=== PATIENT | male | born 1960 | race Caucasian/White ===

== ENCOUNTER 2020-09-08 09:24 | Inpatient (IN) | payer OTHER, SELFPAY ==
[2020-09-08] VITALS (16 sets, daily range): BP systolic 102–153; BP diastolic 58–108; PULSE 88–130; RESP 12–18; TEMP 36.2–36.9; O2SAT 92–100; BMI 29.1; BMI 29.5
--- NOTE | 2020-09-08 | US_ITS ---
EXAMINATION: US ABDOMEN COMPLETE CLINICAL INFORMATION: Right upper quadrant abdominal pain.. COMPARISON: Abdominal ultrasound done on 02/04/2019. TECHNIQUE: Real-time imaging of the abdominal viscera. Technically limited study due to patient's body habitus and presence of prominent bowel loops. FINDINGS: PANCREAS: Nonvisualized due to overlying bowel gas, accordingly not evaluated. ABDOMINAL AORTA: Nonvisualized due to overlying bowel gas. INFERIOR VENA CAVA: Nonvisualized due to overlying bowel gas. LIVER: Diffuse heterogeneous abnormal increased echotexture is noted consistent with diffuse liver disease, without any sonographic evidence of superimposed discrete focal liver lesion, similar to prior study. There is no intrahepatic biliary duct dilatation seen. GALLBLADDER: Multiple gallstones are present . The gallbladder wall measures between 0.3-0.5 cm and small amount of fluid is also noted within the gallbladder wall. This may represent changes secondary to adjacent diffuse liver disease. Acute cholecystitis however is included in the differential. This is a new finding since prior study. COMMON BILE DUCT: Nonvisualized, likely decompressed. RIGHT KIDNEY: Normal. No hydronephrosis. No renal calculi or focal parenchymal lesions. The kidney measures 12.8 cm in maximum dimension. LEFT KIDNEY: Normal. No hydronephrosis. No renal calculi or focal parenchymal lesions. The kidney measures 12.4 cm in maximum dimension. SPLEEN: Mildly enlarged, measures 13.8 cm. FREE FLUID: None. Incidental note is made of recanalized periumbilical vein, suggestive of underlying portal hypertension. IMPRESSION: 1. Technically limited study. 2. Nonvisualized pancreas, aorta and inferior vena cava due to overlying bowel gas and patient's body habitus. 3. Diffuse liver disease without any superimposed focal liver lesion. Note is made of recanalized periumbilical vein, suggestive of underlying portal hypertension. 4. Cholelithiasis with nonspecific mild gallbladder wall thickening and fluid within the wall of the gallbladder, may represent changes secondary to adjacent diffuse liver disease versus superimposed acute cholecystitis, or combination thereof. 5. No sonographic evidence of intrahepatic or extremity biliary ductal dilatation. 6. Mild splenomegaly. 7. No sonographic evidence of free fluid within the visualized abdomen.
--- NOTE | 2020-09-08 09:32 | ECG_ITS ---
Test Reason : WEAKNESS Blood Pressure : / mmHG Vent. Rate : 091 BPM Atrial Rate : 091 BPM P-R Int : 186 ms QRS Dur : 100 ms QT Int : 388 ms P-R-T Axes : 042 034 038 degrees QTc Int : 477 ms Normal sinus rhythm Low voltage QRS Borderline ECG Compare to previous EKG Heart rate has increased Referred By: Huan Alfredo Electronically Signed By:STEPHEN BAKER MD
--- NOTE | 2020-09-08 09:47 | XR_ITS ---
EXAMINATION: XR CHEST CLINICAL INFORMATION: Generalized weakness COMPARISON: 05/03/2020 TECHNIQUE: Portable AP upright view of the chest was obtained. FINDINGS: Cardiac and mediastinal silhouettes are normal in appearance. The lungs and pleural spaces are clear. No acute osseous abnormality. IMPRESSION: The lungs are clear.
--- NOTE | 2020-09-08 09:54 | ED.GENADULT ---
HPI - General Adult General Chief complaint: General Medical Stated complaint: weakness Time Seen by Provider: 09/08/20 09:47 Source: patient Mode of arrival: EMS Limitations: no limitations History of Present Illness HPI narrative: 60-year-old male known alcoholic, presented with persistent vomiting for the past few days and unable to keep p.o. intake. patient feeling anxious and withdrawn from alcohol. Onset (ago): day(s) (3) Related Data Allergies Allergy/AdvReac Type Severity Reaction Status Date / Time No Known Allergies Allergy Unverified 08/09/20 18:37 [No Known Allergies*] bee stings had shots Allergy Unknown Uncoded 01/02/20 00:00 none Allergy Unknown Uncoded 04/24/20 00:00 Review of Systems Review of Systems: Yes all other systems are reviewed and are negative Constitutional: Constitutional: Reports no additional constitutional complaints Eyes: Eyes: Reports no additional eye complaints ENT: Reports system reviewed and no additional complaints, except as documented Cardiovascular: Cardiovascular: Reports no additional cardiovascular complaints Respiratory: Respiratory: Reports no additional respiratory complaints Gastrointestinal: Gastrointestinal: Reports abdominal pain, Reports nausea and Reports vomiting Musculoskeletal: Musculoskeletal: Reports no additional musculoskeletal complaints Neurologic: Reports system reviewed and no additional complaints, except as documented Psychiatric: Psychiatric: Reports no additional psychiatric complaints Allergic/Immunologic: Allergic/Immunologic: Reports no additional allergic/immunologic complaints PMFSH Past Medical History Medical History Cirrhosis Ulcer Social History Social History Alcohol intake: current Alcohol intake frequency: 3 or more drinks per day Alcohol type: beer Smoking Status: Current every day smoker Use of substances other than those prescribed or required for medical reasons: No Advance Directives: No Advance Directives Information Provided: No Physical Exam Vital Signs: Vital Signs: Vital Signs Temp Pulse Resp BP Pulse Ox 09/08/20 12:34 122 H 151/108 H 09/08/20 12:31 130 H 153/105 H 09/08/20 12:30 101 H 145/87 H 09/08/20 11:46 97.2 F 95 18 127/87 98 09/08/20 09:41 97.9 F 90 18 117/87 99 09/08/20 09:28 97.9 F 90 18 117/87 98 Body Mass Index 29.1 Const: General: ill appearing Nutritional Appearance: obese Orientation/consciousness: oriented to person, oriented to place and oriented to time Limitations: no limitations HENMT: Head: Yes normal to inspection Eyes: Conjunctivae: conjunctival abnormal ( jaundice) bilateral Neck: Neck: Yes normal visual inspection Chest: Chest palpation & inspection: normal inspection of the chest Resp: Effort & Inspection: normal respiratory effort Cardio: Jugular venous distension: no JVD GI: Inspection: Yes normal to inspection Auscultation: other ( mild diffuse tenderness, possible ascites distension.) Skin: Other: dry mucous membrane. General skin exam: jaundice Neuro: General: oriented to person, oriented to place, oriented to time and other ( No hallucination documented by the patient.) Extrem: Other: +2 edema both lower extremities. General: Yes normal to inspection Course Course Course Narrative: 60-year-old male with chronic alcoholism presented with jaundice, few days of vomiting, patient was bingeing alcohol. Patient started develop symptoms for withdrawal , generalized weakness. 1. severe hypovolemic hyponatremia /lower extremities edema/ascites /orthostatic. The case was discussed with Dr. Blake from Nephrology who is recommending fluid restriction and serial sodium check. 2. alcohol withdrawal start the patient on phenobarb. 3. admitted to ICU. Medical Decision Making Lab Data Lab results reviewed: Yes I reviewed the patient's lab results. Lab results narrative: Severe hyponatremia. Result diagrams: 09/08/20 11:03 09/08/20 11:03 Labs: Lab Results 09/08/20 09/08/20 09/08/20 Range/Units 11:03 11:03 11:03 WBC 5.2 (4.8-10.8) X10*3/uL RBC 3.70 L (4.60-5.80) X10*6/uL Hgb 12.5 L (14.0-18.0) g/dl Hct 33.9 L (42-52) % MCV 91.6 (80-98) fL MCH 33.8 H (27.0-33.0) pg MCHC 36.9 H (31.0-36.0) g/dl RDW 15.7 (11.0-16.0) % Plt Count 33 L (160-400) X10*3/uL MPV Not Reportable Absolute Nucleated RBC 0.020 H (0.0-0.012) X10*3/uL Nucleated RBC % (auto) 0.4 H (0.0-0.2) /100WBC PT (10.8-13.0) SEC INR (0.9-1.1) Sodium 112 L* (135-145) mmol/L Potassium 4.5 (3.3-5.1) mmol/l Chloride 78 L (96-108) mmol/L Carbon Dioxide 14 L (22-29) mmol/L Anion Gap 25 H (12-20) BUN 4 L (9-16) mg/dL Creatinine 0.73 (0.5-1.4) mg/dL Estim Creat Clear Calc 137.7 Estimated GFR > 60 Random Glucose 76 (60-115) mg/dL Calcium 8.0 L (8.4-10.2) mg/dL Magnesium 2.0 (1.6-2.6) mg/dL Total Bilirubin (0.0-1.0) mg/dL Direct Bilirubin (0.0-0.5) mg/dL AST (5-37) U/L ALT (0-40) U/L Alkaline Phosphatase (39-117) U/L Total Protein (6.5-8.0) g/dL Albumin (3.5-5.0) g/dL Lipase (8-78) U/L Ethyl Alcohol 186 mg/dL 09/08/20 09/08/20 Range/Units 11:03 11:03 WBC (4.8-10.8) X10*3/uL RBC (4.60-5.80) X10*6/uL Hgb (14.0-18.0) g/dl Hct (42-52) % MCV (80-98) fL MCH (27.0-33.0) pg MCHC (31.0-36.0) g/dl RDW (11.0-16.0) % Plt Count (160-400) X10*3/uL MPV Absolute Nucleated RBC (0.0-0.012) X10*3/uL Nucleated RBC % (auto) (0.0-0.2) /100WBC PT 20.4 H (10.8-13.0) SEC INR 1.7 H (0.9-1.1) Sodium (135-145) mmol/L Potassium (3.3-5.1) mmol/l Chloride (96-108) mmol/L Carbon Dioxide (22-29) mmol/L Anion Gap (12-20) BUN (9-16) mg/dL Creatinine (0.5-1.4) mg/dL Estim Creat Clear Calc Estimated GFR Random Glucose (60-115) mg/dL Calcium (8.4-10.2) mg/dL Magnesium (1.6-2.6) mg/dL Total Bilirubin 13.0 H (0.0-1.0) mg/dL Direct Bilirubin 9.7 H (0.0-0.5) mg/dL AST 237 H (5-37) U/L ALT 85 H (0-40) U/L Alkaline Phosphatase 192 H (39-117) U/L Total Protein 7.3 (6.5-8.0) g/dL Albumin 3.2 L (3.5-5.0) g/dL Lipase 65 (8-78) U/L Ethyl Alcohol mg/dL ECG Data Interpretation: normal sinus rhythm at 91 beats per minutes, normal axis, unremarkable ST-T with no ischemic change. Critical Care Time Critical Care Time Critical Care Time: Yes Total Critical Care Time: 40 Attestation: I spent 40 minutes at the bedside, checking labs, consulting digital project coordinator, consulting records and tape recordings engineer, reviewing labs, continuous monitoring vital sign. Discharge Plan Discharge Clinical Impression: Acute hyponatremia, Dehydration Alcohol withdrawal Qualifiers: Complication of substance-induced condition: uncomplicated Qualified Code(s): F10.230 - Alcohol dependence with withdrawal, uncomplicated Patient Disposition: Admitted As Inpatient
--- NOTE | 2020-09-08 10:33 | PC.NURSE ---
pharmacy called for ivf
--- NOTE | 2020-09-08 10:34 | PC.NURSE ---
difficult to obtain access, 22 to right hand. tech will attempt to obtain labs
[2020-09-08 11:14] LABS: INTERNATIONAL NORM RATIO 1.7 (0.9-1.1); Prothrombin Time 20.4 SEC (10.8-13.0)
[2020-09-08] MEDS: PHENobarbitaL sodium 130 MG/ML VIAL 262 MG IM (11:27)
[2020-09-08 11:35] LABS: Ethanol 186 mg/dL
[2020-09-08 11:39] LABS: Alanine Aminotransferase 85 U/L (0-40); Albumin Level 3.2 g/dL (3.5-5.0); Alkaline Phosphatase 192 U/L (39-117); Aspartate Amino Transferase 237 U/L (5-37); Bilirubin Direct 9.7 mg/dL (0.0-0.5); Blood Urea Nitrogen 4 mg/dL (9-16); Creatinine Clr Calc Pharmacy 137.7; Estimated Glomerular Filt Rate > 60; Glucose Random 76 mg/dL (60-115); Lipase 65 U/L (8-78); Total Protein 7.3 g/dL (6.5-8.0)
[2020-09-08 11:49] LABS: Anion Gap 25 (12-20); Carbon Dioxide 14 mmol/L (22-29); Chloride 78 mmol/L (96-108); Potassium 4.5 mmol/l (3.3-5.1); Sodium 112 mmol/L (135-145)
[2020-09-08 12:06] LABS: Red Cell Distribution Width 15.7 % (11.0-16.0)
[2020-09-08 12:07] LABS: Hematocrit 33.9 % (42-52); Hemoglobin 12.5 g/dl (14.0-18.0); Mean Corpuscular HGB Conc 36.9 g/dl (31.0-36.0); Mean Corpuscular Hemoglobin 33.8 pg (27.0-33.0); Mean Corpuscular Volume 91.6 fL (80-98); NRBC Pct Auto 0.4 /100WBC (0.0-0.2); White Blood Count 5.2 X10*3/uL (4.8-10.8)
[2020-09-08 12:08] LABS: PLT ABN DIST 1; Platelet Count 33 X10*3/uL (160-400)
--- NOTE | 2020-09-08 12:44 | PC.NURSE ---
PT SEEN BY INTENSIVEIST PLAN FOR ADMISSION TO ICU
--- NOTE | 2020-09-08 13:33 | PC.NURSE ---
PT HAS ORDERS AND ROOM ASSIGNED CALLED CORPORATE SECRETARY WILL CALL BACK
--- NOTE | 2020-09-08 14:01 | PC.NURSE ---
CALLED TO GIVE REPOT AGAIN, STATED A DIFFRENT RN IS GOING TO TAKE PT AND IS CURRENTLY AT LUNCH
--- NOTE | 2020-09-08 14:37 | PC.NURSE ---
ATTEMPTED TO GIVE REPORT AGAIN RN NOT ABLE TO TAKE REPORT AT THIS TIME
--- NOTE | 2020-09-08 14:41 | PC.NURSE ---
REPORT GIVEN KEEGAN GRIFFITH
[2020-09-08] MEDS: PHENobarbitaL sodium 130 MG/ML VIAL 197 MG IM ×2 (14:44→21:34)
[2020-09-08 17:02] LABS: Base Excess VBG -7.2 mmol/L; Blood Gas Serial # 5414; HCO3 VBG 15 mmol/L; Oxygen Saturation VBG 94.9 %; PCO2 VBG 22 mmhg; PO2 VBG 73 mmhg; pH VBG 7.45 (7.32-7.43)
[2020-09-08 17:08] LABS: Anion Gap 21 (12-20); Blood Urea Nitrogen 4 mg/dL (9-16); Calcium 7.6 mg/dL (8.4-10.2); Carbon Dioxide 16 mmol/L (22-29); Chloride 80 mmol/L (96-108); Creatinine Clr Calc Pharmacy 141.6; Estimated Glomerular Filt Rate > 60; Glucose Random 65 mg/dL (60-115); Potassium 4.2 mmol/l (3.3-5.1); Sodium 113 mmol/L (135-145)
--- NOTE | 2020-09-08 17:25 | PM.CCHP ---
History of Present Illness Date of Service: 09/08/20 Chief Complaint: malaise 60-year-old gentleman with underlying history of alcohol abuse, liver cirrhosis, gastroesophageal reflux disease, gastritis, prior upper GI bleed admitted on 09/08/2020 with alcohol intoxication, malaise, abdominal discomfort, and subacute hypernatremia. Patient states that he has not been eating well for the last month except drinking alcohol. he denied any other complaints. He has been admitted to intensive care unit for close monitoring of his subacute asymptomatic hyponatremia Review of Systems Constitutional: Constitutional: Reports malaise and Reports poor appetite Eyes: Eyes: Denies change in vision and Denies loss of vision Cardiovascular: Cardiovascular: Denies chest pain, Reports pedal edema and Denies dyspnea on exertion Respiratory: Respiratory: Denies chest congestion, Denies dyspnea on exertion and Denies wheezing Gastrointestinal: Gastrointestinal: Denies constipation, Reports dyspepsia, Reports heartburn and Denies diarrhea Genitourinary: Genitourinary: Denies dysuria and Denies urinary urgency Integumentary/Breasts: Skin/Breast: Denies skin ulcer and Denies sores Neurologic: Denies loss of vision and Denies memory loss Psychiatric: Psychiatric: Reports depression and Denies memory loss Endocrine: Endocrine: Denies cold intolerance and Denies heat intolerance Hematologic/Lymphatic: Hematologic/Lymphatic: Denies easy bruising Allergic/Immunologic: Allergic/Immunologic: Denies wheezing PMFSH Past Medical History Medical History Cirrhosis Ulcer Social History Social History Alcohol intake: current Alcohol intake frequency: 3 or more drinks per day Alcohol type: beer Smoking Status: Current every day smoker Use of substances other than those prescribed or required for medical reasons: No Advance Directives: No Advance Directives Information Provided: No Meds Allergies Allergy/AdvReac Type Severity Reaction Status Date / Time No Known Allergies Allergy Unverified 08/09/20 18:37 [No Known Allergies*] bee stings had shots Allergy Unknown Uncoded 01/02/20 00:00 none Allergy Unknown Uncoded 04/24/20 00:00 Physical Exam Vital Signs: Vital Signs: Vital Signs Temp Pulse Resp BP Pulse Ox 09/08/20 12:34 122 H 151/108 H 09/08/20 12:31 130 H 153/105 H 09/08/20 12:30 101 H 145/87 H 09/08/20 11:46 97.2 F 95 18 127/87 98 09/08/20 09:41 97.9 F 90 18 117/87 99 09/08/20 09:28 97.9 F 90 18 117/87 98 Body Mass Index 29.1 Const: General: no acute distress, alert and awake Eyes: Sclerae: sclerae normal EOM: EOMs intact bilaterally Neck: Neck: Yes no lymphadenopathy, Yes trachea midline and Yes supple Resp: Effort & Inspection: normal respiratory effort and no respiratory distress Auscultation: clear to auscultation bilaterally Cardio: Rate: regular rate Rhythm: regular rhythm Heart sounds: no gallops, no murmurs and no rubs GI: Palpation (GI): Soft to palpation and Other GI palpation findings present ( Nontender) Auscultation: normal bowel sounds Extrem: General: Yes no pedal edema, No clubbing and No cyanosis Right upper extremity: edema ( 2+ bilateral) Results Labs Labs: Laboratory Tests 09/08/20 09/08/20 09/08/20 11:03 11:03 11:03 WBC 5.2 RBC 3.70 L Hgb 12.5 L Hct 33.9 L MCV 91.6 MCH 33.8 H MCHC 36.9 H RDW 15.7 Plt Count 33 L MPV Not Reportable Absolute Nucleated RBC 0.020 H Nucleated RBC % (auto) 0.4 H PT INR VBG pH VBG pCO2 VBG Oxygen Liters/Min VBG pO2 VBG HCO3 VBG O2 Saturation VBG Base Excess Sodium 112 L* Potassium 4.5 Chloride 78 L Carbon Dioxide 14 L Anion Gap 25 H BUN 4 L Creatinine 0.73 Estim Creat Clear Calc 137.7 Estimated GFR > 60 Random Glucose 76 Calcium 8.0 L Magnesium 2.0 Total Bilirubin Direct Bilirubin AST ALT Alkaline Phosphatase Total Protein Albumin Lipase Phenobarbital Ethyl Alcohol 186 09/08/20 09/08/20 09/08/20 11:03 11:03 11:03 WBC RBC Hgb Hct MCV MCH MCHC RDW Plt Count MPV Absolute Nucleated RBC Nucleated RBC % (auto) PT 20.4 H INR 1.7 H VBG pH VBG pCO2 VBG Oxygen Liters/Min VBG pO2 VBG HCO3 VBG O2 Saturation VBG Base Excess Sodium Potassium Chloride Carbon Dioxide Anion Gap BUN Creatinine Estim Creat Clear Calc Estimated GFR Random Glucose Calcium Magnesium Total Bilirubin 13.0 H Direct Bilirubin 9.7 H AST 237 H ALT 85 H Alkaline Phosphatase 192 H Total Protein 7.3 Albumin 3.2 L Lipase 65 Phenobarbital < 1.1 L Ethyl Alcohol 09/08/20 09/08/20 15:49 16:44 WBC RBC Hgb Hct MCV MCH MCHC RDW Plt Count MPV Absolute Nucleated RBC Nucleated RBC % (auto) PT INR VBG pH 7.45 H VBG pCO2 22 VBG Oxygen Liters/Min Not Reportable VBG pO2 73 VBG HCO3 15 VBG O2 Saturation 94.9 VBG Base Excess -7.2 Sodium 113 L* Potassium 4.2 Chloride 80 L Carbon Dioxide 16 L Anion Gap 21 H BUN 4 L Creatinine 0.71 Estim Creat Clear Calc 141.6 Estimated GFR > 60 Random Glucose 65 Calcium 7.6 L Magnesium Total Bilirubin Direct Bilirubin AST ALT Alkaline Phosphatase Total Protein Albumin Lipase Phenobarbital Ethyl Alcohol Assessment and Plan (1) Acute hyponatremia: Status: Acute (2) Alcohol withdrawal: Qualifiers: Complication of substance-induced condition: uncomplicated Qualified Code(s): F10.230 - Alcohol dependence with withdrawal, uncomplicated Status: Acute (3) Elevated bilirubin: Status: Acute Assessment: 60-year-old gentleman with underlying history of liver cirrhosis alcohol abuse admitted with subacute asymptomatic hyponatremia and alcohol withdrawal. Plan: Neuro: Alcohol withdrawal, continue on phenobarbital protocol. Cardiac: No acute issues. Pulmonary: No acute issues. Renal: Subacute asymptomatic hyponatremia. Nephrology service care appreciated. Likely secondary to poor solute intake. Continue to encourage appropriate p.o. intake. Continue to monitor sodium level. Endo: No acute issues. GI: Asymptomatic elevated bilirubin, will obtain abdominal ultrasound. ID: No acute issues Heme/Onc: No acute issues. Psych: No acute issues. Miscellaneous: No acute issues. Prophylaxis: Intermittent pneumatic compression Diet: regular Critical care time spent: 45 minutes Critical Care Time 45 minutes
[2020-09-08 19:43] LABS: Glucose Urine UA 100 MG/DL (NEG); Leukocyte Esterase Urine NEG (NEG); Nitrite Urine POS (NEG); PH 5.5 (5.0-8.0); Specific Gravity - Urine 1.025 (1.005-1.025); Urine Blood NEG (NEG); Urine Ketones 15 MG/DL (NEG); Urine Protein TRACE MG/DL (NEG-TRACE)
[2020-09-08 19:44] LABS: Appearance Urine HAZY; Color Urine AMBER
[2020-09-08 19:49] LABS: Bacteria Urine 2+ /LPF; RBC Urine 0 /HPF (0); Squamous Epithelial Cell Urine 1+ /LPF; WBC Urine 0 /HPF (0-4)
[2020-09-08 20:12] LABS: Osmolality Urine 486 mosm/kg (373-1093)
[2020-09-08 20:35] LABS: Sodium Urine Random < 20.0 mmol/L
--- NOTE | 2020-09-08 22:43 | CONS_ITS ---
DATE OF SERVICE: 09/08/2020 REASON FOR CONSULTATION: Hyponatremia. HISTORY OF PRESENT ILLNESS: Thomas is a 60-year-old gentleman who is an alcoholic, who presents to the hospital with persistent vomiting for the last many days. He has been unable to keep anything by mouth and has not been eating and drinking well. He is currently feeling anxious and withdrawn from alcohol. He has not had any seizures. Evaluation done in the emergency room found him to have hyponatremia with a serum sodium of 112. He was given 1 L of banana bag and is being admitted for further management. Nephrology is being consulted to assist in his clinical care during his current hospital stay. PAST MEDICAL HISTORY: Alcohol abuse, liver cirrhosis, peptic ulcer. MEDICATIONS: All his current medications were reviewed. ALLERGIES: REVIEWED. FAMILY HISTORY: There is no family history of any renal diseases. SOCIAL HISTORY: He has a history of alcohol abuse and continues to drink heavily every day. He is a smoker. He denies using drugs. REVIEW OF SYSTEMS: All other systems have been reviewed and were negative except as mentioned in HPI. PHYSICAL EXAMINATION: GENERAL: Thomas was lying comfortably in the bed. He was alert and awake. HEENT: His extraocular eye movements were normal. His oral mucous membranes appeared moist. NECK: Supple. LUNGS: Air entry was reduced at the bases. HEART: First and second heart sounds were normal. ABDOMEN: Soft, nontender. EXTREMITIES: He does not have any calf tenderness, but has trace of pedal edema. NEUROLOGICAL: He was alert and awake. He was moving all extremities. LABORATORY DATA: Sodium 112, potassium 4.5, chloride 78, bicarbonate 14, BUN 4, creatinine of 0.73. ASSESSMENT/PLAN: Hyponatremia. Thomas is a heavy alcoholic. He presents with hyponatremia without any mental status changes. He has received 1 L of intravenous fluids by emergency room physician. He has trace of pedal edema. I have ordered urine sodium and urine osmolality. He may have beer potomania. We should fluid restrict him for now. Based on urine studies, we can consider giving him normal saline at 100 mL an hour for 10 hours for a maximum of 1 L if needed. We should monitor his serum sodium every 2 hours. He is at high risk for central pontine myelinolysis. We will closely monitor management with the colleagues during his hospital stay. Thank you for giving us an opportunity to participate in the medical care of this pleasant patient. MD CINDY Lombardi/IOANA / [id number] MTDD
[2020-09-09] VITALS (23 sets, daily range): BP systolic 105–143; BP diastolic 60–95; PULSE 88–115; RESP 11–22; TEMP 36.8–37; O2SAT 92–100; BMI 30.1
[2020-09-09] MEDS: 0.9 % Sodium Chloride Flush 3 ML SYRINGE IVFLUSH ×3 (03:31→15:05)
[2020-09-09 05:37] LABS: Basophils Percent Auto 0.2 % (0-2); Eosinophils Percent Auto 0.2 % (0-4); Imm Gran Abs Auto 0.09 X10*3/uL (0.00-0.03); MANUAL DIFF FLAG SCAN; PLT CLUMP 1; Red Blood Count 3.51 X10*6/uL (4.60-5.80); SCAN SMEAR FLAG 1
[2020-09-09 05:39] LABS: Hematocrit 31.7 % (42-52); Hemoglobin 11.7 g/dl (14.0-18.0); Lymphocytes Absolute Auto 0.7 X10*3/uL (1.2-4.9); Lymphocytes Percent Auto 16.5 % (20-40); Mean Corpuscular HGB Conc 36.9 g/dl (31.0-36.0); Mean Corpuscular Hemoglobin 33.3 pg (27.0-33.0); Mean Corpuscular Volume 90.3 fL (80-98); Mean Platelet Volume 10.5 fL (9.4-12.4); Monocytes Absolute Auto 0.6 X10*3/uL (0.1-1.2); Monocytes Percent Auto 14.3 % (2-11); NRBC Pct Auto 0.5 /100WBC (0.0-0.2); Neutrophils Percent Auto 66.8 % (45-73); Red Cell Distribution Width 15.3 % (11.0-16.0); White Blood Count 4.4 X10*3/uL (4.8-10.8)
[2020-09-09 05:43] LABS: Platelet Count 39 X10*3/uL (160-400)
[2020-09-09 05:44] LABS: pH VBG 7.45 (7.32-7.43)
[2020-09-09 05:45] LABS: Base Excess VBG -4.4 mmol/L; HCO3 VBG 18 mmol/L; PCO2 VBG 27 mmhg; PO2 VBG 53 mmhg
[2020-09-09 06:00] LABS: Albumin Level 2.9 g/dL (3.5-5.0)
[2020-09-09 06:08] LABS: Alanine Aminotransferase 79 U/L (0-40); Albumin Level 2.9 g/dL (3.5-5.0); Alkaline Phosphatase 193 U/L (39-117); Anion Gap 20 (12-20); Aspartate Amino Transferase 218 U/L (5-37); Bilirubin Total 13.1 mg/dL (0.0-1.0); Blood Urea Nitrogen 5 mg/dL (9-16); Calcium 7.7 mg/dL (8.4-10.2); Carbon Dioxide 15 mmol/L (22-29); Chloride 83 mmol/L (96-108); Creatinine Clr Calc Pharmacy 136.6; Estimated Glomerular Filt Rate > 60; Glucose Random 78 mg/dL (60-115); Magnesium 1.9 mg/dL (1.6-2.6); Phosphorus 1.7 mg/dL (2.7-4.5); Potassium 4.2 mmol/l (3.3-5.1); Sodium 114 mmol/L (135-145); Total Protein 6.4 g/dL (6.5-8.0)
--- NOTE | 2020-09-09 06:26 | PC.NURSE ---
SE [id number]: PT SLEPT OFF AND ON IN NAPS. PT DENIES COMPLAINTS. STATES I'M GOING THROUGH WITHDRAWALS. POSITIVE TREMORS NOTED BOTH HANDS. PT DENIES HEADACHE. HE IS A&O X4 AND IS COOPERATIVE WITH CARE. ON PHENOBARBITOL PROTOCOL. SODIUM LEVEL THIS AM 114. DANETTE MORALES IS AWARE. PT HAS NOT VOIDED IN 8 HOURS BUT DOES NOT FEEL THE URGE TO GO AND IS NOT DISTENDED. WILL REPORT THIS TO ONCOMING RN TO WATCH U/O.
[2020-09-09] MEDS: Omeprazole 40 MG CAPSULE.DR PO (06:30)
[2020-09-09 06:58] LABS: SLIDE REVIEW VERIFIED
[2020-09-09] MEDS: PHENobarbitaL 30 MG TABLET 60 MG PO ×2 (08:50→21:14)
[2020-09-09] MEDS: Sodium,Potassium Phosphates POWD.PACK 2 PACKET PO ×3 (08:51→21:11)
[2020-09-09] MEDS: Folic Acid 1 MG TABLET 2 MG PO (08:51)
[2020-09-09] MEDS: Sodium Chloride Tab 1 GM TABLET 2 GM PO ×3 (09:40→21:12)
--- NOTE | 2020-09-09 10:49 | PM.PNNEP ---
Subjective Subjective Principal diagnosis: Hyponatremia Interval history: Feels improved. Sodium improving. No mental status changes Physical Exam Vital Signs: Vital Signs: Vital Signs Temp Pulse Resp BP Pulse Ox 09/09/20 10:00 115 H 21 H 119/79 96 09/09/20 09:00 102 H 15 117/88 97 09/09/20 07:00 102 H 18 120/81 95 09/09/20 06:15 90 14 116/72 93 09/09/20 05:00 100 16 108/64 94 09/09/20 04:00 88 14 116/71 92 09/09/20 03:00 96 14 117/71 94 09/09/20 02:00 90 14 114/71 92 09/09/20 01:00 99 12 124/79 96 09/09/20 00:00 88 15 105/60 94 09/08/20 22:47 92 14 102/58 L 92 09/08/20 21:51 95 15 128/103 H 94 09/08/20 21:50 88 16 100 09/08/20 21:00 99 13 128/103 H 95 09/08/20 20:00 98.5 F 90 15 146/88 H 09/08/20 19:00 92 15 121/71 93 09/08/20 18:27 100 14 126/72 95 09/08/20 17:49 100 12 126/72 95 09/08/20 17:00 95 14 106/79 94 09/08/20 16:00 97.3 F 98 18 106/78 96 09/08/20 12:34 122 H 151/108 H 09/08/20 12:31 130 H 153/105 H 09/08/20 12:30 101 H 145/87 H 09/08/20 11:46 97.2 F 95 18 127/87 98 Body Mass Index 30.1 Const: General: cooperative Orientation/consciousness: oriented to person, oriented to place and oriented to time HENMT: Head: Yes normocephalic Eyes: EOM: EOMs intact bilaterally Neck: Neck: Yes no JVD Resp: Auscultation: clear to auscultation bilaterally Cardio: Jugular venous distension: no JVD Heart sounds: S1 normal heart sound present and S2 normal heart sound present GI: Inspection: Yes obesity Neuro: General: oriented to person, oriented to place and oriented to time Assessment & Plan Assessment and plan (1) Hyponatremia: Problem details: Serum sodium improving Urine studies reviewed ICU Attending has given him NaCl tablets Getting lytes monitored closely Status: Acute Time Spent With Patient Time: Total time spent is greater than 50% in coordination of care (as documented) at patient's floor/unit and/or counseling patient:
--- NOTE | 2020-09-09 12:14 | PM.CCPN ---
Subjective Subjective Date of Service: 09/09/20 Interval History: ICU day 2 for subacute symptomatic hyponatremia and alcohol withdrawal. 60-year-old gentleman with underlying history of alcohol abuse, liver cirrhosis, gastroesophageal reflux disease, gastritis, prior upper GI bleed admitted on 09/08/2020 with alcohol intoxication, malaise, abdominal discomfort, and subacute hypernatremia. Patient states that he has not been eating well for the last month except drinking alcohol. Until recently he has been doing his own groceries, now his friend helps him secondary to underlying back pain. He denied any other complaints. He has been admitted to intensive care unit for close monitoring of his subacute asymptomatic hyponatremia Physical Exam Vital Signs: Vital Signs: Vital Signs Temp Pulse Resp BP Pulse Ox 09/09/20 12:00 98.3 F 104 H 16 125/76 92 09/09/20 10:53 97 16 119/79 94 09/09/20 10:00 115 H 21 H 119/79 96 09/09/20 09:00 102 H 15 117/88 97 09/09/20 07:00 102 H 18 120/81 95 09/09/20 06:15 90 14 116/72 93 09/09/20 05:00 100 16 108/64 94 09/09/20 04:00 88 14 116/71 92 09/09/20 03:00 96 14 117/71 94 09/09/20 02:00 90 14 114/71 92 09/09/20 01:00 99 12 124/79 96 09/09/20 00:00 88 15 105/60 94 09/08/20 22:47 92 14 102/58 L 92 09/08/20 21:51 95 15 128/103 H 94 09/08/20 21:50 88 16 100 09/08/20 21:00 99 13 128/103 H 95 09/08/20 20:00 98.5 F 90 15 146/88 H 09/08/20 19:00 92 15 121/71 93 09/08/20 18:27 100 14 126/72 95 09/08/20 17:49 100 12 126/72 95 09/08/20 17:00 95 14 106/79 94 09/08/20 16:00 97.3 F 98 18 106/78 96 09/08/20 12:34 122 H 151/108 H 09/08/20 12:31 130 H 153/105 H 09/08/20 12:30 101 H 145/87 H Body Mass Index 30.1 Const: General: no acute distress, alert and awake Eyes: Sclerae: sclerae normal EOM: EOMs intact bilaterally Neck: Neck: Yes no lymphadenopathy, Yes trachea midline and Yes supple Resp: Effort & Inspection: normal respiratory effort and no respiratory distress Auscultation: clear to auscultation bilaterally Cardio: Rate: regular rate Rhythm: regular rhythm Heart sounds: no gallops, no murmurs and no rubs GI: Palpation (GI): Soft to palpation and Other GI palpation findings present ( Nontender) Auscultation: normal bowel sounds Extrem: General: No clubbing, No cyanosis and Yes edema (1+ Bilateral) Objective Data Labs CBC & Chem 7: 09/09/20 05:24 09/09/20 05:24 Labs: Laboratory Results - last 24 hr 09/08/20 09/08/20 09/08/20 11:03 15:49 16:44 WBC RBC Hgb Hct MCV MCH MCHC RDW Plt Count MPV Immature Gran % (Auto) Neut % (Auto) Lymph % (Auto) [place] % (Auto) Eos % (Auto) Baso % (Auto) Lymph # (Auto) [place] # (Auto) Eos # (Auto) Baso # (Auto) Abs Immat Gran (auto) Absolute Neuts (auto) Absolute Nucleated RBC Nucleated RBC % (auto) Smear Tech's Comments VBG pH 7.45 H VBG pCO2 22 VBG Oxygen Liters/Min Not Reportable VBG pO2 73 VBG HCO3 15 VBG O2 Saturation 94.9 VBG Base Excess -7.2 Sodium 113 L* Potassium 4.2 Chloride 80 L Carbon Dioxide 16 L Anion Gap 21 H BUN 4 L Creatinine 0.71 Estim Creat Clear Calc 141.6 Estimated GFR > 60 Random Glucose 65 Calcium 7.6 L Phosphorus Magnesium Total Bilirubin AST ALT Alkaline Phosphatase Total Protein Albumin Urine Color Urine Appearance Urine pH Ur Specific [place] Urine Protein Urine Glucose (UA) Urine Ketones Urine Blood Urine Nitrite Ur Leukocyte Esterase Urine RBC Urine WBC Ur Squamous Epith Cells Urine Bacteria Urine Osmolality Ur Random Sodium Phenobarbital < 1.1 L 09/08/20 09/08/20 09/08/20 19:37 19:37 19:37 WBC RBC Hgb Hct MCV MCH MCHC RDW Plt Count MPV Immature Gran % (Auto) Neut % (Auto) Lymph % (Auto) [place] % (Auto) Eos % (Auto) Baso % (Auto) Lymph # (Auto) [place] # (Auto) Eos # (Auto) Baso # (Auto) Abs Immat Gran (auto) Absolute Neuts (auto) Absolute Nucleated RBC Nucleated RBC % (auto) Smear Tech's Comments VBG pH VBG pCO2 VBG Oxygen Liters/Min VBG pO2 VBG HCO3 VBG O2 Saturation VBG Base Excess Sodium Potassium Chloride Carbon Dioxide Anion Gap BUN Creatinine Estim Creat Clear Calc Estimated GFR Random Glucose Calcium Phosphorus Magnesium Total Bilirubin AST ALT Alkaline Phosphatase Total Protein Albumin Urine Color BRIGHT Urine Appearance HAZY Urine pH 5.5 Ur Specific [place] 1.025 Urine Protein TRACE Urine Glucose (UA) 100 H Urine Ketones 15 Urine Blood NEG Urine Nitrite POS H Ur Leukocyte Esterase NEG Urine RBC 0 Urine WBC 0 Ur Squamous Epith Cells 1+ Urine Bacteria 2+ Urine Osmolality 486 Ur Random Sodium < 20.0 Phenobarbital 09/09/20 09/09/20 09/09/20 05:24 05:24 05:24 WBC 4.4 L RBC 3.51 L Hgb 11.7 L Hct 31.7 L MCV 90.3 MCH 33.3 H MCHC 36.9 H RDW 15.3 Plt Count 39 L MPV 10.5 Immature Gran % (Auto) 2.0 H Neut % (Auto) 66.8 Lymph % (Auto) 16.5 L [place] % (Auto) 14.3 H Eos % (Auto) 0.2 Baso % (Auto) 0.2 Lymph # (Auto) 0.7 L [place] # (Auto) 0.6 Eos # (Auto) 0.0 Baso # (Auto) 0.0 Abs Immat Gran (auto) 0.09 H Absolute Neuts (auto) 3.0 Absolute Nucleated RBC 0.020 H Nucleated RBC % (auto) 0.5 H Smear Tech's Comments VERIFIED VBG pH VBG pCO2 VBG Oxygen Liters/Min VBG pO2 VBG HCO3 VBG O2 Saturation VBG Base Excess Sodium 114 L* Potassium 4.2 Chloride 83 L Carbon Dioxide 15 L Anion Gap 20 BUN 5 L Creatinine 0.74 Estim Creat Clear Calc 136.6 Estimated GFR > 60 Random Glucose 78 Calcium 7.7 L Phosphorus 1.7 L Magnesium 1.9 Total Bilirubin 13.1 H AST 218 H ALT 79 H Alkaline Phosphatase 193 H Total Protein 6.4 L Albumin 2.9 L 2.9 L Urine Color Urine Appearance Urine pH Ur Specific [place] Urine Protein Urine Glucose (UA) Urine Ketones Urine Blood Urine Nitrite Ur Leukocyte Esterase Urine RBC Urine WBC Ur Squamous Epith Cells Urine Bacteria Urine Osmolality Ur Random Sodium Phenobarbital 09/09/20 05:24 WBC RBC Hgb Hct MCV MCH MCHC RDW Plt Count MPV Immature Gran % (Auto) Neut % (Auto) Lymph % (Auto) [place] % (Auto) Eos % (Auto) Baso % (Auto) Lymph # (Auto) [place] # (Auto) Eos # (Auto) Baso # (Auto) Abs Immat Gran (auto) Absolute Neuts (auto) Absolute Nucleated RBC Nucleated RBC % (auto) Smear Tech's Comments VBG pH 7.45 H VBG pCO2 27 VBG Oxygen Liters/Min TNP VBG pO2 53 VBG HCO3 18 VBG O2 Saturation 89.0 VBG Base Excess -4.4 Sodium Potassium Chloride Carbon Dioxide Anion Gap BUN Creatinine Estim Creat Clear Calc Estimated GFR Random Glucose Calcium Phosphorus Magnesium Total Bilirubin AST ALT Alkaline Phosphatase Total Protein Albumin Urine Color Urine Appearance Urine pH Ur Specific [place] Urine Protein Urine Glucose (UA) Urine Ketones Urine Blood Urine Nitrite Ur Leukocyte Esterase Urine RBC Urine WBC Ur Squamous Epith Cells Urine Bacteria Urine Osmolality Ur Random Sodium Phenobarbital Microbiology Microbiology Results: Microbiology 09/08/20 19:45 Urine clean catch - Clean Catch Midstream Urine Culture - Preliminary No growth to date. Progress Note: A&P Assessment and plan (1) Hyponatremia: Status: Acute (2) Elevated bilirubin: Status: Acute (3) Alcohol withdrawal: Status: Acute Assessment and Plan: Assessment: 60-year-old gentleman with underlying history of liver cirrhosis, alcohol abuse, and back pain admitted with subacute asymptomatic hyponatremia and alcohol withdrawal. Plan: Neuro: Alcohol withdrawal, continue on phenobarbital protocol. Cardiac: No acute issues. Pulmonary: No acute issues. Renal: Subacute asymptomatic hyponatremia. Nephrology service care appreciated. Likely secondary to poor solute intake. Continue to encourage appropriate p.o. intake. Started on p.o. sodium tabs. Continue to monitor sodium level. Endo: No acute issues. GI: Asymptomatic elevated bilirubin - no evidence of biliary obstruction. ID: No acute issues Heme/Onc: No acute issues. Psych: No acute issues. Miscellaneous: No acute issues. Prophylaxis: Intermittent pneumatic compression Diet: regular Critical care time spent: 30 minutes Time Spent With Patient Total time spent with greater than 50% in coordination of care (as documented) at patient's floor/unit and/or counseling patient:: 0 Critical Care Time Critical Care Time (minutes): 30
--- NOTE | 2020-09-09 12:15 | MHC.CM.PN ---
Met with pt to discuss d/c plan Pt states he resides alone without services or any equipment. His PCP is located at [facility] (Dr. Castillo's replacement) and he either walks or calls his brother for transportation if needed. Pt is unsure of what his d/c needs will be. I'm having trouble walking He is hoping to return to home and is receptive to a [facility] referral but will also consider STR if it is recommended/required. Referral placed to [facility] : CM will continue to follow
[2020-09-09 16:48] LABS: Anion Gap 20 (12-20); Blood Urea Nitrogen 6 mg/dL (9-16); Calcium 7.8 mg/dL (8.4-10.2); Carbon Dioxide 16 mmol/L (22-29); Chloride 84 mmol/L (96-108); Creatinine Clr Calc Pharmacy 127.6; Estimated Glomerular Filt Rate > 60; Glucose Random 98 mg/dL (60-115); Potassium 4.3 mmol/l (3.3-5.1); Sodium 116 mmol/L (135-145)
[2020-09-09] MEDS: ondansetron HCL 4 MG/2 ML VIAL IVPUSH (17:46)
[2020-09-10] VITALS (12 sets, daily range): BP systolic 102–154; BP diastolic 45–90; PULSE 80–110; RESP 16–20; TEMP 36.1–37.2; O2SAT 94–99; BMI 29.8
[2020-09-10] MEDS: 0.9 % Sodium Chloride Flush 3 ML SYRINGE IVFLUSH ×3 (00:06→17:17)
[2020-09-10 02:54] LABS: Anion Gap 18 (12-20); Blood Urea Nitrogen 6 mg/dL (9-16); Calcium 7.8 mg/dL (8.4-10.2); Carbon Dioxide 19 mmol/L (22-29); Chloride 85 mmol/L (96-108); Creatinine Clr Calc Pharmacy 130.9; Estimated Glomerular Filt Rate > 60; Glucose Random 99 mg/dL (60-115); Potassium 3.9 mmol/l (3.3-5.1); Sodium 118 mmol/L (135-145)
--- NOTE | 2020-09-10 03:04 | PC.NURSE ---
Addendum entered by Edi Ambriz RN 09/10/20 03:48: correction: [id number] Addendum entered by Edi Ambriz RN 09/10/20 03:47: hospitalist updated r/t Na 188 & ?presence of intra-cellular parasites &? 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
[2020-09-10] MEDS: Omeprazole 40 MG CAPSULE.DR PO (06:00)
[2020-09-10 07:06] LABS: Basophils Percent Auto 0.3 % (0-2); Eosinophils Percent Auto 0.3 % (0-4); Hematocrit 32.6 % (42-52); Imm Gran Abs Auto 0.15 X10*3/uL (0.00-0.03); Imm Gran Pct Auto 4.2 % (0.0-0.4); Lymphocytes Absolute Auto 0.5 X10*3/uL (1.2-4.9); Lymphocytes Percent Auto 13.3 % (20-40); MANUAL DIFF FLAG SCAN; Mean Corpuscular HGB Conc 36.8 g/dl (31.0-36.0); Mean Corpuscular Volume 92.4 fL (80-98); Mean Platelet Volume 11.5 fL (9.4-12.4); Monocytes Absolute Auto 0.5 X10*3/uL (0.1-1.2); Neutrophils Absolute Auto 2.4 X10*3/uL (2.0-8.3); Neutrophils Percent Auto 66.9 % (45-73); Red Blood Count 3.53 X10*6/uL (4.60-5.80); SCAN SMEAR FLAG 1; White Blood Count 3.5 X10*3/uL (4.8-10.8)
[2020-09-10 07:14] LABS: HCO3 VBG 21 mmol/L; PCO2 VBG 33 mmhg; PO2 VBG 33 mmhg; pH VBG 7.43 (7.32-7.43)
[2020-09-10 07:15] LABS: Base Excess VBG -2.3 mmol/L
[2020-09-10 07:26] LABS: Platelet Count 33 X10*3/uL (160-400)
[2020-09-10 07:50] LABS: Alanine Aminotransferase 83 U/L (0-40); Albumin Level 2.8 g/dL (3.5-5.0); Alkaline Phosphatase 188 U/L (39-117); Anion Gap 19 (12-20); Aspartate Amino Transferase 202 U/L (5-37); Bilirubin Total 16.5 mg/dL (0.0-1.0); Blood Urea Nitrogen 6 mg/dL (9-16); Calcium 7.8 mg/dL (8.4-10.2); Carbon Dioxide 19 mmol/L (22-29); Chloride 84 mmol/L (96-108); Creatinine Clr Calc Pharmacy 134.3; Estimated Glomerular Filt Rate > 60; Glucose Random 95 mg/dL (60-115); Magnesium 1.8 mg/dL (1.6-2.6); Phosphorus 2.1 mg/dL (2.7-4.5); Potassium 3.9 mmol/l (3.3-5.1); Sodium 118 mmol/L (135-145); Total Protein 6.3 g/dL (6.5-8.0)
[2020-09-10 08:03] LABS: SLIDE REVIEW VERIFIED
--- NOTE | 2020-09-10 08:48 | P.PNNP_ITS ---
Subjective Subjective Principal diagnosis: Hyponatremia Interval history: ICU day 2 for subacute symptomatic hyponatremia and alcohol withdrawal. 60-year-old gentleman with underlying history of alcohol abuse, liver cirrhosis, gastroesophageal reflux disease, gastritis, prior upper GI bleed admitted on 09/08/2020 with alcohol intoxication, malaise, abdominal discomfort, and subacute hypernatremia. Patient states that he has not been eating well for the last month except drinking alcohol. Until recently he has been doing his own groceries, now his friend helps him secondary to underlying back pain. He denied any other complaints. He has been admitted to intensive care unit for close monitoring of his subacute asymptomatic hyponatremia Physical Exam Vital Signs: Vital Signs: Vital Signs Temp Pulse Resp BP Pulse Ox 09/10/20 07:07 97.1 F 99 20 154/90 H 99 09/10/20 03:54 19 09/10/20 03:37 96.9 F 93 19 135/86 97 09/10/20 03:00 98.1 F 90 18 116/54 L 96 09/10/20 02:00 98.2 F 88 16 109/45 L 94 09/10/20 01:00 98.1 F 88 18 133/89 94 09/10/20 00:00 98.2 F 110 H 18 123/84 96 09/09/20 22:52 100 16 139/76 95 09/09/20 22:00 98 14 143/95 H 97 09/09/20 21:00 113 H 22 H 142/90 H 100 09/09/20 20:00 98.6 F 108 H 20 127/76 96 09/09/20 19:00 96 18 125/80 93 09/09/20 17:46 99 15 117/70 94 09/09/20 16:59 91 15 143/85 H 95 09/09/20 15:53 106 H 11 L 143/88 H 95 09/09/20 14:57 102 H 18 122/81 93 09/09/20 14:00 109 H 22 H 122/81 95 09/09/20 13:00 94 15 112/65 93 09/09/20 12:00 98.3 F 104 H 16 125/76 92 09/09/20 10:53 97 16 119/79 94 09/09/20 10:00 115 H 21 H 119/79 96 09/09/20 09:00 102 H 15 117/88 97 Body Mass Index 30.1 Const: General: cooperative, no acute distress, alert, awake and ill appearing Nutritional Appearance: obese Orientation/consciousness: oriented to person, oriented to place and oriented to time Limitations: no limitations HENMT: Head: Yes normal to inspection and Yes normocephalic Eyes: Conjunctivae: conjunctival abnormal ( jaundice) bilateral Sclerae: sc lerae normal EOM: EOMs intact bilaterally Neck: Neck: Yes normal visual inspection, Yes no lymphadenopathy, Yes trachea midline, Yes supple and Yes no JVD Chest: Chest palpation & inspection: normal inspection of the chest Resp: Effort & Inspection: normal respiratory effort and no respiratory distress Auscultation: clear to auscultation bilaterally Cardio: Jugular venous distension: no JVD Rate: regular rate Rhythm: regular rhythm Heart sounds: S1 normal heart sound present, S2 normal heart sound present, no gallops, no murmurs and no rubs GI: Inspection: Yes normal to inspection and Yes obesity Palpation (GI): Soft to palpation and Other GI palpation findings present ( Nontender) Auscultation: normal bowel sounds and other ( mild diffuse tenderness, possible ascites distension.) Skin: Other: dry mucous membrane. General skin exam: jaundice Neuro: General: oriented to person, oriented to place, oriented to time and other ( No hallucination documented by the patient.) Extrem: Other: +2 edema both lower extremities. General: Yes normal to inspection, Yes no pedal edema, No clubbing, No cyanosis and Yes edema (1+ Bilateral) Right upper extremity: edema ( 2+ bilateral) Assessment & Plan Assessment and plan (1) Hyponatremia: Status: Acute (2) Elevated bilirubin: Status: Acute (3) Alcohol withdrawal: Status: Acute Assessment and Plan: Assessment: 60-year-old gentleman with underlying history of liver cirrhosis, alcohol abuse, and back pain admitted with subacute asymptomatic hyponatremia and alcohol withdrawal. Urine sodium low and osm >460. Pt appears euvolemic to hypovolemic but has ascites. Impression: ACute hyponatremia in cirrhosis due to excess water intake and ADH stimulation due to cirrhosis Recommend: Normal saline at 75 cc/hr today to get sodium to 124 or so Hold any/all diuretics Strict fluid restriction to 1200 cc/day
--- NOTE | 2020-09-10 09:06 | P.CNGI_ITS ---
History of Present Illness Data of Consult Service Date: 09/10/20 Requesting physician: Mitch Stover / [facility] Primary Care Provider: Unknown Physician HPI 60 YM with GERD, gout, chronic ETOH abuse, hemochromatosis admitted with elevated LFTs related to ETOH abuse. Pt presented to [facility] ED on 09/08/20 with jaundice, 3 days of vomiting after binging on alcohol. Patient started developing symptoms of withdrawal and generalized weakness. Patient states that he has not been eating well for the last month except drink ing alcohol. Until recently he has been doing his own groceries, now his friend helps him secondary to underlying back pain. He denied any other complaints. Pt was admitted to intensive care unit for close monitoring of his subacute asymptomatic hyponatremia Pt was treated with fluid restriction and serial sodium check and started on phenobarb for ETOH withdrawl. Patient denies known family history of colon polyps, colon cancer or other GI malignancies. LABS IN [facility] : as noted below. IMAGING STUDIES: 09/08/20 ABD US SHOWED: 1. Technically limited study. 2. Nonvisualized pancreas, aorta and inferior vena cava due to overlying bowel gas and patient's body habitus. 3. Diffuse liver disease without any superimposed focal liver lesion. Note is made of recanalized periumbilical vein, suggestive of underlying portal hypertension. 4. Cholelithiasis with nonspecific mild gallbladder wall thickening and fluid within the wall of the gallbladder, may represent changes secondary to adjacent diffuse liver disease versus superimposed acute cholecystitis, or combination thereof. 5. No sonographic evidence of intrahepatic or extremity biliary ductal dilatation. 6. Mild splenomegaly. 7. No sonographic evidence of free fluid within the visualized abdomen. PAST GI HISTORY BY REVIEW OF MEDICAL RECORDS: 09/2019 Pt was hospitalized with UGIB. EGD showed: ESOPHAGUS: Grade 1 two column esophageal varices without stigmata of bleeding. GE junction at 38 cms, hiatal hernia 38 to 42 cms. No esophagitis, Zurita s or MW tear noted. STOMACH: A 1.5 to 2 cms ulcer in the antrum with black eschar in the center - treated with cautery using the Gold Probe at 20 hernandez. Moderate gastric erythema with snake skin appearance due to mild portal gastropathy. Biopsies were obtained from the antrum to check for H Pylori. No gastric varices noted on retroflexed examination of the cardia. Review of Systems Constitutional: Constitutional: Reports fatigue, Denies fever(s) and Reports poor appetite Eyes: Eyes: Denies loss of vision Cardiovascular: Cardiovascular: Denies chest pain, Reports leg edema and D enies dyspnea Respiratory: Respiratory: Denies cough and Denies dyspnea Gastrointestinal: Gastrointestinal: Denies abdominal pain, Reports dyspepsia and Reports heartburn Genitourinary: Genitourinary: Denies dysuria and Denies urinary frequency Musculoskeletal: Musculoskeletal: Denies arthralgias and Denies joint swelling Neurologic: Reports system reviewed and no additional complaints, except as do cumented, Denies loss of vision and Denies memory loss Psychiatric: Psychiatric: Reports anxiety, Reports depression and Denies memory loss Endocrine: Endocrine: Reports fatigue PMFSH Past Medical History Medical History (Updated 09/27/20 @ 00:00 by Adrián Deshpande) Alcoholic cirrhosis of liver Cataracts, bilateral Cirrhosis Esophageal varices determined by endoscopy Gout Hemochromatosis History of gastric ulcer Ulcer Surgical History Surgical History (Updated 09/10/20 @ 18:47 by Rachelle Padgett MD) H/O right inguinal hernia repair Hx of tonsillectomy Social History Social History (Updated 09/10/20 @ 09:13 by Rachelle Padgett MD) Household Members: None Housing: Other Alcohol intake: current Alcohol intake frequency: 3 or more drinks per day Alcohol type: beer Smoking Status: Never smoker service: No Current occupational status: unemployed Meds Allergies Allergy/AdvReac Type Severity Reaction Status Date / Time No Known Allergies Allergy Unverified 08/09/20 18:37 [No Known Allergies*] bee stings had shots Allergy Unknown Uncoded 01/02/20 00:00 none Allergy Unknown Uncoded 04/24/20 00:00 Physical Exam Vital Signs: Vital Signs: Vital Signs Temp Pulse Resp BP Pulse Ox 09/10/20 07:07 97.1 F 99 20 154/90 H 99 09/10/20 03:54 19 09/10/20 03:37 96.9 F 93 19 135/86 97 09/10/20 03:00 98.1 F 90 18 116/54 L 96 09/10/20 02:00 98.2 F 88 16 109/45 L 94 09/10/20 01:00 98.1 F 88 18 133/89 94 09/10/20 00:00 98.2 F 110 H 18 123/84 96 09/09/20 22:52 100 16 139/76 95 09/09/20 22:00 98 14 143/95 H 97 09/09/20 21:00 113 H 22 H 142/90 H 100 09/09/20 20:00 98.6 F 108 H 20 127/76 96 09/09/20 19:00 96 18 125/80 93 09/09/20 17:46 99 15 117/70 94 09/09/20 16:59 91 15 143/85 H 95 09/09/20 15:53 106 H 11 L 143/88 H 95 09/09/20 14:57 102 H 18 122/81 93 09/09/20 14:00 109 H 22 H 122/81 95 09/09/20 13:00 94 15 112/65 93 09/09/20 12:00 98.3 F 104 H 16 125/76 92 09/09/20 10:53 97 16 119/79 94 09/09/20 10:00 115 H 21 H 119/79 96 Body Mass Index 30.1 Const: General: ill appearing Orientation/consciousness: oriented to person and oriented to place Eyes: Sclerae: scleral abnormal (Jaundice) Neck: Neck: Yes normal visual inspection Chest: Chest palpation & inspection: normal inspection of the chest Resp: Auscultation: clear to auscultation bilaterally GI: Inspection: Yes distended Palpation (GI): nontender Auscultation: normal bowel sounds Rectal Exam - Male: Yes deferred Skin: General skin exam: ecchymosis ( upper extremities) Rashes: no rashes Neuro: General: oriented to person and oriented to place Extrem: Right lower extremity: edema Left lower extremity: edema Results Labs CBC & Chem 7: 09/19/20 05:37 09/19/20 09:50 Labs: Short CBC 09/10/20 Range/Units 06:38 WBC 3.5 L (4.8-10.8) X10*3/uL Hgb 12.0 L (14.0-18.0) g/dl Hct 32.6 L (42-52) % Plt Count 33 L (160-400) X10*3/uL BMP 09/09/20 09/10/20 09/10/20 16:09 02:19 06:38 Sodium 116 L* 118 L* 118 L* Potassium 4.3 3.9 3.9 Chloride 84 L 85 L 84 L Carbon Dioxide 16 L 19 L 19 L BUN 6 L 6 L 6 L Creatinine 0.80 0.78 0.76 Calcium 7.8 L 7.8 L 7.8 L Liver Function 09/10/20 Range/Units 06:38 Total Bilirubin 16.5 H (0.0-1.0) mg/dL AST 202 H (5-37) U/L ALT 83 H (0-40) U/L Alkaline Phosphatase 188 H (39-117) U/L Albumin 2.8 L (3.5-5.0) g/dL Microbiology Microbiology Results: Microbiology 09/08/20 19:45 Urine clean catch - Clean Catch Midstream Urine Culture - Preliminary No growth to date. Assessment and Plan (1) Alcoholic cirrhosis of liver: Status: Acute (2) Alcohol withdrawal: Qualifiers: Complication of substance-induced condition: uncomplicated Qualified Code(s): F10.230 - Alcohol dependence with withdrawal, uncomplicated Status: Resolved (3) Hyponatremia: Status: Acute (4) Esophageal varices determined by endoscopy: Status: Acute 60 YM with GERD, gout, hemochromatosis, ESLD due to ongoing ETOH abuse admitted with jaundice and 3 days of vomiting after binging on alcohol. MELD score is 24. Labs showed hyponatremia which is improving. Pt has a past history of UGIB in 2012 and 2019. RECOMMENDATIONS: 1. Follow LFTs daily. 2. AFP, ammonia, mitochondral and SMA - added to am labs 3. Iron studies - added to am labs 4. He needs alcohol rehab to pevent worsening of his liver disease. 5. Outpatient EGD to follow up on esophageal varices noted on past EGD a year ago.
[2020-09-10 09:45] LABS: INTERNATIONAL NORM RATIO 1.9 (0.9-1.1); Prothrombin Time 22.2 SEC (10.8-13.0)
[2020-09-10 10:00] LABS: Sodium 119 mmol/L (135-145)
[2020-09-10 10:16] LABS: HBS Num1 0.51 mIU/mL (0-7.99); HBc Num1 0.66 S/CO (0.00-0.79); HBsAGNum1 0.25 S/CO (0.00-0.99); Hepatitis B Core Antibody Nonreactive (Nonreactive); Hepatitis B Surface Antigen Negative (Negative); ~HepC Num1 0.57 S/CO (0.00-0.79); ~Hepatitis B Surface Antibody NONREACTIVE (Nonreactive); ~Hepatitis C Antibody Nonreactive (Nonreactive)
--- NOTE | 2020-09-10 10:36 | MHC.CARE ---
Addiction Consult Service note: Patient is a 60 year old Chadian speaking male in bed 450-1 who presented [place] [facility] [place] due to significant medical conditions related to his alcohol use. Patient reports that being hospitalized has been scary and was an eye opening experience for him. Patient acknowledges the connection between his alcohol use and his current medical condition. Patient reports that he does not plan to drink after discharge. When asked what patient's longest period of sobriety was, patient could not say. Discussed outpatient supports with patient. Patient reports he does not find support groups helpful, stating I have enough problems of my own, I don't need to hear anyone else's. This insurance writer discussed outpatient therapy with patient. Patient reports he has never had a therapist or counselor before but that he could see how it could be helpful. Patient was willing to have this insurance writer put a referral in for [facility] and they will reach out to patient directly to schedule an appointment. This insurance writer encouraged patient to reach out to family and friends for additional support if he is feeling like he may relapse. Patient acknowledged. Discussed case with patient's RN, Shannon.
[2020-09-10] MEDS: Multivitamin TABLET 1 TAB PO (10:40)
[2020-09-10] MEDS: Sodium Chloride Tab 1 GM TABLET 2 GM PO (10:40)
[2020-09-10] MEDS: PHENobarbitaL 30 MG TABLET 60 MG PO ×2 (10:40→21:01)
[2020-09-10] MEDS: Folic Acid 1 MG TABLET 2 MG PO (10:40)
--- NOTE | 2020-09-10 11:18 | MHC.CM.PN ---
Plan for dc is home with new VNA VS STR. Patient presently requires assist of 2 and would benefit from a PT eval closer to time of dc. CM will continue to follow.
--- NOTE | 2020-09-10 12:00 | CA_ITS ---
Transthoracic Echocardiogram Patient (Last, First, Middle): Thomas Winters, Gender: Male Date of : 1960 Age: 60 Procedure Date: 09/10/2020 Procedure Type: Transthoracic Echocardiogram Location: [facility] [place] Height: 182.88 cm Weight: 104.33 kg BSA: 2.26 m2 Heart Rate: bpm BP: 118 / 60 mmHg Programs Director: Referring MD: Heriberto Lawler MD Symptoms: DYSPNEA OVER EXERTION Study Quality: Fair ECG Rhythm: Sinus Conclusions: - Normal left ventricular size and systolic function. - Diastolic function is normal for age. - Normal right ventricular cavity size and systolic function. - There is moderate dilatation of the sinuses of Valsalva and mild dilatation of the ascending aorta. - No significant valvular or pericardial pathology. Findings Left Ventricle Normal left ventricular size and systolic function. There is mildly increased left ventricular wall thickness. The visually estimated ejection fraction is between 55-60%. Regional wall motion abnormalities can not be excluded due to suboptimal endocardial definition. Diastolic function is normal for age. Right Ventricle Normal right ventricular cavity size and systolic function. Atria The left atrium was not well visualized. Aortic Valve There is a normal trileaflet aortic valve. There is mild thickening of the aortic valve. There is no aortic valve stenosis. There is no aortic valve regurgitation. Mitral Valve Normal mitral valve structure and function. There is no mitral valve regurgitation. There is no mitral valve stenosis. Pulmonic Valve Normal pulmonic valve structure and function. There is trace pulmonic valve regurgitation. Tricuspid Valve Normal tricuspid valve structure and function. There is trace tricuspid valve regurgitation. Indeterminate right atrial pressure. There is no evidence of pulmonary hypertension. Great Vessels There is moderate dilatation of the sinuses of Valsalva and mild dilatation of the ascending aorta. The visualized portions of the pulmonary artery and branches are normal. Venous The inferior vena cava was not well visualized. Pericardium/Pleural There is no evidence of pericardial effusion. Prior Study Comparison No prior study available for comparison. Measurements 2D Linear Measurements IVSd: 1.32 0.6-0.9/0.6-1.0 cm LVIDd: 4.05 3.9-5.3/4.2-5.9 cm LVIDd Index: 1.79 2.4-3.2/2.2-3.1 cm/m2 LVIDs: 2.72 2.0-3.6 cm LVPWd: 1.36 0.7-1.1 cm Ao Root: 4.40 2.1-3.5 cm LA Diam: 3.20 2.7-3.8/3.0-4.0 cm LAIDs Index: 1.42 1.5-2.3 cm/m2 LV Mass: 247.93 67-162/88-224 g LV Mass Index: 109.70 43-95/49-115 g/m2 LVOT Diam: 2.40 3.0+(-)1.3 cm Mitral Valve MV Pk E: 0.58 MV PK A: 0.89 MV Decel Time: 158.00 E/A: 0.60 E'Lateral: 9.96 E'Medial: 8.90 E/E' Med: 6.50 E/E' Lat: 5.80 PHT: 46.00 MVA PHT: 4.78 Decel [place]: 3.64 Aortic Valve AoV Pk Farzad: 0.97 AoV Mn Farzad: 0.62 AoV VTI: 0.23 AoV Pk Grad: 4.00 Aov Mn Grad: 2.00 VANESSA Cont.VTI: 3.34 LVOT LVOT Pk Farzad: 0.78 LVOT Mn Farzad: 0.49 LVOT VTI: 0.17 LVOT Pk Grad: 2.00 LVOT Mn Grad: 1.00 LVOT Diam: 2.40 LVOT Area: 4.52 Diastolic Function MV Pk E: 0.58 MV Pk A: 0.89 E/A: 0.60 E'Medial: 8.90 E/E' Med: 6.50 E' Laterial: 9.96 E/E' Lat: 5.80 Tricuspid Valve TR Pk Farzad: 2.34 TR Pk Grad: 22.00 Great Vessels Aorta Ao Root-2D: 4.40 2.0-3.7 cm Sinus of Valsalva: 4.40 2.0-3.5 cm Ao Asc: 3.73 2.1-3.4 cm Pulmonary Valve PV Pk Farzad: 1.10 Peak PV Grad: 5.00 Updated in Other Vendor System with Status of Final Moses Steele MD electronically signed on 09/10/2020 6:06:50 PM with status of Final
[2020-09-10] MEDS: Phytonadione (Vit K1) Oral 10 MG/ML AMPUL 5 MG PO (12:01)
--- NOTE | 2020-09-10 12:07 | MHC.CLN ---
WILL ADD ENSURE BID TO INCREASE KCALS R/T POOR PO INTAKE SUPPLEMENT PROVIDES 360CC FREE WATER FOR CURRENT FLUID RESTRICTION
--- NOTE | 2020-09-10 14:43 | HO.PM.IMPN ---
Subjective Subjective Date of Service: 09/10/20 Interval History: Feels anxious, tremulous No hematemesis, hematochezia, or melena Drinks at least 3-4 tall boys (24 oz beers) daily which he says is less than before Does not have a GI specialist Constitutional Constitutional: Denies fever(s) Cardiovascular Cardiovascular: Denies chest pain and Denies dyspnea Respiratory Respiratory: Denies no additional respiratory complaints, Denies cough and Denies dyspnea Gastrointestinal Gastrointestinal: Denies abdominal pain, Denies melena, Denies hematochezia and Denies coffee ground emesis Neurologic Neurologic: Reports tremor(s) Psychiatric Psychiatric: Reports anxiety Physical Exam Vital Signs: Vital Signs: Vital Signs Temp Pulse Resp BP Pulse Ox 09/10/20 12:54 98 142/78 H 98 09/10/20 11:19 97.8 F 98 20 142/78 H 98 09/10/20 07:07 97.1 F 99 20 154/90 H 99 09/10/20 03:54 19 09/10/20 03:37 96.9 F 93 19 135/86 97 09/10/20 03:00 98.1 F 90 18 116/54 L 96 09/10/20 02:00 98.2 F 88 16 109/45 L 94 09/10/20 01:00 98.1 F 88 18 133/89 94 09/10/20 00:00 98.2 F 110 H 18 123/84 96 09/09/20 22:52 100 16 139/76 95 09/09/20 22:00 98 14 143/95 H 97 09/09/20 21:00 113 H 22 H 142/90 H 100 09/09/20 20:00 98.6 F 108 H 20 127/76 96 09/09/20 19:00 96 18 125/80 93 09/09/20 17:46 99 15 117/70 94 09/09/20 16:59 91 15 143/85 H 95 09/09/20 15:53 106 H 11 L 143/88 H 95 09/09/20 14:57 102 H 18 122/81 93 Body Mass Index 29.8 Const: General: ill appearing Eyes: Sclerae: normal sclerae (icteric) Resp: Effort & Inspection: normal respiratory effort Auscultation: clear to auscultation bilaterally and no crackles Cardio: Rate: regular rate Rhythm: regular rhythm Heart sounds: no murmurs GI: Inspection: Yes distended and Yes other (no fluid wave) Palpation (GI): Soft to palpation and nontender Skin: Other: jaundiced General skin exam: jaundice Psych: Appearance: disheveled Objective Data Current Medications Generic Name Dose Route Start Last Admin Trade Name Freq PRN Reason Stop Dose Admin Acetaminophen 650 mg 09/08/20 12:53 Acetaminophen Supp 650 Mg Supp.Rect MI Q6H PRN Pain, Mild (Pain Scale 1-3) Folic Acid 2 mg 09/08/20 13:00 09/10/20 10:40 Folic Acid 1 Mg Tablet PO 2 mg DAILY RAMON Administration Thiamine HCl 300 mg/ Sodium 103 mls @ 206 mls/hr 09/10/20 09:00 09/10/20 11:15 Chloride IV Infused DAILY [facility] Infusion Medication 1 each 09/08/20 09:00 No Benzodiazepines MISCELLANE DAILY RAMON Multivitamins/Vitamin C 1 tab 09/10/20 09:00 09/10/20 10:40 Multivitamin Tablet PO 1 tab DAILY RAMON Administration Omeprazole 40 mg 09/08/20 13:00 09/10/20 06:00 Omeprazole 40 Mg Capsule.Dr PO 40 mg DAILY@0630 RAMON Administration Ondansetron HCl 4 mg 09/08/20 12:53 09/09/20 17:46 Ondansetron Hcl 4 Mg/2 Ml Vial IVPUSH 4 mg Q8H PRN Administration Nausea and Vomiting Phenobarbital 60 mg 09/09/20 09:00 09/10/20 10:40 Phenobarbital 30 Mg Tablet PO 09/10/20 21:01 60 mg BID RAMON Administration Phenobarbital 30 mg 09/11/20 09:00 Phenobarbital 30 Mg Tablet PO 09/12/20 21:01 BID RAMON Phenobarbital 30 mg 09/13/20 09:00 Phenobarbital 30 Mg Tablet PO 09/14/20 09:01 DAILY RAMON Phytonadione 5 mg 09/10/20 11:45 09/10/20 12:01 Phytonadione (Vit K1) Oral 10 Mg/Ml Ampul PO 09/12/20 09:01 5 mg DAILY RAMON Administration Sodium Chloride 3 ml 09/08/20 16:00 09/10/20 10:39 0.9 % Sodium Chloride Flush 3 Ml Syringe IVFLUSH 3 ml QSHIFT RAMON Administration Sodium Chloride 2 gm 09/09/20 09:15 09/10/20 10:40 Sodium Chloride Tab 1 Gm Tablet PO 2 gm TID RAMON Administration Labs CBC & Chem 7: 09/10/20 06:38 09/10/20 09:03 Labs: Laboratory Results - last 24 hr 09/09/20 09/10/20 09/10/20 16:09 02:19 06:38 WBC 3.5 L RBC 3.53 L Hgb 12.0 L Hct 32.6 L MCV 92.4 MCH 34.0 H MCHC 36.8 H RDW 16.0 Plt Count 33 L MPV 11.5 Immature Gran % (Auto) 4.2 H Neut % (Auto) 66.9 Lymph % (Auto) 13.3 L Republic % (Auto) 15.0 H Eos % (Auto) 0.3 Baso % (Auto) 0.3 Lymph # (Auto) 0.5 L [place] # (Auto) 0.5 Eos # (Auto) 0.0 Baso # (Auto) 0.0 Abs Immat Gran (auto) 0.15 H Absolute Neuts (auto) 2.4 Absolute Nucleated RBC 0.000 Nucleated RBC % (auto) 0.0 Smear Tech's Comments VERIFIED PT INR VBG pH VBG pCO2 VBG Oxygen Liters/Min VBG pO2 VBG HCO3 VBG O2 Saturation VBG Base Excess Sodium 116 L* 118 L* Potassium 4.3 3.9 Chloride 84 L 85 L Carbon Dioxide 16 L 19 L Anion Gap 20 18 BUN 6 L 6 L Creatinine 0.80 0.78 Estim Creat Clear Calc 127.6 130.9 Estimated GFR > 60 > 60 Random Glucose 98 99 Calcium 7.8 L 7.8 L Phosphorus Magnesium Total Bilirubin AST ALT Alkaline Phosphatase Total Protein Albumin Hep Bs Antigen Hep Bs Antibody Hep B Core Total Ab Hepatitis C Ab (EIA) 09/10/20 09/10/20 09/10/20 06:38 06:38 09:03 WBC RBC Hgb Hct MCV MCH MCHC RDW Plt Count MPV Immature Gran % (Auto) Neut % (Auto) Lymph % (Auto) Republic % (Auto) Eos % (Auto) Baso % (Auto) Lymph # (Auto) Republic # (Auto) Eos # (Auto) Baso # (Auto) Abs Immat Gran (auto) Absolute Neuts (auto) Absolute Nucleated RBC Nucleated RBC % (auto) Smear Tech's Comments PT 22.2 H INR 1.9 H VBG pH 7.43 VBG pCO2 33 VBG Oxygen Liters/Min VBG pO2 33 VBG HCO3 21 VBG O2 Saturation 66.0 VBG Base Excess -2.3 Sodium 118 L* Potassium 3.9 Chloride 84 L Carbon Dioxide 19 L Anion Gap 19 BUN 6 L Creatinine 0.76 Estim Creat Clear Calc 134.3 Estimated GFR > 60 Random Glucose 95 Calcium 7.8 L Phosphorus 2.1 L Magnesium 1.8 Total Bilirubin 16.5 H AST 202 H ALT 83 H Alkaline Phosphatase 188 H Total Protein 6.3 L Albumin 2.8 L Hep Bs Antigen Hep Bs Antibody Hep B Core Total Ab Hepatitis C Ab (EIA) 09/10/20 09/10/20 09:03 09:03 WBC RBC Hgb Hct MCV MCH MCHC RDW Plt Count MPV Immature Gran % (Auto) Neut % (Auto) Lymph % (Auto) Republic % (Auto) Eos % (Auto) Baso % (Auto) Lymph # (Auto) Republic # (Auto) Eos # (Auto) Baso # (Auto) Abs Immat Gran (auto) Absolute Neuts (auto) Absolute Nucleated RBC Nucleated RBC % (auto) Smear Tech's Comments PT INR VBG pH VBG pCO2 VBG Oxygen Liters/Min VBG pO2 VBG HCO3 VBG O2 Saturation VBG Base Excess Sodium 119 L* Potassium Chloride Carbon Dioxide Anion Gap BUN Creatinine Estim Creat Clear Calc Estimated GFR Random Glucose Calcium Phosphorus Magnesium Total Bilirubin AST ALT Alkaline Phosphatase Total Protein Albumin Hep Bs Antigen Negative Hep Bs Antibody NONREACTIVE Hep B Core Total Ab Nonreactive Hepatitis C Ab (EIA) Nonreactive Microbiology Microbiology Results: Microbiology 09/08/20 19:45 Urine clean catch - Clean Catch Midstream Urine Culture - Final No growth. Assessment and Plan (1) Hyponatremia: Status: Acute (2) Alcohol withdrawal: Status: Acute (3) Alcoholic cirrhosis of liver: Status: Acute Assessment and Plan: hospital d#3 60yo M with decompensated EtOH cirrhosis admitted to ICU with severe hyponatremia, alcohol withdrawal stepped down to [facility] [place] 09/09/20 # severe hyponatremia, due to cirrhosis + beer potomania - Na correcting at appropriate slow rate to avoid CPM. Nephrology following. pt on fluid restriction 1000 mL/d. will switch PO NaCl tabs to NS at 50 mL/hr x 500/hr, continue q4h Na checks. # EtOH withdrawal, high-risk with hx of seizures - phenobarbital taper, vitamins, CARE team consultation, sobriety strongly urged # EtOH hepatitis - high-risk. Araseli discriminant function 59. consult GI. # decompensated cirrhosis - MELD 30 (53% 3-mo mortality) - no ascites on US. - hx variceal hemorrhage. check FOBT. recheck CBC - GI consultation # coagulopathy - due to cirrhosis. will give PO vit K, recheck PT/INR # thrombocytopenia - due to cirrhosis. avoid heparin, recheck CBCd
[2020-09-10 14:59] LABS: Sodium 120 mmol/L (135-145)
[2020-09-10] MEDS: 0.9 % Sodium Chloride 500 ML 50 ML IV (17:13)
[2020-09-10 18:53] LABS: Sodium 119 mmol/L (135-145)
[2020-09-11] VITALS (7 sets, daily range): BP systolic 121–142; BP diastolic 85–94; PULSE 88–127; RESP 18–20; TEMP 36.1–36.7; O2SAT 96–99; BMI 29.2
[2020-09-11 00:44] LABS: Sodium 119 mmol/L (135-145)
[2020-09-11] MEDS: Omeprazole 40 MG CAPSULE.DR PO (05:54)
[2020-09-11 06:41] LABS: Basophils Percent Auto 0.3 % (0-2); Eosinophils Percent Auto 0.5 % (0-4); Lymphocytes Absolute Auto 0.6 X10*3/uL (1.2-4.9); MANUAL DIFF FLAG SCAN; Mean Corpuscular Volume 91.7 fL (80-98); Neutrophils Percent Auto 61.6 % (45-73); PLT CLUMP 1; SCAN SMEAR FLAG 1
[2020-09-11 06:43] LABS: Hematocrit 32.1 % (42-52); Hemoglobin 11.8 g/dl (14.0-18.0); Imm Gran Abs Auto 0.19 X10*3/uL (0.00-0.03); Imm Gran Pct Auto 4.9 % (0.0-0.4); Lymphocytes Percent Auto 16.6 % (20-40); Mean Corpuscular HGB Conc 36.8 g/dl (31.0-36.0); Mean Corpuscular Hemoglobin 33.7 pg (27.0-33.0); Mean Platelet Volume 13.2 fL (9.4-12.4); Monocytes Absolute Auto 0.6 X10*3/uL (0.1-1.2); Monocytes Percent Auto 16.1 % (2-11); Neutrophils Absolute Auto 2.4 X10*3/uL (2.0-8.3); Red Cell Distribution Width 15.9 % (11.0-16.0); White Blood Count 3.9 X10*3/uL (4.8-10.8)
[2020-09-11 06:51] LABS: Ammonia 82 umol/L (13-55)
[2020-09-11 07:06] LABS: Iron 99 mcg/dL (45-160); Total Iron Binding Capacity < 116 mcg/dL (228-428); Unsaturated Iron Binding < 17 ug/dL
[2020-09-11 07:07] LABS: Platelet Count 39 X10*3/uL (160-400)
[2020-09-11 07:14] LABS: Alanine Aminotransferase 81 U/L (0-40); Albumin Level 2.7 g/dL (3.5-5.0); Alkaline Phosphatase 176 U/L (39-117); Anion Gap 17 (12-20); Aspartate Amino Transferase 181 U/L (5-37); Blood Urea Nitrogen 5 mg/dL (9-16); Carbon Dioxide 20 mmol/L (22-29); Chloride 87 mmol/L (96-108); Creatinine Clr Calc Pharmacy 147.3; Estimated Glomerular Filt Rate > 60; Glucose Random 86 mg/dL (60-115); Potassium 3.6 mmol/l (3.3-5.1); Sodium 120 mmol/L (135-145); Total Protein 6.1 g/dL (6.5-8.0)
[2020-09-11 08:11] LABS: SLIDE REVIEW VERIFIED
[2020-09-11] MEDS: Phytonadione (Vit K1) Oral 10 MG/ML AMPUL 5 MG PO (09:26)
[2020-09-11] MEDS: PHENobarbitaL 30 MG TABLET PO ×2 (09:27→20:16)
[2020-09-11] MEDS: Folic Acid 1 MG TABLET 2 MG PO (09:27)
[2020-09-11] MEDS: 0.9 % Sodium Chloride Flush 3 ML SYRINGE IVFLUSH ×3 (09:27→20:17)
[2020-09-11] MEDS: Multivitamin TABLET 1 TAB PO (09:27)
[2020-09-11] MEDS: Sodium Chloride Tab 1 GM TABLET 2 GM PO ×2 (15:10→20:16)
--- NOTE | 2020-09-11 18:04 | HO.PM.IMPN ---
Subjective Subjective Date of Service: 09/11/20 Interval History: seen and examined this AM no complaints, no abdominal pain Review of Systems General - no fevers or chills Cardiovascular - no chest pain Respiratory - no shortness of breath or cough Abdominal- no abdominal pain, nausea, vomiting, diarrhea Physical Exam Vital Signs: Vital Signs: Vital Signs Temp Pulse Resp BP Pulse Ox 09/11/20 15:18 97 F 102 H 18 142/90 H 98 09/11/20 11:00 97.8 F 127 H 20 137/94 H 96 09/11/20 07:08 98.0 F 103 H 20 140/85 H 97 09/11/20 03:05 96.9 F 88 19 138/90 H 97 09/10/20 23:06 96.9 F 80 19 152/89 H 96 09/10/20 19:14 98.9 F 95 18 102/57 L 96 Body Mass Index 29.2 General - no acute distress, appears comfortable but chronically ill Cardiovascular - regular rate and rhythm, S1-S2 Lungs - normal respiratory effort, clear to auscultation bilaterally, no wheezing Abdomen - distended but soft, no fluid thrill appreciated Neuro - awake and alert, no focal deficits, no asterixis Objective Data Current Medications Generic Name Dose Route Start Last Admin Trade Name Freq PRN Reason Stop Dose Admin Acetaminophen 650 mg 09/08/20 12:53 Acetaminophen Supp 650 Mg Supp.Rect MS Q6H PRN Pain, Mild (Pain Scale 1-3) Folic Acid 2 mg 09/08/20 13:00 09/11/20 09:27 Folic Acid 1 Mg Tablet PO 2 mg DAILY RAMON Administration Thiamine HCl 300 mg/ Sodium 103 mls @ 206 mls/hr 09/10/20 09:00 09/11/20 09:58 Chloride IV Infused DAILY RAMON Infusion Medication 1 each 09/08/20 09:00 No Benzodiazepines MISCELLANE DAILY RAMON Multivitamins/Vitamin C 1 tab 09/10/20 09:00 09/11/20 09:27 Multivitamin Tablet PO 1 tab DAILY RAMON Administration Omeprazole 40 mg 09/08/20 13:00 09/11/20 05:54 Omeprazole 40 Mg Capsule. PO 40 mg DAILY@0630 RAMON Administration Ondansetron HCl 4 mg 09/08/20 12:53 09/09/20 17:46 Ondansetron Hcl 4 Mg/2 Ml Vial IVPUSH 4 mg Q8H PRN Administration Nausea and Vomiting Phenobarbital 30 mg 09/11/20 09:00 09/11/20 09:27 Phenobarbital 30 Mg Tablet PO 09/12/20 21:01 30 mg BID RAMON Administration Phenobarbital 30 mg 09/13/20 09:00 Phenobarbital 30 Mg Tablet PO 09/14/20 09:01 DAILY RAMON Phytonadione 5 mg 09/10/20 11:45 09/11/20 09:26 Phytonadione (Vit K1) Oral 10 Mg/Ml Ampul PO 09/12/20 09:01 5 mg DAILY RAMON Administration Sodium Chloride 3 ml 09/08/20 16:00 09/11/20 15:11 0.9 % Sodium Chloride Flush 3 Ml Syringe IVFLUSH 3 ml QSHIFT RAMON Administration Sodium Chloride 2 gm 09/11/20 13:10 09/11/20 15:16 Sodium Chloride Tab 1 Gm Tablet PO Not Given TID [facility] Labs CBC & Chem 7: 09/11/20 05:26 09/11/20 05:26 Microbiology Microbiology Results: Microbiology 09/08/20 19:45 Urine clean catch - Clean Catch Midstream Urine Culture - Final No growth. Assessment and Plan (1) Alcoholic cirrhosis of liver: Status: Acute (2) Hyponatremia: Status: Acute (3) Alcohol withdrawal: Status: Acute Assessment and Plan: 60yo M with decompensated EtOH cirrhosis admitted to ICU with severe hyponatremia, alcohol withdrawal, stepped down to [facility] [place] 09/09/20 1. severe hyponatremia, due to cirrhosis + beer potomania Nephrology on board, recs to give salt tabs ----- strict I/O, aoc aadc operations staff officer has bee informed recheck SNa now -- ordered but pending due to difficult draw. check q6 hours to ensure appropriate increase 2. EtOH withdrawal, high-risk with hx of seizures Phenobarb, MVI, change folate to PO by tomorrow 3. ?EtOH hepatitis GI on board steriods not recommended at this time 4. decompensated cirrhosis MELD 30 (53% 3-mo mortality) no ascites on US. hx variceal hemorrhage. check FOBT. recheck CBC hold diuretics start lactose -- ammonia increased, but clinically no encephalopathy at this time 5. coagulopathy due to cirrhosis. will give PO vit K, recheck PT/INR 6. thrombocytopenia due to cirrhosis. avoid heparin, recheck CBCd Full Code DVT pptx, mechanical -- high risk for bleed with pharmacological
[2020-09-11 18:34] LABS: Sodium 122 mmol/L (135-145)
--- NOTE | 2020-09-11 19:57 | P.PNNP_ITS ---
Subjective Subjective Principal diagnosis: Hyponatremia Interval history: seen and examined this AM no complaints, no abdominal pain Physical Exam Vital Signs: Vital Signs: Vital Signs Temp Pulse Resp BP Pulse Ox 09/11/20 19:46 97.8 F 103 H 18 121/87 99 09/11/20 15:18 97 F 102 H 18 142/90 H 98 09/11/20 11:00 97.8 F 127 H 20 137/94 H 96 09/11/20 07:08 98.0 F 103 H 20 140/85 H 97 09/11/20 03:05 96.9 F 88 19 138/90 H 97 09/10/20 23:06 96.9 F 80 19 152/89 H 96 Body Mass Index 29.2 General - no acute distress, appears comfortable but chronically ill Cardiovascular - regular rate and rhythm, S1-S2 Lungs - normal respiratory effort, clear to auscultation bilaterally, no whe ezing Abdomen - distended but soft, no fluid thrill appreciated Neuro - awake and alert, no focal deficits, no asterixis Const: General: cooperative, no acute distress, alert, awake and ill appearing Nutritional Appearance: obese Orientation/consciousness: oriented to person, oriented to place and oriented to time Limitations: no limitations HENMT: Head: Yes normal to inspection and Yes normocephalic Eyes: Conjunctivae: conjunctival abnormal ( jaundice) bilateral Sclerae: sclerae normal and scleral abnormal (Jaundice) EOM: EOMs intact bilaterally Neck: Neck: Yes normal visual inspection, Yes no lymphadenopathy, Yes trachea midline, Yes supple and Yes no JVD Chest: Chest palpation & inspection: normal inspection of the chest Resp: Effort & Inspection: normal respiratory effort and no respiratory distress Auscultation: clear to auscultation bilaterally and no crackles Cardio: Jugular venous distension: no JVD Rate: regular rate Rhythm: regular rhythm Heart sounds: S1 normal heart sound present, S2 normal heart sound present, no gallops, no murmurs and no rubs GI: Inspection: Yes normal to inspection, Yes distended, Yes obesity and Yes other (no fluid wave) Palpation (GI): Soft to palpation, nontender and Other GI palpation findings present ( Nontender) Auscultation: normal bowel sounds and other ( mild diffuse tenderness, possible ascites distension.) Rectal E xam - Male: Yes deferred Skin: Other: jaundiced General skin exam: ecchymosis ( upper extremities) and jaundice Rashes: no rashes Neuro: General: oriented to person, oriented to place, oriented to time and other ( No hallucination documented by the patient.) Extrem: Other: +2 edema both lower extremities. General: Yes normal to inspection, Yes no pedal edema, No clubbing, No cyanosis and Yes edema (1+ Bilateral) Right upper extremity: edema ( 2+ bilateral) Right lower extremity: edema Left lower extremity: edema Psych: Appearance: disheveled Assessment & Plan Assessment and plan (1) Esophageal varices determined by endoscopy: Status: Acute (2) Alcoholic cirrhosis of liver: Status: Acute (3) Hyponatremia: Status: Acute (4) Elevated bilirubin: Status: Acute (5) Acute hyponatremia: Status: Acute Assessment and Plan: 1. Hypervol HypoNa: liver cirrhosis and non-osmotic incr ADH causing hypoNa Sna grad increasing on PO fluid restriction and PO NaCL 2. Liver Cirrhosis REC: cont to track SNa and avoid too rapid correction of SNa with goal of incr by 4-6 meq/24 hrs; cont to track Sna; cont PO NaCl andf Po fluid restriction Time Spent With Patient Time: Total time spent is greater than 50% in coordination of care (as documented) at patient's floor/unit and/or counseling patient:
[2020-09-11] MEDS: Lactulose 20 GM/30 ML SOLUTION PO (20:16)
[2020-09-12] LABS: Anion Gap 16 (12-20); Carbon Dioxide 22 mmol/L (22-29); Chloride 89 mmol/L (96-108); Potassium 3.5 mmol/l (3.3-5.1); Sodium 123 mmol/L (135-145)
--- NOTE | 2020-09-12 00:05 | PC.NURSE ---
Patient sodium 123, Dr. Foley notified of result via [employer].
[2020-09-12 00:31] LABS: Blood Urea Nitrogen 5 mg/dL (9-16); Calcium 7.9 mg/dL (8.4-10.2); Creatinine Clr Calc Pharmacy 137.8; Estimated Glomerular Filt Rate > 60
[2020-09-12] MEDS: diphenhydrAMINE HCL 50 MG/ML VIAL 25 MG IVPUSH (02:59)
[2020-09-12 03:03] VITALS: BP 129/74; PULSE 108; RESP 20; TEMP 36.7; O2SAT 98
--- NOTE | 2020-09-12 04:05 | PC.NURSE ---
Patient ringing to have pepper removed. Pepper out at 0400. Pt due to void by 1000 this morning.
[2020-09-12] MEDS: Omeprazole 40 MG CAPSULE.DR PO (06:22)
[2020-09-12 06:39] LABS: Mean Corpuscular Volume 91.7 fL (80-98); SCAN SMEAR FLAG 1
[2020-09-12 06:41] LABS: Basophils Percent Auto 0.2 % (0-2); Eosinophils Percent Auto 0.4 % (0-4); Hematocrit 32.1 % (42-52); Imm Gran Abs Auto 0.19 X10*3/uL (0.00-0.03); Imm Gran Pct Auto 4.2 % (0.0-0.4); Lymphocytes Absolute Auto 0.8 X10*3/uL (1.2-4.9); Lymphocytes Percent Auto 17.6 % (20-40); MANUAL DIFF FLAG SCAN; Mean Corpuscular HGB Conc 37.4 g/dl (31.0-36.0); Mean Corpuscular Hemoglobin 34.3 pg (27.0-33.0); Monocytes Absolute Auto 0.9 X10*3/uL (0.1-1.2); Monocytes Percent Auto 19.1 % (2-11); Neutrophils Absolute Auto 2.7 X10*3/uL (2.0-8.3); Neutrophils Percent Auto 58.5 % (45-73); Red Cell Distribution Width 16.6 % (11.0-16.0); White Blood Count 4.6 X10*3/uL (4.8-10.8)
[2020-09-12 07:37] LABS: Platelet Count 41 X10*3/uL (160-400)
[2020-09-12 07:38] LABS: NRBC Pct Auto 1.3 /100WBC (0.0-0.2); PLT ABN DIST 1
[2020-09-12 07:46] VITALS: BP 140/89; PULSE 102; RESP 20; TEMP 36.6; O2SAT 96
[2020-09-12 07:53] LABS: Ammonia 109 umol/L (13-55)
[2020-09-12 07:58] LABS: Anion Gap 18 (12-20); Carbon Dioxide 20 mmol/L (22-29); Chloride 90 mmol/L (96-108); Potassium 3.7 mmol/l (3.3-5.1); Sodium 124 mmol/L (135-145)
[2020-09-12 08:08] LABS: SLIDE REVIEW VERIFIED
[2020-09-12 08:08] LABS: Alanine Aminotransferase 76 U/L (0-40); Albumin Level 2.6 g/dL (3.5-5.0); Alkaline Phosphatase 172 U/L (39-117); Anion Gap 18 (12-20); Aspartate Amino Transferase 165 U/L (5-37); Bilirubin Total 22.3 mg/dL (0.0-1.0); Blood Urea Nitrogen 6 mg/dL (9-16); Calcium 8.1 mg/dL (8.4-10.2); Carbon Dioxide 20 mmol/L (22-29); Chloride 90 mmol/L (96-108); Creatinine Clr Calc Pharmacy 143.7; Estimated Glomerular Filt Rate > 60; Glucose Random 84 mg/dL (60-115); Potassium 3.9 mmol/l (3.3-5.1); Sodium 124 mmol/L (135-145)
[2020-09-12] MEDS: Folic Acid 1 MG TABLET 2 MG PO (09:00)
[2020-09-12] MEDS: Lactulose 20 GM/30 ML SOLUTION PO (09:01)
[2020-09-12] MEDS: Sodium Chloride Tab 1 GM TABLET 2 GM PO ×3 (09:01→21:15)
[2020-09-12] MEDS: PHENobarbitaL 30 MG TABLET PO ×2 (09:01→21:15)
[2020-09-12] MEDS: Multivitamin TABLET 1 TAB PO (09:01)
[2020-09-12] MEDS: 0.9 % Sodium Chloride Flush 3 ML SYRINGE IVFLUSH ×3 (09:10→21:16)
[2020-09-12 09:14] LABS: Bilirubin Direct 15.9 mg/dL (0.0-0.5)
[2020-09-12] MEDS: Phytonadione (Vit K1) Oral 10 MG/ML AMPUL 5 MG PO (09:34)
[2020-09-12 12:00] VITALS: BP 126/92; PULSE 102; RESP 18; TEMP 36.6; O2SAT 98
[2020-09-12 12:50] VITALS: BP 140/89; PULSE 102; O2SAT 96
--- NOTE | 2020-09-12 12:55 | MHC.CM.PN ---
per multi dis rounds pt projected dc date in 1 to 2 days
[2020-09-12 15:03] VITALS: BP 111/70; PULSE 112; RESP 18; TEMP 36.4; O2SAT 97
--- NOTE | 2020-09-12 15:48 | HO.PM.IMPN ---
Subjective Subjective Date of Service: 09/12/20 Interval History: seen and examined denies abdominal pain no bleeding reported Review of Systems General - no fevers or chills Cardiovascular - no chest pain Respiratory - no shortness of breath or cough Abdominal- no abdominal pain, nausea, vomiting, diarrhea Physical Exam Vital Signs: Vital Signs: Vital Signs Temp Pulse Resp BP Pulse Ox 09/12/20 15:03 97.5 F 112 H 18 111/70 97 09/12/20 12:50 102 H 140/89 H 96 09/12/20 12:00 97.9 F 102 H 18 126/92 H 98 09/12/20 07:46 97.9 F 102 H 20 140/89 H 96 09/12/20 03:03 98.1 F 108 H 20 129/74 98 09/11/20 23:26 97.7 F 108 H 20 123/93 H 97 09/11/20 23:23 97.8 F 108 H 20 123/93 H 97 09/11/20 19:46 97.8 F 103 H 18 121/87 99 Body Mass Index 29.2 General - no acute distress, appears comfortable but chronically ill Cardiovascular - regular rate and rhythm, S1-S2 Lungs - normal respiratory effort, clear to auscultation bilaterally, no wheezing Abdomen - distended but soft, no fluid thrill appreciated Neuro - awake and alert, no focal deficits, no asterixis Objective Data Current Medications Generic Name Dose Route Start Last Admin Trade Name Freq PRN Reason Stop Dose Admin Acetaminophen 650 mg 09/08/20 12:53 Acetaminophen Supp 650 Mg Supp.Rect CO Q6H PRN Pain, Mild (Pain Scale 1-3) Folic Acid 2 mg 09/08/20 13:00 09/12/20 09:00 Folic Acid 1 Mg Tablet PO 2 mg DAILY RAMON Administration Thiamine HCl 300 mg/ Sodium 103 mls @ 206 mls/hr 09/10/20 09:00 09/12/20 09:37 Chloride IV Infused DAILY [facility] Infusion Medication 1 each 09/08/20 09:00 No Benzodiazepines MISCELLANE DAILY [facility] Multivitamins/Vitamin C 1 tab 09/10/20 09:00 09/12/20 09:01 Multivitamin Tablet PO 1 tab DAILY RAMON Administration Omeprazole 40 mg 09/08/20 13:00 09/12/20 06:22 Omeprazole 40 Mg Capsule.Dr PO 40 mg DAILY@0630 RAMON Administration Ondansetron HCl 4 mg 09/08/20 12:53 09/09/20 17:46 Ondansetron Hcl 4 Mg/2 Ml Vial IVPUSH 4 mg Q8H PRN Administration Nausea and Vomiting Phenobarbital 30 mg 09/11/20 09:00 09/12/20 09:01 Phenobarbital 30 Mg Tablet PO 09/12/20 21:01 30 mg BID RAMON Administration Phenobarbital 30 mg 09/13/20 09:00 Phenobarbital 30 Mg Tablet PO 09/14/20 09:01 DAILY RAMON Sodium Chloride 3 ml 09/08/20 16:00 09/12/20 15:40 0.9 % Sodium Chloride Flush 3 Ml Syringe IVFLUSH 3 ml QSHIFT RAMON Administration Sodium Chloride 2 gm 09/12/20 09:00 09/12/20 14:25 Sodium Chloride Tab 1 Gm Tablet PO 2 gm TID RAMON Administration Labs CBC & Chem 7: 09/12/20 05:48 09/12/20 05:48 Microbiology Microbiology Results: Microbiology 09/08/20 19:45 Urine clean catch - Clean Catch Midstream Urine Culture - Final No growth. Assessment and Plan (1) Alcoholic cirrhosis of liver: Status: Acute Assessment and Plan: 60 yo M with decompensated EtOH cirrhosis admitted to ICU with severe hyponatremia, alcohol withdrawal, [place] [facility] [place] [facility] [place] 1. severe hyponatremia, due to cirrhosis + beer potomania improving, rate appropriate continue salt tabs check SNa now and then tomorrow AM if rise appropriate Nephrology in put appreciated 2. EtOH withdrawal, high-risk with hx of seizures Phenobarb, MVI, change folate to PO by tomorrow 3. ? EtOH hepatitis GI on board steriods not recommended at this time 4. decompensated cirrhosis MELD 30 (53% 3-mo mortality) no ascites on US or clinically hx variceal hemorrhage. check FOBT. recheck CBC hold diuretics increase lactulose, ammonia increased -- but still no significant signs of hepatic encephalopathy 5. coagulopathy due to cirrhosis. will give PO vit K, recheck PT/INR 6. thrombocytopenia due to cirrhosis. avoid heparin, recheck CBCd Full Code DVT pptx, mechanical -- high risk for bleed with pharmacological (2) Hyponatremia: Status: Acute (3) Alcohol withdrawal: Status: Acute
[2020-09-12 17:00] LABS: Anion Gap 15 (12-20); Blood Urea Nitrogen 5 mg/dL (9-16); Calcium 8.1 mg/dL (8.4-10.2); Carbon Dioxide 22 mmol/L (22-29); Chloride 90 mmol/L (96-108); Creatinine Clr Calc Pharmacy 132.3; Estimated Glomerular Filt Rate > 60; Glucose Random 91 mg/dL (60-115); Potassium 3.5 mmol/l (3.3-5.1); Sodium 123 mmol/L (135-145)
[2020-09-12] MEDS: Lactulose 20 GM/30 ML SOLUTION 30 GM PO ×2 (17:24→21:15)
--- NOTE | 2020-09-12 18:05 | PM.PNNEP ---
Subjective Subjective Principal diagnosis: Hyponatremia Interval history: seen and examined Events noted Physical Exam Vital Signs: Vital Signs: Vital Signs Temp Pulse Resp BP Pulse Ox 09/12/20 15:03 97.5 F 112 H 18 111/70 97 09/12/20 12:50 102 H 140/89 H 96 09/12/20 12:00 97.9 F 102 H 18 126/92 H 98 09/12/20 07:46 97.9 F 102 H 20 140/89 H 96 09/12/20 03:03 98.1 F 108 H 20 129/74 98 09/11/20 23:26 97.7 F 108 H 20 123/93 H 97 09/11/20 23:23 97.8 F 108 H 20 123/93 H 97 09/11/20 19:46 97.8 F 103 H 18 121/87 99 Body Mass Index 29.2 General - no acute distress, appears comfortable but chronically ill Cardiovascular - regular rate and rhythm, S1-S2 Lungs - normal respiratory effort, clear to auscultation bilaterally, no wheezing Abdomen - distended but soft, no fluid thrill appreciated Neuro - awake and alert, no focal deficits, no asterixis Const: General: cooperative, no acute distress, alert, awake and ill appearing Nutritional Appearance: obese Orientation/consciousness: oriented to person, oriented to place and oriented to time Limitations: no limitations HENMT: Head: Yes normal to inspection and Yes normocephalic Eyes: Conjunctivae: conjunctival abnormal ( jaundice) bilateral Sclerae: sclerae normal and scleral abnormal (Jaundice) EOM: EOMs intact bilaterally Neck: Neck: Yes normal visual inspection, Yes no lymphadenopathy, Yes trachea midline, Yes supple and Yes no JVD Chest: Chest palpation & inspection: normal inspection of the chest Resp: Effort & Inspection: normal respiratory effort and no respiratory distress Auscultation: clear to auscultation bilaterally and no crackles Cardio: Jugular venous distension: no JVD Rate: regular rate Rhythm: regular rhythm Heart sounds: S1 normal heart sound present, S2 normal heart sound present, no gallops, no murmurs and no rubs GI: Inspection: Yes normal to inspection, Yes distended, Yes obesity and Yes other (no fluid wave) Palpation (GI): Soft to palpation, nontender and Other GI palpation findings present ( Nontender) Auscultation: normal bowel sounds and other ( mild diffuse tenderness, possible ascites distension.) Rectal Exam - Male: Yes deferred Skin: Other: jaundiced General skin exam: ecchymosis ( upper extremities) and jaundice Rashes: no rashes Neuro: General: oriented to person, oriented to place, oriented to time and other ( No hallucination documented by the patient.) Extrem: Other: +2 edema both lower extremities. General: Yes normal to inspection, Yes no pedal edema, No clubbing, No cyanosis and Yes edema (1+ Bilateral) Right upper extremity: edema ( 2+ bilateral) Right lower extremity: edema Left lower extremity: edema Psych: Appearance: disheveled Assessment & Plan Assessment and plan (1) Esophageal varices determined by endoscopy: Status: Acute (2) Alcoholic cirrhosis of liver: Status: Acute (3) Hyponatremia: Status: Acute (4) Elevated bilirubin: Status: Acute (5) Acute hyponatremia: Status: Acute Assessment and Plan: 1. Hypervol HypoNa: liver cirrhosis and non-osmotic incr ADH causing hypoNa Sna grad increasing on PO fluid restriction and PO NaCL 2. Liver Cirrhosis REC: cont to track SNa and avoid too rapid correction of SNa with goal of incr by 4-6 meq/24 hrs; cont to track Sna; cont PO NaCl andf Po fluid restriction...goal is to get SNa 125-130 and may need gentle 3% saline tomor if does not come up on current Tx..will reassess tomorrow; not a candidate for Urea given theoretcial risk for incr NH3 from Urea Time Spent With Patient Time: Total time spent is greater than 50% in coordination of care (as documented) at patient's floor/unit and/or counseling patient:
[2020-09-12 19:00] VITALS: BP 121/87; PULSE 110; RESP 22; TEMP 36.6; O2SAT 100
[2020-09-13] VITALS (8 sets, daily range): BP systolic 110–150; BP diastolic 60–93; PULSE 89–104; RESP 16–20; TEMP 36.4–36.7; O2SAT 95–98; BMI 29.6
[2020-09-13] MEDS: Omeprazole 40 MG CAPSULE.DR PO (05:17)
[2020-09-13 06:35] LABS: Hemoglobin 12.3 g/dl (14.0-18.0)
[2020-09-13 06:36] LABS: Ammonia 71 umol/L (13-55)
[2020-09-13 06:38] LABS: Mean Corpuscular HGB Conc 37.3 g/dl (31.0-36.0); Mean Corpuscular Hemoglobin 34.4 pg (27.0-33.0); Mean Corpuscular Volume 92.2 fL (80-98); Mean Platelet Volume 12.2 fL (9.4-12.4); Red Blood Count 3.58 X10*6/uL (4.60-5.80); Red Cell Distribution Width 17.2 % (11.0-16.0); White Blood Count 5.1 X10*3/uL (4.8-10.8)
[2020-09-13 06:48] LABS: Alanine Aminotransferase 73 U/L (0-40); Albumin Level 2.6 g/dL (3.5-5.0); Alkaline Phosphatase 175 U/L (39-117); Anion Gap 16 (12-20); Aspartate Amino Transferase 154 U/L (5-37); Blood Urea Nitrogen 6 mg/dL (9-16); Calcium 8.3 mg/dL (8.4-10.2); Carbon Dioxide 21 mmol/L (22-29); Chloride 92 mmol/L (96-108); Creatinine Clr Calc Pharmacy 111.8; Estimated Glomerular Filt Rate > 60; Glucose Random 90 mg/dL (60-115); Potassium 3.3 mmol/l (3.3-5.1); Sodium 126 mmol/L (135-145); Total Protein 6.1 g/dL (6.5-8.0)
[2020-09-13 07:05] LABS: Bilirubin Total 25.2 mg/dL (0.0-1.0)
[2020-09-13 07:17] LABS: Platelet Count 47 X10*3/uL (160-400)
[2020-09-13 07:18] LABS: PLT ABN DIST 1
[2020-09-13 07:56] LABS: Band Neutrophils Percent 11 % (3-5); Lymphocytes Absolute Manual 0.6 X10*3/uL (0.6-4.8); Lymphocytes Percent Manual 11 % (20-40); Metamyelocytes Absolute 0.1 X10*3/uL; Metamyelocytes Percent 1 %; Monocytes Absolute Manual 0.9 X10*3/uL (0.0-1.2); Monocytes Percent Manual 17 % (2-11); Myelocytes Absolute 0.1 X10*/uL; Myelocytes Percent 1 %; Neutrophils Absolute Manual 3.6 X10*3/uL (2.2-7.9); Neutrophils Percent Manual 59 % (45-73); Nucleated Red Blood Cells 1 /100WBC (0-0); RBC Morphology NOTED
[2020-09-13 07:57] LABS: Hypochromasia 1+; Macrocytosis 1+; Pappenheimer Bodies PRESENT; Platelet Estimate DECREASED (NORMAL); Target Cells 1+
[2020-09-13 07:58] LABS: Platelet Morphology Comment NORMAL
[2020-09-13 08:21] LABS: INTERNATIONAL NORM RATIO 1.9 (0.9-1.1); Prothrombin Time 23.3 SEC (10.8-13.0)
[2020-09-13] MEDS: Lactulose 20 GM/30 ML SOLUTION 30 GM PO ×4 (09:30→20:31)
[2020-09-13] MEDS: 0.9 % Sodium Chloride Flush 3 ML SYRINGE IVFLUSH ×3 (09:31→20:34)
[2020-09-13] MEDS: Thiamine HCL 100 MG TABLET PO (09:31)
[2020-09-13] MEDS: PHENobarbitaL 30 MG TABLET PO (09:31)
[2020-09-13] MEDS: Folic Acid 1 MG TABLET 2 MG PO (09:31)
[2020-09-13] MEDS: Sodium Chloride Tab 1 GM TABLET 2 GM PO ×3 (09:31→20:31)
[2020-09-13] MEDS: Multivitamin TABLET 1 TAB PO (09:31)
[2020-09-13 13:57] LABS: OBS Int Ctl Valid YES; OBS1 NEG (NEG)
--- NOTE | 2020-09-13 14:20 | HO.PM.IMPN ---
Subjective Subjective Interval History: seen and examined denies abdominal pain no bleeding reported Physical Exam Vital Signs: Vital Signs: Vital Signs Temp Pulse Resp BP Pulse Ox 09/13/20 12:00 97.6 F 99 18 131/93 H 95 09/13/20 09:30 99 117/82 98 09/13/20 08:00 97.7 F 99 18 117/82 98 09/13/20 03:31 97.9 F 104 H 20 120/75 98 09/13/20 00:00 97.9 F 102 H 20 110/79 98 09/12/20 19:00 97.9 F 110 H 22 H 121/87 100 09/12/20 15:03 97.5 F 112 H 18 111/70 97 Body Mass Index 29.6 General - no acute distress, appears comfortable but chronically ill Cardiovascular - regular rate and rhythm, S1-S2 Lungs - normal respiratory effort, clear to auscultation bilaterally, no wheezing Abdomen - distended but soft, no fluid thrill appreciated Neuro - awake and alert, no focal deficits, no asterixis Objective Data Current Medications Generic Name Dose Route Start Last Admin Trade Name Freq PRN Reason Stop Dose Admin Acetaminophen 650 mg 09/08/20 12:53 Acetaminophen Supp 650 Mg Supp.Rect [place] Q6H PRN Pain, Mild (Pain Scale 1-3) Folic Acid 2 mg 09/08/20 13:00 09/13/20 09:31 Folic Acid 1 Mg Tablet PO 2 mg DAILY RAMON Administration Lactulose 30 gm 09/12/20 17:00 09/13/20 13:55 Lactulose 20 Gm/30 Ml Solution PO 30 gm QID RAMON Administration Medication 1 each 09/08/20 09:00 No Benzodiazepines MISCELLANE DAILY [facility] Multivitamins/Vitamin C 1 tab 09/10/20 09:00 09/13/20 09:31 Multivitamin Tablet PO 1 tab DAILY RAMON Administration Omeprazole 40 mg 09/08/20 13:00 09/13/20 05:17 Omeprazole 40 Mg Capsule. PO 40 mg DAILY@0630 [facility] Administration Ondansetron HCl 4 mg 09/08/20 12:53 09/09/20 17:46 Ondansetron Hcl 4 Mg/2 Ml Vial IVPUSH 4 mg Q8H PRN Administration Nausea and Vomiting Phenobarbital 30 mg 09/13/20 09:00 10/22/20 09:31 Phenobarbital 30 Mg Tablet PO 09/14/20 09:01 30 mg DAILY RAMON Administration Prednisolone Sodium Phosphate 40 mg 09/13/20 14:15 Prednisolone Sodium Phosphate 15 Mg/5 Ml Solution PO DAILY RAMON Sodium Chloride 3 ml 09/08/20 16:00 09/13/20 09:31 0.9 % Sodium Chloride Flush 3 Ml Syringe IVFLUSH 3 ml QSHIFT RAMON Administration Sodium Chloride 2 gm 09/12/20 09:00 09/13/20 09:31 Sodium Chloride Tab 1 Gm Tablet PO 2 gm TID RAMON Administration Thiamine HCl 100 mg 09/13/20 09:00 09/13/20 09:31 Thiamine Hcl 100 Mg Tablet PO 100 mg DAILY RAMON Administration Labs CBC & Chem 7: 09/13/20 05:53 09/13/20 05:54 Microbiology Microbiology Results: Microbiology 09/08/20 19:45 Urine clean catch - Clean Catch Midstream Urine Culture - Final No growth. Assessment and Plan (1) Alcoholic cirrhosis of liver: Status: Acute (2) Hyponatremia: Status: Acute (3) Alcohol withdrawal: Status: Acute Assessment and Plan: 60 yo M with decompensated EtOH cirrhosis admitted to ICU with severe hyponatremia, alcohol withdrawal, stepped down to [facility] [place] 09/09/20 1. severe hyponatremia, due to cirrhosis + beer potomania improving, rate appropriate continue salt tabs SNa daily per nephrology recs continue fluid restriction 2. EtOH withdrawal, high-risk with hx of seizures Phenobarb, MVI, folate / thiamin 3. EtOH hepatitis GI on board -- d/w GI, prednisolone initiated - plan for 40mg x 4 weeks then taper over 16 days cessation strongly encouraged 4. decompensated cirrhosis no ascites on US or clinically hx variceal hemorrhage. check FOBT. recheck CBC hold diuretics ammonia improved -- decreased 5. coagulopathy due to cirrhosis 6. thrombocytopenia due to cirrhosis. avoid heparin Full Code DVT pptx, mechanical -- high risk for bleed with pharmacological
[2020-09-13] MEDS: prednisoLONE sodium phosphate 15 MG/5 ML SOLUTION 40 MG PO (15:04)
[2020-09-13 15:21] LABS: Mitochondrial Antibodies NEGATIVE (NEGATIVE)
--- NOTE | 2020-09-13 21:24 | PM.PNNEP ---
Subjective Subjective Principal diagnosis: Hyponatremia Interval history: seen and examined Sna 126 this am denies abdominal pain no bleeding reported Physical Exam Vital Signs: Vital Signs: Vital Signs Temp Pulse Resp BP Pulse Ox 09/13/20 19:22 97.8 F 94 18 138/60 95 09/13/20 15:31 97.8 F 99 16 150/71 H 96 09/13/20 12:00 97.6 F 99 18 131/93 H 95 09/13/20 09:30 99 117/82 98 09/13/20 08:00 97.7 F 99 18 117/82 98 09/13/20 03:31 97.9 F 104 H 20 120/75 98 09/13/20 00:00 97.9 F 102 H 20 110/79 98 Body Mass Index 29.6 General - no acute distress, appears comfortable but chronically ill Cardiovascular - regular rate and rhythm, S1-S2 Lungs - normal respiratory effort, clear to auscultation bilaterally, no wheezing Abdomen - distended but soft, no fluid thrill appreciated Neuro - awake and alert, no focal deficits, no asterixis Const: General: cooperative, no acute distress, alert, awake and ill appearing Nutritional Appearance: obese Orientation/consciousness: oriented to person, oriented to place and oriented to time Limitations: no limitations HENMT: Head: Yes normal to inspection and Yes normocephalic Eyes: Conjunctivae: conjunctival abnormal ( jaundice) bilateral Sclerae: sclerae normal and scleral abnormal (Jaundice) EOM: EOMs intact bilaterally Neck: Neck: Yes normal visual inspection, Yes no lymphadenopathy, Yes trachea midline, Yes supple and Yes no JVD Chest: Chest palpation & inspection: normal inspection of the chest Resp: Effort & Inspection: normal respiratory effort and no respiratory distress Auscultation: clear to auscultation bilaterally and no crackles Cardio: Jugular venous distension: no JVD Rate: regular rate Rhythm: regular rhythm Heart sounds: S1 normal heart sound present, S2 normal heart sound present, no gallops, no murmurs and no rubs GI: Inspection: Yes normal to inspection, Yes distended, Yes obesity and Yes other (no fluid wave) Palpation (GI): Soft to palpation, nontender and Other GI palpation findings present ( Nontender) Auscultation: normal bowel sounds and other ( mild diffuse tenderness, possible ascites distension.) Rectal Exam - Male: Yes deferred Skin: Other: jaundiced General skin exam: ecchymosis ( upper extremities) and jaundice Rashes: no rashes Neuro: General: oriented to person, oriented to place, oriented to time and other ( No hallucination documented by the patient.) Extrem: Other: +2 edema both lower extremities. General: Yes normal to inspection, Yes no pedal edema, No clubbing, No cyanosis and Yes edema (1+ Bilateral) Right upper extremity: edema ( 2+ bilateral) Right lower extremity: edema Left lower extremity: edema Psych: Appearance: disheveled Assessment & Plan Assessment and plan (1) Esophageal varices determined by endoscopy: Status: Acute (2) Alcoholic cirrhosis of liver: Status: Acute (3) Hyponatremia: Status: Acute (4) Elevated bilirubin: Status: Acute (5) Acute hyponatremia: Status: Acute Assessment and Plan: 1. Hypervol HypoNa: liver cirrhosis and non-osmotic incr ADH causing hypoNa Sna grad increasing on PO fluid restriction and PO NaCL 2. Liver Cirrhosis REC: cont to track SNa and avoid too rapid correction of SNa with goal of incr by 4-6 meq/24 hrs; cont to track Sna; cont PO NaCl andf Po fluid restriction.. not a candidate for Urea given theoretcial risk for incr NH3 from Urea Time Spent With Patient Time: Total time spent is greater than 50% in coordination of care (as documented) at patient's floor/unit and/or counseling patient:
[2020-09-14] VITALS (9 sets, daily range): BP systolic 107–119; BP diastolic 69–82; PULSE 81–140; RESP 16–22; TEMP 36.1–36.7; O2SAT 94–98; BMI 28.8
--- NOTE | 2020-09-14 04:43 | ECG_ITS ---
Test Reason : WEAKNESS Blood Pressure : / mmHG Vent. Rate : 127 BPM Atrial Rate : 127 BPM P-R Int : 264 ms QRS Dur : 096 ms QT Int : 164 ms P-R-T Axes : 023 068 -71 degrees QTc Int : 238 ms Poor data quality, interpretation may be adversely affected Atrial fibrillation with occasional with premature ventricular or aberrantly conducted complexes Low voltage QRS Nonspecific ST and T wave abnormality Abnormal ECG When compared with ECG of 08-SEP-2020 09:32, Significant changes have occurred Referred By: Huan Alfredo Electronically Signed By:STEPHEN BAKER MD
[2020-09-14] MEDS: Omeprazole 40 MG CAPSULE.DR PO (04:52)
--- NOTE | 2020-09-14 05:08 | PM.EVENT ---
Event Note Event Note: Notified patient was noted to be on afib on clinical research monitor. EKG done shows afib with RVR, HR of 130's. One dose of lopressor to be given stat. No previous hx of afib is documented. Will ordered TSH, 2D echo as well as cardiac consult.
[2020-09-14] MEDS: Metoprolol Tartrate 5 MG/5 ML VIAL 2.5 MG IVPUSH (05:14)
--- NOTE | 2020-09-14 06:06 | PC.NURSE ---
AT APPROX 0430, PT CONVERTED TO AFIB ON TELE, HR 120-140s. NO PRIOR HX PER PT. DENIES ANY COMPLAINTS AT THIS TIME, ASYMPTOMATIC. EKG DONE. NOTIFIED VIA [employer]. NEW ORDER FOR 2.5 MG IV LOPRESSOR X1. GIVEN WITH GOOD EFFECT, CONVERTED BACK TO NSR W 1AVB, HR 80s. NEW ORDERS FOR CARDIOLOGY CONSULT AND ECHO.
[2020-09-14] MEDS: prednisoLONE sodium phosphate 15 MG/5 ML SOLUTION 40 MG PO (08:48)
[2020-09-14] MEDS: Thiamine HCL 100 MG TABLET PO (08:49)
[2020-09-14] MEDS: Multivitamin TABLET 1 TAB PO (08:49)
[2020-09-14] MEDS: Sodium Chloride Tab 1 GM TABLET 2 GM PO ×2 (08:49→14:56)
[2020-09-14] MEDS: PHENobarbitaL 30 MG TABLET PO (08:49)
[2020-09-14] MEDS: Folic Acid 1 MG TABLET 2 MG PO (08:49)
[2020-09-14] MEDS: 0.9 % Sodium Chloride Flush 3 ML SYRINGE IVFLUSH ×3 (08:49→22:02)
[2020-09-14 10:05] LABS: Hemoglobin 12.8 g/dl (14.0-18.0); NRBC Pct Auto 0.6 /100WBC (0.0-0.2); PLT CLUMP 1; Red Cell Distribution Width 18.6 % (11.0-16.0)
[2020-09-14 10:07] LABS: Hematocrit 35.4 % (42-52); Mean Corpuscular HGB Conc 36.2 g/dl (31.0-36.0); Mean Corpuscular Volume 93.9 fL (80-98); Mean Platelet Volume 11.4 fL (9.4-12.4); Red Blood Count 3.77 X10*6/uL (4.60-5.80); White Blood Count 6.2 X10*3/uL (4.8-10.8)
[2020-09-14 10:13] LABS: Platelet Count 56 X10*3/uL (160-400)
[2020-09-14 10:37] LABS: Alanine Aminotransferase 69 U/L (0-40); Albumin Level 2.5 g/dL (3.5-5.0); Alkaline Phosphatase 174 U/L (39-117); Anion Gap 15 (12-20); Aspartate Amino Transferase 152 U/L (5-37); Blood Urea Nitrogen 8 mg/dL (9-16); Carbon Dioxide 21 mmol/L (22-29); Chloride 97 mmol/L (96-108); Creatinine Clr Calc Pharmacy 113.8; Estimated Glomerular Filt Rate > 60; Glucose Random 109 mg/dL (60-115); Potassium 3.1 mmol/l (3.3-5.1); Sodium 130 mmol/L (135-145); Total Protein 6.1 g/dL (6.5-8.0)
[2020-09-14] MEDS: Metoprolol Tartrate 12.5 MG HALFTAB PO ×2 (10:44→21:59)
[2020-09-14 10:49] LABS: Band Neutrophils Percent 15 % (3-5); Lymphocytes Absolute Manual 0.2 X10*3/uL (0.6-4.8); Lymphocytes Percent Manual 3 % (20-40); Metamyelocytes Absolute 0.1 X10*3/uL; Metamyelocytes Percent 2 %; Monocytes Absolute Manual 0.5 X10*3/uL (0.0-1.2); Monocytes Percent Manual 8 % (2-11); Neutrophils Absolute Manual 5.4 X10*3/uL (2.2-7.9); Neutrophils Percent Manual 72 % (45-73); Platelet Estimate DECREASED (NORMAL); Platelet Morphology Comment NORMAL; Target Cells 1+
[2020-09-14 11:00] LABS: Bilirubin Direct 17.9 mg/dL (0.0-0.5)
[2020-09-14 11:52] LABS: Macrocytosis 1+; RBC Morphology NOTED
[2020-09-14] MEDS: Potassium Chloride ER 20 MEQ TAB.ER.PRT 40 MEQ PO (12:44)
--- NOTE | 2020-09-14 12:45 | MHC.CM.PN ---
per rounds possible dc over the [facility] link notified
--- NOTE | 2020-09-14 15:16 | HO.PM.IMPN ---
Subjective Subjective Date of Service: 09/14/20 Interval History: seen and examined denies abdominal pain willing to go to STR denies palp / cp overnight events reviewed Physical Exam Vital Signs: Vital Signs: Vital Signs Temp Pulse Resp BP Pulse Ox 09/14/20 15:10 97.9 F 111 H 22 H 117/69 94 09/14/20 11:14 96.9 F 89 16 107/82 97 09/14/20 10:44 86 111/79 09/14/20 08:00 97.2 F 94 18 117/78 96 09/14/20 05:14 140 H 09/14/20 04:00 97.8 F 98 20 117/77 95 09/13/20 23:36 98.1 F 89 20 131/77 98 09/13/20 19:22 97.8 F 94 18 138/60 95 09/13/20 15:31 97.8 F 99 16 150/71 H 96 Body Mass Index 28.8 General - no acute distress, appears comfortable but chronically ill Cardiovascular - regular rate and rhythm, S1-S2 Lungs - normal respiratory effort, clear to auscultation bilaterally, no wheezing Abdomen - distended but soft, no fluid thrill appreciated Neuro - awake and alert, no focal deficits, no asterixis Objective Data Current Medications Generic Name Dose Route Start Last Admin Trade Name Freq PRN Reason Stop Dose Admin Acetaminophen 650 mg 09/08/20 12:53 Acetaminophen Supp 650 Mg Supp.Rect [place] Q6H PRN Pain, Mild (Pain Scale 1-3) Folic Acid 2 mg 09/08/20 13:00 09/14/20 08:49 Folic Acid 1 Mg Tablet PO 2 mg DAILY RAMON Administration Lactulose 30 gm 09/14/20 21:00 Lactulose 20 Gm/30 Ml Solution PO BID RAMON Medication 1 each 09/08/20 09:00 No Benzodiazepines MISCELLANE DAILY [facility] Metoprolol Tartrate 12.5 mg 09/14/20 10:00 09/14/20 10:44 Metoprolol Tartrate 12.5 Mg Halftab PO 12.5 mg BID RAMON Administration Protocol Multivitamins/Vitamin C 1 tab 09/10/20 09:00 09/14/20 08:49 Multivitamin Tablet PO 1 tab DAILY RAMON Administration Omeprazole 40 mg 09/08/20 13:00 09/14/20 04:52 Omeprazole 40 Mg Capsule. PO 40 mg DAILY@0630 RAMON Administration Ondansetron HCl 4 mg 09/08/20 12:53 09/09/20 17:46 Ondansetron Hcl 4 Mg/2 Ml Vial IVPUSH 4 mg Q8H PRN Administration Nausea and Vomiting Prednisolone Sodium Phosphate 40 mg 09/13/20 14:15 09/14/20 08:48 Prednisolone Sodium Phosphate 15 Mg/5 Ml Solution PO 40 mg DAILY RAMON Administration Sodium Chloride 3 ml 09/08/20 16:00 09/14/20 14:56 0.9 % Sodium Chloride Flush 3 Ml Syringe IVFLUSH 3 ml QSHIFT RAMON Administration Thiamine HCl 100 mg 09/13/20 09:00 09/14/20 08:49 Thiamine Hcl 100 Mg Tablet PO 100 mg DAILY RAMON Administration Labs CBC & Chem 7: 09/14/20 09:11 09/14/20 09:11 Microbiology Microbiology Results: Microbiology 09/08/20 19:45 Urine clean catch - Clean Catch Midstream Urine Culture - Final No growth. Assessment and Plan (1) Alcoholic cirrhosis of liver: Status: Acute (2) Hyponatremia: Status: Acute (3) Alcohol withdrawal: Status: Acute Assessment and Plan: 60 yo M with decompensated EtOH cirrhosis admitted to ICU with severe hyponatremia, alcohol withdrawal, [place] [facility] [place] 1. severe hyponatremia, due to cirrhosis + beer potomania SNa 130 now, stop salt tabs and observe SNa tomorrow nephrology input appreciated 2. EtOH withdrawal, high-risk with hx of seizures not in [facility] completed phenobarb protocol continue with mvi 3. EtOH hepatitis GI on board -- d/w GI, prednisolone initiated - plan for 40mg x 4 weeks then taper over 16 days - currently day #2 cessation strongly encouraged 4. decompensated cirrhosis no ascites on US or clinically hx variceal hemorrhage. h/h stable lactulose 30mg BID 5. coagulopathy due to cirrhosis 6. thrombocytopenia due to cirrhosis. avoid heparin 7. Atrial tach tele / ekg reviewed with cardiology. No a. fib appreciated. Will start low dose BB. Due to his known varices and continual alcohol use -- not a candidate for OAC even if he does go into A. fib metoprolol 12.5mg bid and uptitrate as needed Full Code DVT pptx, mechanical -- high risk for bleed with pharmacological
[2020-09-14 16:37] LABS: SARS COV2 PCR INHOUSE NEGATIVE (Negative)
--- NOTE | 2020-09-14 19:13 | P.PNNP_ITS ---
Subjective Subjective Principal diagnosis: Hyponatremia Interval history: seen and examined denies abdominal pain willing to go to STR denies palp / cp overnight events reviewed Physical Exam Vital Signs: Vital Signs: Vital Signs Temp Pulse Resp BP Pulse Ox 09/14/20 19:00 98 F 81 18 119/82 98 09/14/20 15:10 97.9 F 111 H 22 H 117/69 94 09/14/20 11:14 96.9 F 89 16 107/82 97 09/14/20 10:44 86 111/79 09/14/20 08:00 97.2 F 94 18 117/78 96 09/14/20 05:14 140 H 09/14/20 04:00 97.8 F 98 20 117/77 95 09/13/20 23:36 98.1 F 89 20 131/77 98 09/13/20 19:22 97.8 F 94 18 138/60 95 Body Mass Index 28.8 General - no acute distress, appears comfortable but chronically ill Cardiovascular - regular rate and rhythm, S1-S2 Lungs - normal respiratory effort, clear to auscultation bilaterally, no wh eezing Abdomen - distended but soft, no fluid thrill appreciated Neuro - awake and alert, no focal deficits, no asterixis Const: General: cooperative, no acute distress, alert, awake and ill appearing Nutritional Appearance: obese Orientation/consciousness: oriented to person, oriented to place and oriented to time Limitations: no limitations HENMT: Head: Yes normal to inspection and Yes normocephalic Eyes: Conjunctivae: conjunctival abnormal ( jaundice) bilateral Sclerae: sclerae normal and scleral abnormal (Jaundice) EOM: EOMs intact bilaterally Neck: Neck: Yes normal visual inspection, Yes no lymphadenopathy, Yes trachea midline, Yes supple and Yes no JVD Chest: Chest palpation & inspection: normal inspection of the chest Resp: Effort & Inspection: normal respiratory effort and no respiratory distress Auscultation: clear to auscultation bilaterally and no crackles Cardio: Jugular venous distension: no JVD Rate: regular rate Rhythm: regular rhythm Heart sounds: S1 normal heart sound present, S2 normal heart sound present, no gallops, no murmurs and no rubs GI: Inspection: Yes normal to inspection, Yes distended, Yes obesity and Yes other (no fluid wave) Palpation (GI): Soft to palpation, nontender and Other GI palpation findings present ( Nontender) Auscultation: normal bowel sounds and other ( mild diffuse tenderness, possible ascites distension.) Rectal Exam - Male: Yes deferred Skin: Other: jaundiced General skin exam: ecchymosis ( upper extremities) and jaundice Rashes: no rashes Neuro: General: oriented to person, oriented to place, oriented to time and other ( No hallucination documented by the patient.) Extrem: Other: +2 edema both lower extremities. General: Yes normal to inspection, Yes no pedal edema, No clubbing, No cyanosis and Yes edema (1+ Bilateral) Right upper extremity: edema ( 2+ bilateral) Right lower extremity: edema Left lower extremity: edema Psych: Appearance: disheveled Assessment & Plan Assessment and plan (1) Esophageal varices determined by endoscopy: Status: Acute (2) Alcoholic cirrhosis of liver: Status: Acute (3) Hyponatremia: Status: Acute (4) Elevated bilirubin: Status: Acute (5) Acute hyponatremia: Status: Acute Assessment and Plan: 1. Hypervol HypoNa: liver cirrhosis and non-osmotic incr ADH causing hypoNa Sna grad increasing on PO fluid restriction and PO NaCL..now up to 130 from 126 ( 24 hrs ago) 2. Liver Cirrhosis REC: d/c NaCl tabs; check Sna in am..may be able to liberalize PO fludi restr ictions if SNa manaitins > 130 Time Spent With Patient Time: Total time spent is greater than 50% in coordination of care (as documented) at patient's floor/unit and/or counseling patient:
[2020-09-14] MEDS: Lactulose 20 GM/30 ML SOLUTION 30 GM PO (21:58)
[2020-09-15] VITALS (8 sets, daily range): BP systolic 100–139; BP diastolic 58–90; PULSE 72–82; RESP 16–18; TEMP 36.2–36.7; O2SAT 96–99; BMI 29.5
[2020-09-15] MEDS: ondansetron HCL 4 MG/2 ML VIAL IVPUSH (02:49)
[2020-09-15] MEDS: Omeprazole 40 MG CAPSULE.DR PO (05:45)
[2020-09-15 07:14] LABS: Hematocrit 32.7 % (42-52); Hemoglobin 11.9 g/dl (14.0-18.0); Mean Corpuscular HGB Conc 36.4 g/dl (31.0-36.0); Mean Corpuscular Volume 93.4 fL (80-98); Mean Platelet Volume 12.1 fL (9.4-12.4); NRBC Pct Auto 0.7 /100WBC (0.0-0.2); White Blood Count 5.7 X10*3/uL (4.8-10.8)
[2020-09-15 07:31] LABS: Platelet Count 52 X10*3/uL (160-400)
[2020-09-15] MEDS: prednisoLONE sodium phosphate 15 MG/5 ML SOLUTION 40 MG PO (07:54)
[2020-09-15] MEDS: Lactulose 20 GM/30 ML SOLUTION 30 GM PO ×2 (07:57→21:40)
[2020-09-15] MEDS: Metoprolol Tartrate 12.5 MG HALFTAB PO ×2 (07:58→21:40)
[2020-09-15] MEDS: Folic Acid 1 MG TABLET 2 MG PO (07:58)
[2020-09-15] MEDS: Multivitamin TABLET 1 TAB PO (07:59)
[2020-09-15] MEDS: Thiamine HCL 100 MG TABLET PO (07:59)
[2020-09-15] MEDS: 0.9 % Sodium Chloride Flush 3 ML SYRINGE IVFLUSH ×3 (07:59→21:40)
[2020-09-15 08:13] LABS: Anion Gap 14 (12-20); Blood Urea Nitrogen 11 mg/dL (9-16); Calcium 7.4 mg/dL (8.4-10.2); Carbon Dioxide 21 mmol/L (22-29); Chloride 98 mmol/L (96-108); Creatinine Clr Calc Pharmacy 118.9; Estimated Glomerular Filt Rate > 60; Glucose Random 64 mg/dL (60-115); Potassium 3.2 mmol/l (3.3-5.1); Sodium 130 mmol/L (135-145)
[2020-09-15 08:21] LABS: Band Neutrophils Percent 5 % (3-5); Eosinophils Absolute Manual 0.1 X10*3/UL (0.0-0.8); Eosinophils Percent Manual 1 % (0-4); Lymphocytes Absolute Manual 0.7 X10*3/uL (0.6-4.8); Lymphocytes Percent Manual 13 % (20-40); Metamyelocytes Absolute 0.1 X10*3/uL; Metamyelocytes Percent 1 %; Monocytes Absolute Manual 0.5 X10*3/uL (0.0-1.2); Monocytes Percent Manual 9 % (2-11); Neutrophils Absolute Manual 4.3 X10*3/uL (2.2-7.9); Neutrophils Percent Manual 71 % (45-73); Nucleated Red Blood Cells 1 /100WBC (0-0); Polychromasia 1+; RBC Morphology NOTED; Target Cells 2+
[2020-09-15 08:22] LABS: Macrocytosis 1+; Platelet Estimate DECREASED (NORMAL); Platelet Morphology Comment NORMAL
[2020-09-15 08:23] LABS: Hypochromasia 1+
[2020-09-15 08:55] LABS: Alanine Aminotransferase 58 U/L (0-40); Albumin Level 2.3 g/dL (3.5-5.0); Alkaline Phosphatase 151 U/L (39-117); Aspartate Amino Transferase 121 U/L (5-37); Total Protein 5.5 g/dL (6.5-8.0)
[2020-09-15 09:17] LABS: Bilirubin Direct 17.4 mg/dL (0.0-0.5); Bilirubin Total 24.2 mg/dL (0.0-1.0)
--- NOTE | 2020-09-15 10:05 | P.PNIM_ITS ---
Subjective Subjective Interval History: seen and examined denies abdominal pain, complaining of some chronic back willing to go to STR denies palp / cp overnight events reviewed Physical Exam Vital Signs: Vital Signs: Vital Signs Temp Pulse Resp BP Pulse Ox 09/15/20 07:58 82 100/67 09/15/20 07:30 97.9 F 82 18 100/67 96 09/15/20 03:48 97.8 F 73 18 114/58 L 97 09/14/20 23:17 98.0 F 113 H 18 114/82 97 09/14/20 21:59 117 H 111/78 09/14/20 19:00 98 F 81 18 119/82 98 09/14/20 15:10 97.9 F 111 H 22 H 117/69 94 09/14/20 11:14 96.9 F 89 16 107/82 97 09/14/20 10:44 86 111/79 Body Mass Index 28.8 General - no acute distress, appears comfortable but chronically ill Cardiovascular - regular rate and rhythm, S1-S2; a tach on monitor on/off Lungs - normal respiratory effort, clear to auscultation bilaterally, no wh eezing Abdomen - distended but soft, no fluid thrill appreciated Neuro - awake and alert, no focal deficits, no asterixis Objective Data Current Medications Generic Name Dose Route Start Last Admin Trade Name Freq PRN Reason Stop Dose Admin Acetaminophen 650 mg 09/08/20 12:53 Acetaminophen Supp 650 Mg Supp.Rect [place] Q6H PRN Pain, Mild (Pain Scale 1-3) Folic Acid 2 mg 09/08/20 13:00 09/15/20 07:58 Folic Acid 1 Mg Tablet PO 2 mg DAILY RAMON Administration Lactulose 30 gm 09/14/20 21:00 09/15/20 07:57 Lactulose 20 Gm/30 Ml Solution PO 30 gm BID RAMON Administration Medication 1 each 09/08/20 09:00 No Benzodiazepines MISCELLANE DAILY [facility] Metoprolol Tartrate 12.5 mg 09/14/20 10:00 09/15/20 07:58 Metoprolol Tartrate 12.5 Mg Halftab PO 12.5 mg BID RAMON Administration Protocol Multivitamins/Vitamin C 1 tab 09/10/20 09:00 09/15/20 07:59 Multivitamin Tablet PO 1 tab DAILY RAMON Administration Omeprazole 40 mg 09/08/20 13:00 09/15/20 05:45 Omeprazole 40 Mg Capsule. PO 40 mg DAILY@0630 RAMON Administration Ondansetron HCl 4 mg 09/08/20 12:53 09/15/20 02:49 Ondansetron Hcl 4 Mg/2 Ml Vial IVPUSH 4 mg Q8H PRN Administration Nausea and Vomiting Oxycodone HCl 5 mg 09/15/20 09:42 Oxycodone Hcl Immed Release 5 Mg Tablet PO Q12H PRN Pain, Severe (Pain Scale 7-10) Prednisolone Sodium Phosphate 40 mg 09/13/20 14:15 09/15/20 07:54 Prednisolone Sodium Phosphate 15 Mg/5 Ml Solution PO 40 mg DAILY RAMON Administration Sodium Chloride 3 ml 09/08/20 16:00 09/15/20 07:59 0.9 % Sodium Chloride Flush 3 Ml Syringe IVFLUSH 3 ml QSHIFT RAMON Administration Thiamine HCl 100 mg 09/13/20 09:00 09/15/20 07:59 Thiamine Hcl 100 Mg Tablet PO 100 mg DAILY RAMON Administration Labs CBC & Chem 7: 09/15/20 06:21 09/15/20 06:21 Microbiology Microbiology Results: Microbiology 09/08/20 19:45 Urine clean catch - Clean Catch Midstream Urine Culture - Final No growth. Assessment and Plan (1) Alcoholic cirrhosis of liver: Status: Acute (2) Hyponatremia: Status: Acute (3) Alcohol withdrawal: Status: Acute Assessment and Plan: 60 yo M with decompensated EtOH cirrhosis admitted to ICU with severe hyponatr emia, alcohol withdrawal, stepped down to [facility] [place] 09/09/20 1. severe hyponatremia, due to cirrhosis + beer potomania SNa stable @ 130 off salt tabs, continue fluid restriction nephrology input appreciated 2. EtOH withdrawal, [facility] completed [facility]obarb protocol continue with mvi 3. EtOH hepatitis GI on board -- d/w GI, prednisolone initiated - plan for 40mg x 4 weeks then taper over 16 days (decrease by 10mg daily every 4 days and once down to 10mg -- decrease by 5mg every 3 days) - currently day #3 of initial 40mg cessation strongly encouraged 4. decompensated cirrhosis no ascites on US or clinically hx variceal hemorrhage. h/h stable lactulose 30mg BID 5. coagulopathy due to cirrhosis 6. thrombocytopenia due to cirrhosis. avoid heparin 7. Atrial tach better on low dose bb tele / ekg reviewed with cardiology. No a. fib appreciated. Will start low dose BB. Due to his known varices and continual alcohol use -- not a candidate for OAC even if he does go into A. fib metoprolol 12.5mg bid 8. Mild HypoK replete with PO check mag and replete if needed Full Code DVT pptx, mechanical -- high risk for bleed with pharmacological dispo: rehab once bed available
[2020-09-15] MEDS: Potassium Chloride ER 20 MEQ TAB.ER.PRT 40 MEQ PO (11:05)
[2020-09-15] MEDS: oxyCODONE HCl Immed Release 5 MG TABLET PO (11:05)
[2020-09-15 11:24] LABS: Magnesium 1.9 mg/dL (1.6-2.6)
[2020-09-15 12:56] LABS: Smooth Muscle Antibody <20 U (<20)
--- NOTE | 2020-09-15 14:41 | PM.PNNEP ---
Subjective Subjective Principal diagnosis: Hyponatremia Interval history: seen and examined denies abdominal pain, complaining of some chronic back willing to go to [facility] denies palp / cp overnight events reviewed Physical Exam Vital Signs: Vital Signs: Vital Signs Temp Pulse Resp BP Pulse Ox 09/15/20 11:15 98.0 F 76 18 139/87 96 09/15/20 07:58 82 100/67 09/15/20 07:30 97.9 F 82 18 100/67 96 09/15/20 03:48 97.8 F 73 18 114/58 L 97 09/14/20 23:17 98.0 F 113 H 18 114/82 97 09/14/20 21:59 117 H 111/78 09/14/20 19:00 98 F 81 18 119/82 98 09/14/20 15:10 97.9 F 111 H 22 H 117/69 94 Body Mass Index 29.5 Const: General: cooperative, alert and awake Orientation/consciousness: oriented to person, oriented to place, oriented to time and patient oriented x3 HENMT: Head: Yes normal to inspection Mouth: Normal oral and palatal mucosa present Eyes: General: appearance normal, both eyes and all related structures Pupils: Equal, round and reactive pupils present Neck: Neck: Yes normal visual inspection and Yes full ROM Chest: Chest palpation & inspection: normal inspection of the chest Resp: Effort & Inspection: normal respiratory effort Auscultation: diminished lung sounds Cardio: Jugular venous distension: no JVD Heart sounds: S1 normal heart sound present and S2 normal heart sound present GI: Inspection: Yes normal to inspection Palpation (GI): Soft to palpation Auscultation: normal bowel sounds Neuro: General: oriented to person, oriented to place, oriented to time and patient oriented x3 Cranial nerves: Yes Equal, round and reactive pupils present Assessment & Plan Assessment and plan (1) Hyponatremia: Problem details: NA level is 103 . Improved Fluid restriction Status: Acute (2) Alcohol withdrawal: Problem details: As per medical team Status: Acute (3) Dehydration: Problem details: Resolved Status: Acute Time Spent With Patient Time: Total time spent is greater than 50% in coordination of care (as documented) at patient's floor/unit and/or counseling patient:
[2020-09-16] VITALS (7 sets, daily range): BP systolic 96–141; BP diastolic 64–93; PULSE 69–78; RESP 18; TEMP 36.2–36.7; O2SAT 96–98
[2020-09-16] MEDS: Omeprazole 40 MG CAPSULE.DR PO (05:46)
[2020-09-16] MEDS: prednisoLONE sodium phosphate 15 MG/5 ML SOLUTION 40 MG PO (09:16)
[2020-09-16] MEDS: Folic Acid 1 MG TABLET PO (09:17)
[2020-09-16] MEDS: Multivitamin TABLET 1 TAB PO (09:17)
[2020-09-16] MEDS: Thiamine HCL 100 MG TABLET PO (09:17)
[2020-09-16] MEDS: Metoprolol Tartrate 12.5 MG HALFTAB PO (09:17)
[2020-09-16] MEDS: Lactulose 20 GM/30 ML SOLUTION 30 GM PO ×2 (09:18→21:25)
[2020-09-16] MEDS: 0.9 % Sodium Chloride Flush 3 ML SYRINGE IVFLUSH ×2 (09:19→15:58)
[2020-09-16 09:36] LABS: Anion Gap 16 (12-20); Blood Urea Nitrogen 13 mg/dL (9-16); Carbon Dioxide 20 mmol/L (22-29); Chloride 99 mmol/L (96-108); Estimated Glomerular Filt Rate > 60; Glucose Random 70 mg/dL (60-115); Potassium 3.6 mmol/l (3.3-5.1); Sodium 131 mmol/L (135-145)
[2020-09-16 12:54] LABS: Alanine Aminotransferase 63 U/L (0-40); Albumin Level 2.6 g/dL (3.5-5.0); Alkaline Phosphatase 168 U/L (39-117); Aspartate Amino Transferase 130 U/L (5-37); Total Protein 6.1 g/dL (6.5-8.0)
[2020-09-16 13:07] LABS: Bilirubin Total 27.4 mg/dL (0.0-1.0)
--- NOTE | 2020-09-16 13:16 | HO.PM.IMPN ---
Subjective Subjective Interval History: seen and examined feeling better today overall Physical Exam Vital Signs: Vital Signs: Vital Signs Temp Pulse Resp BP Pulse Ox 09/16/20 11:09 97.2 F 72 18 112/77 98 09/16/20 09:17 78 136/93 H 09/16/20 07:52 97.3 F 78 18 136/93 H 98 09/16/20 03:20 97.5 F 75 18 96/64 98 09/15/20 23:55 97.2 F 79 18 131/84 99 09/15/20 21:40 79 126/79 09/15/20 20:00 97.3 F 73 16 137/90 H 98 09/15/20 15:28 97.7 F 72 18 115/75 98 Body Mass Index 29.5 General - no acute distress, appears comfortable but chronically ill Cardiovascular - regular rate and rhythm, S1-S2; a tach on monitor on/off Lungs - normal respiratory effort, clear to auscultation bilaterally, no wheezing Abdomen - distended but soft, no fluid thrill appreciated Neuro - awake and alert, no focal deficits, no asterixis Objective Data Current Medications Generic Name Dose Route Start Last Admin Trade Name Freq PRN Reason Stop Dose Admin Acetaminophen 650 mg 09/08/20 12:53 Acetaminophen Supp 650 Mg Supp.Rect MD Q6H PRN Pain, Mild (Pain Scale 1-3) Folic Acid 1 mg 09/16/20 09:00 09/16/20 09:17 Folic Acid 1 Mg Tablet PO 1 mg DAILY [facility]ON Administration Lactulose 30 gm 09/14/20 21:00 09/16/20 09:18 Lactulose 20 Gm/30 Ml Solution PO 30 gm BID [facility]ON Administration Medication 1 each 09/08/20 09:00 No Benzodiazepines MISCELLANE DAILY [facility] Metoprolol Tartrate 12.5 mg 09/14/20 10:00 09/16/20 09:17 Metoprolol Tartrate 12.5 Mg Halftab PO 12.5 mg BID RAMON Administration Protocol Multivitamins/Vitamin C 1 tab 09/10/20 09:00 09/16/20 09:17 Multivitamin Tablet PO 1 tab DAILY [facility] Administration Omeprazole 40 mg 09/08/20 13:00 09/16/20 05:46 Omeprazole 40 Mg Capsule.Dr PO 40 mg DAILY@0630 [facility] Administration Ondansetron HCl 4 mg 09/08/20 12:53 10/24/20 02:49 Ondansetron Hcl 4 Mg/2 Ml Vial IVPUSH 4 mg Q8H PRN Administration Nausea and Vomiting Oxycodone HCl 5 mg 09/15/20 09:42 09/15/20 11:05 Oxycodone Hcl Immed Release 5 Mg Tablet PO 5 mg Q12H PRN Administration Pain, Severe (Pain Scale 7-10) Prednisolone Sodium Phosphate 40 mg 09/13/20 14:15 09/16/20 09:16 Prednisolone Sodium Phosphate 15 Mg/5 Ml Solution PO 40 mg DAILY [facility] Administration Sodium Chloride 3 ml 09/08/20 16:00 09/16/20 09:19 0.9 % Sodium Chloride Flush 3 Ml Syringe IVFLUSH 3 ml QSHIFT [facility]ON Administration Thiamine HCl 100 mg 09/13/20 09:00 09/16/20 09:17 Thiamine Hcl 100 Mg Tablet PO 100 mg DAILY [facility] Administration Labs CBC & Chem 7: 09/15/20 06:21 09/16/20 08:53 Microbiology Microbiology Results: Microbiology 09/08/20 19:45 Urine clean catch - Clean Catch Midstream Urine Culture - Final No growth. Assessment and Plan (1) Alcoholic cirrhosis of liver: Status: Acute (2) Hyponatremia: Status: Acute (3) Alcohol withdrawal: Status: Acute Assessment and Plan: 60 yo M with decompensated EtOH cirrhosis admitted to ICU with severe hyponatremia, alcohol withdrawal, stepped down to [facility] [place] 09/09/20 1. severe hyponatremia, due to cirrhosis + beer potomania SNa stable off salt tabs, continue fluid restriction nephrology input appreciated 2. EtOH withdrawal, high-risk with hx of seizures not in [facility] completed phenobarb protocol continue with mvi 3. EtOH hepatitis GI on board -- d/w GI, prednisolone initiated - plan for 40mg x 4 weeks then taper over 16 days (decrease by 10mg daily every 4 days and once down to 10mg -- decrease by 5mg every 3 days) - currently day #03/20 of initial 40mg cessation strongly encouraged 4. decompensated cirrhosis no ascites on US or clinically hx variceal hemorrhage. h/h stable lactulose 30mg BID 5. coagulopathy due to cirrhosis 6. thrombocytopenia due to cirrhosis. avoid heparin 7. Atrial tach, resolved metoprolol 12.5mg BID tele reviewed with Dr. Cedric on 09/14 -- a tach not a. fib 8. Mild HypoK resolved replete as needed Full Code DVT pptx, mechanical -- high risk for bleed with pharmacological dispo: rehab once bed available
[2020-09-16 13:42] LABS: Bilirubin Direct 18.7 mg/dL (0.0-0.5)
[2020-09-16] MEDS: Metoprolol Tartrate 25 MG TABLET PO (21:25)
--- NOTE | 2020-09-16 22:42 | PM.PNNEP ---
Subjective Subjective Principal diagnosis: Hyponatremia Interval history: seen and examined feeling better today overall Physical Exam Vital Signs: Vital Signs: Vital Signs Temp Pulse Resp BP Pulse Ox 09/16/20 18:56 98.1 F 72 18 121/67 96 09/16/20 15:36 97.7 F 78 18 141/85 H 98 09/16/20 11:09 97.2 F 72 18 112/77 98 09/16/20 09:17 78 136/93 H 09/16/20 07:52 97.3 F 78 18 136/93 H 98 09/16/20 03:20 97.5 F 75 18 96/64 98 09/15/20 23:55 97.2 F 79 18 131/84 99 Body Mass Index 29.5 Const: Other: Const: General: cooperative, alert and awake Orientation/consciousness: oriented to person, oriented to place, oriented to time and patient oriented x3 HENMT: Head: Yes normal to inspection Mouth: Normal oral and palatal mucosa present Eyes: General: appearance normal, both eyes and all related structures Pupils: Equal, round and reactive pupils present Neck: Neck: Yes normal visual inspection and Yes full ROM Chest: Chest palpation & inspection: normal inspection of the chest Resp: Effort & Inspection: normal respiratory effort Auscultation: diminished lung sounds Cardio: Jugular venous distension: no JVD Heart sounds: S1 normal heart sound present and S2 normal heart sound present GI: Inspection: Yes normal to inspection Palpation (GI): Soft to palpation Auscultation: normal bowel sounds Neuro: General: oriented to person, oriented to place, oriented to time and patient oriented x3 Cranial nerves: Yes Equal, round and reactive pupils present Assessment & Plan Assessment and plan (1) Acute hyponatremia: Problem details: 1. Hypervol HypoNa: liver cirrhosis and non-osmotic incr ADH causing hypoNa Na is better 131 grad increasing on PO fluid restriction and PO NaCL. Off NACL tabs 2. Liver Cirrhosis Status: Acute (2) Alcoholic cirrhosis of liver: Status: Acute Time Spent With Patient Time: Total time spent is greater than 50% in coordination of care (as documented) at patient's floor/unit and/or counseling patient:
[2020-09-17] VITALS (9 sets, daily range): BP systolic 107–124; BP diastolic 58–82; PULSE 64–74; RESP 18; TEMP 36.6–37; O2SAT 97–99; BMI 28.3
[2020-09-17] MEDS: 0.9 % Sodium Chloride Flush 3 ML SYRINGE IVFLUSH ×3 (00:02→17:30)
[2020-09-17] MEDS: oxyCODONE HCl Immed Release 5 MG TABLET PO ×2 (02:18→19:49)
[2020-09-17] MEDS: ondansetron HCL 4 MG/2 ML VIAL IVPUSH (02:18)
[2020-09-17 06:20] LABS: INTERNATIONAL NORM RATIO 1.8 (0.9-1.1)
[2020-09-17] MEDS: Omeprazole 40 MG CAPSULE.DR PO (06:30)
[2020-09-17] MEDS: Lactulose 20 GM/30 ML SOLUTION 30 GM PO ×2 (09:51→19:49)
[2020-09-17] MEDS: prednisoLONE sodium phosphate 15 MG/5 ML SOLUTION 40 MG PO (09:51)
[2020-09-17] MEDS: Metoprolol Tartrate 25 MG TABLET PO ×2 (09:52→19:49)
[2020-09-17] MEDS: Multivitamin TABLET 1 TAB PO (09:52)
[2020-09-17] MEDS: Thiamine HCL 100 MG TABLET PO (09:52)
[2020-09-17] MEDS: Folic Acid 1 MG TABLET PO (09:52)
--- NOTE | 2020-09-17 10:47 | P.PNNP_ITS ---
Subjective Subjective Principal diagnosis: Hyponatremia Interval history: seen and examined feeling better today overall Physical Exam Vital Signs: Vital Signs: Vital Signs Temp Pulse Resp BP Pulse Ox 09/17/20 09:52 69 113/70 09/17/20 07:17 98.2 F 69 18 113/70 99 09/17/20 04:00 97.9 F 70 18 114/68 98 09/16/20 23:22 98.0 F 69 18 118/76 96 09/16/20 18:56 98.1 F 72 18 121/67 96 09/16/20 15:36 97.7 F 78 18 141/85 H 98 09/16/20 11:09 97.2 F 72 18 112/77 98 Body Mass Index 28.3 Const: General: alert and ill appearing Nutritional Appearance: obese Orientation/consciousness: oriented to person, oriented to place, oriented to time and patient oriented x3 Limitations: no limitations HENMT: Head: Yes normal to inspection and Yes normocephalic Mouth: Normal oral and palatal mucosa present Eyes: General: appearance normal, both eyes and all related structures Conjunctivae: conjunctival abnormal ( jaundice) bilateral Sclerae: sclerae normal and scleral abnormal (Jaundice) Pupils: Equal, round and reactive pupils present EOM: EOMs intact bilaterally Neck: Neck: Yes normal visual inspection, Yes full ROM, Yes no lymphadenopathy, Yes trachea midline, Yes supple and Yes no JVD Chest: Chest palpation & inspection: normal inspection of the chest Resp: Effort & Inspection: normal respiratory effort and no respiratory distress Auscultation: clear to auscultation bilaterally, no crackles and diminished lung sounds Cardio: Jugular venous distension: no JVD Rate: regular rate Rhythm: regular rhythm Heart sounds: S1 normal heart sound present, S2 normal heart sound present, no gallops, no murmurs and no rubs GI: Inspection: Yes normal to inspection, Yes distended, Yes obesity and Yes other (no fluid wave) Palpation (GI): Soft to palpation, nontender and Other GI palpation findings present ( Nontender) Auscultation: normal bowel sounds and other ( mild diffuse tenderness, possible ascites distension.) Rectal Exam - Male: Yes deferred Skin: Other: jaundiced General skin exam: ecchymosis ( upper extremities) and jaundice Rashes: no rashes Neuro: General: oriented to person, oriented to place, oriented to time, patient oriented x3 and other ( No hallucination documented by the patient.) Cranial nerves: Yes Equal, round and reactive pupils present Extrem: Other: +2 edema both lower extremities. General: Yes normal to inspection, Yes no pedal edema, No clubbing, No cyanosis and Yes edema (1+ Bilateral) Right upper extremity: edema ( 2+ bilateral) Right lower extremity: edema Left lower extremity: edema Psych: Appearance: disheveled Assessment & Plan Assessment and plan (1) Acute hyponatremia: Problem details: 1. Hypervol HypoNa: liver cirrhosis and non-osmotic incr ADH causing hypoNa Na is better 131 grad increasing on PO fluid restriction and PO NaCL. Off NACL tabs 2. Liver Cirrhosis Status: Acute (2) Alcoholic cirrhosis of liver: Status: Acute Assessment and Plan: 60 yo M with decompensated EtOH cirrhosis admitted to ICU with severe hyponatremia, alcohol withdrawal, stepped down to [facility] [place] 09/09/20 1. severe hyponatremia, due to cirrhosis + beer potomania SNa stable off salt tabs, continue fluid restriction nephrology input appreciated 2. EtOH withdrawal, [facility] continue with mvi 3. EtOH hepatitis GI on board -- d/w GI, prednisolone initiated - plan for 40mg x 4 weeks then tap er over 16 days (decrease by 10mg daily every 4 days and once down to 10mg -- decrease by 5mg every 3 days) - currently day #03/20 of initial 40mg cessation strongly encouraged 4. decompensated cirrhosis no ascites on US or clinically hx variceal hemorrhage. h/h stable lactulose 30mg BID 5. coagulopathy due to cirrhosis 6. thrombocytopenia due to cirrhosis. avoid heparin 7. Atrial tach, resolved metoprolol 12.5mg BID tele reviewed with Dr. Steele on 09/14 -- a tach not a. fib 8. Mild HypoK resolved replete as needed Full Code DVT pptx, mechanical -- high risk for bleed with pharmacological dispo: rehab once bed available Time Spent With Patient Time: Total time spent is greater than 50% in coordination of care (as documented) at patient's floor/unit and/or counseling patient:
--- NOTE | 2020-09-17 10:49 | PM.PNNEP ---
Subjective Subjective Principal diagnosis: Hyponatremia Physical Exam Vital Signs: Vital Signs: Vital Signs Temp Pulse Resp BP Pulse Ox 09/17/20 09:52 69 113/70 09/17/20 07:17 98.2 F 69 18 113/70 99 09/17/20 04:00 97.9 F 70 18 114/68 98 09/16/20 23:22 98.0 F 69 18 118/76 96 09/16/20 18:56 98.1 F 72 18 121/67 96 09/16/20 15:36 97.7 F 78 18 141/85 H 98 09/16/20 11:09 97.2 F 72 18 112/77 98 Body Mass Index 28.3 Const: General: cooperative Eyes: Pupils: Equal, round and reactive pupils present Neck: Neck: Yes supple Cardio: Heart sounds: no rubs Skin: General skin exam: no rashes or lesions noted Neuro: Cranial nerves: Yes Equal, round and reactive pupils present Motor exam (neuro): No Asterixis during motor activity present Assessment & Plan Assessment and plan (1) Acute hyponatremia: Problem details: 1. Hypervol HypoNa: liver cirrhosis and non-osmotic incr ADH causing hypoNa Na is better 131 as of 09/16; grad increasing on PO fluid restriction 2. Liver Cirrhosis Status: Acute
--- NOTE | 2020-09-17 10:56 | MHC.CLN ---
F/U PO INTAKE IMPROVED 75-100% DIET RX: REGULAR 1000CC FR-APPROPRIATE RECEIVING ENSURE BID TO INCREASE KCALS FOLLOWING
--- NOTE | 2020-09-17 16:26 | HO.PM.IMPN ---
Subjective Subjective Date of Service: 09/17/20 Interval History: seen and examined brother beside no new issues awaiting acceptance at [facility], remains agreeable and remains optimistic about alcohol cessation Review of Systems General - no fevers or chills Cardiovascular - no chest pain Respiratory - no shortness of breath or cough Abdominal- no abdominal pain, nausea, vomiting, diarrhea Physical Exam Vital Signs: Vital Signs: Vital Signs Temp Pulse Resp BP Pulse Ox 09/17/20 15:41 97.9 F 64 18 124/81 99 09/17/20 14:06 74 107/58 L 98 09/17/20 10:56 97.8 F 74 18 107/58 L 98 09/17/20 09:52 69 113/70 09/17/20 07:17 98.2 F 69 18 113/70 99 09/17/20 04:00 97.9 F 70 18 114/68 98 09/16/20 23:22 98.0 F 69 18 118/76 96 09/16/20 18:56 98.1 F 72 18 121/67 96 Body Mass Index 28.3 General - no acute distress, appears comfortable but chronically ill Cardiovascular - regular rate and rhythm, S1-S2; a tach on monitor on/off Lungs - normal respiratory effort, clear to auscultation bilaterally, no wheezing Abdomen - distended but soft, no fluid thrill appreciated Neuro - awake and alert, no focal deficits, no asterixis Objective Data Current Medications Generic Name Dose Route Start Last Admin Trade Name Freq PRN Reason Stop Dose Admin Acetaminophen 650 mg 09/08/20 12:53 Acetaminophen Supp 650 Mg Supp.Rect HI Q6H PRN Pain, Mild (Pain Scale 1-3) Folic Acid 1 mg 09/16/20 09:00 09/17/20 09:52 Folic Acid 1 Mg Tablet PO 1 mg DAILY [facility] Administration Lactulose 30 gm 09/14/20 21:00 09/17/20 09:51 Lactulose 20 Gm/30 Ml Solution PO 30 gm BID [facility] Administration Medication 1 each 09/08/20 09:00 No Benzodiazepines MISCELLANE DAILY [facility] Metoprolol Tartrate 25 mg 09/16/20 21:00 09/17/20 09:52 Metoprolol Tartrate 25 Mg Tablet PO 25 mg BID [facility]ON Administration Protocol Multivitamins/Vitamin C 1 tab 09/10/20 09:00 09/17/20 09:52 Multivitamin Tablet PO 1 tab DAILY [facility] Administration Omeprazole 40 mg 09/08/20 13:00 09/17/20 06:30 Omeprazole 40 Mg Capsule. PO 40 mg DAILY@0630 [facility] Administration Ondansetron HCl 4 mg 09/08/20 12:53 09/17/20 02:18 Ondansetron Hcl 4 Mg/2 Ml Vial IVPUSH 4 mg Q8H PRN Administration Nausea and Vomiting Oxycodone HCl 5 mg 09/15/20 09:42 09/17/20 02:18 Oxycodone Hcl Immed Release 5 Mg Tablet PO 5 mg Q12H PRN Administration Pain, Severe (Pain Scale 7-10) Prednisolone Sodium Phosphate 40 mg 09/13/20 14:15 09/17/20 09:51 Prednisolone Sodium Phosphate 15 Mg/5 Ml Solution PO 40 mg DAILY [facility] Administration Sodium Chloride 3 ml 09/08/20 16:00 09/17/20 09:52 0.9 % Sodium Chloride Flush 3 Ml Syringe IVFLUSH 3 ml QSHIFT [facility] Administration Thiamine HCl 100 mg 09/13/20 09:00 09/17/20 09:52 Thiamine Hcl 100 Mg Tablet PO 100 mg DAILY [facility] Administration Labs CBC & Chem 7: 09/15/20 06:21 09/16/20 08:53 Microbiology Microbiology Results: Microbiology 09/08/20 19:45 Urine clean catch - Clean Catch Midstream Urine Culture - Final No growth. Assessment and Plan (1) Alcoholic cirrhosis of liver: Status: Acute (2) Hyponatremia: Status: Acute (3) Alcohol withdrawal: Status: Acute Assessment and Plan: 60 yo M with decompensated EtOH cirrhosis admitted to ICU with severe hyponatremia, alcohol withdrawal, stepped down to [facility] [place] 09/09/20 1. severe hyponatremia, due to cirrhosis + beer potomania SNa stable off salt tabs, continue fluid restriction nephrology input appreciated 2. EtOH withdrawal, high-risk with hx of seizures not in [facility] completed phenobarb protocol continue with mvi 3. EtOH hepatitis GI on board -- d/w GI, prednisolone initiated - plan for 40mg x 4 weeks then taper over 16 days (decrease by 10mg daily every 4 days and once down to 10mg -- decrease by 5mg every 3 days) - currently day #/ of initial 40mg cessation strongly encouraged outpatient f/u with GI 4. decompensated cirrhosis no ascites on US or clinically hx variceal hemorrhage. h/h stable lactulose 30mg BID 5. coagulopathy due to cirrhosis 6. thrombocytopenia due to cirrhosis. avoid heparin 7. Atrial tach, resolved metoprolol 12.5mg BID tele reviewed with Dr. Steele on 09/14 -- a tach not a. fib; in either case, give patients alcohol / cirrhosis history --> probably not a candiate for OAC even if he does develop a. fib 8. Mild HypoK resolved replete as needed Full Code DVT pptx, mechanical -- high risk for bleed with pharmacological dispo: rehab once bed available -- accepted, but unable to obtain insurance auth today
[2020-09-17 16:32] LABS: Alpha Fetoprotein 2.3 ng/mL (<6.1)
[2020-09-18] VITALS (8 sets, daily range): BP systolic 105–148; BP diastolic 56–85; PULSE 57–86; RESP 18–20; TEMP 36.1–36.7; O2SAT 97–98
--- NOTE | 2020-09-18 | CT_ITS ---
EXAMINATION: CT ABDOMEN WITHOUT AND WITH CONTRAST CLINICAL INFORMATION: Elevated liver function tests. Evaluate for neoplasm or Budd-Chiari COMPARISON: Previous abdominal ultrasound most recent from 09/08/[address] of the abdomen and pelvis April 2020 TECHNIQUE: Contiguous axial thin section helical images of the abdomen were performed before and after the administration of oral contrast and 85 mL of Omnipaque 350 intravenous contrast. The data set was reformatted in the coronal and sagittal planes and reviewed on an independent workstation. This CT examination was performed using dose optimization techniques as appropriate, variously including the following: *Automated exposure control *Adjustment of mA and/or kV according to patient size (this includes techniques or standardized protocols for targeted exams where dose is matched to indication/reason for exam; i.e. extremities or head) *Use of iterative reconstruction technique DLP: 1221 mGy-cm FINDINGS: LUNG BASES: There is subsegmental atelectasis at the left lung base. LIVER, GALLBLADDER, AND BILIARY TREE: Or inflammatory the liver is enlarged, right lobe measuring 21 cm. The liver is low in attenuation suggestive of fatty infiltration. The liver is normal in contour. No evidence of cirrhosis is seen. There is a small calcification in the right lobe of the liver for example axial image 94 series 5. No mass is seen. The portal veins and hepatic veins are patent. The gallbladder is slightly dilated measuring 5.5 x 6.5 x 10.5 cm and appears increased in size from previous CT April 2020. There are gallstones in the gallbladder. There is no intra or extrahepatic biliary duct dilatation. There is a moderate amount of ascites. PANCREAS: Unremarkable SPLEEN: Slightly enlarged measuring 14 cm in length. ADRENAL GLANDS AND KIDNEYS: Unremarkable BOWEL LOOPS: Unremarkable LYMPH NODES: No adenopathy VASCULAR: There are upper abdominal varices. There is a recannulized paraumbilical vein. The portal veins and hepatic veins are patent. The abdominal aorta is normal in caliber. BONES: There are degenerative changes of the spine. CT/CT abdomen wo/w con IMPRESSION: Enlarged fatty liver. No evidence of cirrhosis, focal liver lesion or Budd-Chiari. The portal and hepatic veins are patent. There are upper abdominal varices and recanalized paraumbilical vein. Moderate amount of ascites. Mild splenomegaly. Distended gallbladder with gallstones. Gallbladder is increased in size from prior CT scan. If there is clinical suspicion of cholecystitis, HIDA scan would be recommended.
[2020-09-18] MEDS: 0.9 % Sodium Chloride Flush 3 ML SYRINGE IVFLUSH ×3 (00:48→17:16)
[2020-09-18] MEDS: Omeprazole 40 MG CAPSULE.DR PO (06:35)
[2020-09-18] MEDS: Lactulose 20 GM/30 ML SOLUTION 30 GM PO ×2 (10:01→20:08)
[2020-09-18] MEDS: prednisoLONE sodium phosphate 15 MG/5 ML SOLUTION 40 MG PO (10:01)
[2020-09-18] MEDS: Thiamine HCL 100 MG TABLET PO (10:02)
[2020-09-18] MEDS: Folic Acid 1 MG TABLET PO (10:02)
[2020-09-18] MEDS: Metoprolol Tartrate 25 MG TABLET PO ×2 (10:02→20:08)
[2020-09-18] MEDS: Multivitamin TABLET 1 TAB PO (10:02)
[2020-09-18] MEDS: oxyCODONE HCl Immed Release 5 MG TABLET PO (10:31)
--- NOTE | 2020-09-18 10:57 | PM.PNNEP ---
Subjective Subjective Principal diagnosis: Hyponatremia Interval history: Events noted Physical Exam Vital Signs: Vital Signs: Vital Signs Temp Pulse Resp BP Pulse Ox 09/18/20 10:02 71 105/71 09/18/20 07:08 98.1 F 71 18 105/71 98 09/18/20 03:20 97.8 F 65 20 120/77 97 09/17/20 23:24 98.1 F 72 18 113/76 97 09/17/20 19:49 72 116/82 09/17/20 19:04 98.6 F 72 18 116/82 98 09/17/20 15:41 97.9 F 64 18 124/81 99 09/17/20 14:06 74 107/58 L 98 Body Mass Index 28.3 Eyes: Pupils: Equal, round and reactive pupils present Neck: Neck: Yes supple Cardio: Heart sounds: no rubs Skin: General skin exam: no rashes or lesions noted Neuro: Cranial nerves: Yes Equal, round and reactive pupils present Motor exam (neuro): No Asterixis during motor activity present Assessment & Plan Assessment and plan (1) Acute hyponatremia: Problem details: 1. Hypervol HypoNa: liver cirrhosis and non-osmotic incr ADH causing hypoNa Na is better 131 as of 09/16; grad increasing on PO fluid restriction 2. Liver Cirrhosis Status: Acute Time Spent With Patient Time: Total time spent is greater than 50% in coordination of care (as documented) at patient's floor/unit and/or counseling patient:
--- NOTE | 2020-09-18 11:51 | MHC.CM.PN ---
PT DCD TO [facility] TODAY AT 2:00 BY MATHIEU
[2020-09-18 13:29] LABS: SARS COV2 PCR INHOUSE NEGATIVE (Negative)
--- NOTE | 2020-09-18 14:57 | MHC.CM.PN ---
pts discharge cancelled due to increased lfts nh and amb notified
[2020-09-18] MEDS: iohexoL 350 MG/ML 100 ML INFUS..BTL IV (15:20)
--- NOTE | 2020-09-18 16:40 | HO.PM.IMPN ---
Subjective Subjective Date of Service: 09/18/20 Interval History: patient complaining of back pain and feels it is related to the bed since when he stands up and ambulate his back pain improves he complains of generalized body ache otherwise denies any abdominal discomfort no nausea vomiting, no other acute issues overnight. Review of Systems General generalized body ache, no dizziness,no headache, no fever chills. CVS no chest pain, no palpitation. Respiratory no cough, no sputum production, no respiratory distress. Gastrointestinal no nausea no vomiting, no abdominal pain Physical Exam Vital Signs: Vital Signs: Vital Signs Temp Pulse Resp BP Pulse Ox 09/18/20 16:00 97.0 F 57 18 121/78 97 09/18/20 11:37 96.9 F 71 18 148/56 H 97 09/18/20 10:02 71 105/71 09/18/20 07:08 98.1 F 71 18 105/71 98 09/18/20 03:20 97.8 F 65 20 120/77 97 09/17/20 23:24 98.1 F 72 18 113/76 97 09/17/20 19:49 72 116/82 09/17/20 19:04 98.6 F 72 18 116/82 98 Body Mass Index 28.3 General patient resting comfortably eyes icteric sclera Neck supple CVS regular rate rhythm, Respiratory lungs clear to auscultation, no respiratory distress Gastrointestinal abdomen soft, distended, nontender, bowel sounds audible, no no guarding , no rigidity. Neuro nonfocal Skin jaundiced Objective Data Current Medications Generic Name Dose Route Start Last Admin Trade Name Freq PRN Reason Stop Dose Admin Acetaminophen 650 mg 09/08/20 12:53 Acetaminophen Supp 650 Mg Supp.Rect WI Q6H PRN Pain, Mild (Pain Scale 1-3) Folic Acid 1 mg 09/16/20 09:00 09/18/20 10:02 Folic Acid 1 Mg Tablet PO 1 mg DAILY [facility] Administration Lactulose 30 gm 09/14/20 21:00 09/18/20 10:01 Lactulose 20 Gm/30 Ml Solution PO 30 gm BID RAMON Administration Medication 1 each 09/08/20 09:00 No Benzodiazepines MISCELLANE DAILY [facility] Metoprolol Tartrate 25 mg 09/16/20 21:00 09/18/20 10:02 Metoprolol Tartrate 25 Mg Tablet PO 25 mg BID RAMON Administration Protocol Multivitamins/Vitamin C 1 tab 09/10/20 09:00 09/18/20 10:02 Multivitamin Tablet PO 1 tab DAILY RAMON Administration Omeprazole 40 mg 09/08/20 13:00 09/18/20 06:35 Omeprazole 40 Mg Capsule. PO 40 mg DAILY@0630 RAMON Administration Ondansetron HCl 4 mg 09/08/20 12:53 09/17/20 02:18 Ondansetron Hcl 4 Mg/2 Ml Vial IVPUSH 4 mg Q8H PRN Administration Nausea and Vomiting Oxycodone HCl 5 mg 09/15/20 09:42 09/18/20 10:31 Oxycodone Hcl Immed Release 5 Mg Tablet PO 5 mg Q12H PRN Administration Pain, Severe (Pain Scale 7-10) Prednisolone Sodium Phosphate 40 mg 09/13/20 14:15 09/18/20 10:01 Prednisolone Sodium Phosphate 15 Mg/5 Ml Solution PO 40 mg DAILY RAMON Administration Sodium Chloride 3 ml 09/08/20 16:00 09/18/20 10:04 0.9 % Sodium Chloride Flush 3 Ml Syringe IVFLUSH 3 ml QSHIFT RAMON Administration Thiamine HCl 100 mg 09/13/20 09:00 09/18/20 10:02 Thiamine Hcl 100 Mg Tablet PO 100 mg DAILY RAMON Administration Labs CBC & Chem 7: 09/15/20 06:21 09/16/20 08:53 Microbiology Microbiology Results: Microbiology 09/08/20 19:45 Urine clean catch - Clean Catch Midstream Urine Culture - Final No growth. Assessment and Plan (1) Alcoholic cirrhosis of liver: Status: Acute (2) Elevated bilirubin: Status: Acute (3) Alcohol withdrawal: Status: Acute (4) Acute hyponatremia: Status: Acute (5) Esophageal varices determined by endoscopy: Status: Acute Assessment and Plan: 1. severe hyponatremia, due to cirrhosis + beer potomania SNa 131 09/16 stable off salt tabs, continue fluid restriction, case discussed with Nephrology will repeat BMP at a.m. 2. EtOH withdrawal, high-risk with hx of seizures not in withdrwawal, completed phenobarb protocol continue with mvi 3. EtOH hepatitis total bili noted to have worsened, therefore case discussed with Dr. torie newton and Dr. Padgett a CT scan of the abdomen was obtained that showed no new liver lesions, no evidence of Budd-Chiari will repeat LFTs at a.m. and continue prednisone - plan for 40mg x 4 weeks then taper over 16 days (decrease by 10mg daily every 4 days and once down to 10mg -- decrease by 5mg every 3 days) - currently day #6 of initial 40mg cessation strongly encouraged, will follow LFTs. 4. decompensated cirrhosis CT abdomen from today showed enlarged fatty liver, no evidence of cirrhosis, moderate ascites was noted, patient has portal and hepatic wanes both are patent hx variceal hemorrhage. h/h stable will continue lactulose 30mg BID 5. coagulopathy due to cirrhosis INR remains elevated around 1.8 will follow INR 6. thrombocytopenia due to cirrhosis. avoid heparin platelets remain stable around 50,000, no bleeding noted 7. Atrial tach, resolved continue metoprolol 12.5mg BID Dr. Steele reviewed telemonitor on 09/14 -- atrial tach not a. fib; in either case, give patients alcohol / cirrhosis history --> probably not a candiate for OAC even if he does develop a. fib 8. Mild HypoK resolved Full Code DVT pptx, mechanical -- high risk for bleed due to elevated INR and low platelet dispo: to rehab
[2020-09-19] MEDS: 0.9 % Sodium Chloride Flush 3 ML SYRINGE IVFLUSH ×3 (01:50→15:19)
[2020-09-19 04:00] VITALS: BP 147/80; PULSE 64; RESP 20; TEMP 36.4; O2SAT 99
[2020-09-19] MEDS: Omeprazole 40 MG CAPSULE.DR PO (05:28)
[2020-09-19 06:36] LABS: Basophils Percent Auto 0.2 % (0-2); Hemoglobin 12.7 g/dl (14.0-18.0); MANUAL DIFF FLAG SCAN; Mean Corpuscular Volume 94.9 fL (80-98)
[2020-09-19 06:38] LABS: Eosinophils Percent Auto 0.2 % (0-4); Hematocrit 35.7 % (42-52); Imm Gran Pct Auto 3.4 % (0.0-0.4); Lymphocytes Absolute Auto 0.7 X10*3/uL (1.2-4.9); Lymphocytes Percent Auto 12.5 % (20-40); Mean Corpuscular HGB Conc 35.6 g/dl (31.0-36.0); Mean Corpuscular Hemoglobin 33.8 pg (27.0-33.0); Monocytes Absolute Auto 0.6 X10*3/uL (0.1-1.2); Monocytes Percent Auto 9.6 % (2-11); Neutrophils Absolute Auto 4.4 X10*3/uL (2.0-8.3); Neutrophils Percent Auto 74.1 % (45-73); Red Blood Count 3.76 X10*6/uL (4.60-5.80); Red Cell Distribution Width 19.7 % (11.0-16.0); White Blood Count 5.9 X10*3/uL (4.8-10.8)
[2020-09-19 06:41] LABS: INTERNATIONAL NORM RATIO 1.6 (0.9-1.1); Prothrombin Time 19.1 SEC (10.8-13.0)
[2020-09-19 07:04] VITALS: BP 115/71; PULSE 75; RESP 20; TEMP 36.9; O2SAT 99
[2020-09-19 07:18] LABS: Platelet Count 67 X10*3/uL (160-400)
[2020-09-19 07:48] LABS: SLIDE REVIEW VERIFIED
[2020-09-19 08:00] VITALS: BMI 29.0
[2020-09-19 08:56] VITALS: BP 115/75; PULSE 75
[2020-09-19] MEDS: Metoprolol Tartrate 25 MG TABLET PO (08:56)
[2020-09-19] MEDS: Folic Acid 1 MG TABLET PO (08:56)
[2020-09-19] MEDS: Lactulose 20 GM/30 ML SOLUTION 30 GM PO (08:56)
[2020-09-19] MEDS: Multivitamin TABLET 1 TAB PO (08:56)
[2020-09-19] MEDS: Thiamine HCL 100 MG TABLET PO (08:56)
[2020-09-19] MEDS: prednisoLONE sodium phosphate 15 MG/5 ML SOLUTION 40 MG PO (08:56)
[2020-09-19 11:18] VITALS: BP 129/77; PULSE 85; RESP 20; TEMP 36.6; O2SAT 93
[2020-09-19 11:20] LABS: Alanine Aminotransferase 60 U/L (0-40); Albumin Level 2.3 g/dL (3.5-5.0); Alkaline Phosphatase 171 U/L (39-117); Anion Gap 12 (12-20); Aspartate Amino Transferase 129 U/L (5-37); Blood Urea Nitrogen 14 mg/dL (9-16); Calcium 7.6 mg/dL (8.4-10.2); Carbon Dioxide 24 mmol/L (22-29); Chloride 96 mmol/L (96-108); Creatinine Clr Calc Pharmacy 122.3; Estimated Glomerular Filt Rate > 60; Glucose Random 78 mg/dL (60-115); Potassium 3.2 mmol/l (3.3-5.1); Sodium 129 mmol/L (135-145); Total Protein 5.7 g/dL (6.5-8.0)
[2020-09-19 11:37] LABS: Bilirubin Total 25.6 mg/dL (0.0-1.0)
[2020-09-19 11:51] LABS: Bilirubin Direct 17.4 mg/dL (0.0-0.5)
--- NOTE | 2020-09-19 14:16 | P.DS_ITS ---
DS: Providers Provider Date of admission: 09/08/20 12:54 Primary care physician: Unknown Physician Consults: 09/08/20 11:55 Consult to Nephrology Stat Consulting Provider: Roger Yeung Reason for consultation: hyponatremia Has provider been notified: Yes 09/10/20 08:05 Consult to Gastroenterology Routine Consulting Provider: [facility] [place] [facility] [place] [facility] Reason for consultation: alcoholic hepatitis 09/10/20 09:25 Consult to Care Team Routine Comment: Reason for consultation: etOH, cirrhosis, withdrawal DS: Diagnosis Discharge Diagnosis (1) Alcoholic cirrhosis of liver: Status: Acute (2) Elevated bilirubin: Status: Acute (3) Alcohol withdrawal: Status: Acute (4) Acute hyponatremia: Status: Acute (5) Esophageal varices determined by endoscopy: Status: Acute DS: Summary Hospital Course Hospital Course: Chief Complaint: malaise 60-year-old gentleman with underlying history of alcohol abuse, liver cirrhosis, gastroesophageal reflux disease, gastritis, prior upper GI bleed admitted on 09/08/2020 with alcohol intoxication, malaise, abdominal discomfort, and subacute hyponatremia. Patient states that he has not been eating well for the last month except drinking alcohol. he denied any other complaints. He has been admitted to intensive care unit for close monitoring of his subacute asymptomatic hyponatremia. Hospital course severe hyponatremia, on admission noted to have a sodium of 112 felt to be related to cirrhosis + beer potomania, sodium improved to 129 today will continue fluid restriction follow BMP in 1 week, patient counseled regarding alcohol abuse. EtOH withdrawal, Due to high-risk for withdrawal with hx of seizures patient was treated with phenobarb and B12 and folate EtOH hepatitis total bili is gradually trending down patient evaluated by gastroenterology Dr. Padgett CT scan of the abdomen showed no new liver lesions, no evidence of Budd- Chiari patient is being treated with prednisone - plan for 40mg x 4 weeks , then taper over 16 days (decrease by 10mg daily every 4 days and once down to 10mg -- decrease by 5mg every 3 days) - currently day #7/28 of initial 40mg strongly encouraged to abstain from alcohol, follow LFTs Q weekly. patient has moderate ascites both portal and hepatic veins are patent hx variceal hemorrhage. h/h stable continue lactulose 30mg BID coagulopathy due to cirrhosis INR remains elevated around 1.8 no active bleeding noted thrombocytopenia due to liver disease platelets remain stable around 50,000 no bleeding noted Atrial tach, resolved will continue metoprolol, no atrial fibrillation noted Mild HypoK potassium given follow BMP on 09/21 and weekly Time Spent with Patient Time attestation: Total time spent providing and/or coordinating discharge services: Physical Exam Vital Signs: Vital Signs: Vital Signs Temp Pulse Resp BP Pulse Ox 09/19/20 11:18 97.9 F 85 20 129/77 93 09/19/20 08:56 75 115/75 09/19/20 07:04 98.4 F 75 20 115/71 99 09/19/20 04:00 97.6 F 64 20 147/80 H 99 09/18/20 23:17 97.6 F 86 20 130/85 98 09/18/20 20:08 78 121/78 09/18/20 20:00 97.0 F 63 18 133/78 98 09/18/20 16:00 97.0 F 57 18 121/78 97 Body Mass Index 29.0 General patient resting comfortably eyes icteric sclera Neck supple CVS regular rate rhythm, Respiratory lungs clear to auscultation, no respiratory distress Gastrointestinal abdomen soft, distended, nontender, bowel sounds audible, no no guarding , no rigidity. Neuro nonfocal Skin jaundiced DS: Data Data Completed and Pending Labs on day of discharge: Labs from last 24 hours 09/19/20 09/19/20 09/19/20 09:50 05:37 05:37 WBC RBC Hgb Hct MCV MCH MCHC RDW Plt Count MPV Immature Gran % (Auto) Neut % (Auto) Lymph % (Auto) [place] % (Auto) Eos % (Auto) Baso % (Auto) Lymph # (Auto) [place] # (Auto) Eos # (Auto) Baso # (Auto) Abs Immat Gran (auto) Absolute Neuts (auto) Absolute Nucleated RBC Nucleated RBC % (auto) Smear Tech's Comments PT 19.1 H INR 1.6 H Sodium 129 L Cancelled Potassium 3.2 L Cancelled Chloride 96 Cancelled Carbon Dioxide 24 Cancelled Anion Gap 12 Cancelled BUN 14 Cancelled Creatinine 0.82 Cancelled Estim Creat Clear Calc 122.3 Cancelled Estimated GFR > 60 Cancelled Random Glucose 78 Cancelled Calcium 7.6 L Cancelled Total Bilirubin 25.6 H Cancelled Direct Bilirubin 17.4 H Cancelled AST 129 H Cancelled ALT 60 H Cancelled Alkaline Phosphatase 171 H Cancelled Total Protein 5.7 L Cancelled Albumin 2.3 L Cancelled 09/19/20 05:37 WBC 5.9 RBC 3.76 L Hgb 12.7 L Hct 35.7 L MCV 94.9 MCH 33.8 H MCHC 35.6 RDW 19.7 H Plt Count 67 L D MPV Not Reportable Immature Gran % (Auto) 3.4 H Neut % (Auto) 74.1 H Lymph % (Auto) 12.5 L [place] % (Auto) 9.6 Eos % (Auto) 0.2 Baso % (Auto) 0.2 Lymph # (Auto) 0.7 L [place] # (Auto) 0.6 Eos # (Auto) 0.0 Baso # (Auto) 0.0 Abs Immat Gran (auto) 0.20 H Absolute Neuts (auto) 4.4 Absolute Nucleated RBC 0.000 Nucleated RBC % (auto) 0.0 Smear Tech's Comments VERIFIED PT INR Sodium Potassium Chloride Carbon Dioxide Anion Gap BUN Creatinine Estim Creat Clear Calc Estimated GFR Random Glucose Calcium Total Bilirubin Direct Bilirubin AST ALT Alkaline Phosphatase Total Protein Albumin Discharge Plan Discharge Patient Disposition: Xfer SNF Referrals: [facility] [Outside] Physician,Unknown [Primary Care Provider] - (Please call your insurance and list a new primary care provider- if you would still like to go to [facility] you can call them and they can help you with the providers [phone].) Discharge Medications: New prednisolone sodium phosphate 15 mg/5 mL (3 mg/mL) Solution 40 mg PO DAILY Qty: 21 RF: 0 thiamine HCl (vitamin B1) 100 mg Tablet 100 mg PO DAILY Qty: 30 RF: 0 omeprazole 40 mg Capsule,Delayed Release(Dr/Ec) 40 mg PO DAILY@0630 Qty: 30 RF: 0 folic acid 1 mg Tablet 1 mg PO DAILY Qty: 30 RF: 0 oxycodone 5 mg Tablet 5 mg PO Q12H PRN (Reason: Pain, Severe (Pain Scale 7-10)) Qty: 10 RF: 0 metoprolol tartrate 25 mg Tablet 25 mg PO BID Qty: 30 RF: 0 lactulose 20 gram/30 mL Solution 30 g PO BID Qty: 240 RF: 0 Discontinued omeprazole 40 mg capsule,delayed release(DR/EC) 1 cap PO DAILY RF: 0 Discharge Orders: Discharge Order (Routine); Ordered 09/17/20 Ordered By: Huan Alfredo Diet: other and regular diet Activity on Discharge: As tolerated Visit Report Forms: Patient Portal Discharge page Care Plan Goals: strongly recommend to abstain from alcohol and follow-up with gastroenterology Health Concerns: continue activity as tolerated. Plan of Treatment: Gradually wean steroids as recommended by Gastroenterology in follow-up with Dr. Padgett in 2 weeks time repeat LFTs and electrolytes in 1 week. Continue fluid restriction 1200 mL per day.
[2020-09-19 15:04] VITALS: BP 114/58; PULSE 62; RESP 18; TEMP 36.7; O2SAT 97
[2020-09-19] MEDS: Potassium Chloride ER 20 MEQ TAB.ER.PRT 40 MEQ PO (15:18)
--- NOTE | 2020-09-19 15:29 | MHC.INPTTRAN ---
Patient alert and oriented,jaundiced,denies pain,40 meq of Potassium administered at 1518,potassium level today 3.2,completed phenobarb protocol ,slight tremors still present
== END 2020-09-19 16:24 | disposition skilled nursing facility (03) | DRG 280 ==
LOC: HO.ED 13:00 → HO.ICU 13:23 → HO.IMC 09-10 02:53
PROVIDERS: Family Medicine; Internal Medicine Gastroenterology; Internal Medicine Nephrology; Registered Nurse Community Health; Admitting Provider Internal Medicine Pulmonary Disease; Emergency Provider Emergency Medicine; Visit Provider Hospitalist
DX: K70.10 Alcoholic hepatitis without ascites (principal); K70.30 Alcoholic cirrhosis of liver without ascites; D68.9 Coagulation defect, unspecified; D69.6 Thrombocytopenia, unspecified; E87.1 Hypo-osmolality and hyponatremia; I47.1 Supraventricular tachycardia; I85.10 Secondary esophageal varices without bleeding; E86.1 Hypovolemia; K21.9 Gastro-esophageal reflux disease without esophagitis; F10.239 Alcohol dependence with withdrawal, unspecified; M10.9 Gout, unspecified; Z20.828 Contact with and (suspected) exposure to other viral communicable diseases
CPT/HCPCS: 36415; 71045; 74170; 76700; 80048; 80051; 80053; 80076; 80184; 80320; 81001; 82040; 82105; 82140; 82272; 82310; 82565; 82803; 83540; 83690; 83735; 83935; 84100; 84295; 84300; 84520; 85007; 85025; 85027; 85060; 85610; 86255; 86256; 86704; 86706; 86803; 87086; 87340; 87635; 93005; 93306; 96372; 97110; 97116; 97162; 97530; 99225; 99231; 99232; 99284; 99291; C1758; J1200; J2405; J2560; J3411; J3430; Q9967

== ENCOUNTER 2020-10-08 09:35 | Inpatient (IN) | payer OTHER, SELFPAY ==
[2020-10-08] VITALS (33 sets, daily range): BP systolic 74–180; BP diastolic 38–110; PULSE 51–162; RESP 13–27; TEMP 35.4–37.1; O2SAT 75–100; BMI 32.0; BMI 30.8
--- NOTE | 2020-10-08 09:42 | ED.AMS ---
HPI - Altered Mental Status General Chief Complaint: Fall Stated Complaint: FALL,AMS,SLIGHTLY COMBATIVE Time Seen by Provider: 10/08/20 09:42 Source: patient and EMS Mode of arrival: EMS Limitations: altered mental status History of Present Illness HPI narrative: unknown last well time MD complaint: altered mental status and confusion Onset (ago): day(s) (neighbor heard a fall called 911 patient was confused and became combative with PD involvement) Timing confirmed by: other Severity: severe Consistency of symptoms: waxing and waning Context: alcohol abuse and other (cirrrhosis, ETOH withdrawal seizures unknown last drinkg) Associated symptoms: denies other symptoms Related Data Home Medications Medication Instructions Recorded Confirmed gabapentin 100 mg PO BID 10/08/20 10/08/20 lactulose [Generlac] PO 10/08/20 lidocaine 1 patch TOPICAL DAILY 10/08/20 10/08/20 Previous Rx's Medication Instructions Recorded folic acid 1 mg PO DAILY #30 tab 09/19/20 metoprolol tartrate 25 mg PO BID #30 tab 09/19/20 omeprazole 40 mg PO DAILY@0630 #30 cap 09/19/20 prednisolone sodium phosphate 40 mg PO DAILY #21 ml 09/19/20 Allergies Allergy/AdvReac Type Severity Reaction Status Date / Time No Known Allergies Allergy Unverified 08/09/20 18:37 [No Known Allergies*] bee stings had shots Allergy Unknown Uncoded 01/02/20 00:00 none Allergy Unknown Uncoded 04/24/20 00:00 Review of Systems Review of Systems: ROS unable to be obtained due to altered mental status PMFSH Past Medical History Attestation statement: The following information was validated with the patient. Medical History Alcoholic cirrhosis of liver Cataracts, bilateral Cirrhosis Esophageal varices determined by endoscopy Gout Hemochromatosis History of gastric ulcer Ulcer Surgical History H/O right inguinal hernia repair Hx of tonsillectomy Social History Social History Household Members: None Housing: Other Alcohol intake: current Alcohol intake frequency: 3 or more drinks per day Alcohol type: beer Smoking Status: Never smoker Advance Directives: No Advance Directives Information Provided: Yes service: No Current occupational status: unemployed Physical Exam Vital Signs: Vital Signs: Last Vital Signs Temp 96.8 F 10/08/20 13:14 Pulse 105 H 10/08/20 13:14 Resp 20 10/08/20 13:14 BP 121/82 10/08/20 13:14 Pulse Ox 100 10/08/20 12:36 Body Mass Index 30.8 Appearance: Alert. Oriented X1. Anxious mild acute distress. Eyes: Pupils equal, round and reactive to light. + scleral icterus ENT: Pharynx normal. Neck: Normal inspection. Neck supple. CVS: tachycardic heart rate and rhythm. Pulses normal. Respiratory: No respiratory distress. Breath sounds normal. Abdomen: Soft and nontender. Skin: Skin warm and dry. Normal skin color. Normal skin turgor. superficial abrasions and contusion bilateral wrists at site of prehospital handcuffs Extremities: positive bilateral 2+ lower extremity edema. No calf ttp Neuro: Oriented X 1. No motor deficit. No sensory deficit. Course Course Course Narrative: GTC seizure lasting 45 seconds in ED given 2mg IV ativan STAT IM phenobarb ordered, currently postictal, maintaining sats with NC very agitated and postictal - repeat 2mg IV ativan ordered, phenobarb to be administered as well HR 160s will recheck once agitation stops still agitated 4mg IV versed ordered pending phenobarb to work diltiazem ordered HR in 160s irregular and narrow on tele had to be intubated due to agitation and concern for airway protection, empiric antibiotics ordered during intubation patient had drop in BP likely due to medications emergent femoral line placed as he was still in a c collar lactic acidosis and hypotension due to seizures and medications and not infection or severe sepsis at this time Procedures Central Line Placement Right Femoral: Time Out Performed: Yes Patient Placed on Monitor/Pulse Ox: Yes MD Prep: mask, gown and gloves Central Line Prep: Chlorhexidine scrub Ultrasound Used for Placement: Yes Central Line Lumen Inserted: triple Post Procedure: sutured in place, good blood return, all ports aspirated, flushed, capped and sterile dressing applied Post Procedure X-Ray: tip of catheter in good position Patient Tolerated Procedure: well Complications: none Intubation Time out performed: Yes sedative: other (propofol) Mg Given: 100 paralytic: Rocuronium Mg Given: 75 Laryngoscope: Yee ET Tube Size: 7.5 ET Tube Uncuffed: Yes Tube Secured Depth (cm): 23 Tube Secured Location: teeth Tube Placement Confirmation: visualized tube passing through cords, equal breath sounds bilaterally, no breath sounds over epigastrium and confirmation by capnometry Patient Tolerated Procedure: well Intubation Complications: none MDM - Altered Mental Status MDM Narrative Medical decision making narrative: 60 yo male with hx of cirrhosis, ETOH abuse and ETOH withdrawal seizure at this time will need labs, CT scan of head/neck/chest, start on IV ativan and keppra I suspect his confusion/combativeness due to withdrawal seizure, he did mention to EMS he has not drank in the last few days, planned admit pending workup Lab Data Result diagrams: 10/08/20 10:53 10/08/20 10:52 Labs: Lab Results 10/08/20 10/08/20 10/08/20 Range/Units 10:47 10:52 10:52 WBC (4.8-10.8) X10*3/uL RBC (4.60-5.80) X10*6/uL Hgb (14.0-18.0) g/dl Hct (42-52) % MCV (80-98) fL MCH (27.0-33.0) pg MCHC (31.0-36.0) g/dl RDW (11.0-16.0) % Plt Count (160-400) X10*3/uL MPV (9.4-12.4) fL Immature Gran % (Auto) (0.0-0.4) % Neut % (Auto) (45-73) % Lymph % (Auto) (20-40) % [place] % (Auto) (2-11) % Eos % (Auto) (0-4) % Baso % (Auto) (0-2) % Lymph # (Auto) (1.2-4.9) X10*3/uL [place] # (Auto) (0.1-1.2) X10*3/uL Eos # (Auto) (0.0-0.4) X10*3/uL Baso # (Auto) (0.0-0.2) X10*3/uL Abs Immat Gran (auto) (0.00-0.03) X10*3/uL Absolute Neuts (auto) (2.0-8.3) X10*3/uL Absolute Nucleated RBC (0.0-0.012) X10*3/uL Nucleated RBC % (auto) (0.0-0.2) /100WBC PT 14.6 H D (10.8-13.0) SEC INR 1.2 H (0.9-1.1) APTT 31.4 (24.1-38.0) SEC Sodium 133 L (135-145) mmol/L Potassium 3.3 (3.3-5.1) mmol/l Chloride 99 (96-108) mmol/L Carbon Dioxide 19 L (22-29) mmol/L Anion Gap 18 (12-20) BUN 9 (9-16) mg/dL Creatinine 0.75 (0.5-1.4) mg/dL Estim Creat Clear Calc 130.1 Estimated GFR > 60 Random Glucose 137 H D (60-115) mg/dL Lactic Acid (0.5-2.0) mmol/L Calcium 7.5 L (8.4-10.2) mg/dL Magnesium 2.0 (1.6-2.6) mg/dL Total Bilirubin 6.7 H (0.0-1.0) mg/dL Direct Bilirubin 5.3 H (0.0-0.5) mg/dL AST 98 H (5-37) U/L ALT 84 H (0-40) U/L Alkaline Phosphatase 217 H D (39-117) U/L Ammonia (13-55) umol/L Total Creatine Kinase 47 (38-174) U/L Troponin I High Sens (<3.5-35.0) ng/L B-Natriuretic Peptide (<100) pg/mL Total Protein 5.8 L (6.5-8.0) g/dL Albumin 2.7 L (3.5-5.0) g/dL Lipase 53 (8-78) U/L Urine Color Urine Appearance Urine pH (5.0-8.0) Ur Specific [place] (1.005-1.025) Urine Protein (NEG-TRACE) MG/DL Urine Glucose (UA) (NEG) MG/DL Urine Ketones (NEG) MG/DL Urine Blood (NEG) Urine Nitrite (NEG) Ur Leukocyte Esterase (NEG) Salicylates < 5.0 L (15-30) mg/dL Acetaminophen 2 (<30) mcg/mL Ethyl Alcohol mg/dL COVID-19 (DANN) Negative (Negative) COVID-19 Clin Com See Note 10/08/20 10/08/20 10/08/20 Range/Units 10:52 10:52 10:52 WBC (4.8-10.8) X10*3/uL RBC (4.60-5.80) X10*6/uL Hgb (14.0-18.0) g/dl Hct (42-52) % MCV (80-98) fL MCH (27.0-33.0) pg MCHC (31.0-36.0) g/dl RDW (11.0-16.0) % Plt Count (160-400) X10*3/uL MPV (9.4-12.4) fL Immature Gran % (Auto) (0.0-0.4) % Neut % (Auto) (45-73) % Lymph % (Auto) (20-40) % Davidson % (Auto) (2-11) % Eos % (Auto) (0-4) % Baso % (Auto) (0-2) % Lymph # (Auto) (1.2-4.9) X10*3/uL [place] # (Auto) (0.1-1.2) X10*3/uL Eos # (Auto) (0.0-0.4) X10*3/uL Baso # (Auto) (0.0-0.2) X10*3/uL Abs Immat Gran (auto) (0.00-0.03) X10*3/uL Absolute Neuts (auto) (2.0-8.3) X10*3/uL Absolute Nucleated RBC (0.0-0.012) X10*3/uL Nucleated RBC % (auto) (0.0-0.2) /100WBC PT (10.8-13.0) SEC INR (0.9-1.1) APTT (24.1-38.0) SEC Sodium (135-145) mmol/L Potassium (3.3-5.1) mmol/l Chloride (96-108) mmol/L Carbon Dioxide (22-29) mmol/L Anion Gap (12-20) BUN (9-16) mg/dL Creatinine (0.5-1.4) mg/dL Estim Creat Clear Calc Estimated GFR Random Glucose (60-115) mg/dL Lactic Acid 5.1 H* (0.5-2.0) mmol/L Calcium (8.4-10.2) mg/dL Magnesium (1.6-2.6) mg/dL Total Bilirubin (0.0-1.0) mg/dL Direct Bilirubin (0.0-0.5) mg/dL AST (5-37) U/L ALT (0-40) U/L Alkaline Phosphatase (39-117) U/L Ammonia 65 H (13-55) umol/L Total Creatine Kinase (38-174) U/L Troponin I High Sens 8.8 (<3.5-35.0) ng/L B-Natriuretic Peptide 516 H (<100) pg/mL Total Protein (6.5-8.0) g/dL Albumin (3.5-5.0) g/dL Lipase (8-78) U/L Urine Color Urine Appearance Urine pH (5.0-8.0) Ur Specific [place] (1.005-1.025) Urine Protein (NEG-TRACE) MG/DL Urine Glucose (UA) (NEG) MG/DL Urine Ketones (NEG) MG/DL Urine Blood (NEG) Urine Nitrite (NEG) Ur Leukocyte Esterase (NEG) Salicylates (15-30) mg/dL Acetaminophen (<30) mcg/mL Ethyl Alcohol mg/dL COVID-19 (DANN) (Negative) COVID-19 Clin Com 10/08/20 10/08/20 10/08/20 Range/Units 10:53 10:53 10:53 WBC 8.1 (4.8-10.8) X10*3/uL RBC 3.25 L (4.60-5.80) X10*6/uL Hgb 11.2 L (14.0-18.0) g/dl Hct 33.2 L (42-52) % MCV 102.2 H (80-98) fL MCH 34.5 H (27.0-33.0) pg MCHC 33.7 (31.0-36.0) g/dl RDW 16.2 H (11.0-16.0) % Plt Count 110 L D (160-400) X10*3/uL MPV 12.7 H (9.4-12.4) fL Immature Gran % (Auto) 1.2 H (0.0-0.4) % Neut % (Auto) 70.6 (45-73) % Lymph % (Auto) 19.1 L (20-40) % Davidson % (Auto) 8.8 (2-11) % Eos % (Auto) 0.2 (0-4) % Baso % (Auto) 0.1 (0-2) % Lymph # (Auto) 1.6 (1.2-4.9) X10*3/uL [place] # (Auto) 0.7 (0.1-1.2) X10*3/uL Eos # (Auto) 0.0 (0.0-0.4) X10*3/uL Baso # (Auto) 0.0 (0.0-0.2) X10*3/uL Abs Immat Gran (auto) 0.10 H (0.00-0.03) X10*3/uL Absolute Neuts (auto) 5.7 (2.0-8.3) X10*3/uL Absolute Nucleated RBC 0.000 (0.0-0.012) X10*3/uL Nucleated RBC % (auto) 0.0 (0.0-0.2) /100WBC PT (10.8-13.0) SEC INR (0.9-1.1) APTT (24.1-38.0) SEC Sodium (135-145) mmol/L Potassium (3.3-5.1) mmol/l Chloride (96-108) mmol/L Carbon Dioxide (22-29) mmol/L Anion Gap (12-20) BUN (9-16) mg/dL Creatinine (0.5-1.4) mg/dL Estim Creat Clear Calc Estimated GFR Random Glucose (60-115) mg/dL Lactic Acid (0.5-2.0) mmol/L Calcium (8.4-10.2) mg/dL Magnesium (1.6-2.6) mg/dL Total Bilirubin (0.0-1.0) mg/dL Direct Bilirubin (0.0-0.5) mg/dL AST (5-37) U/L ALT (0-40) U/L Alkaline Phosphatase (39-117) U/L Ammonia (13-55) umol/L Total Creatine Kinase (38-174) U/L Troponin I High Sens (<3.5-35.0) ng/L B-Natriuretic Peptide Cancelled (<100) pg/mL Total Protein (6.5-8.0) g/dL Albumin (3.5-5.0) g/dL Lipase (8-78) U/L Urine Color Urine Appearance Urine pH (5.0-8.0) Ur Specific [place] (1.005-1.025) Urine Protein (NEG-TRACE) MG/DL Urine Glucose (UA) (NEG) MG/DL Urine Ketones (NEG) MG/DL Urine Blood (NEG) Urine Nitrite (NEG) Ur Leukocyte Esterase (NEG) Salicylates (15-30) mg/dL Acetaminophen (<30) mcg/mL Ethyl Alcohol < 10 mg/dL COVID-19 (DANN) (Negative) COVID-19 Clin Com 10/08/20 Range/Units 12:28 WBC (4.8-10.8) X10*3/uL RBC (4.60-5.80) X10*6/uL Hgb (14.0-18.0) g/dl Hct (42-52) % MCV (80-98) fL MCH (27.0-33.0) pg MCHC (31.0-36.0) g/dl RDW (11.0-16.0) % Plt Count (160-400) X10*3/uL MPV (9.4-12.4) fL Immature Gran % (Auto) (0.0-0.4) % Neut % (Auto) (45-73) % Lymph % (Auto) (20-40) % [place] % (Auto) (2-11) % Eos % (Auto) (0-4) % Baso % (Auto) (0-2) % Lymph # (Auto) (1.2-4.9) X10*3/uL [place] # (Auto) (0.1-1.2) X10*3/uL Eos # (Auto) (0.0-0.4) X10*3/uL Baso # (Auto) (0.0-0.2) X10*3/uL Abs Immat Gran (auto) (0.00-0.03) X10*3/uL Absolute Neuts (auto) (2.0-8.3) X10*3/uL Absolute Nucleated RBC (0.0-0.012) X10*3/uL Nucleated RBC % (auto) (0.0-0.2) /100WBC PT (10.8-13.0) SEC INR (0.9-1.1) APTT (24.1-38.0) SEC Sodium (135-145) mmol/L Potassium (3.3-5.1) mmol/l Chloride (96-108) mmol/L Carbon Dioxide (22-29) mmol/L Anion Gap (12-20) BUN (9-16) mg/dL Creatinine (0.5-1.4) mg/dL Estim Creat Clear Calc Estimated GFR Random Glucose (60-115) mg/dL Lactic Acid (0.5-2.0) mmol/L Calcium (8.4-10.2) mg/dL Magnesium (1.6-2.6) mg/dL Total Bilirubin (0.0-1.0) mg/dL Direct Bilirubin (0.0-0.5) mg/dL AST (5-37) U/L ALT (0-40) U/L Alkaline Phosphatase (39-117) U/L Ammonia (13-55) umol/L Total Creatine Kinase (38-174) U/L Troponin I High Sens (<3.5-35.0) ng/L B-Natriuretic Peptide (<100) pg/mL Total Protein (6.5-8.0) g/dL Albumin (3.5-5.0) g/dL Lipase (8-78) U/L Urine Color YELLOW Urine Appearance CLEAR Urine pH 7.5 (5.0-8.0) Ur Specific [place] 1.015 (1.005-1.025) Urine Protein NEG (NEG-TRACE) MG/DL Urine Glucose (UA) NEG (NEG) MG/DL Urine Ketones NEG (NEG) MG/DL Urine Blood NEG (NEG) Urine Nitrite NEG (NEG) Ur Leukocyte Esterase NEG (NEG) Salicylates (15-30) mg/dL Acetaminophen (<30) mcg/mL Ethyl Alcohol mg/dL COVID-19 (DANN) (Negative) COVID-19 Clin Com ECG Data ECG #1: Attestation: I personally reviewed and interpreted this ECG as follows: ECG interpretation date: 10/08/20 ECG interpretation time: 10:00 Interpretation: Rate: 84 Rhythm: NSR Dickens: normal Normal P waves. 1st degree AVB Normal QRS complex. ST T wave : nonspecific qTC: prolonged prior studies: no acute ischemia, artifact noted The study has been interpreted contemporaneously by me. . Critical Care Time Critical Care Time Critical Care Time: Yes Total Critical Care Time: 120 Attestation: repeat assessments, medical consult - ICU doctor, repeat IV ativan/versed for seizure and ETOH withdrawal, frequent bedside assessments, review of previous records I attest to this time spent taking care of the patient Discharge Plan Discharge Clinical Impression: Acidosis, lactic, Alcohol withdrawal hallucinosis, Alcohol withdrawal seizure, Delirium tremens Patient Disposition: Admitted As Inpatient Prescriptions: No Action prednisolone sodium phosphate 15 mg/5 mL (3 mg/mL) Solution 40 mg PO DAILY Qty: 21 RF: 0 omeprazole 40 mg Capsule,Delayed Release(Dr/Ec) 40 mg PO DAILY@0630 Qty: 30 RF: 0 folic acid 1 mg Tablet 1 mg PO DAILY Qty: 30 RF: 0 metoprolol tartrate 25 mg Tablet 25 mg PO BID Qty: 30 RF: 0 lidocaine 5 % adhesive patch,medicated 1 patch topical DAILY RF: 0 gabapentin 100 mg capsule 100 mg PO BID RF: 0 lactulose [Generlac] 10 gram/15 mL solution PO RF: 0
--- NOTE | 2020-10-08 09:43 | ECG_ITS ---
Test Reason : FALL,AMS Blood Pressure : / mmHG Vent. Rate : 084 BPM Atrial Rate : 084 BPM P-R Int : 208 ms QRS Dur : 104 ms QT Int : 436 ms P-R-T Axes : 044 011 022 degrees QTc Int : 515 ms Normal sinus rhythm Nonspecific T wave abnormality Low voltage QRS Abnormal ECG When compared with ECG of 14-SEP-2020 04:43, Sinus rhythm has replaced Atrial fibrillation Vent. rate has decreased BY [address] no longer depressed in Anterolateral leads Referred By: Marta Allen Electronically Signed By:STEPHEN BAKER MD
--- NOTE | 2020-10-08 09:43 | CT_ITS ---
EXAMINATION: NONCONTRAST HEAD CT NONCONTRAST CERVICAL SPINE CT INDICATION INFORMATION: Pain status post trauma. Fall. COMPARISON: 01/18/2020 TECHNIQUE: Separate noncontrast CT examinations of the head and cervical spine were performed. Coronal and sagittal images were created for each examination at the technologist workstation. This CT examination was performed using dose optimization techniques as appropriate, variously including the following: *Automated exposure control *Adjustment of mA and/or kV according to patient size (this includes techniques or standardized protocols for targeted exams where dose is matched to indication/reason for exam; i.e. extremities or head) *Use of iterative reconstruction technique DLP: 1450 mGy-cm FINDINGS: Head: There is no evidence of acute intracranial hemorrhage or territorial infarction. No abnormal mass effect or midline shift is seen. [place] to white matter differentiation is well preserved. No extra-axial fluid collections are identified. No hydrocephalus. Proportional prominence of the ventricles and sulcal spaces is consistent with mild to moderate volume loss. Patchy periventricular and deep white matter hypoattenuation is consistent with mild small vessel ischemic changes. No acute osseous or soft tissue abnormality. The mastoid air cells are well aerated. Mucous retention cyst of the left sphenoid sinus. Partial opacification of the ethmoid air cells. Cervical spine: Straightening of the normal cervical lordosis. There is otherwise anatomic alignment of the vertebral bodies and posterior elements. The atlantoaxial and atlantooccipital articulations are intact. Vertebral body heights are maintained. There is multilevel intervertebral disc space narrowing with endplate osteophyte formation and facet arthropathy. No evidence of acute fracture. No prevertebral soft tissue swelling. There is an endotracheal tube noted. Limited visualization of the lung apices. Small amount of gas noted in the soft tissues of the anterior upper chest which may be injection related.. The thyroid gland is unremarkable. CT/CT cervical spine wo con IMPRESSION: 1. No acute intracranial finding. Volume loss with small vessel ischemic changes. 2. No acute fracture or malalignment of the cervical spine. Degenerative changes throughout.
--- NOTE | 2020-10-08 09:54 | PC.NURSE ---
0950 SEIZURE LIKE ACTIVITY LASTING 3MIN
[2020-10-08] MEDS: LORazepam 2 MG/ML VIAL IVPUSH ×3 (10:00→11:30)
[2020-10-08] MEDS: levETIRAcetam in NaCl (iso-os) 1,000 MG/100 ML PIGGYBACK 400 MG IV (10:00)
[2020-10-08] MEDS: Magnesium Sulfate/H2O 2 GM/50 ML PIGGYBACK IV (10:22)
[2020-10-08] MEDS: PHENobarbitaL sodium 130 MG/ML VIAL 312 MG IM (10:24)
[2020-10-08] MEDS: Midazolam HCl/PF 2 MG/2 ML VIAL 4 MG IVPUSH ×2 (10:38→17:30)
--- NOTE | 2020-10-08 10:54 | PC.NURSE ---
PT CONTINUES ALTERED AND THRASHING ABOUT THE STRETCHER AFTER PROLONGED SEIZURE ACTIVITY HE WAS MEDICATED CHARTED, LABS WERE OBTAINED
[2020-10-08 11:01] LABS: Basophils Percent Auto 0.1 % (0-2); Eosinophils Percent Auto 0.2 % (0-4); Hematocrit 33.2 % (42-52); Hemoglobin 11.2 g/dl (14.0-18.0); Imm Gran Pct Auto 1.2 % (0.0-0.4); Lymphocytes Absolute Auto 1.6 X10*3/uL (1.2-4.9); Lymphocytes Percent Auto 19.1 % (20-40); MANUAL DIFF FLAG NO; Mean Corpuscular HGB Conc 33.7 g/dl (31.0-36.0); Mean Corpuscular Hemoglobin 34.5 pg (27.0-33.0); Mean Corpuscular Volume 102.2 fL (80-98); Mean Platelet Volume 12.7 fL (9.4-12.4); Monocytes Absolute Auto 0.7 X10*3/uL (0.1-1.2); Monocytes Percent Auto 8.8 % (2-11); Neutrophils Absolute Auto 5.7 X10*3/uL (2.0-8.3); Neutrophils Percent Auto 70.6 % (45-73); Platelet Count 110 X10*3/uL (160-400); Red Blood Count 3.25 X10*6/uL (4.60-5.80); Red Cell Distribution Width 16.2 % (11.0-16.0); White Blood Count 8.1 X10*3/uL (4.8-10.8)
[2020-10-08] MEDS: dilTIAZem HCL 50 MG/10 ML VIAL IVPUSH (11:03)
[2020-10-08 11:08] LABS: INTERNATIONAL NORM RATIO 1.2 (0.9-1.1); Prothrombin Time 14.6 SEC (10.8-13.0)
[2020-10-08 11:11] LABS: Partial Thromboplastin Time 31.4 SEC (24.1-38.0)
[2020-10-08 11:27] LABS: COVID-19 Test Negative (Negative)
--- NOTE | 2020-10-08 11:32 | PC.NURSE ---
PT MEDICATED WITH ADDITIONAL DOSE OF LORAZEPAM IN ATTEMPT TO REDUCE HIS AGGITATION HE REMAINS TACHYCARDIC, HE IS MAINTAINING HIS BP, OXYGENATION DECREASES WHEN PT REMOVES SUPPLEMENTAL O2 HE CONTINUES THRASHING ABOUT THE STRETCHE DESPITE REDIRECTION NO VERBAL COMMUNICATION BY THE PT IS COMPREHENSIVE
[2020-10-08 11:33] LABS: Ethanol < 10 mg/dL
[2020-10-08 11:38] LABS: Alanine Aminotransferase 84 U/L (0-40); Albumin Level 2.7 g/dL (3.5-5.0); Alkaline Phosphatase 217 U/L (39-117); Anion Gap 18 (12-20); Aspartate Amino Transferase 98 U/L (5-37); Bilirubin Direct 5.3 mg/dL (0.0-0.5); Bilirubin Total 6.7 mg/dL (0.0-1.0); Blood Urea Nitrogen 9 mg/dL (9-16); Calcium 7.5 mg/dL (8.4-10.2); Carbon Dioxide 19 mmol/L (22-29); Chloride 99 mmol/L (96-108); Creatinine Clr Calc Pharmacy 130.1; Estimated Glomerular Filt Rate > 60; Glucose Random 137 mg/dL (60-115); Lipase 53 U/L (8-78); Potassium 3.3 mmol/l (3.3-5.1); Sodium 133 mmol/L (135-145); Total Protein 5.8 g/dL (6.5-8.0)
[2020-10-08 11:40] LABS: B Type Natriuretic Peptide 516 pg/mL (<100); Troponin-I High Sensitivity 8.8 ng/L (<3.5-35.0)
[2020-10-08 11:43] LABS: Ammonia 65 umol/L (13-55)
[2020-10-08 11:49] LABS: Acetaminophen LAB 2 mcg/mL (<30); Salicylate < 5.0 mg/dL (15-30)
--- NOTE | 2020-10-08 11:52 | CT_ITS ---
EXAMINATION: CHEST, ABDOMEN AND PELVIS CT WITHOUT CONTRAST CLINICAL INFORMATION: Pain post fall COMPARISON: Previous abdominal and pelvic CT and chest x-ray 09/18/2020 TECHNIQUE: Axial images through the chest, abdomen and pelvis without IV or oral contrast. Sagittal and coronal reconstructions on the technologist workstation were performed. Patient dose 534+144 1 mg/cm FINDINGS: Chest: There is an endotracheal tube 3 cm above the mauricio. There are new infiltrates seen in the bilateral upper and lower lobes, left greater than right. The heart isn't slightly enlarged. There is mild coronary artery calcification. There is no pericardial effusion. The thoracic aorta is normal in caliber. There is no pleural effusion or pneumothorax. No chest wall mass or enlarged axillary lymph nodes are seen. There is intravascular are in the chest probably related to IV insertion. Abdomen and pelvis: The liver is slightly enlarged. The liver is low in attenuation suggestive of fatty infiltration. There is a small calcification in the right lobe of the liver. No other focal liver lesion is seen. The gallbladder is dilated. There are gallstones in the gallbladder. This is similar to previous exam. There is no intra or extrahepatic biliary duct dilatation. The pancreas is unremarkable. Spleen is enlarged measuring 15 cm in length. The adrenal glands and kidneys are unremarkable. There is a Gutierrez catheter in the bladder. There is a moderate amount of urine seen in the bladder. The prostate gland does not appear enlarged. Small and large bowel is unremarkable. The appendix is not seen. There is a moderate to large amount of ascites seen in the abdomen and pelvis. This is increased from previous exam. There is a small umbilical hernia containing fat. There is evidence of atherosclerotic disease. There is a central line in the right common femoral vein with tip in the right iliac vein. There are old right lateral rib ruptures. No acute fracture is seen. There are mild degenerative changes of the thoracic spine. There are degenerative changes of the lumbar spine and mild scoliosis. CT/CT abdomen pelvis wo con IMPRESSION: Chest: Endotracheal tube 3 cm above the mauricio. New bilateral infiltrates, left greater than right, suggestive of pneumonia. Enlarged heart. Mild coronary artery calcification. Abdomen and pelvis: Fatty liver. Mild hepatosplenomegaly. Increasing moderate to large amount of ascites. Distended gallbladder with gallstones similar to previous exam.
[2020-10-08 11:53] LABS: Lactic Acid 5.1 mmol/L (0.5-2.0)
--- NOTE | 2020-10-08 11:56 | PC.NURSE ---
PT WAS MOVED AND INTUBATED 7.[address] FRAUSTO WITHOUT DIFFICULTY +COLOR CHANGE FOR CO2 25CM AT THE LIP VENT SETTING 20 450, 5 PEEP AND 40%
[2020-10-08] MEDS: SODIUM CHLORIDE 3096 ML IVCONT (12:00)
[2020-10-08] MEDS: Rocuronium Bromide 50 MG/5 ML VIAL 75 MG IVPUSH (12:03)
[2020-10-08] MEDS: propofoL 200 MG/20 ML VIAL 100 MG IVPUSH (12:03)
[2020-10-08] MEDS: propofoL 1,000 MG/100 ML VIAL 18.58 MG IVCONT ×2 (12:06→16:27)
--- NOTE | 2020-10-08 12:11 | PC.RT ---
Patient intubated for airway protection post seizure. Intubated with no complications. 7.5 ET tube, 24 at the lip. Placed on 980 vent. AC VC 20 450 40% 5 peep. Judith vent settings well. MD ordered head and neck CT scan. Patient wearing collar at this time.
[2020-10-08] MEDS: fentaNYL citrate/NS 1,000 MCG/100 ML PLAST..BAG 5 MCG IVCONT (12:12)
--- NOTE | 2020-10-08 12:13 | PC.NURSE ---
RIGHT FEMORAL LINE PLACED BY DR FRAUSTO
[2020-10-08] MEDS: Piperacillin Sodium/Tazobactam 3.375 GM in 0.9 % Sodium Chloride 50 ML IV ×2 (12:29→17:12)
[2020-10-08 12:58] LABS: Glucose Urine UA NEG (NEG); Leukocyte Esterase Urine NEG (NEG); Nitrite Urine NEG (NEG); PH 7.5 (5.0-8.0); Specific Gravity - Urine 1.015 (1.005-1.025); Urine Blood NEG (NEG); Urine Ketones NEG (NEG); Urine Protein NEG (NEG-TRACE)
[2020-10-08 13:00] LABS: Reflex Lactate? Lactic Acid Added
[2020-10-08 13:00] LABS: Appearance Urine CLEAR; Color Urine YELLOW; UACC Culture Trigger NO
--- NOTE | 2020-10-08 13:13 | PC.NURSE ---
PT HAS HAD CT SCAN. NO DISTRESS NOTED WITH TRANSPORT OR DURING TESTING
--- NOTE | 2020-10-08 13:25 | PC.NURSE ---
PT BEGINNING TO MOVE LOWER EXTREMITIES COUGHING FENTANYL AND PROPOFOL INCREASED PER PROTOCOL
--- NOTE | 2020-10-08 14:02 | PC.NURSE ---
called don- the pts brother- [phone] to update himhis brothers progress and transfer to icu
[2020-10-08 14:04] LABS: PCO2 VBG 43 mmhg; pH VBG 7.39 (7.32-7.43)
[2020-10-08 14:05] LABS: Base Excess VBG 0.6 mmol/L; HCO3 VBG 26 mmol/L; Oxygen Saturation VBG 97.4 %; PO2 VBG 97 mmhg
[2020-10-08 14:06] LABS: ~Lactic Acid-LAB USE ONLY 1.5 mmol/L (0.5-2.0)
[2020-10-08] MEDS: 0.9 % Sodium Chloride 1,000 ML 100 ML IVCONT ×2 (14:30→23:59)
[2020-10-08 14:34] LABS: Amphetamine Screen Urine Not Detected (Not Detect); Barbiturates, Urine POSITIVE (Not Detect); Benzodiazepines Screen Urine POSITIVE (Not Detect); Cannabinoid Screen Urine POSITIVE (Not Detect); Cocaine Screen Urine Not Detected (Not Detect); Opiate Screen Urine Not Detected (Not Detect); Phencyclidine Screen Urine Not Detected (Not Detect)
[2020-10-08] MEDS: 0.9 % Sodium Chloride Flush 3 ML SYRINGE IVFLUSH (14:54)
--- NOTE | 2020-10-08 15:02 | XR_ITS ---
EXAMINATION: XR CHEST CLINICAL INFORMATION: OG tube placement COMPARISON: CT chest noncontrast 10/08/2020; chest radiographs 09/08/2020, 05/03/2020 TECHNIQUE: Portable upright AP view of the chest was obtained. FINDINGS: ET tube is 3.8 cm above mauricio. OG tube is in the abdomen and extends beyond the inferior film [id number]. There are patchy airspace opacities greater on left and better appreciated on the CT earlier today. The heart is normal in size. The vascularity is normal. There are low lung volumes with inspiration to the seventh posterior intercostal space. XR/XR chest 1V IMPRESSION: 1. Orogastric tube below diaphragm. 2. ET tube 3.8 cm above mauricio. 3. Patchy airspace opacities, better appreciated on CT chest.
[2020-10-08] MEDS: Famotidine/PF 20 MG/2 ML VIAL IVPUSH ×2 (15:08→22:50)
[2020-10-08] MEDS: PHENobarbitaL sodium 130 MG/ML VIAL 234 MG IM ×2 (15:09→17:28)
[2020-10-08] MEDS: rifAXIMin 550 MG TABLET PO (16:11)
[2020-10-08] MEDS: Midazolam HCl/NS 50 MG/50 ML PLAST..BAG IVCONT (17:38)
--- NOTE | 2020-10-08 17:43 | PM.CCHP ---
History of Present Illness Date of Service: 10/08/20 Chief Complaint: altered mental status following multiple witnessed seizures 60-year-old alcoholic male with history of delirium tremens and a 1-month-old history of acute alcoholic hepatitis known diagnosis of alcoholic cirrhosis with portal hypertension and esophageal varices and with previous admission was profoundly hyponatremic with altered mental status than as well but this time apparently has been unable to hold down anything and has not had a drink in some time and had several seizures and was treated with multiple rounds of IV phenobarbital as well as benzodiazepines in the emergency room and then ultimately intubated because following the seizures he was delirious and agitated chest x-ray indicating good endotracheal tube position but what what could be significant volume loss in the left lung with possibly some fibrotic scarring but possible acute infiltrate potentially due to aspiration noted in the left lower lobe elevated lactic acid in this case due to status epilepticus I doubt that this is due to severe sepsis however the patient was cultured and IV fluids initiated in the emergency room and 1 empiric dose of Levaquin given in the emergency room but with the imaging including the abdominal imaging noting and a distended gallbladder but no wall thickening no surrounding fluid nothing to indicate cholecystitis no apparent dilatation of intrahepatic ducts to indicate cholangitis but he did have increasing ascites and therefore I maintained Zosyn to cover him for possible aspiration and/or spontaneous bacterial peritonitis as a precipitating issue and there was evidence of an increased ammonia level as well as elevated liver transaminases and alkaline phosphatase and direct hyperbilirubinemia at this point he is pending ultrasound cultures were obtained and will monitor his lactate and blood gas to look for resolution of the acidosis as an indicator that this was probably due to the seizure activity Review of Systems Review of Systems: unable to obtain because the patient is intubated [facility] Past Medical History Medical History Alcoholic cirrhosis of liver Cataracts, bilateral Cirrhosis Esophageal varices determined by endoscopy Gout Hemochromatosis History of gastric ulcer Ulcer Family History Family history: reviewed and not pertinent Surgical History Surgical History H/O right inguinal hernia repair Hx of tonsillectomy Social History Social History Household Members: None Housing: Other Alcohol intake: current Alcohol intake frequency: 3 or more drinks per day Alcohol type: beer Smoking Status: Never smoker Advance Directives: No Advance Directives Information Provided: Yes service: No Current occupational status: unemployed Travel History Ebola Risk: Travel/Contact With Anyone From Affected Area/s: No Has Patient Experienced Ebola Symptoms: No I have personally reviewed the patient's Ebola risk: No History of recent travel: No Recent Travel in [facility] Within the Last 8 Weeks: No Recent Out of Country Travel Within the Last 8 Weeks: No Exposure or Possible Exposure to Illness During Travel: No History of Being in a Healthcare Facility as a Patient, Worker, or Visitor during Travel: No Medical Treatment Received for Symptoms/Illness Related to Travel: No Meds Allergies Allergy/AdvReac Type Severity Reaction Status Date / Time No Known Allergies Allergy Unverified 08/09/20 18:37 [No Known Allergies*] bee stings had shots Allergy Unknown Uncoded 01/02/20 00:00 none Allergy Unknown Uncoded 04/24/20 00:00 Home Medications Medication Instructions Recorded Confirmed Type gabapentin 100 mg PO BID 10/08/20 10/08/20 History lactulose [Generlac] PO 10/08/20 History lidocaine 1 patch TOPICAL DAILY 10/08/20 10/08/20 History Physical Exam Vital Signs: Vital Signs: Last Vital Signs Temp 95.7 F L 10/08/20 17:00 Pulse 64 10/08/20 17:00 Resp 13 10/08/20 17:00 BP 124/75 10/08/20 17:00 Pulse Ox 100 10/08/20 17:00 Body Mass Index 30.8 sedated and intubated cranial nerve examination is intact and not asymmetric including pupils being equal and reactive to light and equal and symmetric tone and reflexes and no Babinski's cardiac exam which included bedside echo showed normal LV and RV chamber size and systolic function with ejection fraction 60% and no primary valve or pericardial disease lungs with coarse ventilator sounds but no adventitious sounds abdomen with positive bowel sounds no palpable organomegaly no apparent guarding peripherally there is no rash and no acrocyanosis no livedo no wounds no decubiti I Results Labs CBC and Chem 7: 10/08/20 10:53 10/08/20 10:52 Labs: Laboratory Results - last 24 hr 10/08/20 10/08/20 10/08/20 10:47 10:52 10:52 MCV MCH MCHC RDW Plt Count MPV Immature Gran % (Auto) Neut % (Auto) Lymph % (Auto) Gem % (Auto) Eos % (Auto) Baso % (Auto) Lymph # (Auto) Gem # (Auto) Eos # (Auto) Baso # (Auto) Abs Immat Gran (auto) Absolute Neuts (auto) Absolute Nucleated RBC Nucleated RBC % (auto) PT 14.6 H D INR 1.2 H APTT 31.4 VBG pH VBG pCO2 VBG pO2 VBG HCO3 VBG O2 Saturation VBG Base Excess Anion Gap 18 Estim Creat Clear Calc 130.1 Estimated GFR > 60 Random Glucose 137 H D Lactic Acid Lactic Acid Fup @ 2Hr Calcium 7.5 L Magnesium 2.0 Total Bilirubin 6.7 H Direct Bilirubin 5.3 H AST 98 H ALT 84 H Alkaline Phosphatase 217 H D Ammonia Total Creatine Kinase 47 Troponin I High Sens B-Natriuretic Peptide Total Protein 5.8 L Albumin 2.7 L Lipase 53 Urine Color Urine Appearance Urine pH Ur Specific [place] Urine Protein Urine Glucose (UA) Urine Ketones Urine Blood Urine Nitrite Ur Leukocyte Esterase Salicylates < 5.0 L Urine Opiates Screen Acetaminophen 2 Ur Barbiturates Screen Ur Phencyclidine Scrn Ur Amphetamines Screen U Benzodiazepines Scrn Urine Cocaine Screen U Marijuana (THC) Screen Ethyl Alcohol COVID-19 (DANN) Negative COVID-19 Clin Com See Note 10/08/20 10/08/20 10/08/20 10:52 10:52 10:52 MCV MCH MCHC RDW Plt Count MPV Immature Gran % (Auto) Neut % (Auto) Lymph % (Auto) Gem % (Auto) Eos % (Auto) Baso % (Auto) Lymph # (Auto) Gem # (Auto) Eos # (Auto) Baso # (Auto) Abs Immat Gran (auto) Absolute Neuts (auto) Absolute Nucleated RBC Nucleated RBC % (auto) PT INR APTT VBG pH VBG pCO2 VBG pO2 VBG HCO3 VBG O2 Saturation VBG Base Excess Anion Gap Estim Creat Clear Calc Estimated GFR Random Glucose Lactic Acid 5.1 H* Lactic Acid Fup @ 2Hr Calcium Magnesium Total Bilirubin Direct Bilirubin AST ALT Alkaline Phosphatase Ammonia 65 H Total Creatine Kinase Troponin I High Sens 8.8 B-Natriuretic Peptide 516 H Total Protein Albumin Lipase Urine Color Urine Appearance Urine pH Ur Specific [place] Urine Protein Urine Glucose (UA) Urine Ketones Urine Blood Urine Nitrite Ur Leukocyte Esterase Salicylates Urine Opiates Screen Acetaminophen Ur Barbiturates Screen Ur Phencyclidine Scrn Ur Amphetamines Screen U Benzodiazepines Scrn Urine Cocaine Screen U Marijuana (THC) Screen Ethyl Alcohol COVID-19 (DANN) COVID-19 [email or web address]) 10/08/20 10/08/20 10/08/20 10:53 10:53 10:53 MCV 102.2 H MCH 34.5 H MCHC 33.7 RDW 16.2 H Plt Count 110 L D MPV 12.7 H Immature Gran % (Auto) 1.2 H Neut % (Auto) 70.6 Lymph % (Auto) 19.1 L Gem % (Auto) 8.8 Eos % (Auto) 0.2 Baso % (Auto) 0.1 Lymph # (Auto) 1.6 Gem # (Auto) 0.7 Eos # (Auto) 0.0 Baso # (Auto) 0.0 Abs Immat Gran (auto) 0.10 H Absolute Neuts (auto) 5.7 Absolute Nucleated RBC 0.000 Nucleated RBC % (auto) 0.0 PT INR APTT VBG pH VBG pCO2 VBG pO2 VBG HCO3 VBG O2 Saturation VBG Base Excess Anion Gap Estim Creat Clear Calc Estimated GFR Random Glucose Lactic Acid Lactic Acid Fup @ 2Hr Calcium Magnesium Total Bilirubin Direct Bilirubin AST ALT Alkaline Phosphatase Ammonia Total Creatine Kinase Troponin I High Sens B-Natriuretic Peptide Cancelled Total Protein Albumin Lipase Urine Color Urine Appearance Urine pH Ur Specific [place] Urine Protein Urine Glucose (UA) Urine Ketones Urine Blood Urine Nitrite Ur Leukocyte Esterase Salicylates Urine Opiates Screen Acetaminophen Ur Barbiturates Screen Ur Phencyclidine Scrn Ur Amphetamines Screen U Benzodiazepines Scrn Urine Cocaine Screen U Marijuana (THC) Screen Ethyl Alcohol < 10 COVID-19 (DANN) COVID-19 [place] 10/08/20 10/08/20 10/08/20 12:28 12:28 13:34 MCV MCH MCHC RDW Plt Count MPV Immature Gran % (Auto) Neut % (Auto) Lymph % (Auto) Gem % (Auto) Eos % (Auto) Baso % (Auto) Lymph # (Auto) Gem # (Auto) Eos # (Auto) Baso # (Auto) Abs Immat Gran (auto) Absolute Neuts (auto) Absolute Nucleated RBC Nucleated RBC % (auto) PT INR APTT VBG pH VBG pCO2 VBG pO2 VBG HCO3 VBG O2 Saturation VBG Base Excess Anion Gap Estim Creat Clear Calc Estimated GFR Random Glucose Lactic Acid Lactic Acid Fup @ 2Hr 1.5 Calcium Magnesium Total Bilirubin Direct Bilirubin AST ALT Alkaline Phosphatase Ammonia Total Creatine Kinase Troponin I High Sens B-Natriuretic Peptide Total Protein Albumin Lipase Urine Color YELLOW Urine Appearance CLEAR Urine pH 7.5 Ur Specific [place] 1.015 Urine Protein NEG Urine Glucose (UA) NEG Urine Ketones NEG Urine Blood NEG Urine Nitrite NEG Ur Leukocyte Esterase NEG Salicylates Urine Opiates Screen Not Detected Acetaminophen Ur Barbiturates Screen POSITIVE H Ur Phencyclidine Scrn Not Detected Ur Amphetamines Screen Not Detected U Benzodiazepines Scrn POSITIVE H Urine Cocaine Screen Not Detected U Marijuana (THC) Screen POSITIVE H Ethyl Alcohol COVID-19 (DANN) COVID-19 [place] [employer] 10/08/20 13:49 MCV MCH MCHC RDW Plt Count MPV Immature Gran % (Auto) Neut % (Auto) Lymph % (Auto) Gem % (Auto) Eos % (Auto) Baso % (Auto) Lymph # (Auto) Gem # (Auto) Eos # (Auto) Baso # (Auto) Abs Immat Gran (auto) Absolute Neuts (auto) Absolute Nucleated RBC Nucleated RBC % (auto) PT INR APTT VBG pH 7.39 VBG pCO2 43 VBG pO2 97 VBG HCO3 26 VBG O2 Saturation 97.4 VBG Base Excess 0.6 Anion Gap Estim Creat Clear Calc Estimated GFR Random Glucose Lactic Acid Lactic Acid Fup @ 2Hr Calcium Magnesium Total Bilirubin Direct Bilirubin AST ALT Alkaline Phosphatase Ammonia Total Creatine Kinase Troponin I High Sens B-Natriuretic Peptide Total Protein Albumin Lipase Urine Color Urine Appearance Urine pH Ur Specific [place] Urine Protein Urine Glucose (UA) Urine Ketones Urine Blood Urine Nitrite Ur Leukocyte Esterase Salicylates Urine Opiates Screen Acetaminophen Ur Barbiturates Screen Ur Phencyclidine Scrn Ur Amphetamines Screen U Benzodiazepines Scrn Urine Cocaine Screen U Marijuana (THC) Screen Ethyl Alcohol COVID-19 (DANN) COVID-19 Clin Com Imaging Radiologist's Impressions: Impressions Cervical Spine CT 10/08/20 09:43 IMPRESSION: 1. No acute intracranial finding. Volume loss with small vessel ischemic changes. 2. No acute fracture or malalignment of the cervical spine. Degenerative changes throughout. Chest CT 10/08/20 09:43 IMPRESSION: Chest: Endotracheal tube 3 cm above the mauricio. New bilateral infiltrates, left greater than right, suggestive of pneumonia. Enlarged heart. Mild coronary artery calcification. Abdomen and pelvis: Fatty liver. Mild hepatosplenomegaly. Increasing moderate to large amount of ascites. Distended gallbladder with gallstones similar to previous exam. Head CT 10/08/20 09:43 IMPRESSION: 1. No acute intracranial finding. Volume loss with small vessel ischemic changes. 2. No acute fracture or malalignment of the cervical spine. Degenerative changes throughout. Abdomen/Pelvis CT 10/08/20 11:52 IMPRESSION: Chest: Endotracheal tube 3 cm above the mauricio. New bilateral infiltrates, left greater than right, suggestive of pneumonia. Enlarged heart. Mild coronary artery calcification. Abdomen and pelvis: Fatty liver. Mild hepatosplenomegaly. Increasing moderate to large amount of ascites. Distended gallbladder with gallstones similar to previous exam. Chest X-Ray 10/08/20 15:02 IMPRESSION: 1. Orogastric tube below diaphragm. 2. ET tube 3.8 cm above mauricio. 3. Patchy airspace opacities, better appreciated on CT chest. Assessment and Plan (1) Acidosis, lactic: Status: Acute (2) Alcohol withdrawal hallucinosis: Status: Acute (3) Alcohol withdrawal seizure: Qualifiers: Complication of substance-induced condition: with delirium Qualified Code(s): F10.231 - Alcohol dependence with withdrawal delirium; R56.9 - Unspecified convulsions Status: Acute (4) Delirium tremens: Status: Acute (5) Esophageal varices determined by endoscopy: Status: Acute (6) Alcoholic cirrhosis of liver: Status: Acute (7) Hyponatremia: Status: Acute (8) Elevated bilirubin: Status: Acute (9) Acute hyponatremia: Status: Acute (10) Portal hypertension: Status: Acute (11) Cholestasis: Status: Acute (12) Status epilepticus, generalized convulsive: Status: Acute (13) Hepatic failure due to alcoholism: Status: Acute continue IV fluids and antibiotic coverage with Zosyn both for aspiration as well as possible spontaneous bacterial peritonitis and will obtain a gallbladder ultrasound to look for evidence of cholangitis and might even need a HIDA scan. Will recheck lactic acidosis and his pH to document that the lactate was based on the status epilepticus and therefore should resolve quickly assess cognitive function daily to see whether not he might be weanable from both sedation and ventilator just use mechanical VTE prophylaxis because of risk of bleeding from either a gastritis or esophageal variceal bleed normal saline drip to correct hyponatremia and vasopressin is on board as prophylaxis against hepatic or renal issues
[2020-10-08] MEDS: Potassium Chloride Packet 20 MEQ PACKET 40 MEQ PO (17:51)
[2020-10-08 19:06] LABS: Base Excess VBG 0.6 mmol/L; Blood Gas Serial # 5414; HCO3 VBG 26 mmol/L; Oxygen Saturation VBG 69.2 %; PCO2 VBG 43 mmhg; PO2 VBG 37 mmhg; pH VBG 7.39 (7.32-7.43)
[2020-10-08 19:39] LABS: Lactic Acid 1.4 mmol/L (0.5-2.0)
[2020-10-08 19:47] LABS: Anion Gap 13 (12-20); Blood Urea Nitrogen 7 mg/dL (9-16); Carbon Dioxide 24 mmol/L (22-29); Chloride 100 mmol/L (96-108); Creatinine Clr Calc Pharmacy 143.5; Estimated Glomerular Filt Rate > 60; Glucose Random 113 mg/dL (60-115); Potassium 3.4 mmol/l (3.3-5.1); Sodium 134 mmol/L (135-145)
[2020-10-08] MEDS: PHENobarbitaL sodium 65 MG/ML VIAL IVPUSH (19:52)
[2020-10-08] MEDS: PHENobarbitaL sodium 130 MG/ML VIAL 150 MG IM ×2 (21:17→23:54)
[2020-10-08] MEDS: Chlorhexidine Gluc Oral Rinse 15 ML MOUTHWASH BUCCAL (22:50)
[2020-10-09] VITALS (29 sets, daily range): BP systolic 108–144; BP diastolic 58–95; PULSE 44–92; RESP 13–29; TEMP 36.5–37.2; O2SAT 93–100; BMI 30.3
[2020-10-09] MEDS: 0.9 % Sodium Chloride Flush 3 ML SYRINGE IVFLUSH ×3 (00:06→18:04)
[2020-10-09] MEDS: Midazolam HCl/NS 50 MG/50 ML PLAST..BAG IVCONT ×3 (00:11→21:58)
[2020-10-09] MEDS: Piperacillin Sodium/Tazobactam 3.375 GM in 0.9 % Sodium Chloride 50 ML IV ×5 (05:41→23:49)
[2020-10-09 06:00] LABS: INTERNATIONAL NORM RATIO 1.3 (0.9-1.1); Prothrombin Time 15.2 SEC (10.8-13.0)
[2020-10-09 06:03] LABS: Partial Thromboplastin Time 29.3 SEC (24.1-38.0)
[2020-10-09 06:05] LABS: Base Excess VBG 3.7 mmol/L; HCO3 VBG 28 mmol/L; Oxygen Saturation VBG 75.6 %; PCO2 VBG 39 mmhg; PO2 VBG 38 mmhg; pH VBG 7.47 (7.32-7.43)
[2020-10-09 06:08] LABS: Basophils Percent Auto 0.2 % (0-2); Eosinophils Percent Auto 0.5 % (0-4); Hematocrit 28.3 % (42-52); Imm Gran Abs Auto 0.03 X10*3/uL (0.00-0.03); Imm Gran Pct Auto 0.7 % (0.0-0.4); Lymphocytes Percent Auto 22.5 % (20-40); MANUAL DIFF FLAG NO; Mean Corpuscular HGB Conc 34.6 g/dl (31.0-36.0); Mean Corpuscular Hemoglobin 34.6 pg (27.0-33.0); Mean Platelet Volume 12.4 fL (9.4-12.4); Monocytes Absolute Auto 0.4 X10*3/uL (0.1-1.2); Monocytes Percent Auto 8.8 % (2-11); Neutrophils Absolute Auto 2.9 X10*3/uL (2.0-8.3); Neutrophils Percent Auto 67.3 % (45-73); Platelet Count 89 X10*3/uL (160-400); Red Blood Count 2.83 X10*6/uL (4.60-5.80); Red Cell Distribution Width 15.9 % (11.0-16.0); White Blood Count 4.3 X10*3/uL (4.8-10.8)
[2020-10-09 06:19] LABS: B Type Natriuretic Peptide 1051 pg/mL (<100)
[2020-10-09 06:22] LABS: Alanine Aminotransferase 65 U/L (0-40); Albumin Level 2.3 g/dL (3.5-5.0); Alkaline Phosphatase 155 U/L (39-117); Anion Gap 10 (12-20); Aspartate Amino Transferase 77 U/L (5-37); Blood Urea Nitrogen 5 mg/dL (9-16); Carbon Dioxide 26 mmol/L (22-29); Chloride 100 mmol/L (96-108); Creatinine Clr Calc Pharmacy 141.4; Estimated Glomerular Filt Rate > 60; Glucose Random 101 mg/dL (60-115); Magnesium 1.6 mg/dL (1.6-2.6); Phosphorus 2.6 mg/dL (2.7-4.5); Sodium 133 mmol/L (135-145); Total Protein 4.9 g/dL (6.5-8.0)
[2020-10-09] MEDS: PHENobarbitaL sodium 130 MG/ML VIAL 150 MG IM (06:27)
--- NOTE | 2020-10-09 06:37 | PC.NURSE ---
PT VERY AGITATED WITH CARE OVERNIGHT AND THREATENING TO PULL OUT ETT. REQUIRED 0INCREASING RATE OF VERSED DRIP TO 5 MG/HR, NOW WEANED TO 4 MG/HR. ALSO RECEIVED PHENOBARBITOL 150 MG IM X 3 DOSES, AT 2130, 0000 AND 0600 WITH GOOD EFFECT BUT DIDN'T LAST LONG. PT NODS HEAD YES OR NO TO QUESTIONS ASKED. NO TO IF HE'S COLD OR WARM ETC. NO RESP DIFFICULTIES ON VENTILATOR AC SETTINGS. AFEBRILE. BP STABLE ON VASOPRESSIN 0.04 UNITS/MIN. MONITOR SHOWS SR BUT WHEN CALM, HR 40'S-50'S SINUS BRADYCARDIA. URINE OUTPUT IS GOOD, 150-300 ML/HR.
[2020-10-09] MEDS: KCl 40 mEq in 0.9 % Sodium Chl 40 MEQ/1,000 ML IV.SOLN 100 MEQ IVCONT ×3 (07:51→19:27)
[2020-10-09] MEDS: Magnesium Sulfate/D5W 1 GM/100 ML PIGGYBACK IV (07:56)
[2020-10-09 07:57] LABS: Hemoglobin 9.8 g/dl (14.0-18.0)
[2020-10-09] MEDS: Potassium Chloride Packet 20 MEQ PACKET 40 MEQ PO (08:03)
[2020-10-09] MEDS: Lactulose 20 GM/30 ML SOLUTION PO (08:04)
[2020-10-09] MEDS: Chlorhexidine Gluc Oral Rinse 15 ML MOUTHWASH BUCCAL (08:07)
[2020-10-09] MEDS: Famotidine/PF 20 MG/2 ML VIAL IVPUSH ×2 (08:08→21:29)
--- NOTE | 2020-10-09 09:08 | PM.NEUROCN ---
History of Present Illness Data of Consult Primary Care Provider: Unknown Physician 60 years old man with underlying history of alcoholism and its multiple complications including delirium tremens and alcoholic liver cirrhosis and portal hypertension who came to hospital after a generalized convulsion apparently had more convulsion in emergency room. He was treated with sedation and phenobarbital and ultimately was intubated. I briefly saw him last night and then again this morning. When I saw him he was off sedation but still intubated. No seizure was noted since he was in intensive care unit. Review of Systems Review of Systems: Review of system could not be done with him. [facility] Past Medical History Medical History Alcoholic cirrhosis of liver Cataracts, bilateral Cholestasis Cirrhosis Esophageal varices determined by endoscopy Gout Hemochromatosis Hepatic failure due to alcoholism History of gastric ulcer Portal hypertension Ulcer Family History Family history: reviewed and not pertinent Surgical History Surgical History H/O right inguinal hernia repair Hx of tonsillectomy Social History Social History Household Members: Unknown / Unable to assess Housing: Apartment Alcohol intake: current Alcohol intake frequency: 3 or more drinks per day Alcohol type: beer Smoking Status: Never smoker Use of substances other than those prescribed or required for medical reasons: Unable to respond Advance Directives: No Advance Directives Information Provided: Yes Advance Directives on File: No Do you have thoughts of harming others: None Do you have a plan to hurt others: No Plan service: No Current occupational status: unemployed Travel History Ebola Risk: Travel/Contact With Anyone From Affected Area/s: No Has Patient Experienced Ebola Symptoms: No Meds Allergies Allergy/AdvReac Type Severity Reaction Status Date / Time No Known Allergies Allergy Unverified 08/09/20 18:37 [No Known Allergies*] bee stings had shots Allergy Unknown Uncoded 01/02/20 00:00 none Allergy Unknown Uncoded 04/24/20 00:00 Home Medications Medication Instructions Recorded Confirmed Type gabapentin 100 mg PO BID 10/08/20 10/08/20 History lactulose [Generlac] PO 10/08/20 History lidocaine 1 patch TOPICAL DAILY 10/08/20 10/08/20 History Physical Exam Vital Signs: Vital Signs: Last Vital Signs Temp 97.7 F 10/09/20 09:00 Pulse 82 10/09/20 09:00 Resp 29 H 10/09/20 09:00 BP 118/78 10/09/20 09:00 Pulse Ox 97 10/09/20 09:00 Body Mass Index 30.3 He was intubated and sedation was off. He was drowsy and intermittently open his eyes. He made eye contact. When I asked him if he was okay, he noted. There was no sign of distress. He was slightly restless. There is no eye jerking nystagmus. Pupils were about 3 mm round reactive. Face seems symmetrical. There was no obvious arm or leg weakness. Reflexes are absent with flexor plantars. Results Labs CBC & Chem 7: 10/09/20 05:09 10/09/20 05:07 Labs: Short CBC 10/08/20 10/09/20 10/09/20 Range/Units 10:53 05:07 05:09 WBC 8.1 Cancelled 4.3 L (4.8-10.8) X10*3/uL Hgb 11.2 L Cancelled 9.8 L (14.0-18.0) g/dl Hct 33.2 L Cancelled 28.3 L (42-52) % Plt Count 110 L D Cancelled 89 L (160-400) X10*3/uL BMP 10/08/20 10/08/20 10/09/20 10:52 18:23 05:07 Sodium 133 L 134 L 133 L Potassium 3.3 3.4 3.0 L Chloride 99 100 100 Carbon Dioxide 19 L 24 26 BUN 9 7 L 5 L Creatinine 0.75 0.68 0.69 Calcium 7.5 L 7.0 L D 7.0 L Cardiac Enzymes 10/08/20 10/09/20 Range/Units 10:52 05:07 Total Creatine Kinase 47 70 D (38-174) U/L Liver Function 10/08/20 10/09/20 Range/Units 10:52 05:07 Total Bilirubin 6.7 H 6.0 H (0.0-1.0) mg/dL Direct Bilirubin 5.3 H (0.0-0.5) mg/dL AST 98 H 77 H (5-37) U/L ALT 84 H 65 H (0-40) U/L Alkaline Phosphatase 217 H D 155 H D (39-117) U/L Albumin 2.7 L 2.3 L (3.5-5.0) g/dL Urine 10/08/20 Range/Units 12:28 Urine Color YELLOW Urine Appearance CLEAR Urine pH 7.5 (5.0-8.0) Ur Specific [place] 1.015 (1.005-1.025) Urine Protein NEG (NEG-TRACE) MG/DL Urine Glucose (UA) NEG (NEG) MG/DL His noncontrast head CT revealed moderately severe diffuse cerebral and cerebellar cortical and central atrophy. Microbiology Microbiology Results: Microbiology 10/08/20 12:28 Blood - Venous Blood Culture - Preliminary Assessment and Plan (1) Status epilepticus, generalized convulsive: Status: Acute Procedures Abscess I/D Date of Service: 10/09/20 Additional comments: 60 years old man with chronic alcoholism and its multiple complications who came to hospital with generalized convulsion apparently had multiple convulsions suggestive of status epilepticus and ultimately was intubated. This morning he was off sedation but still intubated. He was not seizing at this time. His examination did not reveal any focal finding and head CT did not reveal any acute lesion. It did reveal significant atrophy. My recommendation at this time is to continue Keppra that was given in emergency room with a dose of 500 mg twice a day. Mainstay of management for him is to stay away from alcohol. An EEG is also recommended to rule out any ongoing interictal activity.
--- NOTE | 2020-10-09 09:49 | PC.NURSE ---
DR BURGOS IN. SEDATION VACATION STARTED AT 0745. VERSED OFF. PT STARTED TO WAKE UP, NODS HEAD. OPENS EYES WEAKLY. AGITATED IN BED. RESTRAINTS ON. PT WILL EXTUBATE HIMSELF IF UNRESTRAINED. DR BURGOS IN AND OUT CHECKING ON THE PROGRESS OF WAKING UP. PT ON PRESSURE SUPPORT 10 AND PEEP OF 5 SINCE 834. RESP RATE ELEVATED 28-29. HR 80'S, SR.
--- NOTE | 2020-10-09 11:08 | MHC.CLN ---
PT POSSIBLE EXTUBATION TODAY CURRENTLY NPO-ADVANCE TOLERATED IF TF NEEDED; RECOMMEND [facility] AT MAX GOAL RATE 80CC/HR WILL PROVIDE 2035KCALS (23KCALS/KG), 85G PROTEIN (.95G/KG), 1603CC FREE WATER FROM FORMULA FOLLOWING
--- NOTE | 2020-10-09 11:35 | PC.NURSE ---
patient extubated without difficulty by respiratory. md at bedside. pt transitioned to 2L nc maintaining airway at this time. O2 sats >96% on 2L NC. Patient extreemly restless in bed. Right femoral line and pepper cath repositioned for protection.
--- NOTE | 2020-10-09 12:03 | P.PNCC_ITS ---
Subjective Subjective Date of Service: 10/09/20 Interval History: 60-year-old chronic alcoholic with cirrhosis complicated by portal hypertension with increasing ascites and known esophageal varices and hepatic insufficiency with hypoalbuminemia and mild increases in coagulation time and persistently jaundiced with hyperbilirubinemia for whom we stop the sedation and after several hours the patient woke up although lethargic did demonstrate some early cognitive function with eye fixation and response to command successfully extubated and is pending EEG off sedation Physical Exam Vital Signs: Vital Signs: Last Vital Signs Temp 98.6 F 10/09/20 11:54 Pulse 46 L 10/09/20 11:54 Resp 20 10/09/20 11:54 BP 119/76 10/09/20 11:54 Pulse Ox 99 10/09/20 11:54 Body Mass Index 30.3 Const: Other: lethargic but arousable with no focal abnormality on neurologic and pupils equal and reactive to light skin somewhat sallow with icteric conjunctiva a normal S1 normal S2 with no gallops or murmurs and has good bilateral carotid upstrokes and no neck vein distension chest percusses equally no clinical pleural effusion no adventitious sounds cardiac exam with normal S1 and normal S2 with no gallops and no murmurs Objective Data Labs CBC & Chem 7: 10/09/20 05:09 10/09/20 05:07 Labs: Laboratory Results - last 24 hr 10/08/20 10/08/20 10/08/20 12:28 12:28 13:34 WBC RBC Hgb Hct MCV MCH MCHC RDW Plt Count MPV Immature Gran % (Auto) Neut % (Auto) Lymph % (Auto) [place] % (Auto) Eos % (Auto) Baso % (Auto) Lymph # (Auto) [place] # (Auto) Eos # (Auto) Baso # (Auto) Abs Immat Gran (auto) Absolute Neuts (auto) Absolute Nucleated RBC Nucleated RBC % (auto) PT INR APTT VBG pH VBG pCO2 VBG pO2 VBG HCO3 VBG O2 Saturation VBG Base Excess Sodium Potassium Chloride Carbon Dioxide Anion Gap BUN Creatinine Estim Creat Clear Calc Estimated GFR Random Glucose Lactic Acid Lactic Acid Fup @ 2Hr 1.5 Calcium Phosphorus Magnesium Total Bilirubin AST ALT Alkaline Phosphatase Total Creatine Kinase B-Natriuretic Peptide Total Protein Albumin Urine Color YELLOW Urine Appearance CLEAR Urine pH 7.5 Ur Specific Portal 1.015 Urine Protein NEG Urine Glucose (UA) NEG Urine Ketones NEG Urine Blood NEG Urine Nitrite NEG Ur Leukocyte Esterase NEG Urine Opiates Screen Not Detected Ur Barbiturates Screen POSITIVE H Ur Phencyclidine Scrn Not Detected Ur Amphetamines Screen Not Detected Phenobarbital U Benzodiazepines Scrn POSITIVE H Urine Cocaine Screen Not Detected U Marijuana (THC) Screen POSITIVE H 10/08/20 10/08/20 10/08/20 13:49 17:17 18:23 WBC RBC Hgb Hct MCV MCH MCHC RDW Plt Count MPV Immature Gran % (Auto) Neut % (Auto) Lymph % (Auto) [place] % (Auto) Eos % (Auto) Baso % (Auto) Lymph # (Auto) [place] # (Auto) Eos # (Auto) Baso # (Auto) Abs Immat Gran (auto) Absolute Neuts (auto) Absolute Nucleated RBC Nucleated RBC % (auto) PT INR APTT VBG pH 7.39 VBG pCO2 43 VBG pO2 97 VBG HCO3 26 VBG O2 Saturation 97.4 VBG Base Excess 0.6 Sodium 134 L Potassium 3.4 Chloride 100 Carbon Dioxide 24 Anion Gap 13 BUN 7 L Creatinine 0.68 Estim Creat Clear Calc 143.5 Estimated GFR > 60 Random Glucose 113 Lactic Acid Lactic Acid Fup @ 2Hr Calcium 7.0 L D Phosphorus Magnesium Total Bilirubin AST ALT Alkaline Phosphatase Total Creatine Kinase B-Natriuretic Peptide Total Protein Albumin Urine Color Urine Appearance Urine pH Ur Specific Portal Urine Protein Urine Glucose (UA) Urine Ketones Urine Blood Urine Nitrite Ur Leukocyte Esterase Urine Opiates Screen Ur Barbiturates Screen Ur Phencyclidine Scrn Ur Amphetamines Screen Phenobarbital 10.1 U Benzodiazepines Scrn Urine Cocaine Screen U Marijuana (THC) Screen 10/08/20 10/08/20 10/09/20 18:23 18:23 05:07 WBC Cancelled RBC Cancelled Hgb Cancelled Hct Cancelled MCV Cancelled MCH Cancelled MCHC Cancelled RDW Cancelled Plt Count Cancelled MPV Cancelled Immature Gran % (Auto) Cancelled Neut % (Auto) Cancelled Lymph % (Auto) Cancelled [place] % (Auto) Cancelled Eos % (Auto) Cancelled Baso % (Auto) Cancelled Lymph # (Auto) Cancelled [place] # (Auto) Cancelled Eos # (Auto) Cancelled Baso # (Auto) Cancelled Abs Immat Gran (auto) Cancelled Absolute Neuts (auto) Cancelled Absolute Nucleated RBC Cancelled Nucleated RBC % (auto) Cancelled PT INR APTT VBG pH 7.39 VBG pCO2 43 VBG pO2 37 VBG HCO3 26 VBG O2 Saturation 69.2 VBG Base Excess 0.6 Sodium Potassium Chloride Carbon Dioxide Anion Gap BUN Creatinine Estim Creat Clear Calc Estimated GFR Random Glucose Lactic Acid 1.4 Lactic Acid Fup @ 2Hr Calcium Phosphorus Magnesium Total Bilirubin AST ALT Alkaline Phosphatase Total Creatine Kinase B-Natriuretic Peptide Total Protein Albumin Urine Color Urine Appearance Urine pH Ur Specific Portal Urine Protein Urine Glucose (UA) Urine Ketones Urine Blood Urine Nitrite Ur Leukocyte Esterase Urine Opiates Screen Ur Barbiturates Screen Ur Phencyclidine Scrn Ur Amphetamines Screen Phenobarbital U Benzodiazepines Scrn Urine Cocaine Screen U Marijuana (THC) Screen 10/09/20 10/09/20 10/09/20 05:07 05:07 05:07 WBC RBC Hgb Hct MCV MCH MCHC RDW Plt Count MPV Immature Gran % (Auto) Neut % (Auto) Lymph % (Auto) [place] % (Auto) Eos % (Auto) Baso % (Auto) Lymph # (Auto) [place] # (Auto) Eos # (Auto) Baso # (Auto) Abs Immat Gran (auto) Absolute Neuts (auto) Absolute Nucleated RBC Nucleated RBC % (auto) PT 15.2 H INR 1.3 H APTT 29.3 VBG pH VBG pCO2 VBG pO2 VBG HCO3 VBG O2 Saturation VBG Base Excess Sodium 133 L Potassium 3.0 L Chloride 100 Carbon Dioxide 26 Anion Gap 10 L BUN 5 L Creatinine 0.69 Estim Creat Clear Calc 141.4 Estimated GFR > 60 Random Glucose 101 Lactic Acid Lactic Acid Fup @ 2Hr Calcium 7.0 L Phosphorus 2.6 L Magnesium 1.6 Total Bilirubin 6.0 H AST 77 H ALT 65 H Alkaline Phosphatase 155 H D Total Creatine Kinase 70 D B-Natriuretic Peptide 1051 H Total Protein 4.9 L Albumin 2.3 L Urine Color Urine Appearance Urine pH Ur Specific Portal Urine Protein Urine Glucose (UA) Urine Ketones Urine Blood Urine Nitrite Ur Leukocyte Esterase Urine Opiates Screen Ur Barbiturates Screen Ur Phencyclidine Scrn Ur Amphetamines Screen Phenobarbital U Benzodiazepines Scrn Urine Cocaine Screen U Marijuana (THC) Screen 10/09/20 10/09/20 05:07 05:09 WBC 4.3 L RBC 2.83 L Hgb 9.8 L Hct 28.3 L MCV 100.0 H MCH 34.6 H MCHC 34.6 RDW 15.9 Plt Count 89 L MPV 12.4 Immature Gran % (Auto) 0.7 H Neut % (Auto) 67.3 Lymph % (Auto) 22.5 [place] % (Auto) 8.8 Eos % (Auto) 0.5 Baso % (Auto) 0.2 Lymph # (Auto) 1.0 L [place] # (Auto) 0.4 Eos # (Auto) 0.0 Baso # (Auto) 0.0 Abs Immat Gran (auto) 0.03 Absolute Neuts (auto) 2.9 Absolute Nucleated RBC 0.000 Nucleated RBC % (auto) 0.0 PT INR APTT VBG pH 7.47 H VBG pCO2 39 VBG pO2 38 VBG HCO3 28 VBG O2 Saturation 75.6 VBG Base Excess 3.7 Sodium Potassium Chloride Carbon Dioxide Anion Gap BUN Creatinine Estim Creat Clear Calc Estimated GFR Random Glucose Lactic Acid Lactic Acid Fup @ 2Hr Calcium Phosphorus Magnesium Total Bilirubin AST ALT Alkaline Phosphatase Total Creatine Kinase B-Natriuretic Peptide Total Protein Albumin Urine Color Urine Appearance Urine pH Ur Specific Portal Urine Protein Urine Glucose (UA) Urine Ketones Urine Blood Urine Nitrite Ur Leukocyte Esterase Urine Opiates Screen Ur Barbiturates Screen Ur Phencyclidine Scrn Ur Amphetamines Screen Phenobarbital U Benzodiazepines Scrn Urine Cocaine Screen U Marijuana (THC) Screen Microbiology Microbiology Results: Microbiology 10/08/20 12:28 Blood - Venous Blood Culture - Preliminary Progress Note: A&P Assessment and plan (1) Hepatic failure due to alcoholism: Status: Acute (2) Status epilepticus, generalized convulsive: Status: Acute (3) Cholestasis: Status: Acute (4) Portal hypertension: Status: Acute (5) Acidosis, lactic: Status: Acute (6) Alcohol withdrawal hallucinosis: Status: Acute (7) Alcohol withdrawal seizure: Status: Acute (8) Delirium tremens: Status: Acute (9) Esophageal varices determined by endoscopy: Status: Acute (10) Alcoholic cirrhosis of liver: Status: Acute (11) Hyponatremia: Status: Acute (12) Elevated bilirubin: Status: Acute (13) Acute hyponatremia: Status: Acute Assessment and Plan: successfully extubated follow ammonia and LFTs and GB US Time Spent With Patient Time: Total time spent is greater than 50% in coordination of care (as documented) at patient's floor/unit and/or counseling patient: Total time spent with greater than 50% in coordination of care (as documented) at patient's floor/unit and/or counseling patient:: 45
[2020-10-09 14:07] LABS: Ammonia 46 umol/L (13-55)
[2020-10-09 14:17] LABS: Anion Gap 13 (12-20); Carbon Dioxide 26 mmol/L (22-29); Chloride 99 mmol/L (96-108); Magnesium 1.7 mg/dL (1.6-2.6); Phosphorus 2.5 mg/dL (2.7-4.5); Potassium 3.9 mmol/l (3.3-5.1); Sodium 134 mmol/L (135-145)
[2020-10-09 14:20] LABS: Alanine Aminotransferase 70 U/L (0-40); Albumin Level 2.5 g/dL (3.5-5.0); Alkaline Phosphatase 158 U/L (39-117); Anion Gap 14 (12-20); Aspartate Amino Transferase 93 U/L (5-37); Bilirubin Total 6.4 mg/dL (0.0-1.0); Blood Urea Nitrogen 5 mg/dL (9-16); Calcium 7.1 mg/dL (8.4-10.2); Carbon Dioxide 24 mmol/L (22-29); Chloride 100 mmol/L (96-108); Creatinine Clr Calc Pharmacy 130.8; Estimated Glomerular Filt Rate > 60; Glucose Random 98 mg/dL (60-115); Potassium 4.3 mmol/l (3.3-5.1); Sodium 134 mmol/L (135-145); Total Protein 5.5 g/dL (6.5-8.0)
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
[2020-10-09] MEDS: PHENobarbitaL sodium 130 MG/ML VIAL 65 MG IM (22:00)
[2020-10-10] VITALS (24 sets, daily range): BP systolic 110–169; BP diastolic 62–103; PULSE 42–114; RESP 12–22; TEMP 35.8–36.9; O2SAT 93–100; BMI 30.2
--- NOTE | 2020-10-10 | ECG_ITS ---
Test Reason : sudden bradycardia Blood Pressure : / mmHG Vent. Rate : 115 BPM Atrial Rate : 125 BPM P-R Int : 000 ms QRS Dur : 098 ms QT Int : 372 ms P-R-T Axes : 000 072 -12 degrees QTc Int : 514 ms Poor data quality Accelerated Junctional rhythm Low voltage QRS Nonspecific ST and T wave abnormality Abnormal ECG Accelerated Junctional rhythm has replaced Normal sinus rhythm Heart rate has increased Nonspecific ST and T wave abnormality is now Present Inferior leads Referred By: Cecily Smith Electronically Signed By:STEPHEN BAKER MD
--- NOTE | 2020-10-10 01:47 | PC.NURSE ---
P. ALT IN MENTAL STATUS DELERIUM AND AGITATION- I. 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 PHENOBARB 60 MG IM GIVEN I. VERSED DRIP TITRATED UPWARD DUE TO AGITATION I. ASSESSMENT-AWAKE/PROFOUNDLY CONFUSED/YELLING OUT KJ/I GOT TO GET TO WORK. PT KICKING AND THROWING HIS LEGS OVER THE SIDE RAILS. HIS HANDS ARE TREMULOUS. HE HAS MULTIPLE BRUISES ON ARMS AND LEGS. COMPLEXION SALLOW. ORTHOPNEIC AND PHIPPS. WITH ACTIVITY I/E WHEEZES ARE NOTED. ECG DISPLAYS SB-SR. B/P STABLE. VASOPRESSIN SUPPORT AT 0.04UX/MIN ABDOMEN PROTUBERANT/SEMISOFT. NPO AT THIS TIME. HARLEY CATHETER PATENT AND DRAINING BILIOUS URINE. U/O 100-150 ML/HR
--- NOTE | 2020-10-10 02:26 | PC.NURSE ---
Addendum entered by Viviane Rico RN 10/10/20 02:37: Versed gtt restarted @ 2mg/hr per MD approximately 1800. Effect minimal. Original Note: Late Entry 10/09 [id number] Patient oriented to self only. Restless, uncooperative with care, constantly climbing over side rails, pulling at lines, and removing clothes. Redirection and reorientation with some effect for approximately 20 seconds before patient resumes unsafe behaviors. Shouting for Don repeatedly. Insistent that he needs to get to [place] for work by 0200. Ripping call escobar out of wall in an attempt to pull self out of the bed. RN 1:1 for most of shift. Camera in room. Lines/tubes hidden with linen. Denies pain. 4x moderate-large liquid, orange/yellow BM this shift. Patient uncooperative with cleanup, thrashing about in bed, throwing legs over siderails, covering himself and equipment in stool. UOP 150-200 cc/hr dark, orange. Multiple full baths given. Vigorous oral care provided with suction swabs. Oral mucosa caked with yellow crust/film. Skin/sclera jaundiced. 1+ generalized anasarca. Bruising allover. Lacerations secondary to handcuff use while in police custody to biilateral wrists wrapped in kerlex.
[2020-10-10] MEDS: PHENobarbitaL sodium 130 MG/ML VIAL 65 MG IM ×2 (03:40→23:57)
[2020-10-10] MEDS: 0.9 % Sodium Chloride Flush 3 ML SYRINGE IVFLUSH ×3 (03:44→15:43)
[2020-10-10] MEDS: KCl 40 mEq in 0.9 % Sodium Chl 40 MEQ/1,000 ML IV.SOLN 100 MEQ IVCONT (03:54)
[2020-10-10] MEDS: Midazolam HCl/NS 50 MG/50 ML PLAST..BAG IVCONT ×2 (05:39→17:31)
[2020-10-10] MEDS: Piperacillin Sodium/Tazobactam 3.375 GM in 0.9 % Sodium Chloride 50 ML IV ×3 (05:42→17:30)
[2020-10-10 05:52] LABS: MANUAL DIFF FLAG NO
[2020-10-10 05:56] LABS: Basophils Percent Auto 0.2 % (0-2); Eosinophils Percent Auto 0.8 % (0-4); Hematocrit 27.6 % (42-52); Hemoglobin 9.7 g/dl (14.0-18.0); Imm Gran Abs Auto 0.06 X10*3/uL (0.00-0.03); Imm Gran Pct Auto 1.2 % (0.0-0.4); Lymphocytes Percent Auto 20.5 % (20-40); Mean Corpuscular HGB Conc 35.1 g/dl (31.0-36.0); Mean Corpuscular Volume 99.6 fL (80-98); Mean Platelet Volume 12.7 fL (9.4-12.4); Monocytes Absolute Auto 0.4 X10*3/uL (0.1-1.2); Monocytes Percent Auto 8.5 % (2-11); Neutrophils Absolute Auto 3.4 X10*3/uL (2.0-8.3); Neutrophils Percent Auto 68.8 % (45-73); Red Blood Count 2.77 X10*6/uL (4.60-5.80); Red Cell Distribution Width 15.1 % (11.0-16.0); White Blood Count 4.9 X10*3/uL (4.8-10.8)
[2020-10-10 05:59] LABS: Platelet Count 74 X10*3/uL (160-400)
[2020-10-10 06:09] LABS: INTERNATIONAL NORM RATIO 1.3 (0.9-1.1); Prothrombin Time 15.5 SEC (10.8-13.0)
[2020-10-10 06:12] LABS: Partial Thromboplastin Time 31.5 SEC (24.1-38.0)
[2020-10-10 06:26] LABS: Base Excess VBG 1.6 mmol/L; HCO3 VBG 26 mmol/L; Oxygen Saturation VBG 78.8 %; PCO2 VBG 36 mmhg; PO2 VBG 42 mmhg; pH VBG 7.47 (7.32-7.43)
[2020-10-10 06:35] LABS: B Type Natriuretic Peptide 1700 pg/mL (<100)
[2020-10-10 06:36] LABS: Alanine Aminotransferase 64 U/L (0-40); Albumin Level 2.5 g/dL (3.5-5.0); Alkaline Phosphatase 145 U/L (39-117); Anion Gap 13 (12-20); Aspartate Amino Transferase 87 U/L (5-37); Bilirubin Total 6.6 mg/dL (0.0-1.0); Blood Urea Nitrogen 4 mg/dL (9-16); Calcium 7.2 mg/dL (8.4-10.2); Carbon Dioxide 24 mmol/L (22-29); Chloride 97 mmol/L (96-108); Creatinine Clr Calc Pharmacy 144.4; Estimated Glomerular Filt Rate > 60; Glucose Random 75 mg/dL (60-115); Magnesium 1.4 mg/dL (1.6-2.6); Phosphorus 2.6 mg/dL (2.7-4.5); Potassium 3.6 mmol/l (3.3-5.1); Sodium 130 mmol/L (135-145); Total Protein 5.3 g/dL (6.5-8.0)
[2020-10-10] MEDS: Magnesium Sulfate/H2O 2 GM/50 ML PIGGYBACK IV (07:32)
[2020-10-10] MEDS: Famotidine/PF 20 MG/2 ML VIAL IVPUSH ×2 (11:28→20:41)
[2020-10-10] MEDS: Lactulose 20 GM/30 ML SOLUTION PO ×2 (11:28→20:34)
[2020-10-10] MEDS: rifAXIMin 550 MG TABLET PO ×2 (11:28→20:34)
--- NOTE | 2020-10-10 12:08 | MHC.CM.PN ---
Patient remains in ICU. Currently experiencing ETOH withdrawal. Patient was extubated 10/09. Patient is from home. May need PT eval for home safety when medically stable. Continue to [facility]ior for d/c needs.
--- NOTE | 2020-10-10 12:25 | MHC.CM.PN ---
Referrals have already been made to [facility], [facility] and [facility]. [facility] is not accepting admissions at this time. Clinical updates sent to [facility] and [facility]. Continue to monitor for d/c needs.
--- NOTE | 2020-10-10 13:34 | PM.CCPN ---
Subjective Subjective Date of Service: 10/10/20 Interval History: 60-year-old male with alcoholic cirrhosis and hepatic insufficiency and portal hypertension with known but not active varices somewhat increased volume of ascites but presented with status epilepticus which was preceded by a at an episode of alcoholic hepatitis with worsening liver functions and hyperbilirubinemia about a month ago some of this still persists but the hyponatremia had largely resolved but he was unable to hold down food or drink so he withdrew from alcohol noted into to be in status epilepticus treated with benzodiazepines and phenobarbital and then he was persistently encephalopathic so he was intubated and then successfully extubated 24 hours ago with chest x-ray evidence of aspiration left lower lobe and is currently on Zosyn sedated with IV midazolam blood pressure preservation his with vasopressin and is persistently in sinus bradycardia with rates in the high 40s but excellent urine output he was somewhat hypomagnesemic and this was replaced today and is definitely less agitated today than he had been and is not demonstrating any hallucinations and no seizure activity and are now 30 our old EEG still has not come back Physical Exam Vital Signs: Vital Signs: Last Vital Signs Temp 97.9 F 10/10/20 12:55 Pulse 45 L 10/10/20 12:55 Resp 18 10/10/20 12:55 BP 140/93 H 10/10/20 12:55 Pulse Ox 96 10/10/20 12:55 Body Mass Index 30.2 Const: Other: by exam neurologically nonfocal lethargic but arousable bilaterally responsive pupils skin is intact although sallow with evidence of conjunctival icterus there are no decubiti I or other wounds and no acrocyanosis no neck vein distension and good bilateral carotid upstrokes and no bruits and no gallops although he has an elevated BNP of 1700 and that is even in the face of a negative intake and output ratio chest percussed equally no clinical pleural effusion no episcopal itious sounds abdomen with good bowel sounds soft nontender no organomegaly Objective Data Labs CBC & Chem 7: 10/10/20 05:35 10/10/20 05:35 Labs: Laboratory Results - last 24 hr 10/09/20 10/09/20 10/09/20 13:31 13:31 13:31 WBC RBC Hgb Hct MCV MCH MCHC RDW Plt Count MPV Immature Gran % (Auto) Neut % (Auto) Lymph % (Auto) [place] % (Auto) Eos % (Auto) Baso % (Auto) Lymph # (Auto) [place] # (Auto) Eos # (Auto) Baso # (Auto) Abs Immat Gran (auto) Absolute Neuts (auto) Absolute Nucleated RBC Nucleated RBC % (auto) PT INR APTT VBG pH VBG pCO2 VBG pO2 VBG HCO3 VBG O2 Saturation VBG Base Excess Sodium 134 L 134 L Potassium 3.9 D 4.3 Chloride 99 100 Carbon Dioxide 26 24 Anion Gap 13 14 BUN 5 L Creatinine 0.74 Estim Creat Clear Calc 130.8 Estimated GFR > 60 Random Glucose 98 Calcium 7.1 L Phosphorus 2.5 L Magnesium 1.7 Total Bilirubin 6.4 H AST 93 H ALT 70 H Alkaline Phosphatase 158 H Ammonia 46 B-Natriuretic Peptide Total Protein 5.5 L Albumin 2.5 L 10/10/20 10/10/20 10/10/20 05:35 05:35 05:35 WBC 4.9 RBC 2.77 L Hgb 9.7 L Hct 27.6 L MCV 99.6 H MCH 35.0 H MCHC 35.1 RDW 15.1 Plt Count 74 L MPV 12.7 H Immature Gran % (Auto) 1.2 H Neut % (Auto) 68.8 Lymph % (Auto) 20.5 [place] % (Auto) 8.5 Eos % (Auto) 0.8 Baso % (Auto) 0.2 Lymph # (Auto) 1.0 L [place] # (Auto) 0.4 Eos # (Auto) 0.0 Baso # (Auto) 0.0 Abs Immat Gran (auto) 0.06 H Absolute Neuts (auto) 3.4 Absolute Nucleated RBC 0.000 Nucleated RBC % (auto) 0.0 PT 15.5 H INR 1.3 H APTT 31.5 VBG pH VBG pCO2 VBG pO2 VBG HCO3 VBG O2 Saturation VBG Base Excess Sodium 130 L Potassium 3.6 Chloride 97 Carbon Dioxide 24 Anion Gap 13 BUN 4 L Creatinine 0.67 Estim Creat Clear Calc 144.4 Estimated GFR > 60 Random Glucose 75 Calcium 7.2 L Phosphorus 2.6 L Magnesium 1.4 L* Total Bilirubin 6.6 H AST 87 H ALT 64 H Alkaline Phosphatase 145 H Ammonia B-Natriuretic Peptide Total Protein 5.3 L Albumin 2.5 L 10/10/20 10/10/20 05:35 05:35 WBC RBC Hgb Hct MCV MCH MCHC RDW Plt Count MPV Immature Gran % (Auto) Neut % (Auto) Lymph % (Auto) [place] % (Auto) Eos % (Auto) Baso % (Auto) Lymph # (Auto) [place] # (Auto) Eos # (Auto) Baso # (Auto) Abs Immat Gran (auto) Absolute Neuts (auto) Absolute Nucleated RBC Nucleated RBC % (auto) PT INR APTT VBG pH 7.47 H VBG pCO2 36 VBG pO2 42 VBG HCO3 26 VBG O2 Saturation 78.8 VBG Base Excess 1.6 Sodium Potassium Chloride Carbon Dioxide Anion Gap BUN Creatinine Estim Creat Clear Calc Estimated GFR Random Glucose Calcium Phosphorus Magnesium Total Bilirubin AST ALT Alkaline Phosphatase Ammonia B-Natriuretic Peptide 1700 H Total Protein Albumin Microbiology Microbiology Results: Microbiology 10/08/20 12:28 Blood - Venous Blood Culture - Preliminary Coag negative Staphylococcus 10/08/20 12:28 Blood - Venous Blood Culture - Preliminary No growth after 24 hours. Progress Note: A&P Assessment and plan (1) Hepatic failure due to alcoholism: Status: Acute (2) Status epilepticus, generalized convulsive: Status: Acute (3) Cholestasis: Status: Acute (4) Portal hypertension: Status: Acute (5) Acidosis, lactic: Status: Acute (6) Alcohol withdrawal hallucinosis: Status: Acute (7) Alcohol withdrawal seizure: Status: Acute (8) Delirium tremens: Status: Acute (9) Esophageal varices determined by endoscopy: Status: Acute (10) Alcoholic cirrhosis of liver: Status: Acute (11) Hyponatremia: Status: Acute (12) Elevated bilirubin: Status: Acute (13) Acute hyponatremia: Status: Acute Assessment and Plan: as his agitation ease is we will wean slowly the Versed and because of improved hemodynamics we will slowly wean his vasopressin and when cognitive function is more secure swallow study Time Spent With Patient Time: Total time spent is greater than 50% in coordination of care (as documented) at patient's floor/unit and/or counseling patient: Total time spent with greater than 50% in coordination of care (as documented) at patient's floor/unit and/or counseling patient:: 35
[2020-10-10] MEDS: Furosemide 20 MG/2 ML VIAL IVPUSH (21:31)
[2020-10-11] VITALS (27 sets, daily range): BP systolic 93–136; BP diastolic 45–92; PULSE 66–124; RESP 12–35; TEMP 36.6–37.3; O2SAT 93–100; BMI 29.5
--- NOTE | 2020-10-11 | ECG_ITS ---
Test Reason : sudden tachycardia Blood Pressure : / mmHG Vent. Rate : 065 BPM Atrial Rate : 065 BPM P-R Int : 202 ms QRS Dur : 106 ms QT Int : 468 ms P-R-T Axes : 066 062 038 degrees QTc Int : 486 ms Sinus rhythm with Premature supraventricular complexes Low voltage QRS ST & T wave abnormality, consider anterior ischemia Prolonged QT Abnormal ECG Heart rate has decreased T wave inversion no longer evident in Inferior leads Normal sinus rhythm has replaced Accelerated ju Referred By: Cecily Smith Electronically Signed By:STEPHEN BAKER MD
[2020-10-11] MEDS: Piperacillin Sodium/Tazobactam 3.375 GM in 0.9 % Sodium Chloride 50 ML IV ×5 (00:01→23:32)
--- NOTE | 2020-10-11 01:08 | PC.NURSE ---
PT HAS BEEN COOPERATIVE FOR THE MOST PART. HE IS CONFUSED TO TIME AND SITUATION. HE IS ASKING FOR SOMETHING TO HELP HIM RELAX AND SLEEP. HIS HANDS ARE TREMULOUS. COMPLEXION JAUNDICED. SCLERA ARE ICTERIC. HE IS MODERATELY DYSPNEIC. BREATH SOUNDS COARSE WITH I/E WHEEZES THROUGHOUT. SUPPLEMENTAL O2 2LPM. HAS C/O OF VAGUE BACK AND CHEST WALL PAIN. HE HAS EXPERIENCED SEVERAL EPISODES OF TACHYCARDIA. 12 LEAD ECG SHOWS JUNCTIONAL TACHYCARDIA. RHYTHM HAS REVERTED BACK TO SR. HEMODYNAMICALLY STABLE. ABDOMEN PROTUBERANT/SEMISOFT/INCONTINENT OF STOOL. EXTERNAL CATHETER APPLIED. I. LASIX 20 MG IVP I. TROPONIN LEVEL I. TELE SITTER IN PLACE I. PHENOBARB 65 MG IM I. VERSED DRIP CONTINUES AT 2MG/HR
[2020-10-11] MEDS: 0.9 % Sodium Chloride Flush 3 ML SYRINGE IVFLUSH ×3 (04:05→15:30)
[2020-10-11 05:46] LABS: MANUAL DIFF FLAG NO
[2020-10-11 05:50] LABS: Basophils Percent Auto 0.2 % (0-2); Eosinophils Percent Auto 0.4 % (0-4); Hematocrit 29.7 % (42-52); Hemoglobin 10.5 g/dl (14.0-18.0); Imm Gran Abs Auto 0.07 X10*3/uL (0.00-0.03); Imm Gran Pct Auto 1.4 % (0.0-0.4); Lymphocytes Absolute Auto 1.1 X10*3/uL (1.2-4.9); Lymphocytes Percent Auto 21.7 % (20-40); Mean Corpuscular HGB Conc 35.4 g/dl (31.0-36.0); Mean Corpuscular Hemoglobin 34.5 pg (27.0-33.0); Mean Corpuscular Volume 97.7 fL (80-98); Monocytes Absolute Auto 0.5 X10*3/uL (0.1-1.2); Monocytes Percent Auto 10.1 % (2-11); Neutrophils Absolute Auto 3.4 X10*3/uL (2.0-8.3); Neutrophils Percent Auto 66.2 % (45-73); Red Blood Count 3.04 X10*6/uL (4.60-5.80); Red Cell Distribution Width 14.7 % (11.0-16.0); White Blood Count 5.1 X10*3/uL (4.8-10.8)
[2020-10-11 05:53] LABS: Platelet Count 79 X10*3/uL (160-400)
[2020-10-11 05:59] LABS: INTERNATIONAL NORM RATIO 1.3 (0.9-1.1); Prothrombin Time 15.9 SEC (10.8-13.0)
[2020-10-11 06:22] LABS: Base Excess VBG 4.1 mmol/L; HCO3 VBG 24 mmol/L; Oxygen Saturation VBG 97.6 %; PCO2 VBG 23 mmhg; PO2 VBG 74 mmhg
[2020-10-11 06:24] LABS: Alanine Aminotransferase 62 U/L (0-40); Albumin Level 2.6 g/dL (3.5-5.0); Alkaline Phosphatase 147 U/L (39-117); Anion Gap 16 (12-20); Aspartate Amino Transferase 81 U/L (5-37); B Type Natriuretic Peptide 1673 pg/mL (<100); Bilirubin Total 6.4 mg/dL (0.0-1.0); Blood Urea Nitrogen 3 mg/dL (9-16); Calcium 7.3 mg/dL (8.4-10.2); Carbon Dioxide 26 mmol/L (22-29); Chloride 96 mmol/L (96-108); Creatinine Clr Calc Pharmacy 148.8; Estimated Glomerular Filt Rate > 60; Glucose Random 69 mg/dL (60-115); Magnesium 1.5 mg/dL (1.6-2.6); Phosphorus 3.7 mg/dL (2.7-4.5); Sodium 135 mmol/L (135-145); Total Protein 5.7 g/dL (6.5-8.0)
[2020-10-11 06:25] LABS: pH VBG 7.64 (7.32-7.43)
[2020-10-11] MEDS: KCl 40 mEq in 5% Dex/0.9% Sod 40 MEQ/1,000 ML IV.SOLN 100 MEQ IVCONT ×2 (07:20→16:37)
[2020-10-11] MEDS: Magnesium Sulfate/H2O 2 GM/50 ML PIGGYBACK IV (07:20)
[2020-10-11] MEDS: Potassium Chloride/H20 40 MEQ/100 ML PIGGYBACK 25 MEQ IV (07:20)
[2020-10-11] MEDS: Albuterol/Iprat 2.5/0.5MG 3 ML AMPUL.NEB INHALE ×4 (08:07→23:32)
[2020-10-11] MEDS: Famotidine/PF 20 MG/2 ML VIAL IVPUSH ×2 (08:51→21:13)
[2020-10-11] MEDS: rifAXIMin 550 MG TABLET PO ×2 (08:51→21:13)
[2020-10-11] MEDS: Lactulose 20 GM/30 ML SOLUTION PO ×2 (08:51→21:13)
--- NOTE | 2020-10-11 08:58 | MHC.CLN ---
F/U PT IS EXTUBATED DIET RX: REGULAR-APPROPRIATE MONITOR PO INTAKE CLOSELY FOLLOWING
--- NOTE | 2020-10-11 11:19 | MHC.CM.PN ---
Patient remains in ICU. Will need PT eval when medically stable. Continue to monitor for d/c needs.
--- NOTE | 2020-10-11 14:30 | PM.CCPN ---
Subjective Subjective Date of Service: 10/11/20 Interval History: 60-year-old with alcoholic cirrhosis 1 month status post acute alcoholic hepatitis with both patent insufficiency as well as portal hypertension presents with altered mental status and status epilepticus in part due to alcohol withdrawal and he has had a negative EEG and CT scan so likely entirely alcohol withdrawal and he has had metabolic complications including hyponatremia and hypokalemia and hypo magnesemia and also noted increasing ascites volume and evidence of probable aspiration pneumonitis involving his left lower lobe and so he is being cover with Zosyn and he also had elevated ammonia levels and following acute treatment for his seizure activity and lactulose and rifaximin together for his elevated ammonia is now waking up more appropriate he has been extubated and no further seizure activity he is going to remain on Ativan but he has passed a swallow and he is eating Physical Exam Vital Signs: Vital Signs: Last Vital Signs Temp 98.5 F 10/11/20 12:00 Pulse 75 10/11/20 14:00 Resp 16 10/11/20 14:00 BP 94/59 L 10/11/20 14:00 Pulse Ox 96 10/11/20 14:00 Body Mass Index 29.5 Const: Other: skin color is sallow he is awake but he is appropriately responsive without any further withdrawal stigmata conjunctivae are icteric nonfocal neurologic cardiac exam with no neck vein distension and good bilateral carotid upstrokes and normal S1 and normal S2 chest is clear abdomen benign with no bruits no tenderness no organomegaly skin intact with no decubiti I no acrocyanosis Objective Data Labs CBC & Chem 7: 10/11/20 05:31 10/11/20 05:31 Labs: Laboratory Results - last 24 hr 10/10/20 10/11/20 10/11/20 22:32 05:31 05:31 WBC 5.1 RBC 3.04 L Hgb 10.5 L Hct 29.7 L MCV 97.7 MCH 34.5 H MCHC 35.4 RDW 14.7 Plt Count 79 L MPV 12.0 Immature Gran % (Auto) 1.4 H Neut % (Auto) 66.2 Lymph % (Auto) 21.7 [place] % (Auto) 10.1 Eos % (Auto) 0.4 Baso % (Auto) 0.2 Lymph # (Auto) 1.1 L [place] # (Auto) 0.5 Eos # (Auto) 0.0 Baso # (Auto) 0.0 Abs Immat Gran (auto) 0.07 H Absolute Neuts (auto) 3.4 Absolute Nucleated RBC 0.000 Nucleated RBC % (auto) 0.0 PT 15.9 H INR 1.3 H VBG pH VBG pCO2 VBG pO2 VBG HCO3 VBG O2 Saturation VBG Base Excess Sodium Potassium Chloride Carbon Dioxide Anion Gap BUN Creatinine Estim Creat Clear Calc Estimated GFR Random Glucose Calcium Phosphorus Magnesium Total Bilirubin AST ALT Alkaline Phosphatase Troponin I High Sens 13.0 B-Natriuretic Peptide Total Protein Albumin 10/11/20 10/11/20 10/11/20 05:31 05:31 06:13 WBC RBC Hgb Hct MCV MCH MCHC RDW Plt Count MPV Immature Gran % (Auto) Neut % (Auto) Lymph % (Auto) [place] % (Auto) Eos % (Auto) Baso % (Auto) Lymph # (Auto) [place] # (Auto) Eos # (Auto) Baso # (Auto) Abs Immat Gran (auto) Absolute Neuts (auto) Absolute Nucleated RBC Nucleated RBC % (auto) PT INR VBG pH 7.64 H* VBG pCO2 23 VBG pO2 74 VBG HCO3 24 VBG O2 Saturation 97.6 VBG Base Excess 4.1 Sodium 135 Potassium 3.0 L Chloride 96 Carbon Dioxide 26 Anion Gap 16 BUN 3 L Creatinine 0.65 Estim Creat Clear Calc 148.8 Estimated GFR > 60 Random Glucose 69 Calcium 7.3 L Phosphorus 3.7 Magnesium 1.5 L Total Bilirubin 6.4 H AST 81 H ALT 62 H Alkaline Phosphatase 147 H Troponin I High Sens B-Natriuretic Peptide 1673 H Total Protein 5.7 L Albumin 2.6 L Microbiology Microbiology Results: Microbiology 10/08/20 12:28 Blood - Venous Blood Culture - Preliminary No growth after 48 hours. 10/08/20 12:28 Blood - Venous Blood Culture - Preliminary Coag negative Staphylococcus Progress Note: A&P Assessment and plan (1) Hepatic failure due to alcoholism: Status: Acute (2) Status epilepticus, generalized convulsive: Status: Acute (3) Cholestasis: Status: Acute (4) Portal hypertension: Status: Acute (5) Acidosis, lactic: Status: Acute (6) Alcohol withdrawal hallucinosis: Status: Acute (7) Alcohol withdrawal seizure: Status: Acute (8) Delirium tremens: Status: Acute (9) Esophageal varices determined by endoscopy: Status: Acute (10) Alcoholic cirrhosis of liver: Status: Acute (11) Hyponatremia: Status: Acute (12) Elevated bilirubin: Status: Acute (13) Acute hyponatremia: Status: Acute Assessment and Plan: at this point I a.m. repleting both magnesium and potassium allowing him to be fed and stopping his Versed drip and switching him to a maintenance dose of Ativan Time Spent With Patient Time: Total time spent is greater than 50% in coordination of care (as documented) at patient's floor/unit and/or counseling patient: Total time spent with greater than 50% in coordination of care (as documented) at patient's floor/unit and/or counseling patient:: 30
[2020-10-11] MEDS: LORazepam 0.5 MG TABLET PO ×2 (15:30→21:13)
[2020-10-11 16:16] LABS: Anion Gap 16 (12-20); Blood Urea Nitrogen 3 mg/dL (9-16); Calcium 7.4 mg/dL (8.4-10.2); Carbon Dioxide 24 mmol/L (22-29); Chloride 102 mmol/L (96-108); Creatinine Clr Calc Pharmacy 125.8; Estimated Glomerular Filt Rate > 60; Glucose Random 150 mg/dL (60-115); Magnesium 1.8 mg/dL (1.6-2.6); Potassium 3.7 mmol/l (3.3-5.1); Sodium 138 mmol/L (135-145)
[2020-10-11 17:30] LABS: Ammonia 30 umol/L (13-55)
[2020-10-11] MEDS: Albumin Human 25 % 100 ML IV (23:50)
[2020-10-12] VITALS (22 sets, daily range): BP systolic 91–153; BP diastolic 39–111; PULSE 18–155; RESP 13–20; TEMP 36.4–37.1; O2SAT 94–100; BMI 29.0
[2020-10-12] MEDS: Albumin Human 25 % 100 ML IV (00:53)
[2020-10-12] MEDS: LORazepam 0.5 MG TABLET PO ×4 (03:11→21:33)
[2020-10-12] MEDS: KCl 40 mEq in 5% Dex/0.9% Sod 40 MEQ/1,000 ML IV.SOLN 100 MEQ IVCONT (04:10)
[2020-10-12] MEDS: Albuterol/Iprat 2.5/0.5MG 3 ML AMPUL.NEB INHALE ×4 (04:18→19:54)
[2020-10-12] MEDS: Piperacillin Sodium/Tazobactam 3.375 GM in 0.9 % Sodium Chloride 50 ML IV ×3 (05:35→18:08)
[2020-10-12 05:54] LABS: Hemoglobin 9.5 g/dl (14.0-18.0); MANUAL DIFF FLAG SCAN; SCAN SMEAR FLAG 1
[2020-10-12 05:56] LABS: Basophils Percent Auto 0.5 % (0-2); Eosinophils Percent Auto 0.7 % (0-4); Imm Gran Abs Auto 0.04 X10*3/uL (0.00-0.03); Lymphocytes Absolute Auto 1.3 X10*3/uL (1.2-4.9); Lymphocytes Percent Auto 32.8 % (20-40); Mean Corpuscular HGB Conc 33.9 g/dl (31.0-36.0); Mean Corpuscular Hemoglobin 34.3 pg (27.0-33.0); Mean Corpuscular Volume 101.1 fL (80-98); Mean Platelet Volume 12.4 fL (9.4-12.4); Monocytes Absolute Auto 0.4 X10*3/uL (0.1-1.2); Monocytes Percent Auto 10.8 % (2-11); Neutrophils Absolute Auto 2.2 X10*3/uL (2.0-8.3); Neutrophils Percent Auto 54.2 % (45-73); Red Blood Count 2.77 X10*6/uL (4.60-5.80); Red Cell Distribution Width 15.4 % (11.0-16.0); White Blood Count 4.1 X10*3/uL (4.8-10.8)
[2020-10-12 05:57] LABS: PLT ABN DIST 1; Platelet Count 77 X10*3/uL (160-400)
[2020-10-12 06:01] LABS: Base Excess VBG 2.3 mmol/L; HCO3 VBG 26 mmol/L; Oxygen Saturation VBG 55.6 %; PCO2 VBG 36 mmhg; PO2 VBG 28 mmhg; pH VBG 7.48 (7.32-7.43)
[2020-10-12 06:19] LABS: B Type Natriuretic Peptide 477 pg/mL (<100); INTERNATIONAL NORM RATIO 1.3 (0.9-1.1); Prothrombin Time 15.3 SEC (10.8-13.0)
[2020-10-12 06:21] LABS: Anion Gap 13 (12-20); Blood Urea Nitrogen 3 mg/dL (9-16); Calcium 7.5 mg/dL (8.4-10.2); Carbon Dioxide 26 mmol/L (22-29); Chloride 104 mmol/L (96-108); Creatinine Clr Calc Pharmacy 125.8; Estimated Glomerular Filt Rate > 60; Glucose Random 104 mg/dL (60-115); Magnesium 1.7 mg/dL (1.6-2.6); Phosphorus 3.1 mg/dL (2.7-4.5); Potassium 3.4 mmol/l (3.3-5.1); Sodium 140 mmol/L (135-145)
[2020-10-12 06:46] LABS: SLIDE REVIEW VERIFIED
[2020-10-12] MEDS: dilTIAZem HCL 50 MG/10 ML VIAL 10 MG IVPUSH (08:02)
[2020-10-12] MEDS: Lactulose 20 GM/30 ML SOLUTION PO ×2 (08:05→21:33)
[2020-10-12] MEDS: Famotidine/PF 20 MG/2 ML VIAL IVPUSH ×2 (08:05→21:33)
[2020-10-12] MEDS: rifAXIMin 550 MG TABLET PO (08:05)
[2020-10-12] MEDS: 0.9 % Sodium Chloride Flush 3 ML SYRINGE IVFLUSH ×2 (08:06→15:42)
[2020-10-12] MEDS: Thiamine HCL 200 MG/2 ML VIAL 100 MG IVPUSH ×2 (08:06→21:33)
[2020-10-12] MEDS: Potassium Chloride Packet 20 MEQ PACKET PO (08:20)
--- NOTE | 2020-10-12 09:42 | PM.CCPN ---
Subjective Subjective Date of Service: 10/12/20 Interval History: Physical Exam Vital Signs: Vital Signs: Last Vital Signs Temp 98.0 F 10/12/20 08:00 Pulse 71 10/12/20 09:00 Resp 14 10/12/20 09:00 BP 115/67 10/12/20 09:00 Pulse Ox 99 10/12/20 09:00 Body Mass Index 29.0 Objective Data Labs CBC & Chem 7: 10/12/20 05:25 10/12/20 05:25 Labs: Laboratory Results - last 24 hr 10/11/20 10/11/20 10/12/20 15:30 16:57 05:25 WBC 4.1 L RBC 2.77 L Hgb 9.5 L Hct 28.0 L MCV 101.1 H MCH 34.3 H MCHC 33.9 RDW 15.4 Plt Count 77 L MPV 12.4 Immature Gran % (Auto) 1.0 H Neut % (Auto) 54.2 Lymph % (Auto) 32.8 [place] % (Auto) 10.8 Eos % (Auto) 0.7 Baso % (Auto) 0.5 Lymph # (Auto) 1.3 [place] # (Auto) 0.4 Eos # (Auto) 0.0 Baso # (Auto) 0.0 Abs Immat Gran (auto) 0.04 H Absolute Neuts (auto) 2.2 Absolute Nucleated RBC 0.000 Nucleated RBC % (auto) 0.0 Smear Tech's Comments VERIFIED PT INR VBG pH VBG pCO2 VBG pO2 VBG HCO3 VBG O2 Saturation VBG Base Excess Sodium 138 Potassium 3.7 D Chloride 102 Carbon Dioxide 24 Anion Gap 16 BUN 3 L Creatinine 0.76 Estim Creat Clear Calc 125.8 Estimated GFR > 60 Random Glucose 150 H D Calcium 7.4 L Phosphorus Magnesium 1.8 Ammonia 30 B-Natriuretic Peptide 10/12/20 10/12/20 10/12/20 05:25 05:25 05:25 WBC RBC Hgb Hct MCV MCH MCHC RDW Plt Count MPV Immature Gran % (Auto) Neut % (Auto) Lymph % (Auto) [place] % (Auto) Eos % (Auto) Baso % (Auto) Lymph # (Auto) [place] # (Auto) Eos # (Auto) Baso # (Auto) Abs Immat Gran (auto) Absolute Neuts (auto) Absolute Nucleated RBC Nucleated RBC % (auto) Smear Tech's Comments PT 15.3 H INR 1.3 H VBG pH VBG pCO2 VBG pO2 VBG HCO3 VBG O2 Saturation VBG Base Excess Sodium 140 Potassium 3.4 Chloride 104 Carbon Dioxide 26 Anion Gap 13 BUN 3 L Creatinine 0.76 Estim Creat Clear Calc 125.8 Estimated GFR > 60 Random Glucose 104 Calcium 7.5 L Phosphorus 3.1 Magnesium 1.7 Ammonia B-Natriuretic Peptide 477 H 10/12/20 05:25 WBC RBC Hgb Hct MCV MCH MCHC RDW Plt Count MPV Immature Gran % (Auto) Neut % (Auto) Lymph % (Auto) [place] % (Auto) Eos % (Auto) Baso % (Auto) Lymph # (Auto) [place] # (Auto) Eos # (Auto) Baso # (Auto) Abs Immat Gran (auto) Absolute Neuts (auto) Absolute Nucleated RBC Nucleated RBC % (auto) Smear Tech's Comments PT INR VBG pH 7.48 H VBG pCO2 36 VBG pO2 28 VBG HCO3 26 VBG O2 Saturation 55.6 VBG Base Excess 2.3 Sodium Potassium Chloride Carbon Dioxide Anion Gap BUN Creatinine Estim Creat Clear Calc Estimated GFR Random Glucose Calcium Phosphorus Magnesium Ammonia B-Natriuretic Peptide Microbiology Microbiology Results: Microbiology 10/08/20 12:28 Blood - Venous Blood Culture - Preliminary No growth after 48 hours. 10/08/20 12:28 Blood - Venous Blood Culture - Preliminary Coag negative Staphylococcus Progress Note: A&P Time Spent With Patient Time: Total time spent is greater than 50% in coordination of care (as documented) at patient's floor/unit and/or counseling patient:
--- NOTE | 2020-10-12 09:51 | P.PNCC_ITS ---
Subjective Subjective Date of Service: 10/12/20 Interval History: 60-year-old with chronic alcoholic cirrhosis with hepatic insufficiency as well as portal hypertension with esophageal varices not actively bleeding and recent admission due to alcoholic hepatitis with persistent cholestasis and elevation of LFTs presented after being unable to hold down food or drink and withdrew from al cohol with altered mental status status epilepticus and subsequently a negative CT scan of the brain and negative EEG so this was all alcohol withdrawal and delirium tremens currently with restored mental status and eating holding down food extubated several days ago and now only on a small maintenance Ativan twice daily and thiamin with stable blood work and excellent metabolic. He had elevated ammonia which is now normal and he remains on a maintenance of lactulose 20 g b.i.d. but off rifaximin and probably within a day or 2 of discontinuation of Zosyn which was started because of aspiration pneumonitis in left lower lobe and a question of spontaneous bacterial peritonitis only because the volume of ascites had increased from last month to this admission Physical Exam Vital Signs: Vital Signs: Last Vital Signs Temp 98.0 F 10/12/20 08:00 Pulse 71 10/12/20 09:00 Resp 14 10/12/20 09:00 BP 115/67 10/12/20 09:00 Pulse Ox 99 10/12/20 09:00 Body Mass Index 29.0 Const: Other: he has icteric conjunctiva be and sallow skin color but skin is intact with no wounds and no decubiti I and no acrocyanosis he does have some paroxysmal atrial flutter but currently normal sinus rhythm with normal function by bedside echo and normal EKG and good vital signs without pressor support just on 50 cc an hour of maintenance IV plus his p.o. intake chest percusses equally so there is no clinical pleural effusion and no adventitious sounds abdomen is benign no palpable organomegaly no tenderness no guarding Objective Data Labs CBC & Chem 7: 10/12/20 05:25 10/12/20 05:25 Labs: Laboratory Results - last 24 hr 10/11/20 10/11/20 10/12/20 15:30 16:57 05:25 WBC 4.1 L RBC 2.77 L Hgb 9.5 L Hct 28.0 L MCV 101.1 H MCH 34.3 H MCHC 33.9 RDW 15.4 Plt Count 77 L MPV 12.4 Immature Gran % (Auto) 1.0 H Neut % (Auto) 54.2 Lymph % (Auto) 32.8 [place] % (Auto) 10.8 Eos % (Auto) 0.7 Baso % (Auto) 0.5 Lymph # (Auto) 1.3 [place] # (Auto) 0.4 Eos # (Auto) 0.0 Baso # (Auto) 0.0 Abs Immat Gran (auto) 0.04 H Absolute Neuts (auto) 2.2 Absolute Nucleated RBC 0.000 Nucleated RBC % (auto) 0.0 Smear Tech's Comments VERIFIED PT INR VBG pH VBG pCO2 VBG pO2 VBG HCO3 VBG O2 Saturation VBG Base Excess Sodium 138 Potassium 3.7 D Chloride 102 Carbon Dioxide 24 Anion Gap 16 BUN 3 L Creatinine 0.76 Estim Creat Clear Calc 125.8 Estimated GFR > 60 Random Glucose 150 H D Calcium 7.4 L Phosphorus Magnesium 1.8 Ammonia 30 B-Natriuretic Peptide 10/12/20 10/12/20 10/12/20 05:25 05:25 05:25 WBC RBC Hgb Hct MCV MCH MCHC RDW Plt Count MPV Immature Gran % (Auto) Neut % (Auto) Lymph % (Auto) [place] % (Auto) Eos % (Auto) Baso % (Auto) Lymph # (Auto) [place] # (Auto) Eos # (Auto) Baso # (Auto) Abs Immat Gran (auto) Absolute Neuts (auto) Absolute Nucleated RBC Nucleated RBC % (auto) Smear Tech's Comments PT 15.3 H INR 1.3 H VBG pH VBG pCO2 VBG pO2 VBG HCO3 VBG O2 Saturation VBG Base Excess Sodium 140 Potassium 3.4 Chloride 104 Carbon Dioxide 26 Anion Gap 13 BUN 3 L Creatinine 0.76 Estim Creat Clear Calc 125.8 Estimated GFR > 60 Random Glucose 104 Calcium 7.5 L Phosphorus 3.1 Magnesium 1.7 Ammonia B-Natriuretic Peptide 477 H 10/12/20 05:25 WBC RBC Hgb Hct MCV MCH MCHC RDW Plt Count MPV Immature Gran % (Auto) Neut % (Auto) Lymph % (Auto) [place] % (Auto) Eos % (Auto) Baso % (Auto) Lymph # (Auto) [place] # (Auto) Eos # (Auto) Baso # (Auto) Abs Immat Gran (auto) Absolute Neuts (auto) Absolute Nucleated RBC Nucleated RBC % (auto) Smear Tech's Comments PT INR VBG pH 7.48 H VBG pCO2 36 VBG pO2 28 VBG HCO3 26 VBG O2 Saturation 55.6 VBG Base Excess 2.3 Sodium Potassium Chloride Carbon Dioxide Anion Gap BUN Creatinine Estim Creat Clear Calc Estimated GFR Random Glucose Calcium Phosphorus Magnesium Ammonia B-Natriuretic Peptide Microbiology Microbiology Results: Microbiology 10/08/20 12:28 Blood - Venous Blood Culture - Preliminary No growth after 48 hours. 10/08/20 12:28 Blood - Venous Blood Culture - Preliminary Coag negative Staphylococcus Progress Note: A&P Assessment and plan (1) Paroxysmal atrial flutter: Status: Acute (2) Acquired pancytopenia: Status: Acute (3) Hepatic failure due to alcoholism: Status: Acute (4) Status epilepticus, generalized convulsive: Status: Acute (5) Cholestasis: Status: Acute (6) Portal hypertension: Status: Acute (7) Acidosis, lactic: Status: Acute (8) Alcohol withdrawal hallucinosis: Status: Acute (9) Alcohol withdrawal seizure: Status: Acute (10) Delirium tremens: Status: Acute (11) Esophageal varices determined by endoscopy: Status: Acute (12) Alcoholic cirrhosis of liver: Status: Acute (13) Hyponatremia: Status: Acute (14) Elevated bilirubin: Status: Acute (15) Acute hyponatremia: Status: Acute Assessment and Plan: so the plan now is for physical therapy and probably social work services to get involved continue his oral nutrition and follow liver function testing and then discontinue Zosyn in the next 1 or 2 days Time Spent With Patient Time: Total time spent is greater than 50% in coordination of care (as documented) at patient's floor/unit and/or counseling patient: Total time spent with greater than 50% in coordination of care (as documented) at patient's floor/unit and/or counseling patient:: 35
--- NOTE | 2020-10-12 10:02 | MHC.CLN ---
F/U 75% AVG PO INTAKE DIET RX: REGULAR-APPROPRIATE FOLLOWING
--- NOTE | 2020-10-12 11:32 | PC.NURSE ---
Removed right femoral triple lumen per and policy. Tip visualized and intact. Applied occlusive DSD. Patient tolerated well. VSS.
--- NOTE | 2020-10-12 17:35 | PM.EVENT ---
Event Note Date of Service: 10/12/20 Event Note: Patient seen and evaluated after ICU transfer. Laying comfortable in his bed. Denies any shortness of breath, fever or chills Mildly tachycardic on telemetry likely secondary to alcohol withdrawal and infection keep on telemetry continue antibiotics
[2020-10-12] MEDS: KCl 40 mEq in 5% Dex/0.9% Sod 40 MEQ/1,000 ML IV.SOLN 50 MEQ IVCONT (21:37)
[2020-10-13] MEDS: Piperacillin Sodium/Tazobactam 3.375 GM in 0.9 % Sodium Chloride 50 ML IV ×2 (00:06→05:58)
[2020-10-13] MEDS: LORazepam 0.5 MG TABLET PO ×4 (03:29→20:53)
[2020-10-13 04:00] VITALS: BP 152/92; PULSE 62; RESP 20; TEMP 37.1; O2SAT 98
[2020-10-13 07:05] VITALS: BP 113/62; PULSE 66; RESP 16; TEMP 37.1; O2SAT 96
[2020-10-13] MEDS: Amoxicillin/Potassium Clav 875 MG TABLET PO ×2 (08:43→20:53)
[2020-10-13] MEDS: Famotidine/PF 20 MG/2 ML VIAL IVPUSH (08:43)
[2020-10-13] MEDS: Thiamine HCL 200 MG/2 ML VIAL 100 MG IVPUSH (08:43)
[2020-10-13] MEDS: Lactulose 20 GM/30 ML SOLUTION PO ×2 (08:43→20:53)
[2020-10-13 10:50] VITALS: BP 134/88; PULSE 76; RESP 18; TEMP 36.9; O2SAT 97
--- NOTE | 2020-10-13 11:00 | HO.PM.IMPN ---
Subjective Subjective Date of Service: 10/13/20 Interval History: Seen for hep encephalopathy Physical Exam Vital Signs: Vital Signs: Last Vital Signs Temp 98.4 F 10/13/20 10:50 Pulse 76 10/13/20 10:50 Resp 18 10/13/20 10:50 BP 134/88 10/13/20 10:50 Pulse Ox 97 10/13/20 10:50 Body Mass Index 29.0 General: AO X 3, no acute distress Resp: CTA bilateral CVS: S1,S2,RRR GI: +BS, NT, no distention Skin: No rash Neuro: motor grossly intact Psych: appropriate affect Objective Data Current Medications Generic Name Dose Route Start Last Admin Trade Name Freq PRN Reason Stop Dose Admin Albuterol/Ipratropium 3 ml 10/12/20 21:37 Albuterol/Iprat 2.5/0.5mg 3 Ml Ampul.Neb INHALE RQ4H PRN Shortness of Breath Amoxicillin/Clavulanate Potassium 875 mg 10/13/20 09:00 10/13/20 08:43 Amoxicillin/Potassium Clav 875 Mg Tablet PO 875 mg Q12H RAMON Administration Lactulose 20 gm 10/09/20 09:00 10/13/20 08:43 Lactulose 20 Gm/30 Ml Solution PO 20 gm BID RAMON Administration Lorazepam 0.5 mg 10/11/20 14:45 10/13/20 08:44 Lorazepam 0.5 Mg Tablet PO 0.5 mg Q6H RAMON Administration Sodium Chloride 3 ml 10/08/20 16:00 10/13/20 08:44 0.9 % Sodium Chloride Flush 3 Ml Syringe IVFLUSH Not Given QSHIFT [facility] Labs CBC & Chem 7: 10/12/20 05:25 10/12/20 05:25 Microbiology Microbiology Results: Microbiology 10/08/20 12:28 Blood - Venous Blood Culture - Preliminary No growth after 48 hours. 10/08/20 12:28 Blood - Venous Blood Culture - Preliminary Coag negative Staphylococcus Assessment and Plan (1) Hepatic failure due to alcoholism: Status: Acute (2) Acquired pancytopenia: Status: Acute (3) Paroxysmal atrial flutter: Status: Acute (4) Status epilepticus, generalized convulsive: Status: Acute (5) Cholestasis: Status: Acute (6) Portal hypertension: Status: Acute (7) Acidosis, lactic: Status: Acute Assessment and Plan: 60/m with alcoholism, cirrhosis of liver, portal HTN gastropathy, esophageal varices who presented with altered mental status and status epilepticus/alcohol withdrawal 1. Alcholol withdrawal treated with Phenobarbital and resolved. Should avoid alcohol, CARE consult. 2. Hyponatremia--related to alcohol, resolved. 3. Hepatic encephalopathy--resolved 4. Aspiration pneumonia, has been on Zosyn, change to PO Augmentin 5. Chronic thrombocytopenia d/t hypersplenism--stable, no bleeding. D/C IV, D/C cardiac monitori, dc catheter, ambulate and home tomorrow Prophylaxis: Intermittent pneumatic compression
[2020-10-13 15:10] VITALS: BP 116/71; PULSE 63; RESP 18; TEMP 37; O2SAT 98
[2020-10-13] MEDS: 0.9 % Sodium Chloride Flush 3 ML SYRINGE IVFLUSH ×2 (15:50→20:53)
[2020-10-13 19:02] VITALS: BP 139/91; PULSE 60; RESP 18; TEMP 37; O2SAT 96
[2020-10-13 23:27] VITALS: BP 157/90; PULSE 63; RESP 18; TEMP 36.6; O2SAT 97
[2020-10-14] MEDS: LORazepam 0.5 MG TABLET PO ×4 (03:07→21:18)
[2020-10-14 03:39] VITALS: BP 166/95; PULSE 59; RESP 18; TEMP 37.2; O2SAT 98
[2020-10-14 07:29] VITALS: BP 131/76; PULSE 66; RESP 18; TEMP 37.2; O2SAT 96
[2020-10-14] MEDS: Lactulose 20 GM/30 ML SOLUTION PO (09:03)
[2020-10-14] MEDS: 0.9 % Sodium Chloride Flush 3 ML SYRINGE IVFLUSH ×3 (09:04→21:18)
[2020-10-14] MEDS: Amoxicillin/Potassium Clav 875 MG TABLET PO ×2 (09:04→21:18)
--- NOTE | 2020-10-14 11:52 | P.PNIM_ITS ---
Subjective Subjective Date of Service: 10/15/20 Interval History: Seen for hep encephalopathy s/p icu treatment. Doing well, no confusion, he's having lots of diarrhea from latulose Review of Systems no fever no sob diarrhea Physical Exam Vital Signs: Vital Signs: Last Vital Signs Temp 98.4 F 10/13/20 10:50 Pulse 76 10/13/20 10:50 Resp 18 10/13/20 10:50 BP 134/88 10/13/20 10:50 Pulse Ox 97 10/13/20 10:50 Body Mass Index 29.0 General: AO X 3, no acute distress Resp: CTA bilateral CVS: S1,S2,RRR GI: +BS, NT, no distention Skin: No rash Neuro: motor grossly intact Psych: appropriate affect Objective Data Current Medications Generic Name Dose Route Start Last Admin Trade Name Freq PRN Reason Stop Dose Admin Albuterol/Ipratropium 3 ml 10/12/20 21:37 Albuterol/Iprat 2.5/0.5mg 3 Ml Ampul.Neb INHALE RQ4H PRN Shortness of Breath Amoxicillin/Clavulanate Potassium 875 mg 10/13/20 09:00 10/14/20 09:04 Amoxicillin/Potassium Clav 875 Mg Tablet PO 875 mg Q12H RAMON Administration Lactulose 20 gm 10/09/20 09:00 10/14/20 09:03 Lactulose 20 Gm/30 Ml Solution PO 20 gm BID RAMON Administration Lorazepam 0.5 mg 10/11/20 14:45 10/14/20 09:04 Lorazepam 0.5 Mg Tablet PO 0.5 mg Q6H RAMON Administration Sodium Chloride 3 ml 10/08/20 16:00 10/14/20 09:04 0.9 % Sodium Chloride Flush 3 Ml Syringe IVFLUSH 3 ml QSHIFT RAMON Administration Labs CBC & Chem 7: 10/14/20 12:09 10/14/20 12:09 Microbiology Microbiology Results: Microbiology 10/08/20 12:28 Blood - Venous Blood Culture - Final Coag negative Staphylococcus 10/08/20 12:28 Blood - Venous Blood Culture - Final No growth after 5 days. Assessment and Plan (1) Hepatic failure due to alcoholism: Status: Acute (2) Acquired pancytopenia: Status: Acute (3) Paroxysmal atrial flutter: Status: Acute (4) Status epilepticus, generalized convulsive: Status: Acute (5) Cholestasis: Status: Acute (6) Portal hypertension: Status: Acute (7) Acidosis, lactic: Status: Acute Assessment and Plan: 60/m with alcoholism, cirrhosis of liver, portal HTN gastropathy, esophageal varices who presented with altered mental status and status epilepticus/alcohol withdrawal 1. Alcholol withdrawal treated with Phenobarbital and resolved. Should avoid alc ohol, CARE consult. 2. Hyponatremia--related to alcohol, resolved. 3. Hepatic encephalopathy--resolved, rduce lactulose due to diarrhea 4. Aspiration pneumonia, has been on Zosyn, changed to PO Augmentin D2 for 7 days total 5. Chronic thrombocytopenia d/t hypersplenism--stable, no bleeding. D/C IV, D/C cardiac monitori, dc catheter, ambulate and home tomorrow.. He is very weak and relying on walker to ambulate, will get PT eval in the morning. Prophylaxis: Intermittent pneumatic compression
[2020-10-14 12:00] VITALS: RESP 18
[2020-10-14 12:35] LABS: Hematocrit 33.7 % (42-52); Hemoglobin 11.5 g/dl (14.0-18.0); Mean Corpuscular HGB Conc 34.1 g/dl (31.0-36.0); Mean Corpuscular Hemoglobin 34.4 pg (27.0-33.0); Mean Corpuscular Volume 100.9 fL (80-98); Mean Platelet Volume 12.8 fL (9.4-12.4); Red Blood Count 3.34 X10*6/uL (4.60-5.80); Red Cell Distribution Width 15.2 % (11.0-16.0); White Blood Count 4.6 X10*3/uL (4.8-10.8)
[2020-10-14 12:39] LABS: Platelet Count 80 X10*3/uL (160-400)
[2020-10-14 12:58] LABS: Anion Gap 11 (12-20); Blood Urea Nitrogen 5 mg/dL (9-16); Calcium 7.6 mg/dL (8.4-10.2); Carbon Dioxide 29 mmol/L (22-29); Chloride 99 mmol/L (96-108); Creatinine Clr Calc Pharmacy 133.7; Estimated Glomerular Filt Rate > 60; Glucose Random 90 mg/dL (60-115); Potassium 3.3 mmol/l (3.3-5.1); Sodium 136 mmol/L (135-145)
[2020-10-14 15:13] VITALS: BP 93/53; PULSE 82; RESP 18; TEMP 37.2; O2SAT 97
[2020-10-14 19:37] VITALS: BP 120/84; PULSE 89; RESP 19; TEMP 36.3; O2SAT 99
[2020-10-14 23:11] VITALS: BP 126/71; PULSE 75; RESP 20; TEMP 36.8; O2SAT 98
[2020-10-15 03:40] VITALS: BP 131/84; PULSE 82; RESP 20; TEMP 37.1; O2SAT 98
[2020-10-15] MEDS: LORazepam 0.5 MG TABLET PO ×2 (04:31→09:00)
[2020-10-15 07:56] VITALS: BP 118/72; PULSE 74; RESP 18; TEMP 36.8; O2SAT 96
[2020-10-15 08:00] VITALS: BMI 28.0
[2020-10-15] MEDS: Amoxicillin/Potassium Clav 875 MG TABLET PO (09:01)
[2020-10-15] MEDS: Lactulose 20 GM/30 ML SOLUTION 10 GM PO (09:01)
[2020-10-15] MEDS: 0.9 % Sodium Chloride Flush 3 ML SYRINGE IVFLUSH (09:03)
--- NOTE | 2020-10-15 10:10 | MHC.CM.PN ---
NURSE REJECT OPENER AND FILLER NOTE ELECTRONIC MEDICAL RECORD REVIEWED , PATIENT IS NOW S/P HEPATIC ENCEPHALOPATHY SECONDARY TO ETOH ABUSE HE WAS TREATED / CIW SCALE AND PHENOBARBITAL WAS IN ICU AND TRANSFERRED TO MEDICAL SURGICAL UNIT PATIENT APPEARS WEAK DECONDITIONED, USING WALKER FOR AMBULATIN , HOSPITLAIST HAS ORDERED PHYSICAL THEAPRY EVALUATION AND REFERRAL TO THE CARES TEAM MADE , REJECT OPENER AND FILLER WHILE IN ICU STARTED SHORT TERM REHAB PROCESS TO GOVERNORS , [facility] [place] AND [facility]. CLINICAL UPDATES SENT TO THEM , AWAITNING PT EBVALUATION TO BE COMPLETED DISCHARGE PLAN 1. CARES TEAM EVULATION ASSESSMENT 2. AWAIT PHYSICAL THEAPRY EVALUATIUON 3. STARTED SHORT TERM REHAB PROCESS REJECT OPENER AND FILLER TO CONTINUE T FOLLOW
[2020-10-15 10:26] VITALS: BP 118/72; PULSE 74; O2SAT 96
--- NOTE | 2020-10-15 11:26 | MHC.CARE ---
Recovery Support note: Patient is a 60 year old Togolese speaking male who presented to [facility] due to a [place] and was medically admitted due to issues related to his alcohol consumption. Patient was laying in the hospital bed when this play writer entered the room, patient appeared comfortable however reported a desire to discharge. Patient was initially not interested in discussing his alcohol use. Patient reports that he started off having a few beers after work and that he has slowly increased his consumption. Patient acknowledges that he cannot continue drinking, stating that he has been on his back for four months. Patient recognizes that his alcohol use is directly related to his medical conditions and that continuing to drink would be detrimental to his health. Patient reports that he dumped all of his alcohol prior to coming to the hospital. Patient reports he has tried AA groups in the past and did not find them helpful. Discussed outpatient therapy and IOP with patient and patient reports he is not interested. Patient reports he has friends and family that he can reach out to if he needs support and that he is confident in his ability to remain sober, stating there is no other option now. Explained to patient that if recovery turns out to be harder than he is expecting, there is help available to him. Patient acknowledged. Discussed consultation with patient's RN.
[2020-10-15 11:31] VITALS: BP 130/78; PULSE 74; RESP 18; TEMP 36.4; O2SAT 95
--- NOTE | 2020-10-15 12:33 | PM.DS ---
DS: Providers Provider Date of admission: 10/08/20 13:05 Primary care physician: Unknown Physician Consults: 10/15/20 10:07 Consult to Care Team Routine Comment: Reason for consultation: S/P HEPATIC FAILURE SEC ETOH S/P STATUS EPIEPTICUS HEPATIC ENCEPHALOPATHY O DS: Diagnosis Discharge Diagnosis (1) Hepatic failure due to alcoholism: Status: Acute (2) Acquired pancytopenia: Status: Acute (3) Paroxysmal atrial flutter: Status: Acute (4) Status epilepticus, generalized convulsive: Status: Acute (5) Cholestasis: Status: Acute (6) Portal hypertension: Status: Acute (7) Acidosis, lactic: Status: Acute DS: Medications Discharge Medications Home Medications: Home Medications Medication Instructions Recorded Confirmed gabapentin 100 mg PO BID 10/08/20 10/08/20 lactulose [Generlac] PO 10/08/20 lidocaine 1 patch TOPICAL DAILY 10/08/20 10/08/20 Previous Rx's Medication Instructions Recorded folic acid 1 mg PO DAILY #30 tab 09/19/20 metoprolol tartrate 25 mg PO BID #30 tab 09/19/20 omeprazole 40 mg PO DAILY@0630 #30 cap 09/19/20 prednisolone sodium phosphate 40 mg PO DAILY #21 ml 09/19/20 DS: Summary Hospital Course Hospital Course: HPI from 10/08/[address] Jama Chief Complaint: altered mental status following multiple witnessed seizures 60-year-old alcoholic male with history of delirium tremens and a 1-month-old history of acute alcoholic hepatitis known diagnosis of alcoholic cirrhosis with portal hypertension and esophageal varices and with previous admission was profoundly hyponatremic with altered mental status than as well but this time apparently has been unable to hold down anything and has not had a drink in some time and had several seizures and was treated with multiple rounds of IV phenobarbital as well as benzodiazepines in the emergency room and then ultimately intubated because following the seizures he was delirious and agitated chest x-ray indicating good endotracheal tube position but what what could be significant volume loss in the left lung with possibly some fibrotic scarring but possible acute infiltrate potentially due to aspiration noted in the left lower lobe elevated lactic acid in this case due to status epilepticus I doubt that this is due to severe sepsis however the patient was cultured and IV fluids initiated in the emergency room and 1 empiric dose of Levaquin given in the emergency room but with the imaging including the abdominal imaging noting and a distended gallbladder but no wall thickening no surrounding fluid nothing to indicate cholecystitis no apparent dilatation of intrahepatic ducts to indicate cholangitis but he did have increasing ascites and therefore I maintained Zosyn to cover him for possible aspiration and/or spontaneous bacterial peritonitis as a precipitating issue and there was evidence of an increased ammonia level as well as elevated liver transaminases and alkaline phosphatase and direct hyperbilirubinemia at this point he is pending ultrasound cultures were obtained and will monitor his lactate and blood gas to look for resolution of the acidosis as an indicator that this was probably due to the seizure activity. Hospital course: chuy reportedly was presentd to the ED confused and combative after a a neighbor has heard her fall and called 911. He was noted to be withdrawing from alcohol and noted to have several seizures. His ammonia level was high consistent with hepatic encephalopathy. He was intubated in ICU and treated with Zosyn for aspiration pneumonia, later changed to Augmentin and has completed 7 days of antibiotics. He was ultimately transfered out of the ICUon 10/12/20 and has continued to make progress, hepatic encephalopathy has resolved (ammonia is now normal). He was initially very weak but PT has been working with him and is much better now to go home with home PT. I have strongly advised him not to drink alcohol as endengered his health and lead to early Time Spent with Patient Time attestation: Total time spent providing and/or coordinating discharge services: Physical Exam Vital Signs: Vital Signs: Last Vital Signs Temp 97.5 F 10/15/20 11:31 Pulse 74 10/15/20 11:31 Resp 18 10/15/20 11:31 BP 130/78 10/15/20 11:31 Pulse Ox 95 10/15/20 11:31 Body Mass Index 28.0 General: AO X 3, no acute distress Resp: CTA bilateral CVS: S1,S2,RRR GI: +BS, NT, no distention Skin: No rash Neuro: motor grossly intact Psych: appropriate affect DS: Data Data Completed and Pending Completed studies during hospitalization [Text1]: Procedures Detoxification Services for Substance Abuse Treatment (09/08/20) Labs on day of discharge: 10/08/20 09:00 NO Benzodiazepines 1 each MISCELLANE DAILY 10/08/20 09:42 Consult Rx Perform Med Rec 1 each MISCELLANE ONCE PRN LORazepam [Ativan] 1 mg IVPUSH ONCE ONE levETIRAcetam in NaCl (iso-os) [Keppra] 1,000 mg in 100 ml IV ONCE 10/08/20 09:43 ECG 12 lead EKG Stat EKG Documentation DIRECTED CT cervical spine wo con Stat CT chest wo con Stat CT head/brain wo con Stat 10/08/20 09:52 LORazepam [Ativan] 2 mg IVPUSH ONCE ONE 10/08/20 09:53 Magnesium Sulfate/H2O 2 gm in 50 ml IV ONCE 10/08/20 09:58 Consult Rx EtOH Phenob Dosing 1 each MISCELLANE ONCE ONE 10/08/20 10:07 LORazepam [Ativan] 2 mg IVPUSH ONCE ONE 10/08/20 10:15 PHENobarbitaL sodium 312 mg IM ONCE ONE 10/08/20 10:32 Midazolam HCl/PF [Versed] 4 mg IVPUSH ONCE ONE 10/08/20 10:47 COVID-19 ID NOW ([facility]) Stat 10/08/20 10:52 Acetaminophen LAB Stat Ammonia Stat B Type Natriuretic Peptide Stat Basic Metabolic Panel Stat Creatine Kinase Total Stat Lactic Acid Stat Lipase Stat Liver Panel Stat Magnesium Stat Partial Thromboplastin Time Stat Prothrombin Time INR Stat Salicylate Stat Troponin-I High Sensitivity Stat 10/08/20 10:53 Complete Blood Count Auto Diff Stat Ethanol Stat 10/08/20 10:57 dilTIAZem HCL [Cardizem] 5 mg IVPUSH ONCE ONE 10/08/20 11:12 LORazepam [Ativan] 2 mg IVPUSH ONCE ONE 10/08/20 11:21 Insert/maintain urinary catheter NOW 10/08/20 11:27 Naloxone HCl [Narcan] 0.2 mg IVPUSH Q2M PRN Rocuronium Vermillion [Zemuron] 75 mg IVPUSH ONCE ONE propofoL [Diprivan] 100 mg IVPUSH ONCE ONE 10/08/20 11:30 fentaNYL citrate/NS [Sublimaze/NS] 1,000 mcg in 100 ml IVCONT Per Protocol mcg/hr propofoL [Diprivan] 1,000 mg in 100 ml IVCONT Per Protocol mcg/kg/min 10/08/20 11:34 Add Laboratory Test Stat 10/08/20 11:52 CT abdomen pelvis wo con Stat Piperacillin Sodium/Tazobactam [Zosyn] 3.375 gm 0.9 % Sodium Chloride [Ns] 50 ml IV ONCE 10/08/20 11:56 0.9 % Sodium Chloride [Ns] 3,096 ml IVCONT 3,096 mls/hr 10/08/20 12:00 0.9 % Sodium Chloride [Ns] 1,000 ml IVCONT 999 mls/hr 10/08/20 12:06 Norepinephrine Bitartrate/NS [Levophed] 8 mg in 250 ml IVCONT As directed 10/08/20 12:08 Piperacillin Sodium/Tazobactam [Zosyn] 3.375 gm IV .STK-MED ONE 10/08/20 12:28 Drug Screen Urine Stat UA CC w/rflx Micro + Cult Stat Blood Culture X2 [BC] Stat 10/08/20 13:00 PHENobarbitaL sodium 234 mg IM Q3H 10/08/20 13:04 RT Vent Check Q4HR 10/08/20 13:05 Cont. Telemetry w/Vital Sign limit ICU Q4HR 10/08/20 13:15 0.9 % Sodium Chloride [Ns] 1,000 ml IVCONT 100 mls/hr 0.9 % Sodium Chloride [Ns] 100 ml Vasopressin [Vasostrict] 20 unit IVCONT 0.04 unit/min Famotidine/PF [Pepcid/PF] 20 mg IVPUSH BID rifAXIMin [Xifaxan] 550 mg PO BID ONE 10/08/20 13:34 ~Lactic Acid-LAB USE ONLY Stat 10/08/20 13:49 Venous Blood Gas NOW 10/08/20 13:55 Vasopressin [Vasostrict] 20 unit .ROUTE .STK-MED ONE 10/08/20 14:58 Restraint - Non Violent 24 HOURS 10/08/20 15:02 XR chest 1V Stat 10/08/20 16:45 Midazolam HCl/NS [Versed] 50 mg in 50 ml IVCONT 2 mg/hr 10/08/20 17:08 Piperacillin Sodium/Tazobactam [Zosyn] 3.375 gm IV .STK-MED ONE 10/08/20 17:17 Phenobarbital Q6HR 10/08/20 17:32 Midazolam HCl/PF [Versed] 2 mg .ROUTE .STK-MED ONE 10/08/20 17:34 Midazolam HCl/PF [Versed] 4 mg IVPUSH ONCE ONE Potassium Chloride Packet [Klor-Con Packet] 40 meq PO ONCE ONE 10/08/20 18:00 PHENobarbitaL sodium 65 mg IVPUSH Q6H Piperacillin Sodium/Tazobactam [Zosyn] 3.375 gm 0.9 % Sodium Chloride [Ns] 50 ml IV Q6H 10/08/20 18:23 Basic Metabolic Panel Stat Lactic Acid Stat Venous Blood Gas Stat 10/08/20 21:00 Chlorhexidine Gluc Oral Rinse [Peridex] 15 ml BUCCAL TID PHENobarbitaL 30 mg PO BID PHENobarbitaL sodium 150 mg IM Q3H 10/08/20 21:07 Vasopressin [Vasostrict] 20 unit .ROUTE .STK-MED ONE 10/08/20 23:49 Piperacillin Sodium/Tazobactam [Zosyn] 3.375 gm IV .STK-MED ONE 10/09/20 04:36 Non-behavioral order assessment ONCE 10/09/20 05:07 B Type Natriuretic Peptide Routine Comprehensive Met. Panel Routine Creatine Kinase Total Routine Magnesium Routine PTT [Partial Thromboplastin Time] Routine Phosphorus Routine Prothrombin Time INR Routine Venous Blood Gas Routine 10/09/20 05:09 Complete Blood Count Auto Diff Routine 10/09/20 05:19 PHENobarbitaL sodium 150 mg IM ONCE ONE 10/09/20 05:32 Piperacillin Sodium/Tazobactam [Zosyn] 3.375 gm IV .STK-MED ONE Vasopressin [Vasostrict] 20 unit .ROUTE .STK-MED ONE 10/09/20 06:42 Potassium Chloride Packet [Klor-Con Packet] 40 meq PO ONCE ONE 10/09/20 06:44 Magnesium Sulfate/D5W 1 gm in 100 ml IV ONCE 10/09/20 06:45 KCl 40 mEq in 0.9 % Sodium Chl 40 meq in 1,000 ml IVCONT 100 mls/hr 10/09/20 09:00 Lactulose [Chronulac] 20 gm PO BID PHENobarbitaL 60 mg PO BID 10/09/20 10:45 rifAXIMin [Xifaxan] 550 mg PO BID 10/09/20 12:25 Piperacillin Sodium/Tazobactam [Zosyn] 3.375 gm IV .STK-MED ONE 10/09/20 13:31 Ammonia Routine Comprehensive Met. Panel AM Electrolytes DAILY Magnesium DAILY Phosphorus DAILY 10/09/20 14:16 Vasopressin [Vasostrict] 20 unit .ROUTE .STK-MED ONE 10/09/20 Lunch NPO Diet 10/09/20 19:09 PHENobarbitaL sodium 65 mg IM Q6H PRN 10/09/20 19:11 Piperacillin Sodium/Tazobactam [Zosyn] 3.375 gm IV .STK-MED ONE 10/09/20 22:03 Vasopressin [Vasostrict] 20 unit .ROUTE .STK-MED ONE 10/09/20 23:44 Piperacillin Sodium/Tazobactam [Zosyn] 3.375 gm IV .STK-MED ONE 10/10/20 ECG 12 lead EKG Routine 10/10/20 05:29 Piperacillin Sodium/Tazobactam [Zosyn] 3.375 gm IV .STK-MED ONE Vasopressin [Vasostrict] 20 unit .ROUTE .STK-MED ONE 10/10/20 05:35 B Type Natriuretic Peptide Routine Complete Blood Count Auto Diff Routine Comprehensive Met. Panel Routine Magnesium Routine PTT [Partial Thromboplastin Time] Routine Phosphorus Routine Prothrombin Time INR Routine Venous Blood Gas Routine 10/10/20 06:45 Magnesium Sulfate/H2O 2 gm in 50 ml IV ONCE 10/10/20 07:00 KCl 20 mEq in 0.9 % Sodium Chl 20 meq in 1,000 ml IVCONT 80 mls/hr 10/10/20 11:30 Piperacillin Sodium/Tazobactam [Zosyn] 3.375 gm IV .STK-MED ONE 10/10/20 13:14 Vasopressin [Vasostrict] 20 unit .ROUTE .STK-MED ONE 10/10/20 17:23 Piperacillin Sodium/Tazobactam [Zosyn] 3.375 gm IV .STK-MED ONE 10/10/20 17:27 Piperacillin Sodium/Tazobactam [Zosyn] 3.375 gm IV .STK-MED ONE 10/10/20 20:23 Albuterol/Iprat 2.5/0.5MG 3 ML [Duoneb] 3 ml INHALE ONCE ONE 10/10/20 21:07 Furosemide [Lasix] 20 mg IVPUSH ONCE ONE 10/10/20 21:26 Vasopressin [Vasostrict] 20 unit .ROUTE .STK-MED ONE 10/10/20 22:32 Troponin-I High Sensitivity Stat 11/18/20 23:59 Piperacillin Sodium/Tazobactam [Zosyn] 3.375 gm IV .STK-MED ONE 10/11/20 ECG 12 lead EKG Routine 10/11/20 00:00 Albuterol/Iprat 2.5/0.5MG 3 ML [Duoneb] 3 ml INHALE RQ4H 10/11/20 05:31 B Type Natriuretic Peptide Routine Complete Blood Count Auto Diff Routine Comprehensive Met. Panel Routine Magnesium Routine Phosphorus Routine Prothrombin Time INR Routine 10/11/20 06:13 Venous Blood Gas Routine 10/11/20 06:31 Piperacillin Sodium/Tazobactam [Zosyn] 3.375 gm IV .STK-MED ONE 10/11/20 06:38 Magnesium Sulfate/H2O 2 gm in 50 ml IV ONCE 10/11/20 06:41 Potassium Chloride/H20 40 meq in 100 ml IV ONCE 10/11/20 06:45 KCl 40 mEq in 5% Dex/0.9% Sod 40 meq in 1,000 ml IVCONT 50 mls/hr 10/11/20 09:00 PHENobarbitaL 30 mg PO BID 10/11/20 Breakfast Regular Diet 10/11/20 11:08 Piperacillin Sodium/Tazobactam [Zosyn] 3.375 gm IV .STK-MED ONE 10/11/20 12:00 NON-Behavioral Restraint Q24H 10/11/20 15:30 Basic Metabolic Panel Stat Magnesium Stat 10/11/20 16:57 Ammonia Stat 10/11/20 17:45 Piperacillin Sodium/Tazobactam [Zosyn] 3.375 gm IV .STK-MED ONE 10/11/20 20:53 EKG Documentation DIRECTED 10/11/20 20:54 EKG Documentation DIRECTED 10/11/20 23:26 Piperacillin Sodium/Tazobactam [Zosyn] 3.375 gm IV .STK-MED ONE 10/11/20 23:45 Albumin Human 25 % [Kedbumin 25 %] 100 ml IV Q1H 10/12/20 05:16 Piperacillin Sodium/Tazobactam [Zosyn] 3.375 gm IV .STK-MED ONE 10/12/20 05:25 B Type Natriuretic Peptide Routine Basic Metabolic Panel Routine Complete Blood Count Auto Diff Routine Magnesium Routine Phosphorus Routine Prothrombin Time INR Routine SLIDE REVIEW Routine Venous Blood Gas Routine 10/12/20 06:21 dilTIAZem HCL [Cardizem] 10 mg IVPUSH ONCE ONE 10/12/20 07:14 Potassium Chloride Packet [Klor-Con Packet] 20 meq PO ONCE ONE 10/12/20 09:00 Thiamine HCL 100 mg IVPUSH BID 10/12/20 09:58 Transfer Order Routine 10/12/20 13:19 Piperacillin Sodium/Tazobactam [Zosyn] 3.375 gm IV .STK-MED ONE 10/12/20 17:46 Piperacillin Sodium/Tazobactam [Zosyn] 3.375 gm IV .STK-MED ONE 10/12/20 23:57 Piperacillin Sodium/Tazobactam [Zosyn] 3.375 gm IV .STK-MED ONE 10/13/20 05:54 Piperacillin Sodium/Tazobactam [Zosyn] 3.375 gm IV .STK-MED ONE 10/13/20 09:00 PHENobarbitaL 30 mg PO DAILY 10/14/20 Breakfast Regular Diet 10/14/20 12:09 Basic Metabolic Panel Routine Complete Blood Count no Diff Routine 10/14/20 18:04 Transfer Order Routine Laboratory Last Values WBC 4.6 X10*3/uL (4.8-10.8) L 10/14/20 12:09 RBC 3.34 X10*6/uL (4.60-5.80) L D 10/14/20 12:09 Hgb 11.5 g/dl (14.0-18.0) L D 10/14/20 12:09 Hct 33.7 % (42-52) L D 10/14/20 12:09 MCV 100.9 fL (80-98) H 10/14/20 12:09 MCH 34.4 pg (27.0-33.0) H 10/14/20 12:09 MCHC 34.1 g/dl (31.0-36.0) 10/14/20 12:09 RDW 15.2 % (11.0-16.0) 10/14/20 12:09 Plt Count 80 X10*3/uL (160-400) L 10/14/20 12:09 MPV 12.8 fL (9.4-12.4) H 10/14/20 12:09 Immature Gran % (Auto) 1.0 % (0.0-0.4) H 10/12/20 05:25 Neut % (Auto) 54.2 % (45-73) 10/12/20 05:25 Lymph % (Auto) 32.8 % (20-40) 10/12/20 05:25 [place] % (Auto) 10.8 % (2-11) 10/12/20 05:25 Eos % (Auto) 0.7 % (0-4) 10/12/20 05:25 Baso % (Auto) 0.5 % (0-2) 10/12/20 05:25 Lymph # (Auto) 1.3 X10*3/uL (1.2-4.9) 10/12/20 05:25 [place] # (Auto) 0.4 X10*3/uL (0.1-1.2) 10/12/20 05:25 Eos # (Auto) 0.0 X10*3/uL (0.0-0.4) 10/12/20 05:25 Baso # (Auto) 0.0 X10*3/uL (0.0-0.2) 10/12/20 05:25 Abs Immat Gran (auto) 0.04 X10*3/uL (0.00-0.03) H 10/12/20 05:25 Absolute Neuts (auto) 2.2 X10*3/uL (2.0-8.3) 10/12/20 05:25 Absolute Nucleated RBC 0.000 X10*3/uL (0.0-0.012) 10/14/20 12:09 Nucleated RBC % (auto) 0.0 /100WBC (0.0-0.2) 10/14/20 12:09 Smear Tech's Comments VERIFIED 10/12/20 05:25 PT 15.3 SEC (10.8-13.0) H 10/12/20 05:25 INR 1.3 (0.9-1.1) H 10/12/20 05:25 APTT 31.5 SEC (24.1-38.0) 10/10/20 05:35 VBG pH 7.48 (7.32-7.43) H 10/12/20 05:25 VBG pCO2 36 mmhg 10/12/20 05:25 VBG pO2 28 mmhg 10/12/20 05:25 VBG HCO3 26 mmol/L 10/12/20 05:25 VBG O2 Saturation 55.6 % 10/12/20 05:25 VBG Base Excess 2.3 mmol/L 10/12/20 05:25 Sodium 136 mmol/L (135-145) 10/14/20 12:09 Potassium 3.3 mmol/l (3.3-5.1) 10/14/20 12:09 Chloride 99 mmol/L (96-108) 10/14/20 12:09 Carbon Dioxide 29 mmol/L (22-29) 10/14/20 12:09 Anion Gap 11 (12-20) L 10/14/20 12:09 BUN 5 mg/dL (9-16) L D 10/14/20 12:09 Creatinine 0.71 mg/dL (0.5-1.4) 10/14/20 12:09 Estim Creat Clear Calc 133.7 10/14/20 12:09 Estimated GFR > 60 10/14/20 12:09 Random Glucose 90 mg/dL (60-115) 10/14/20 12:09 Lactic Acid 1.4 mmol/L (0.5-2.0) 10/08/20 18:23 Lactic Acid Fup @ 2Hr 1.5 mmol/L (0.5-2.0) 10/08/20 13:34 Calcium 7.6 mg/dL (8.4-10.2) L 10/14/20 12:09 Phosphorus 3.1 mg/dL (2.7-4.5) 10/12/20 05:25 Magnesium 1.7 mg/dL (1.6-2.6) 10/12/20 05:25 Total Bilirubin 6.4 mg/dL (0.0-1.0) H 10/11/20 05:31 Direct Bilirubin 5.3 mg/dL (0.0-0.5) H 10/08/20 10:52 AST 81 U/L (5-37) H 10/11/20 05:31 ALT 62 U/L (0-40) H 10/11/20 05:31 Alkaline Phosphatase 147 U/L (39-117) H 10/11/20 05:31 Ammonia 30 umol/L (13-55) 10/11/20 16:57 Total Creatine Kinase 70 U/L (38-174) D 10/09/20 05:07 Troponin I High Sens 13.0 ng/L (<3.5-35.0) 10/10/20 22:32 B-Natriuretic Peptide 477 pg/mL (<100) H 10/12/20 05:25 Total Protein 5.7 g/dL (6.5-8.0) L 10/11/20 05:31 Albumin 2.6 g/dL (3.5-5.0) L 10/11/20 05:31 Lipase 53 U/L (8-78) 10/08/20 10:52 Urine Color YELLOW 10/08/20 12:28 Urine Appearance CLEAR 10/08/20 12:28 Urine pH 7.5 (5.0-8.0) 10/08/20 12:28 Ur Specific Beatrice 1.015 (1.005-1.025) 10/08/20 12:28 Urine Protein NEG MG/DL (NEG-TRACE) 10/08/20 12:28 Urine Glucose (UA) NEG MG/DL (NEG) 10/08/20 12:28 Urine Ketones NEG MG/DL (NEG) 10/08/20 12:28 Urine Blood NEG (NEG) 10/08/20 12:28 Urine Nitrite NEG (NEG) 10/08/20 12:28 Ur Leukocyte Esterase NEG (NEG) 10/08/20 12:28 Salicylates < 5.0 mg/dL (15-30) L 10/08/20 10:52 Urine Opiates Screen Not Detected (Not Detect) 10/08/20 12:28 Acetaminophen 2 mcg/mL (<30) 10/08/20 10:52 Ur Barbiturates Screen POSITIVE (Not Detect) H 10/08/20 12:28 Ur Phencyclidine Scrn Not Detected (Not Detect) 10/08/20 12:28 Ur Amphetamines Screen Not Detected (Not Detect) 10/08/20 12:28 Phenobarbital 10.1 mcg/mL (10.0-40.0) 10/08/20 17:17 U Benzodiazepines Scrn POSITIVE (Not Detect) H 10/08/20 12:28 Urine Cocaine Screen Not Detected (Not Detect) 10/08/20 12:28 U Marijuana (THC) Screen POSITIVE (Not Detect) H 10/08/20 12:28 Ethyl Alcohol < 10 mg/dL 10/08/20 10:53 COVID-19 (DANN) Negative (Negative) 10/08/20 10:47 COVID-19 Clin Com See Note 10/08/20 10:47 Discharge Plan Discharge Anticipated Discharge Date/Time: 10/15/20 12:29 Patient Disposition: Home Health Service Referrals: [facility] [Outside] - 1 Day (ONCE YOU HAVE BEEN SEEN BY YOUR PCP PROVIDER, PLEASE ASK FOR A REFERRAL TO [facility] , THEY CAN NOT SEE YOU UNTIL YOU HAVE THIS APPOINTMENT AND HAVE A DOCTOR TO SIGHN OFF ORDERS ) Physician,Unknown [Primary Care Provider] - Discharge Medications: New lactulose 20 gram/30 mL Solution 10 g PO DAILY Qty: 1200 RF: 0 Continued lidocaine 5 % adhesive patch,medicated 1 patch topical DAILY RF: 0 omeprazole 40 mg Capsule,Delayed Release(Dr/Ec) 40 mg PO DAILY@0630 Qty: 30 RF: 0 folic acid 1 mg Tablet 1 mg PO DAILY Qty: 30 RF: 0 gabapentin 100 mg capsule 100 mg PO BID Qty: 60 RF: 0 metoprolol tartrate 25 mg Tablet 25 mg PO BID Qty: 30 RF: 0 Changed lactulose [Generlac] 10 gram/15 mL solution 10 g PO BID Qty: 500 RF: 0 Discontinued prednisolone sodium phosphate 15 mg/5 mL (3 mg/mL) Solution 40 mg PO DAILY Qty: 21 RF: 0 Discharge Orders: Discharge Order (Routine); Ordered 10/15/20 Ordered By: Robert [facility]opes Diet: advance to usual diet Activity on Discharge: As tolerated Discharge Date/Time: 10/15/20 15:00 Visit Report Forms: Patient Portal Discharge page Care Plan Goals: prevent rehospitalization Health Concerns: alcohol dependence Plan of Treatment: Avoid alcohol, follow upwith your doctor in a week
--- NOTE | 2020-10-15 12:57 | W.MHC.F2F ---
Service Date Service Date: 10/15/20 Encounter Date of encounter: 10/15/20 Encounter: Homebound due wealkess after [facility] hospitalization, Reasons for Services Signs and symptoms assessed: altered mental status, seizures and weakness Reason for retirement: neurological assessment and medication management Reason for physical therapy: home safety and mobility and gait/transfer training Homebound: Leaving the home is medically contraindicated at this time without the asist of a device and/or another person due th the listed conditions above and below. Reason homebound: unsteady gait / fall risk Certification: Based on the above findings, I certify that this patient is confined to the home and needs intermittent retirement care, physical therapy and/or speech therapy, or continues to need occupational therapy. The patient is under my care, and I have initiated the establishment of the plan of care. The patient will be followed by a physician who will periodically review the plan of care.
--- NOTE | 2020-10-15 13:48 | MHC.CM.PN ---
NURSE LUMBER MARKER NOTE [employer] record reviewed case discussed with staff nurse and hospitlaist by mary rojas. discharge plan - has not seen a pcp dr ornelas since dec 2019 and he is now retired, he will not see a provider in this group until nov 0310/2020 dr anita hilliard, (this keno writer / runner called to the [facility] asking about a much earlier visist with ?pa. or training coordinator. this request went out to dr agrawal who is off today, once patient has been seen instructed him to ask for the referral to then n for nursing and home physical therpry only after reciving these orders can they go out and see him, patient has [facility] . paz sarabia is part of the community navigation, kinga was notified about this patient and they will follow up. above was explaineed to patients brother, transportation his brother care team met with patient and given support service information as well as offered personal coach per documentation by the [facility] WORKER HE DECLINED APPRENTICE ARCHITECT ABOVE EXPLAINED TO HOSPITALIST
--- NOTE | 2020-10-15 14:58 | PC.NURSE ---
REVIEWED DISCHARGE INSTRUCTIONS WITH PT\. VERBALIZES UNDERSTANDING. AWARE OF NEED TO TAKE LACTULOSE DAILY. CASE MANAGEMENT WORKING ON [facility] SERVICES FOR PATIENT. DENIES PAIN. EVALUATED BY PT AND CARE TEAM PRIOR TO DISCHARGE
== END 2020-10-15 15:00 | disposition home health service (06) | DRG 137 ==
LOC: HO.ED 13:30 → HO.ICU 13:46 → HO.IMC 10-12 15:24 → HO.S3 10-14 18:09
PROVIDERS: Physician Assistant; Admitting Provider Internal Medicine Cardiovascular Disease; Emergency Provider Emergency Medicine; Visit Provider Internal Medicine
DX: J69.0 Pneumonitis due to inhalation of food and vomit (principal); F10.231 Alcohol dependence with withdrawal delirium; R56.9 Unspecified convulsions; D69.6 Thrombocytopenia, unspecified; E87.2 Acidosis; K76.6 Portal hypertension; I48.92 Unspecified atrial flutter; Z20.828 Contact with and (suspected) exposure to other viral communicable diseases; E87.1 Hypo-osmolality and hyponatremia; K70.40 Alcoholic hepatic failure without coma; K70.31 Alcoholic cirrhosis of liver with ascites
CPT/HCPCS: 36415; 70450; 71045; 71250; 72125; 74176; 80048; 80051; 80053; 80076; 80184; 80307; 80320; 81003; 82140; 82550; 82803; 83605; 83690; 83735; 83880; 84100; 84484; 85025; 85027; 85610; 85730; 87040; 87147; 87635; 93005; 94002; 94003; 94799; 96365; 96367; 96372; 96375; 97110; 97116; 97163; 97530; 99284; 99291; 99292; C1758; G0480; J1940; J1953; J2060; J2250; J2543; J2560; J3010; J3411; J3475; P9047

== ENCOUNTER 2020-10-26 06:51 | Emergency (ER) | payer OTHER, SELFPAY ==
[2020-10-26 07:07] VITALS: BP 136/70; PULSE 69; PULSE 77; RESP 18; TEMP 36.9; O2SAT 100; O2SAT 98; BMI 25.4
--- NOTE | 2020-10-26 07:10 | ED_ITS ---
HPI - Seizure General Chief Complaint: Seizure Stated Complaint: unwitnessed seizure Time Seen by Provider: 10/26/20 07:10 Source: patient Mode of arrival: EMS Limitations: no limitations History of Present Illness HPI Narrative: Patient with known seizure disorder, history of alcoholism with seizures. Patient is not drinking again. complaint: seizure Onset (ago): minute(s) Description of Episode: loss of consciousness, bladder incontinence and other (bit tongue) Witnessed: No Seizure History: Yes Place: Home Possible Precipitating Event: alcohol withdrawal Associated symptoms: denies other symptoms Related Data Home Medications Medication Instructions Recorded Confirmed lidocaine 1 patch TOPICAL DAILY 10/08/20 10/08/20 Previous Rx's Medication Instructions Recorded lactulose 10 g PO DAILY #1200 ml 10/15/20 folic acid 1 mg PO DAILY #30 tab 10/16/20 gabapentin 100 mg PO BID #60 cap 10/16/20 lactulose [Generlac] 10 g PO BID #500 ml 10/16/20 metoprolol tartrate 25 mg PO BID #30 tab 10/16/20 omeprazole 40 mg PO DAILY@0630 #30 cap 10/16/20 levetiracetam [Keppra] 500 mg PO BID #30 tab 10/26/20 Allergies Allergy/AdvReac Type Severity Reaction Status Date / Time No Known Allergies Allergy Unverified 08/09/20 18:37 [No Known Allergies*] bee stings had shots Allergy Unknown Uncoded 01/02/20 00:00 none Allergy Unknown Uncoded 04/24/20 00:00 Review of Systems Constitutional: Constitutional: Reports no additional constitutional complaints Eyes: Eyes: Reports no additional eye complaints ENT: Denies dizziness Cardiovascular: Cardiovascular: Reports no additional cardiovascular complaints Respiratory: Respiratory: Reports as per HPI Gastrointestinal: Gastrointestinal: Reports no additional gastrointestinal complaints Musculoskeletal: Musculoskeletal: Reports no additional musculoskeletal complaints Integumentary/Breasts: Skin/Breast: Denies rash Neurologic: Reports system reviewed and no additional complaints, except as documented, Denies dizziness and Denies Sensory deficit (Neuro) Psychiatric: Psychiatric: Denies anxiety PMFSH Past Medical History Medical History (Updated 10/26/20 @ 09:27 by Von Franklin MD) Acidosis, lactic Acquired pancytopenia Acute hyponatremia Alcohol withdrawal hallucinosis Alcohol withdrawal seizure Alcoholic cirrhosis of liver Cataracts, bilateral Cholestasis Cirrhosis Delirium tremens Elevated bilirubin Esophageal varices determined by endoscopy Gout Hemochromatosis Hepatic failure due to alcoholism History of gastric ulcer Hyponatremia Paroxysmal atrial flutter Portal hypertension Status epilepticus, generalized convulsive Ulcer Surgical History H/O right inguinal hernia repair Hx of tonsillectomy Social History Social History Household Members: Unknown / Unable to assess Housing: Apartment Alcohol intake: current Alcohol intake frequency: 3 or more drinks per day Alcohol type: beer Smoking Status: Never smoker Advance Directives: No Advance Directives Information Provided: No service: No Current occupational status: unemployed and disabled Physical Exam Vital Signs: Vital Signs: Last Vital Signs Temp 98.5 F 10/26/20 07:07 Pulse 69 10/26/20 07:07 Resp 18 10/26/20 07:07 Pulse Ox 100 10/26/20 07:07 Body Mass Index 25.4 Const: Other: male looking older than stated age, chronically ill Nutritional Appearance: average body habitus Orientation/consciousness: oriented to person and patient oriented x3 Limitations: no limitations HENMT: Other: tongue with bite avendano no laceration Head: Yes normal to inspection Ears: external ears normal General nose exam: Normal external nose present Mouth: Normal oral and palatal mucosa present and oropharynx normal Throat: Yes posterior oropharynx normal Eyes: General: appearance normal, both eyes and all related structures Neck: Other: supple Neck: Yes normal visual inspection Chest: Chest palpation & inspection: normal inspection of the chest Resp: Auscultation: clear to auscultation bilaterally Cardio: Jugular venous distension: no JVD Rate: regular rate Rhythm: regular rhythm Heart sounds: S1 normal heart sound present and S2 normal heart sound present GI: Inspection: Yes normal to inspection Palpation (GI): Soft to palpation, nontender and No hepatosplenomegaly present Auscultation: normal bowel sounds : General: Yes no CVA tenderness Back/Spine/Pelvis: Back: no CVA tenderness Skin: General skin exam: no rashes or lesions noted Neuro: General: oriented to person and patient oriented x3 Cranial nerves: Yes CN's II-XII intact bilaterally Motor exam (neuro): 5/5 motor strength present throughout Sensory Exam: No Sensory deficit (Neuro) Extrem: General: Yes normal to inspection Psych: Appearance: grossly normal Course Course Course Narrative: no further seizures will dc home MDM - Seizure MDM Narrative Medical decision making narrative: paient with a history of seizures secondary to alcoholism. Patient with stable liver failure, will load and start on keppra Differential Diagnosis Differential diagnosis: Likely generalized seizure and epileptic seizure Lab Data Result diagrams: 10/26/20 07:18 10/26/20 07:18 Labs: Lab Results 10/26/20 10/26/20 10/26/20 Range/Units 07:18 07:18 07:21 WBC 6.1 (4.8-10.8) X10*3/uL RBC 3.70 L (4.60-5.80) X10*6/uL Hgb 12.4 L (14.0-18.0) g/dl Hct 36.4 L (42-52) % MCV 98.4 H (80-98) fL MCH 33.5 H (27.0-33.0) pg MCHC 34.1 (31.0-36.0) g/dl RDW 14.0 (11.0-16.0) % Plt Count 148 L D (160-400) X10*3/uL MPV 12.7 H (9.4-12.4) fL Immature Gran % (Auto) 0.3 (0.0-0.4) % Neut % (Auto) 52.8 (45-73) % Lymph % (Auto) 36.5 (20-40) % [place] % (Auto) 9.6 (2-11) % Eos % (Auto) 0.3 (0-4) % Baso % (Auto) 0.5 (0-2) % Lymph # (Auto) 2.2 (1.2-4.9) X10*3/uL [place] # (Auto) 0.6 (0.1-1.2) X10*3/uL Eos # (Auto) 0.0 (0.0-0.4) X10*3/uL Baso # (Auto) 0.0 (0.0-0.2) X10*3/uL Abs Immat Gran (auto) 0.02 (0.00-0.03) X10*3/uL Absolute Neuts (auto) 3.2 (2.0-8.3) X10*3/uL Absolute Nucleated RBC 0.000 (0.0-0.012) X10*3/uL Nucleated RBC % (auto) 0.0 (0.0-0.2) /100WBC Sodium 137 (135-145) mmol/L Potassium 4.8 D (3.3-5.1) mmol/l Chloride 103 (96-108) mmol/L Carbon Dioxide 24 (22-29) mmol/L Anion Gap 15 (12-20) BUN 3 L (9-16) mg/dL Creatinine 0.75 (0.5-1.4) mg/dL Estim Creat Clear Calc 121.7 Estimated GFR > 60 Random Glucose 102 (60-115) mg/dL Calcium 9.0 D (8.4-10.2) mg/dL Magnesium 1.7 (1.6-2.6) mg/dL Total Bilirubin 4.2 H (0.0-1.0) mg/dL Direct Bilirubin 3.0 H (0.0-0.5) mg/dL AST 41 H D (5-37) U/L ALT 25 (0-40) U/L Alkaline Phosphatase 133 H (39-117) U/L Total Protein 7.1 D (6.5-8.0) g/dL Albumin 3.4 L D (3.5-5.0) g/dL Ethyl Alcohol Cancelled 10/26/20 Range/Units 07:59 WBC (4.8-10.8) X10*3/uL RBC (4.60-5.80) X10*6/uL Hgb (14.0-18.0) g/dl Hct (42-52) % MCV (80-98) fL MCH (27.0-33.0) pg MCHC (31.0-36.0) g/dl RDW (11.0-16.0) % Plt Count (160-400) X10*3/uL MPV (9.4-12.4) fL Immature Gran % (Auto) (0.0-0.4) % Neut % (Auto) (45-73) % Lymph % (Auto) (20-40) % [place] % (Auto) (2-11) % Eos % (Auto) (0-4) % Baso % (Auto) (0-2) % Lymph # (Auto) (1.2-4.9) X10*3/uL [place] # (Auto) (0.1-1.2) X10*3/uL Eos # (Auto) (0.0-0.4) X10*3/uL Baso # (Auto) (0.0-0.2) X10*3/uL Abs Immat Gran (auto) (0.00-0.03) X10*3/uL Absolute Neuts (auto) (2.0-8.3) X10*3/uL Absolute Nucleated RBC (0.0-0.012) X10*3/uL Nucleated RBC % (auto) (0.0-0.2) /100WBC Sodium (135-145) mmol/L Potassium (3.3-5.1) mmol/l Chloride (96-108) mmol/L Carbon Dioxide (22-29) mmol/L Anion Gap (12-20) BUN (9-16) mg/dL Creatinine (0.5-1.4) mg/dL Estim Creat Clear Calc Estimated GFR Random Glucose (60-115) mg/dL Calcium (8.4-10.2) mg/dL Magnesium (1.6-2.6) mg/dL Total Bilirubin (0.0-1.0) mg/dL Direct Bilirubin (0.0-0.5) mg/dL AST (5-37) U/L ALT (0-40) U/L Alkaline Phosphatase (39-117) U/L Total Protein (6.5-8.0) g/dL Albumin (3.5-5.0) g/dL Ethyl Alcohol < 10 Discharge Plan Discharge Clinical Impression: Epileptic seizure Qualifiers: Epilepsy type: other generalized Intractability: not intractable Status epilepticus: without status epilepticus Qualified Code(s): G40.409 - Other generalized epilepsy and epileptic syndromes, not intractable, without status epilepticus ALC (alcoholic liver cirrhosis) Qualifiers: Ascites presence: without ascites Qualified Code(s): K70.30 - Alcoholic cirrhosis of liver without ascites Patient Disposition: Home, Self-Care Instructions: Cirrhosis (ED), Generalized Tonic Clonic Seizures (ED) Prescriptions: New levetiracetam [Keppra] 500 mg tablet 500 mg PO BID Qty: 30 RF: 0 No Action lidocaine 5 % adhesive patch,medicated 1 patch topical DAILY RF: 0 lactulose 20 gram/30 mL Solution 10 g PO DAILY Qty: 1200 RF: 0 omeprazole 40 mg Capsule,Delayed Release(Dr/Ec) 40 mg PO DAILY@0630 Qty: 30 RF: 0 folic acid 1 mg Tablet 1 mg PO DAILY Qty: 30 RF: 0 gabapentin 100 mg capsule 100 mg PO BID Qty: 60 RF: 0 metoprolol tartrate 25 mg Tablet 25 mg PO BID Qty: 30 RF: 0 lactulose [Generlac] 10 gram/15 mL solution 10 g PO BID Qty: 500 RF: 0 Referrals: Physician,Unknown [Primary Care Provider] - 2 days
[2020-10-26 07:32] LABS: MANUAL DIFF FLAG NO
[2020-10-26 07:33] LABS: Basophils Percent Auto 0.5 % (0-2); Eosinophils Percent Auto 0.3 % (0-4); Hematocrit 36.4 % (42-52); Hemoglobin 12.4 g/dl (14.0-18.0); Imm Gran Abs Auto 0.02 X10*3/uL (0.00-0.03); Imm Gran Pct Auto 0.3 % (0.0-0.4); Lymphocytes Absolute Auto 2.2 X10*3/uL (1.2-4.9); Lymphocytes Percent Auto 36.5 % (20-40); Mean Corpuscular HGB Conc 34.1 g/dl (31.0-36.0); Mean Corpuscular Hemoglobin 33.5 pg (27.0-33.0); Mean Corpuscular Volume 98.4 fL (80-98); Mean Platelet Volume 12.7 fL (9.4-12.4); Monocytes Absolute Auto 0.6 X10*3/uL (0.1-1.2); Monocytes Percent Auto 9.6 % (2-11); Neutrophils Absolute Auto 3.2 X10*3/uL (2.0-8.3); Neutrophils Percent Auto 52.8 % (45-73); Platelet Count 148 X10*3/uL (160-400); White Blood Count 6.1 X10*3/uL (4.8-10.8)
[2020-10-26] MEDS: levETIRAcetam in NaCl (iso-os) 1,000 MG/100 ML PIGGYBACK 400 MG IV (07:42)
[2020-10-26 07:57] LABS: Alanine Aminotransferase 25 U/L (0-40); Albumin Level 3.4 g/dL (3.5-5.0); Alkaline Phosphatase 133 U/L (39-117); Anion Gap 15 (12-20); Aspartate Amino Transferase 41 U/L (5-37); Bilirubin Total 4.2 mg/dL (0.0-1.0); Blood Urea Nitrogen 3 mg/dL (9-16); Carbon Dioxide 24 mmol/L (22-29); Chloride 103 mmol/L (96-108); Creatinine Clr Calc Pharmacy 121.7; Estimated Glomerular Filt Rate > 60; Glucose Random 102 mg/dL (60-115); Magnesium 1.7 mg/dL (1.6-2.6); Potassium 4.8 mmol/l (3.3-5.1); Sodium 137 mmol/L (135-145); Total Protein 7.1 g/dL (6.5-8.0)
[2020-10-26 08:00] VITALS: PULSE 62; RESP 18; TEMP 36.9; O2SAT 100
[2020-10-26 08:22] LABS: Ethanol < 10 mg/dL
== END 2020-10-26 09:47 | disposition home or self-care (01) ==
PROVIDERS: Emergency Provider Emergency Medicine
DX: G40.409 Other generalized epilepsy and epileptic syndromes, not intractable, without status epilepticus (principal); K70.30 Alcoholic cirrhosis of liver without ascites; Z79.899 Other long term (current) drug therapy
CPT/HCPCS: 36415; 80048; 80076; 80320; 83735; 85025; 96374; 99284; J1953

== ENCOUNTER 2020-10-31 11:26 | Outpatient (REF) | payer OTHER, SELFPAY ==
--- NOTE | 2020-10-31 11:30 | XR_ITS ---
EXAMINATION: XR LUMBOSACRAL SPINE CLINICAL INFORMATION: Low back pain COMPARISON: 01/02/2020 TECHNIQUE: Three views of the lumbosacral spine. FINDINGS: There are 5 lumbar-type vertebrae. There is a moderate convex left lumbar scoliosis. There is at least moderate disc narrowing, endplate sclerosis and marginal osteophytes. There is some sclerosis involving the facets greatest at L5. No acute fracture. There is arterial calcification. The femoral heads are not well evaluated. Moderate gaseous distention. XR/XR lumbar spine 2-3V IMPRESSION: Scoliosis with at least moderate degenerative disc and degenerative joint disease. There is a suggestion of some mild worsening when compared to 01/02/2020.
== END 2020-10-31 11:27 | disposition home or self-care (01) ==
LOC: HO.HMGCX 11:26
PROVIDERS: PCP Internal Medicine; Visit Provider Internal Medicine
DX: M54.5 Low back pain (principal); I85.00 Esophageal varices without bleeding; R18.8 Other ascites; K70.9 Alcoholic liver disease, unspecified
CPT/HCPCS: 72100

== ENCOUNTER → 2020-12-10 14:24 | Outpatient (BNVA) | payer OTHER, SELFPAY | PROVIDERS: Visit Provider Internal Medicine Gastroenterology ==

== ENCOUNTER → 2021-04-01 11:01 | Outpatient (BNVA) | payer OTHER, SELFPAY | PROVIDERS: PCP Internal Medicine; Referring Provider Internal Medicine; Visit Provider Internal Medicine Gastroenterology ==

== ENCOUNTER 2023-08-31 14:42 | Outpatient (AMB) | payer OTHER, SELFPAY ==
[2023-08-31 14:47] VITALS: PULSE 93; O2SAT 98
--- NOTE | 2023-08-31 14:47 | MHC.OFFWIV ---
Intake Vital Signs 08/31/23 14:47 08/31/23 15:04 Height 6 ft 2 in Weight 187 lb BMI 24.0 BP 122/70 Blood Pressure Location Lt brachial Position Sitting Pulse 93 84 Pulse Source Pulse Oximeter Pulse Oximeter Pulse Oximetry (%) 98 98 Oxygen Delivery Method Room Air Comment Pt HR varied in the low 80s to mid 90s. Intake Visit Reasons: EST/chest pain/SOB/dizziness(lobby) Intake Note: Pt triaged in waiting room for complaints of CP, SOB, dizziness. Pt reports symptoms consistently through the past week, no triggers, no differentiation with laying down or up with activity. Skin cool. Color good. No acute SOB. Palpated pulse felt irregular. HR on oximeter varied in low 80s to mid 90s. CVecc,RN Allergies bee stings had shots Allergy (Unknown, Uncoded 08/31/23 15:07) Abdominal Pain HPI EST/chest pain/SOB/dizziness(lobby) HPI Details 63-year-old male presents to the office for a sick visit. Patient is complaining of shortness of breath, wheezing and chest discomfort. No fevers or chills. No nausea or vomiting. [facility] Medical History Acidosis, lactic Acquired pancytopenia Acute hyponatremia Alcohol withdrawal hallucinosis Alcohol withdrawal seizure Alcoholic cirrhosis of liver Alcoholic liver disease Ascites Cataracts, bilateral Cholestasis Cirrhosis Delirium tremens DJD (degenerative joint disease), lumbar Elevated bilirubin Esophageal varices Esophageal varices determined by endoscopy Gout Hemochromatosis Hepatic failure due to alcoholism History of gastric ulcer Hyponatremia Paroxysmal atrial flutter Portal hypertension Status epilepticus, generalized convulsive Ulcer Surgical History H/O right inguinal hernia repair Hx of tonsillectomy Social History Household Members: Unknown / Unable to assess Housing: Apartment Housing Other:: TRAILOR Do you presently have visiting nurse or other home services: No Alcohol intake: current Alcohol intake frequency: former alcohol drinker Alcohol type: beer service: No Current occupational status: unemployed and disabled Physical Exam Vital Signs: Last Vital Signs Pulse 84 08/31/23 15:04 BP 122/70 08/31/23 15:04 Pulse Ox 98 10/09/23 15:04 Oxygen Delivery Method Room Air 08/31/23 15:04 BMI result Body Mass Index 24.0 Const General: cooperative and healthy appearing Nutritional Appearance: well nourished Orientation/consciousness: patient oriented x3 Limitations: no limitations HEENT Head: Yes normal to inspection Eyes General: appearance normal, both eyes and all related structures Neck Neck: Yes normal visual inspection Chest Chest palpation & inspection: normal palpation of entire chest wall Resp Effort & Inspection: normal respiratory effort Neuro General: patient oriented x3 Office Procedures EKG Details: Normal sinus rhythm 13979-[id number], Complete Assessment & Plan Assessment & Plan (1) Shortness of breath: Code(s): R06.02 - Shortness of breath Plan: EKG was within normal limits. Blood work has been ordered. Will call with the results. Orders: Orders AMB EKG-In Office 08/31/23 R07.9 - Chest pain, unspecified XR chest 2V 08/31/23 R05.9 - Cough, unspecified Complete Blood Count no Diff 08/31/23 R05.9 - Cough, unspecified Liver Panel 08/31/23 R05.9 - Cough, unspecified Basic Metabolic Panel 08/31/23 R05.9 - Cough, unspecified Erythrocyte Sedimentation Rate 08/31/23 R05.9 - Cough, unspecified Thyroid Stimulating Hormone 08/31/23 R05.9 - Cough, unspecified Coding Level of Care Code Est Pt Level 4 (05031) Diagnoses Shortness of breath R06.02 CPT Codes EKG - CPT: 21934-[id number], Complete ([id number])
[2023-08-31 15:04] VITALS: BP 122/70; PULSE 84; O2SAT 98; BMI 24.0
== END 2023-08-31 16:55 | disposition home or self-care (01) ==
PROVIDERS: PCP Internal Medicine; Visit Provider Internal Medicine
DX: R06.02 Shortness of breath (principal)
CPT/HCPCS: 93000; 99214

== ENCOUNTER 2023-08-31 15:41 | Outpatient (REF) | payer OTHER, SELFPAY | END 2023-08-31 15:42 | disposition home or self-care (01) | LOC: HO.HMGCX 15:41 | PROVIDERS: PCP Internal Medicine; Visit Provider Internal Medicine | DX: R05.9 Cough, unspecified (principal) | CPT/HCPCS: 71046 ==

== ENCOUNTER 2023-11-30 16:05 | Inpatient (IN) | payer OTHER, SELFPAY ==
--- NOTE | ~2023-11-30 | XR_ITS ---
EXAMINATION: XR RIBS, BILATERAL CLINICAL INFORMATION: Reason for Exam fall, pain, cough COMPARISON: Chest radiograph 08/31/2023 TECHNIQUE: 3 views of the Bilateral ribs. 1 view of the chest. FINDINGS: Remote appearing right seventh and sixth rib fractures. Age-indeterminate right 11th rib fractures, and left lateral 11th rib fracture, recommend correlation with point tenderness. Symmetric nodular opacities overlying the lung bases, which may reflect nipple shadows, recommend confirmation with oblique radiographs of the chest with nipple markers. Lungs appear otherwise clear. No pneumothorax. No pleural effusion. Normal cardiomediastinal silhouette. XR/XR ribs BI min 4V w CXR1V IMPRESSION: 1. Age-indeterminate right 11th rib fractures, and left lateral 11th rib fracture, recommend correlation with point tenderness. Remote appearing right seventh and sixth rib fractures. No pneumothorax. 2. Symmetric nodular opacities overlying the lung bases, which may reflect nipple shadows, recommend confirmation with oblique radiographs of the chest with nipple markers.
--- NOTE | ~2023-11-30 | CT_ITS ---
EXAMINATION: CT HEAD WITHOUT CONTRAST CLINICAL INFORMATION: Fall, head trauma COMPARISON: 10/08/2020 TECHNIQUE: Contiguous axial imaging was performed from the skull base to vertex without intravenous administration of contrast. This CT examination was performed using dose optimization techniques as appropriate, variously including the following: *Automated exposure control *Adjustment of mA and/or kV according to patient size (this includes techniques or standardized protocols for targeted exams where dose is matched to indication/reason for exam; i.e. extremities or head) *Use of iterative reconstruction technique DLP: 692 mGy-cm FINDINGS: CT examination of the brain shows age-related involutional changes with prominence of the ventricles and sulci. Patchy Periventricular white matter hypodensities are again evident, likely on the basis of chronic microvascular ischemic disease. No acute hemorrhage, mass effect or shift is evident. In the posterior fossa, the brainstem, cerebellum and fourth ventricle are unremarkable. The orbits and bony calvarium are intact. The paranasal sinuses and mastoid air cells are well pneumatized and clear. CT/CT head/brain wo IV con IMPRESSION: 1. Stable Age-related involutional changes and microvascular disease. 2. No acute hemorrhage, mass affect, shift or acute intracranial pathology.
[2023-11-30 16:36] VITALS: BP 136/80; BP 148/86; PULSE 80; PULSE 86; RESP 16; TEMP 37; O2SAT 98; O2SAT 99; BMI 24.0
--- NOTE | 2023-11-30 17:10 | ED.GENADULT ---
HPI - General Adult General Chief complaint: General Medical Stated complaint: FALL/SEIZURES Time Seen by Provider: 11/30/23 16:09 Source: patient Mode of arrival: EMS Limitations: no limitations History of Present Illness HPI narrative: patient is a 63-year-old male presents emergency department via EMS. Patient reports a history of seizure disorder, reportedly has not been taking his anti seizure medications for a couple of years. He reports that he believes he had a seizure at home 2 days ago. He is unable to recall the events from Thursday during the day. He is able to recall events from today and yesterday. He states that he awoke yesterday feeling very sore all throughout his body And had realized that he bit her tongue prompted his concern for a seizure. He has numerous scabbed abrasions to the upper and lower extremities bilaterally, and bruising to his back along the ribs, all of which are in various stages of healing. He is reporting diffuse chest pain anterior into the lateral aspect particularly with cough and movement. He states that he lives alone in a trailer, he has been significantly weak since this happened. He does not recall the last time that he had a seizure. He reports he has been abstinent from alcohol for the past 2-3 years. Related Data Home Medications Medication Instructions Recorded Confirmed No Known Home Meds 08/31/23 11/30/23 Allergies Allergy/AdvReac Type Severity Reaction Status Date / Time bee stings had shots Allergy Unknown Abdominal Uncoded 08/31/23 15:07 Pain Review of Systems Review of Systems: Yes all other systems are reviewed and are negative PMFSH Past Medical History Attestation statement: The following information was validated with the patient. 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, generalized convulsive Cholestasis Portal hypertension Delirium tremens Alcohol withdrawal seizure Alcohol withdrawal hallucinosis Acidosis, lactic Esophageal varices determined by endoscopy Hemochromatosis Alcoholic cirrhosis of liver Cataracts, bilateral History of gastric ulcer Gout Hyponatremia Elevated bilirubin Acute hyponatremia Ulcer Cirrhosis Surgical History H/O right inguinal hernia repair Hx of tonsillectomy Social History Social History Household Members: Unknown / Unable to assess Housing: Apartment Housing Other:: TRAILOR Do you presently have visiting nurse or other home services: No Alcohol intake: current Alcohol intake frequency: former alcohol drinker Alcohol type: beer Comment: sitter at bedside Advance Directives: No Advance Directives Information Provided: No service: No Current occupational status: unemployed and disabled Physical Exam ED Vital Signs: Vital Signs - 24 hr 11/30/23 16:36 Temperature 98.6 F Pulse Rate 86 Respiratory Rate 16 Blood Pressure 136/80 Pulse Oximetry 99 Oxygen Delivery Method Room Air BMI result Body Mass Index 24.0 Appearance: Alert.?Oriented to person, place and time. No acute distress.?Normal affect. head: scabbed laceration over the left brow Eyes: Pupils equal, round and reactive to light.? EOMI. No nystagmus. ENT: Pharynx normal.?? Neck: Normal inspection.? Neck supple.?? No midline cervical spine tenderness, step-offs, deformities. CVS: Heart sounds normal. Normal heart rate and rhythm.? Pulses normal.?? Respiratory: No respiratory distress.? Lung sounds clear to auscultation bilaterally??tenderness upon palpation to the lower chest wall. No crepitus. No palpable deformities. Abdomen: Soft mild bilateral upper abdominal tenderness upon palpation. Normoactive bowel sounds. No pulsatile mass.?? Skin: Skin warm and dry.? skin appears slightly jaundiced Extremities: No lower extremity edema.? No calf ttp? Neuro: Moves all extremities spontaneously. Sensation intact bilaterally. CN II-XII intact. No focal neuro deficits. Course Reevaluation(s) Reevaluation #1: Head CT without acute intracranial Abnormality.. XR of the chest reveals age indeterminate right and left 11th rib fracture consistent with point tenderness, remote right 7th and 6th rib fracture, no tenderness upon palpation. CBC with pancytopenia consistent with baseline. CMP reveals significantly elevated AST ALT 759/268 which is higher than any priors, total bilirubin 1.4. CK 42,576, patient to receive IVF. plan to admit to Medicine Service, will speak with the hospitalist Time: 18:36 Medications Administered Discontinued Medications Generic Name Dose Route Start Last Admin Trade Name Mónica PRN Reason Stop Dose Admin Levetiracetam 1,000 mg in 100 mls @ 400 mls/hr 11/30/23 17:26 11/30/23 17:45 Keppra IV 11/30/23 17:40 400 mls/hr ONCE ONE Administration Medical Decision Making Medical Decision Making MDM Narrative: patient is a 63-year-old male with past medical history of DJD, esophageal varices, ascites, alcoholic liver disease, hemochromatosis, delirium tremens, acquired pancytopenia, paroxysmal atrial flutter, portal hypertension, epilepsy, gout who presents to the emergency department for evaluation of myalgias arthralgias, chest pain as per HPI after concern for reported seizure 2 days ago As per HPI. Patient is able to speak clear full sentences, is in no distress at this time. Alert and oriented x3. His physical examination has notable scabbed abrasions to the bilateral upper and lower extremities of various stages of healing in addition to ecchymosis and tenderness upon palpation over his back/posterior lower ribs. Will obtain CBC to evaluate for leukocytosis/ anemia, CMP and lipase to evaluate for abnormal electrolytes /abnormal renal function/ abnormal hepatic/biliary function, CT head, EKG and troponin to evaluate for ischemia/ACS. Chest x-ray to evaluate for fracture/consolidation/ infiltrate/ mass/ pulmonary congestion and Urinalysis. given history of ETOH in DTs will assess CIWA. Differential Diagnosis Differential Diagnoses: The differential diagnosis associated with the presentation includes ( as per narrative above) Admission/Observation Consideration of admission/observation: Escalation of care including admission/observation considered ( see narrative above and course narrative for further details) Consult Healthcare Provider Management of the patient was discussed with: Hospitalist ( see course narrative) Lab Data [facility] Lab Attestation statement: I reviewed the patient's lab results. ( see course narrative) 11/30/23 17:34 11/30/23 17:34 Labs: Lab Results 11/30/23 11/30/23 Range/Units 17:34 17:35 WBC 7.0 (4.8-10.8) X10*3/uL RBC 4.54 L (4.60-5.80) X10*6/uL Hgb 14.0 (14.0-18.0) g/dl Hct 39.2 L (42.0-52.0) % MCV 86.3 (80.0-98.0) fL MCH 30.8 (27.0-33.0) pg MCHC 35.7 (31.0-36.0) g/dl RDW 12.4 (11.0-16.0) % Plt Count 128 L (160-400) X10*3/uL MPV 12.6 H (9.4-12.4) fL Immature Gran % (Auto) 0.7 H (0.0-0.4) % Neut % (Auto) 70.4 (45-73) % Lymph % (Auto) 17.9 L (20-40) % [place] % (Auto) 10.5 (2-11) % Eos % (Auto) 0.4 (0-4) % Baso % (Auto) 0.1 (0-2) % Lymph # (Auto) 1.3 (1.2-4.9) X10*3/uL [place] # (Auto) 0.7 (0.1-1.2) X10*3/uL Eos # (Auto) 0.0 (0.0-0.4) X10*3/uL Baso # (Auto) 0.0 (0.0-0.2) X10*3/uL Abs Immat Gran (auto) 0.05 H (0.00-0.03) X10*3/uL Absolute Neuts (auto) 4.9 (2.0-8.3) x10*3/uL Absolute Nucleated RBC 0.000 (0.0-0.012) X10*3/uL Nucleated RBC % (auto) 0.0 (0.0-0.2) /100WBC PT 12.3 (11.1-13.3) SEC INR 1.0 (0.9-1.1) Sodium 134 L (135-145) mmol/L Potassium 3.9 (3.3-5.1) mmol/L Chloride 101 (96-108) mmol/L Carbon Dioxide 26 (22-29) mmol/L Anion Gap 11 L (12-20) BUN 20 H (9-16) mg/dL Creatinine 0.81 (0.5-1.4) mg/dL Estim Creat Clear Calc 108.5 Estimated GFR > 60 Random Glucose 94 (60-115) mg/dL Calcium 9.6 D (8.4-10.2) mg/dL Magnesium 2.5 (1.6-2.6) mg/dL Total Bilirubin 1.4 H (0.0-1.0) mg/dL AST 759 H (5-37) U/L ALT 268 H (0-40) U/L Alkaline Phosphatase 58 (39-117) U/L Total Creatine Kinase 90085 H (38-174) U/L B-Natriuretic Peptide 23 (<100) pg/mL Total Protein 7.5 (6.5-8.0) g/dL Albumin 4.1 (3.5-5.0) g/dL Ethyl Alcohol < 10 mg/dL Influenza Type A (PCR) NEGATIVE (Negative) Influenza Type B (PCR) NEGATIVE (Negative) RSV RNA Qual (PCR) NEGATIVE (Negative) SARS-CoV-2 RNA (RT-PCR) NEGATIVE (Negative) Independent Interpretation I performed an independent interpretation of an: Plain X-Ray ( I personally interpreted x-ray and agree with radiologist impression.) Radiology Impression Discussion of test interpretation with radiology: I have reviewed the radiologist's reading. Radiologist Impression: CT/CT head/brain wo IV con IMPRESSION: 1. Stable Age-related involutional changes and microvascular disease. 2. No acute hemorrhage, mass affect, shift or acute intracranial pathology. XR/XR ribs BI min 4V w CXR1V IMPRESSION: 1. Age-indeterminate right 11th rib fractures, and left lateral 11th rib fracture, recommend correlation with point tenderness. Remote appearing right seventh and sixth rib fractures. No pneumothorax. 2. Symmetric nodular opacities overlying the lung bases, which may reflect nipple shadows, recommend confirmation with oblique radiographs of the chest with nipple markers. Independent Historian Clinical information obtained from an independent historian. History obtained from or confirmed by: EMS External Record Review External record reviewed: Inpatient record and Outpatient record Discharge Plan Discharge Clinical Impression: Rhabdomyolysis Patient Disposition: Admitted As Inpatient
[2023-11-30 17:41] LABS: MANUAL DIFF FLAG NO
[2023-11-30 17:43] LABS: Basophils Percent Auto 0.1 % (0-2); Eosinophils Percent Auto 0.4 % (0-4); Hematocrit 39.2 % (42.0-52.0); Imm Gran Abs Auto 0.05 X10*3/uL (0.00-0.03); Imm Gran Pct Auto 0.7 % (0.0-0.4); Lymphocytes Absolute Auto 1.3 X10*3/uL (1.2-4.9); Lymphocytes Percent Auto 17.9 % (20-40); Mean Corpuscular HGB Conc 35.7 g/dl (31.0-36.0); Mean Corpuscular Hemoglobin 30.8 pg (27.0-33.0); Mean Corpuscular Volume 86.3 fL (80.0-98.0); Mean Platelet Volume 12.6 fL (9.4-12.4); Monocytes Absolute Auto 0.7 X10*3/uL (0.1-1.2); Monocytes Percent Auto 10.5 % (2-11); Neutrophils Absolute Auto 4.9 x10*3/uL (2.0-8.3); Neutrophils Percent Auto 70.4 % (45-73); Platelet Count 128 X10*3/uL (160-400); Red Blood Count 4.54 X10*6/uL (4.60-5.80); Red Cell Distribution Width 12.4 % (11.0-16.0)
[2023-11-30] MEDS: levETIRAcetam in NaCl (iso-os) 1,000 MG/100 ML PIGGYBACK 400 MG IV (17:45)
[2023-11-30 17:58] LABS: Prothrombin Time 12.3 SEC (11.1-13.3)
[2023-11-30 18:10] LABS: Alanine Aminotransferase 268 U/L (0-40); Albumin Level 4.1 g/dL (3.5-5.0); Alkaline Phosphatase 58 U/L (39-117); Anion Gap 11 (12-20); Aspartate Amino Transferase 759 U/L (5-37); Bilirubin Total 1.4 mg/dL (0.0-1.0); Blood Urea Nitrogen 20 mg/dL (9-16); Calcium 9.6 mg/dL (8.4-10.2); Carbon Dioxide 26 mmol/L (22-29); Chloride 101 mmol/L (96-108); Creatinine Clr Calc Pharmacy 108.5; Estimated Glomerular Filt Rate > 60; Ethanol < 10 mg/dL; Glucose Random 94 mg/dL (60-115); Magnesium 2.5 mg/dL (1.6-2.6); Potassium 3.9 mmol/L (3.3-5.1); Sodium 134 mmol/L (135-145); Total Protein 7.5 g/dL (6.5-8.0)
[2023-11-30 18:12] LABS: B Type Natriuretic Peptide 23 pg/mL (<100)
[2023-11-30 18:23] LABS: Influenza A PCR NEGATIVE (Negative); Influenza B PCR NEGATIVE (Negative); Resp Syncy Virus RNA Qual PCR NEGATIVE (Negative); SARS COV2 PCR INHOUSE NEGATIVE (Negative)
--- NOTE | 2023-11-30 18:51 | PHA.MEDREC ---
Pharmacy Consult ? Medication Reconciliation Pharmacy has completed the medication reconciliation. Patient reported no medications prescription or OTC. Shania DurbinD
[2023-11-30] MEDS: 0.9 % Sodium Chloride 1,000 ML 999 ML IV (19:38)
--- NOTE | 2023-11-30 20:35 | PM.IMHP ---
History of Present Illness Date of Service: 11/30/23 Chief Complaint: Seizures Thomas Winters is a 63 years old man with past medical history significant for chronic liver disease, portal hypertension and seizure disorder presents to the emergency department complaining of inability to remember anything over the last few days and believes he had seizure at home couple of days ago. He is complaining of generalized muscle weakness and right-sided chest pain with inspiration. He reported tongue bitting. He does have multiple abrasions a bruising to his extremities and back. He also complained of head trauma. He currently denies any headache, dizziness or acute visual disturbance. There is no reported fever or chills. He denies any chest pain or cough. He denies any gastrointestinal symptom. He c/o increased urinary frequency and straining with urination without pain. He did not report dark or bloody urine. He mentioned that he has no pain taking his seizure medications for a very long time and is not having any medical follow-up as an outpatient. Patient lives alone. He denied current alcohol abuse; he quit several years ago. He denied tobacco smoking reported illicit drug use. He smokes marihuana in occasions. in the ED, he was found to have stable vital signs. Blood work is remarkable for elevated CK (42,576) and transaminase. Bilirubin slightly elevated 1.4 (improving from prior). Renal function is normal. Head CT scan showed no acute intracranial abnormality. CXR with ribs showed age-indeterminate right 11th rib fractures, and left lateral 11th rib fracture + emote appearing right seventh and sixth rib fractures. No pneumothorax. Symmetric nodular opacities overlying the lung bases. of the chest with nipple markers. Review of Systems Review of Systems: All 12 systems were reviewed and normal except as noted in HPI. [facility] Medical History DJD (degenerative joint disease), lumbar Esophageal varices Ascites Alcoholic liver disease Acquired pancytopenia Paroxysmal atrial flutter Hepatic failure due to alcoholism Status epilepticus, generalized convulsive Cholestasis Portal hypertension Delirium tremens Alcohol withdrawal seizure Alcohol withdrawal hallucinosis Acidosis, lactic Esophageal varices determined by endoscopy Hemochromatosis Alcoholic cirrhosis of liver Cataracts, bilateral History of gastric ulcer Gout Hyponatremia Elevated bilirubin Acute hyponatremia Ulcer Cirrhosis Surgical History H/O right inguinal hernia repair Hx of tonsillectomy Social History Household Members: Unknown / Unable to assess Housing: Apartment Housing Other:: TRAILOR Do you presently have visiting nurse or other home services: No Alcohol intake: current Alcohol intake frequency: former alcohol drinker Alcohol type: beer Comment: sitter at bedside Advance Directives: No Advance Directives Information Provided: No service: No Current occupational status: unemployed and disabled Meds Allergies Allergy/AdvReac Type Severity Reaction Status Date / Time bee stings had shots Allergy Unknown Abdominal Uncoded 08/31/23 15:07 Pain Active Medications: Current Medications Acetaminophen (Acetaminophen Supp 650 Mg Supp.Rect) 650 mg [place] Q6H PRN PRN Reason: Pain, Mild (Pain Scale 1-3) Sodium Chloride (Ns) 1,000 mls @ 150 mls/hr IVCONT .Q6H40M RAMON Levetiracetam (Levetiracetam 250 Mg Tablet) 750 mg PO BID RAMON Melatonin (Melatonin 3 Mg Tablet) 3 mg PO BEDTIME PRN PRN Reason: Insomnia Sodium Chloride (0.9 % Sodium Chloride Flush 3 Ml Syringe) 3 ml IVFLUSH QSHIFT RAMON Home Medications Medication Instructions Recorded Confirmed Last Taken Type No Known Home Meds 08/31/23 11/30/23 Unknown History Physical Exam Vital Signs and Narrative: Vital Signs: Last Vital Signs Temp 98.6 F 11/30/23 16:36 Pulse 86 11/30/23 16:36 Resp 16 11/30/23 16:36 BP 136/80 11/30/23 16:36 Pulse Ox 99 11/30/23 16:36 O2 Del Method Room Air 11/30/23 16:36 BMI result Body Mass Index 24.0 Constitutional - Awake and Alert, No apparent distress Eyes - PERRL, EOMI Cardiovascular - RRR, No edema Respiratory - Normal lung expansion, Normal respiratory effort, No respiratory distress, CTA bilaterally Gastrointestinal - NT / ND; +BS; No rebound or guarding - No CVA tenderness Extremities - no calf tenderness bilaterally, no swelling Musculoskeletal - Normal inspection, normal ROM Skin - Warm/Dry. Multiple abrasions to the feet, anterior aspect of legs and arms. Multiple hematomas to the back and right chest. No jaundice. No pallor. Neurological - Alert & oriented x3. Psychological - Appropriate affect Results Labs 11/30/23 17:34 11/30/23 17:34 Labs: Laboratory Results - last 24 hr 11/30/23 11/30/23 17:34 17:35 MCV 86.3 MCH 30.8 MCHC 35.7 RDW 12.4 Plt Count 128 L MPV 12.6 H Immature Gran % (Auto) 0.7 H Neut % (Auto) 70.4 Lymph % (Auto) 17.9 L [place] % (Auto) 10.5 Eos % (Auto) 0.4 Baso % (Auto) 0.1 Lymph # (Auto) 1.3 [place] # (Auto) 0.7 Eos # (Auto) 0.0 Baso # (Auto) 0.0 Abs Immat Gran (auto) 0.05 H Absolute Neuts (auto) 4.9 Absolute Nucleated RBC 0.000 Nucleated RBC % (auto) 0.0 PT 12.3 INR 1.0 Anion Gap 11 L Estim Creat Clear Calc 108.5 Estimated GFR > 60 Random Glucose 94 Calcium 9.6 D Magnesium 2.5 Total Bilirubin 1.4 H AST 759 H ALT 268 H Alkaline Phosphatase 58 Total Creatine Kinase 20903 H B-Natriuretic Peptide 23 Total Protein 7.5 Albumin 4.1 Ethyl Alcohol < 10 Influenza Type A (PCR) NEGATIVE Influenza Type B (PCR) NEGATIVE RSV RNA Qual (PCR) NEGATIVE SARS-CoV-2 RNA (RT-PCR) NEGATIVE Imaging Radiologist's Impressions: Impressions Ribs w/Chest X-Ray 11/30/23 16:54 IMPRESSION: 1. Age-indeterminate right 11th rib fractures, and left lateral 11th rib fracture, recommend correlation with point tenderness. Remote appearing right seventh and sixth rib fractures. No pneumothorax. 2. Symmetric nodular opacities overlying the lung bases, which may reflect nipple shadows, recommend confirmation with oblique radiographs of the chest with nipple markers. Head CT 11/30/23 17:15 IMPRESSION: 1. Stable Age-related involutional changes and microvascular disease. 2. No acute hemorrhage, mass affect, shift or acute intracranial pathology. Assessment and Plan (1) Rhabdomyolysis: Qualifiers: Rhabdomyolysis type: traumatic Encounter type: initial encounter Qualified Code(s): T79.6XXA - Traumatic ischemia of muscle, initial encounter Status: Acute (2) Seizure disorder: Status: Acute (3) Alcoholic liver disease: Status: Acute Plan Thomas Winters is a 63 years old man admitted with: 1. Rhabdomyolysis likely secondary to seizures trauma. Admit to hospitalist service. Continue IV fluids. Total CK monitoring daily. Check UA and myoglobin in urine. 2. Elevated transaminates likely secondary to #1. Continue to monitor. 3. Seizure disorder. Continue levetiracetam 750 mg PO bid. Seizures precautions. 4. Elevated bilirubin, likely due to CLD. Improving from prior. Continue to monitor. 5. Thrombocytopenia, chronic. secondary to CLD. Continue to monitor. 6. Right 6th, 7th ribs fracture, acute. Acetamnophen as needed. 7. History of CLD and portal hypertension, compensated. VTE prophylaxis: SCDs only (no pharmacological tx ordered due to recent hx of trauma + thrombocytopenia. Code Status: Full. Quality Stroke Does the patient have a stroke diagnosis?: No VTE Prior VTE?: No VTE Risk Level:: Medical - moderate - high VTE Device Contraindication: N/A - Device Ordered VTE Drug Contraindication: Treatment Not Indicated
[2023-11-30 21:11] VITALS: BP 111/69; PULSE 86; RESP 15; TEMP 36.6; O2SAT 99
[2023-11-30] MEDS: 0.9 % Sodium Chloride 1,000 ML 150 ML IVCONT (23:07)
[2023-12-01 06:08] LABS: Appearance Urine Clear; Color Urine Dark Yellow; Glucose Urine UA Negative (Negative); Leukocyte Esterase Urine Negative (Negative); Nitrite Urine Negative (Negative); PH 5.5 (5.0-9.0); Specific Gravity - Urine 1.015 (1.005-1.025); UMIC TRIGGER UACC YES; Urine Blood Large (3+) (Negative); Urine Ketones Trace mg/dL (Negative); Urine Protein 30 (1+) mg/dL (Neg-Trace)
[2023-12-01 06:14] LABS: Amphetamine Screen Urine Not Detected (Not Detect); Barbiturates, Urine Not Detected (Not Detect); Benzodiazepines Screen Urine Not Detected (Not Detect); Cannabinoid Screen Urine POSITIVE (Not Detect); Cocaine Screen Urine Not Detected (Not Detect); Fentanyl, urine Not Detected (Not Detect); Opiate Screen Urine Not Detected (Not Detect); Phencyclidine Screen Urine Not Detected (Not Detect)
[2023-12-01 06:20] LABS: Bacteria Urine None Seen (None Seen); Hyaline Casts Urine 0-2 /LPF (0-2); Other Crystals Urine Present; RBC Urine 0-2 /HPF (0-2); Squamous Epithelial Cell Urine 0-2 /HPF (0-2); WBC Urine 0-5 /HPF (0-5)
[2023-12-01 06:28] VITALS: BP 105/64; PULSE 72; RESP 17; TEMP 36.8; O2SAT 95
[2023-12-01 06:28] LABS: MANUAL DIFF FLAG NO
[2023-12-01 06:34] LABS: Basophils Percent Auto 0.4 % (0-2); Eosinophils Percent Auto 0.8 % (0-4); Hematocrit 36.6 % (42.0-52.0); Hemoglobin 12.7 g/dl (14.0-18.0); Imm Gran Abs Auto 0.03 X10*3/uL (0.00-0.03); Imm Gran Pct Auto 0.6 % (0.0-0.4); Lymphocytes Absolute Auto 1.4 X10*3/uL (1.2-4.9); Lymphocytes Percent Auto 26.8 % (20-40); Mean Corpuscular HGB Conc 34.7 g/dl (31.0-36.0); Mean Corpuscular Hemoglobin 30.7 pg (27.0-33.0); Mean Corpuscular Volume 88.4 fL (80.0-98.0); Mean Platelet Volume 12.8 fL (9.4-12.4); Monocytes Absolute Auto 0.6 X10*3/uL (0.1-1.2); Neutrophils Percent Auto 59.4 % (45-73); Platelet Count 114 X10*3/uL (160-400); Red Blood Count 4.14 X10*6/uL (4.60-5.80); Red Cell Distribution Width 12.3 % (11.0-16.0); White Blood Count 5.1 X10*3/uL (4.8-10.8)
[2023-12-01 08:48] VITALS: BP 111/75; PULSE 72; RESP 20; TEMP 36.2; O2SAT 98
[2023-12-01] MEDS: levETIRAcetam 250 MG TABLET 750 MG PO (08:57)
[2023-12-01] MEDS: 0.9 % Sodium Chloride Flush 3 ML SYRINGE IVFLUSH ×2 (08:57→19:59)
--- NOTE | 2023-12-01 09:00 | PC.NURSE ---
Assumed care of patient at this time
[2023-12-01] MEDS: 0.9 % Sodium Chloride 1,000 ML 150 ML IVCONT ×3 (09:02→21:35)
[2023-12-01 09:06] VITALS: BMI 25.3
--- NOTE | 2023-12-01 10:31 | PM.CNNEP ---
History of Present Illness Reason for Consult Consult date: 12/02/23 Reason for consult: Rhabdomyolysis Chief Complaint Chief complaint: Rhabdomyolysis Review of Systems Review of Systems Yes Unobtainable due to mental status [facility] Past Medical History Medical History DJD (degenerative joint disease), lumbar Esophageal varices Ascites Alcoholic liver disease Acquired pancytopenia Paroxysmal atrial flutter Hepatic failure due to alcoholism Status epilepticus, generalized convulsive Cholestasis Portal hypertension Delirium tremens Alcohol withdrawal seizure Alcohol withdrawal hallucinosis Acidosis, lactic Esophageal varices determined by endoscopy Hemochromatosis Alcoholic cirrhosis of liver Cataracts, bilateral History of gastric ulcer Gout Hyponatremia Elevated bilirubin Acute hyponatremia Ulcer Cirrhosis Surgical History Surgical History H/O right inguinal hernia repair Hx of tonsillectomy Social History Social History Household Members: None Housing: Apartment Housing Other:: TRAILOR Do you presently have visiting nurse or other home services: No Alcohol intake: current Alcohol intake frequency: former alcohol drinker Alcohol type: beer Comment: sitter at bedside Patient Tobacco Use Status: Tobacco use Unknown service: No Current occupational status: unemployed and disabled Meds Allergies Allergy/AdvReac Type Severity Reaction Status Date / Time bee stings had shots Allergy Unknown Abdominal Uncoded 08/31/23 15:07 Pain Active Medications: Current Medications Acetaminophen (Acetaminophen Supp 650 Mg Supp.Rect) 650 mg [place] Q6H PRN PRN Reason: Pain, Mild (Pain Scale 1-3) Sodium Chloride (Ns) 1,000 mls @ 150 mls/hr IVCONT .Q6H40M [facility] Last Admin: 12/01/23 09:02 Dose: 150 mls/hr Levetiracetam (Levetiracetam 500 Mg Tablet) 500 mg PO BID [facility] Melatonin (Melatonin 3 Mg Tablet) 3 mg PO BEDTIME PRN PRN Reason: Insomnia Sodium Chloride (0.9 % Sodium Chloride Flush 3 Ml Syringe) 3 ml IVFLUSH QSHIFT [facility] Last Admin: 12/01/23 08:57 Dose: 3 ml Home Medications Medication Instructions Recorded Confirmed Last Taken Type No Known Home Meds 08/31/23 11/30/23 Unknown History Physical Exam Vital Signs: Last Vital Signs Temp 97.1 F 12/01/23 08:48 Pulse 72 12/01/23 08:48 Resp 20 12/01/23 08:48 BP 111/75 12/01/23 08:48 Pulse Ox 98 12/01/23 08:48 O2 Del Method Room Air 12/01/23 08:48 BMI result Body Mass Index 25.3 Comfortable. Mucosa dry Neck is supple no JVD. Lungs few scattered rhonchi no rales. Heart S1-S2 heard no gallop. Extremities no edema. Bruising in the lower extremities Results Lab Results 12/01/23 05:32 12/02/23 06:26 Lab results: Chemistry 11/30/23 17:34 Sodium 134 L Potassium 3.9 Carbon Dioxide 26 BUN 20 H Creatinine 0.81 Calcium 9.6 D Hematology 11/30/23 12/01/23 17:34 05:32 WBC 7.0 5.1 Hgb 14.0 12.7 L Plt Count 128 L 114 L Urinalysis 12/01/23 05:58 Urine Color Dark Yellow Urine Appearance Clear Urine pH 5.5 Ur Specific [place] 1.015 Urine Protein 30 (1+) H Urine Glucose (UA) Negative Urine Ketones Trace Urine Blood Large (3+) H Urine Nitrite Negative Ur Leukocyte Esterase Negative Urine RBC 0-2 Urine WBC 0-5 Ur Squamous Epith Cells 0-2 Hyaline Casts 0-2 Assessment and Plan (1) Rhabdomyolysis: Qualifiers: Encounter type: initial encounter Rhabdomyolysis type: traumatic Qualified Code(s): T79.6XXA - Traumatic ischemia of muscle, initial encounter Status: Acute Plan 63-year-old man with abnormalities with essentially normal renal function. Currently nonoliguric. Urinalysis showed 3+ blood with no significant RBCs suggestive of myoglobinuria. At this point I will recommend to continue IV hydration. Keep intake and output Monitor urine output. Monitor serum calcium potassium and creatinine and closely. Still follow along with the team. Procedures Date of Service Date of Service: 12/02/23
[2023-12-01 10:57] LABS: Alanine Aminotransferase 215 U/L (0-40); Albumin Level 3.4 g/dL (3.5-5.0); Alkaline Phosphatase 46 U/L (39-117); Anion Gap 9 (12-20); Aspartate Amino Transferase 534 U/L (5-37); Blood Urea Nitrogen 15 mg/dL (9-16); Calcium 8.7 mg/dL (8.4-10.2); Carbon Dioxide 26 mmol/L (22-29); Chloride 109 mmol/L (96-108); Creatinine Clr Calc Pharmacy 117.2; Estimated Glomerular Filt Rate > 60; Glucose Random 82 mg/dL (60-115); Magnesium 2.5 mg/dL (1.6-2.6); Potassium 4.1 mmol/L (3.3-5.1); Sodium 140 mmol/L (135-145); Total Protein 6.3 g/dL (6.5-8.0)
[2023-12-01 11:36] VITALS: BP 119/78; PULSE 78; RESP 20; TEMP 36.8; O2SAT 100
--- NOTE | 2023-12-01 12:11 | HO.PM.IMPN ---
Subjective Subjective Date of Service: 12/01/23 Interval History: Being followed for generalized weakness, rhabdomyolysis, patient unable to recall what happened to him but yesterday morning he found himself in generalized pain with multiple abrasions on the body, he called his brother who brought him to the hospital, he noted to have tongue bite, question had a seizure since not taking his seizure medication for last several months, denies use of alcohol for last 2-3 years. This morning complaining of generalized discomfort, no shortness of breath, bilateral chest discomfort, denies bowel bladder issues, tolerating diet no nausea, no vomiting,, no fevers, no chills. Review of Systems All other system reviewed and negative. Physical Exam Vital Signs: Vital Signs: Last Vital Signs Temp 98.2 F 12/01/23 11:36 Pulse 78 12/01/23 11:36 Resp 20 12/01/23 11:36 BP 119/78 12/01/23 11:36 Pulse Ox 100 12/01/23 11:36 O2 Del Method Room Air 12/01/23 11:36 BMI result Body Mass Index 25.3 Const: Other: General awake alert, in no acute distress. Neck supple no JVD. CVS regular rate rhythm, Respiratory lungs clear to auscultation, no respiratory distress, no wheeze, no rhonchi. Gastrointestinal abdomen soft, non tender, bowel sounds audible, no guarding , no rigidity. Extremities no edema. Neuro nonfocal Skin multiple abrasions both feet legs and upper extremities, bruising at back Neuro awake alert, no focal deficit, speech clear Objective Data Active Medications Acetaminophen (Acetaminophen Supp 650 Mg Supp.Rect) 650 mg [place] Q6H PRN PRN Reason: Pain, Mild (Pain Scale 1-3) Sodium Chloride (Ns) 1,000 mls @ 150 mls/hr IVCONT .Q6H40M [facility] Last Admin: 12/01/23 09:02 Dose: 150 mls/hr Documented By: RYAN Levetiracetam (Levetiracetam 500 Mg Tablet) 500 mg PO BID [facility] Melatonin (Melatonin 3 Mg Tablet) 3 mg PO BEDTIME PRN PRN Reason: Insomnia Sodium Chloride (0.9 % Sodium Chloride Flush 3 Ml Syringe) 3 ml IVFLUSH QSHIFT [facility] Last Admin: 01/09/24 08:57 Dose: 3 ml Documented By: RYAN Labs 12/01/23 05:32 12/01/23 09:59 Labs: Laboratory Results - last 24 hr 11/30/23 11/30/23 12/01/23 17:34 17:35 05:32 MCV 86.3 88.4 MCH 30.8 30.7 MCHC 35.7 34.7 RDW 12.4 12.3 Plt Count 128 L 114 L MPV 12.6 H 12.8 H Immature Gran % (Auto) 0.7 H 0.6 H Neut % (Auto) 70.4 59.4 Lymph % (Auto) 17.9 L 26.8 [place] % (Auto) 10.5 12.0 H Eos % (Auto) 0.4 0.8 Baso % (Auto) 0.1 0.4 Lymph # (Auto) 1.3 1.4 [place] # (Auto) 0.7 0.6 Eos # (Auto) 0.0 0.0 Baso # (Auto) 0.0 0.0 Abs Immat Gran (auto) 0.05 H 0.03 Absolute Neuts (auto) 4.9 3.0 Absolute Nucleated RBC 0.000 0.000 Nucleated RBC % (auto) 0.0 0.0 Hold Purple Top PT 12.3 INR 1.0 Anion Gap 11 L Estim Creat Clear Calc 108.5 Estimated GFR > 60 Random Glucose 94 Calcium 9.6 D Magnesium 2.5 Total Bilirubin 1.4 H AST 759 H ALT 268 H Alkaline Phosphatase 58 Total Creatine Kinase 73197 H B-Natriuretic Peptide 23 Total Protein 7.5 Albumin 4.1 Urine Color Urine Appearance Urine pH Ur Specific [place] Urine Protein Urine Glucose (UA) Urine Ketones Urine Blood Urine Nitrite Ur Leukocyte Esterase Urine RBC Urine WBC Ur Squamous Epith Cells Other Crystals Urine Bacteria Hyaline Casts Urine Opiates Screen Urine Fentanyl Screen Ur Barbiturates Screen Ur Phencyclidine Scrn Ur Amphetamines Screen U Benzodiazepines Scrn Urine Cocaine Screen U Marijuana (THC) Screen Ethyl Alcohol < 10 Influenza Type A (PCR) NEGATIVE Influenza Type B (PCR) NEGATIVE RSV RNA Qual (PCR) NEGATIVE SARS-CoV-2 RNA (RT-PCR) NEGATIVE 12/01/23 12/01/23 05:58 09:59 MCV MCH MCHC RDW Plt Count MPV Immature Gran % (Auto) Neut % (Auto) Lymph % (Auto) [place] % (Auto) Eos % (Auto) Baso % (Auto) Lymph # (Auto) [place] # (Auto) Eos # (Auto) Baso # (Auto) Abs Immat Gran (auto) Absolute Neuts (auto) Absolute Nucleated RBC Nucleated RBC % (auto) Hold Purple Top SEE NOTE PT INR Anion Gap 9 L Estim Creat Clear Calc 117.2 Estimated GFR > 60 Random Glucose 82 Calcium 8.7 D Magnesium 2.5 Total Bilirubin 1.0 AST 534 H ALT 215 H Alkaline Phosphatase 46 Total Creatine Kinase 71394 H B-Natriuretic Peptide Total Protein 6.3 L Albumin 3.4 L Urine Color Dark Yellow Urine Appearance Clear Urine pH 5.5 Ur Specific [place] 1.015 Urine Protein 30 (1+) H Urine Glucose (UA) Negative Urine Ketones Trace Urine Blood Large (3+) H Urine Nitrite Negative Ur Leukocyte Esterase Negative Urine RBC 0-2 Urine WBC 0-5 Ur Squamous Epith Cells 0-2 Other Crystals Present Urine Bacteria None Seen Hyaline Casts 0-2 Urine Opiates Screen Not Detected Urine Fentanyl Screen Not Detected Ur Barbiturates Screen Not Detected Ur Phencyclidine Scrn Not Detected Ur Amphetamines Screen Not Detected U Benzodiazepines Scrn Not Detected Urine Cocaine Screen Not Detected U Marijuana (THC) Screen POSITIVE H Ethyl Alcohol Influenza Type A (PCR) Influenza Type B (PCR) RSV RNA Qual (PCR) SARS-CoV-2 RNA (RT-PCR) Assessment and Plan (1) Rhabdomyolysis: Status: Acute (2) Seizure disorder: Status: Acute Plan 63 year-old gentleman with past medical history significant for alcoholic liver disease, seizure disorder, portal hypertension, gastric varices who came to [facility] due to generalized pain, and possible seizure noted to have rhabdomyolysis elevated LFTs 1. Rhabdomyolysis Multiple skin abrasions that looks old likely being on the floor for some time after a seizure Patient denies fall/no trauma Continue IV fluids monitor CK/BMP Nephrology consult 2. 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 Seizure disorder, known history of epilepsy. Will resume Keppra 500 mg b.i.d. continue seizure precautions, recommend compliance with outpatient neurology follow-up 4. Thrombocytopenia, chronic. secondary to CLD. Continue to monitor. 5. Right 6th, 7th ribs fracture, acute. Likely due to fall/add incentive spirometry ,place on analgesics VTE prophylaxis: SCDs only (no pharmacological tx ordered due to recent hx of trauma + thrombocytopenia. Code Status: Full. Patient requires continued inpatient hospitalization for treatment of acute rhabdomyolysis on IV fluids treatment cannot be given in less acute setting. Quality Stroke Does the patient have a stroke diagnosis?: No VTE Prior VTE?: No VTE Risk Level:: Medical - moderate - high VTE Device Contraindication: N/A - Device Ordered VTE Drug Contraindication: Treatment Not Indicated
[2023-12-01] MEDS: oxyCODONE HCl Immed Release 5 MG TABLET PO ×2 (14:14→20:17)
--- NOTE | 2023-12-01 14:14 | MHC.CM.PN ---
EMR REVIEWED, PT ADMITTED W/RHABDOMYOLYSIS, CM MET W/PT WHO REPORTS HE LIVES ALONE, REPORTS HE IS INDEP W/ALL CARE, DENIES USE OF DME/SERVICES AND REPORTS GOAL FOR DC IS HOME SELF CARE, PT ALSO REPORTS HE WOULD LIKE A NEW PCP APPT AND CM CLERK TRAVEL RESERVATIONS MADE AN APPT FOR PT W/OLD PCP FAIZA STARKEY FOR 12/04 AT12:30pm HE HAS NOT BEEN SEEN IN OFFICE SINCE FEBRUARY 2022, CM WILL RESCHEDULE IF PT IS NOT DISCHARGED BY 12/03. HCP ON FILE VERIFIED AND PT WILL HAVE NEW PT APPT W/OLD PCP FAIZA STARKEY ON 12/04.
[2023-12-01 16:00] VITALS: BP 114/64; PULSE 71; RESP 16; TEMP 36.7; O2SAT 96
[2023-12-01 19:17] VITALS: BP 106/65; PULSE 78; RESP 20; TEMP 36.2; O2SAT 98
[2023-12-01] MEDS: levETIRAcetam 500 MG TABLET PO (19:57)
[2023-12-02] VITALS: BP 113/79; PULSE 68; RESP 18; TEMP 36.9; O2SAT 98
[2023-12-02 03:23] VITALS: BP 113/65; PULSE 80; RESP 20; TEMP 36.5; O2SAT 98
[2023-12-02] MEDS: 0.9 % Sodium Chloride 1,000 ML 150 ML IVCONT ×2 (03:30→08:06)
[2023-12-02 07:06] VITALS: BP 114/72; PULSE 65; RESP 14; TEMP 36.2; O2SAT 98
[2023-12-02 07:22] LABS: Alanine Aminotransferase 178 U/L (0-40); Albumin Level 3.2 g/dL (3.5-5.0); Alkaline Phosphatase 42 U/L (39-117); Anion Gap 13 (12-20); Aspartate Amino Transferase 379 U/L (5-37); Bilirubin Direct 0.3 mg/dL (0.0-0.5); Blood Urea Nitrogen 11 mg/dL (9-16); Calcium 8.4 mg/dL (8.4-10.2); Carbon Dioxide 21 mmol/L (22-29); Chloride 110 mmol/L (96-108); Creatinine Clr Calc Pharmacy 135.2; Estimated Glomerular Filt Rate > 60; Glucose Random 82 mg/dL (60-115); Potassium 3.9 mmol/L (3.3-5.1); Sodium 140 mmol/L (135-145); Total Protein 5.9 g/dL (6.5-8.0)
[2023-12-02] MEDS: levETIRAcetam 500 MG TABLET PO (08:05)
[2023-12-02] MEDS: 0.9 % Sodium Chloride Flush 3 ML SYRINGE IVFLUSH (08:05)
[2023-12-02 11:15] VITALS: BP 136/93; PULSE 88; RESP 14; TEMP 36.3; O2SAT 99
--- NOTE | 2023-12-02 11:39 | PM.DS ---
DS: Providers Provider Date of Service: 12/02/23 Date of admission: 11/30/23 20:13 Primary care physician: Zulay Sanchez MD Consults: 12/01/23 10:16 Consult to Nephrology Routine Consulting Provider: [facility] Reason for consultation: toshiao Has provider been notified: No DS: Diagnosis Discharge Diagnosis (1) Rhabdomyolysis: Status: Acute DS: Summary Hospital Course Hospital Course: History of presenting illness: Date of Service: 11/30/23 Chief Complaint: Seizures Thomas Winters is a 63 years old man with past medical history significant for chronic liver disease, portal hypertension and seizure disorder presents to the emergency department complaining of inability to remember anything over the last few days and believes he had seizure at home couple of days ago. He is complaining of generalized muscle weakness and right-sided chest pain with inspiration. He reported tongue bitting. He does have multiple abrasions a bruising to his extremities and back. He also complained of head trauma. He currently denies any headache, dizziness or acute visual disturbance. There is no reported fever or chills. He denies any chest pain or cough. He denies any gastrointestinal symptom. He c/o increased urinary frequency and straining with urination without pain. He did not report dark or bloody urine. He mentioned that he has no pain taking his seizure medications for a very long time and is not having any medical follow-up as an outpatient. Patient lives alone. He denied current alcohol abuse; he quit several years ago. He denied tobacco smoking reported illicit drug use. He smokes marihuana in occasions. in the ED, he was found to have stable vital signs. Blood work is remarkable for elevated CK (42,576) and transaminase. Bilirubin slightly elevated 1.4 (improving from prior). Renal function is normal. Head CT scan showed no acute intracranial abnormality. CXR with ribs showed age-indeterminate right 11th rib fractures, and left lateral 11th rib fracture + emote appearing right seventh and sixth rib fractures. No pneumothorax. Symmetric nodular opacities overlying the lung bases. of the chest with nipple markers. Hospital course: 63 year-old gentleman with past medical history significant for alcoholic liver disease, seizure disorder, portal hypertension, gastric varices who came to [facility] due to generalized pain, and possible seizure noted to have rhabdomyolysis elevated LFTs Patient admitted to [facility] due to generalized pain, likely fell due to seizure, patient unable to recall any trauma ,or mechanical fall, in the ED was noted to have acute rhabdomyolysis, acute right and left 11th rib fractures and removed right 6th and 7th rib fractures patient treated with IV fluids CPK improved significantly renal function remains stable, patient was seen in consultation by Nephrology since patient is tolerating diet with no nausea no vomiting and able to drink fluids he is being discharged home with recommendation to have compliance with and antiepileptic medications. Discharge diagnosis 1. Acute Rhabdomyolysis recommend to drink plenty of fluids and outpatient follow-up with primary care physician 2. Elevated transaminitis/history of end-stage liver disease due to past alcohol abuse, no acute decompensation recommend outpatient GI follow-up. 3. Seizure disorder, known history of epilepsy. started on Keppra 500 mg b.i.d. recommend outpatient follow-up with Neurology. 4. Thrombocytopenia, chronic. secondary to CLD. Continue to monitor. 5. Acute right and left 11th rib fractures and remote Right 6th, 7th ribs fracture Likely due to fall, recommend to take Tylenol/Motrin with food with [id number] pain total lumbar 12 oxycodone given for severe pain. Patient evaluated by Physical therapy and being discharged home PT services. Time Attestation Discharge coordination time: Greater than 30 minutes Quality: Safe Use of Opioids Does Pt have an Active Cancer Diagnosis on the Problem List?: No Quality: Stroke Does the patient have a stroke diagnosis?: No Physical Exam Vital Signs: Vital Signs: Last Vital Signs Temp 97.4 F 12/02/23 11:15 Pulse 88 12/02/23 11:15 Resp 14 12/02/23 11:15 BP 136/93 H 12/02/23 11:15 Pulse Ox 99 12/02/23 11:15 O2 Del Method Room Air 12/02/23 11:15 BMI result Body Mass Index 25.3 Const: Other: General awake alert, in no acute distress. Neck supple no JVD. CVS regular rate rhythm, Respiratory lungs clear to auscultation, no respiratory distress, no wheeze, no rhonchi. Gastrointestinal abdomen soft, non tender, bowel sounds audible, no guarding , no rigidity. Extremities no edema. Neuro nonfocal Skin multiple abrasions both feet legs and upper extremities improving, bruising at back Neuro awake alert, no focal deficit, speech clear DS: Data Data Completed and Pending Completed studies during hospitalization [Text1]: Procedures Detoxification Services for Substance Abuse Treatment (10/08/20) Insertion of Endotracheal Airway into Trachea, Via Natural or Artificial Opening Endoscopic (10/08/20) Insertion of Infusion Device into Lower Vein, Percutaneous Approach (10/08/20) Respiratory Ventilation, Less than 24 Consecutive Hours (10/08/20) Labs on day of discharge: Laboratory Results - last 24 hr 12/02/23 06:26 Sodium 140 Potassium 3.9 Chloride 110 H Carbon Dioxide 21 L Anion Gap 13 BUN 11 Creatinine 0.65 Estim Creat Clear Calc 135.2 Estimated GFR > 60 Random Glucose 82 Calcium 8.4 Total Bilirubin 1.0 Direct Bilirubin 0.3 AST 379 H ALT 178 H Alkaline Phosphatase 42 Total Creatine Kinase 90721 H Total Protein 5.9 L Albumin 3.2 L Discharge Plan Discharge Anticipated Discharge Date/Time: 12/02/23 11:33 Patient Disposition: Home Health Service Discharge Diagnosis: Acute rhabdomyolysis Seizure disorder Acute right and left 11th rib fractures rib fractures Referrals: Zulay Sanchez MD [Primary Care Provider] - 12/04/23 1:30 pm (You have an appointment scheduled. If you need to reschedule please call the office.) Discharge Medications: New levetiracetam 500 mg Tablet 500 mg PO BID Qty: 60 0RF oxycodone 5 mg Tablet 5 mg PO Q6H PRN (Reason: Pain, Severe (Pain Scale 7-10)) Qty: 12 0RF Rx Instructions: Partial Fill upon patient request. Discharge Orders: Discharge Order (Routine); Ordered 12/02/23 Ordered By: Kemi Paulino Diet: Advance to usual diet Activity on Discharge: As tolerated Stand Alone Forms: Patient Portal Discharge page Care Plan Goals: Strongly recommend compliance with home medications Take oxycodone 1 tablet as needed every 6 hours for severe pain, take Tylenol/Motrin with food for tcvr-[id number]-[id number] pain. Health Concerns: Seizure disorder Plan of Treatment: Outpatient follow-up with primary care physician call for appointment outpatient follow-up with Neurology call for appointment. Assessment: As above
--- NOTE | 2023-12-02 11:45 | P.F2F_ITS ---
Service Date Service Date: 12/02/23 Encounter Date of encounter: 12/02/23 Reasons for Services Signs and symptoms assessed: Acute rhabdomyolysis/seizure disorder Reason for physical therapy: home safety and mobility Homebound: Leaving the home is medically contraindicated at this time without the asist of a device and/or another person due th the listed conditions above and below. Reason homebound: leg weakness Certification: Based on the above findings, I certify that this patient is confined to the home and needs intermittent senior living care, physical therapy and/or speech therapy, or continues to need occupational therapy. The patient is under my car e, and I have initiated the establishment of the plan of care. The patient will be followed by a physician who will periodically review the plan of care. Time Spent With Patient Time: Total time managing care of this patient today ____ minutes.
--- NOTE | 2023-12-02 12:30 | MHC.CM.PN ---
Pt has been medically cleared for DC. He will go home via family transport. Referrals were submitted for home PT, none accepting with his insurance as of yet, and pt has not been active with his PCP, he has a new one that he will see this coming week.
--- NOTE | 2023-12-02 15:39 | MHC.CM.PN ---
Skilled home care services to be provided by [facility].
== END 2023-12-02 12:02 | disposition home health service (06) | DRG 351 ==
LOC: HO.ED 18:37 → HO.EDOVER 20:54 → HO.IMC 12-01 07:19
PROVIDERS: Nurse Practitioner Family; Admitting Provider Internal Medicine; Emergency Provider Internal Medicine; PCP Internal Medicine; Visit Provider Hospitalist
DX: T79.6XXA Traumatic ischemia of muscle, initial encounter (principal); K76.6 Portal hypertension; D69.59 Other secondary thrombocytopenia; S22.43XA Multiple fractures of ribs, bilateral, initial encounter for closed fracture; F10.11 Alcohol abuse, in remission; K70.9 Alcoholic liver disease, unspecified; W19.XXXA Unspecified fall, initial encounter; Z20.822 Contact with and (suspected) exposure to COVID-19; G40.909 Epilepsy, unspecified, not intractable, without status epilepticus
CPT/HCPCS: 0241U; 36415; 70450; 71111; 80048; 80053; 80076; 80307; 81001; 82550; 83735; 83874; 83880; 85025; 85610; 97162; 99285; J1953

== ENCOUNTER → 2023-11-30 20:13 | Outpatient (BNV) | payer OTHER, SELFPAY | PROVIDERS: Admitting Provider Internal Medicine; Emergency Provider Internal Medicine; PCP Internal Medicine; Visit Provider Internal Medicine Hypertension Specialist | DX: T79.6XXA Traumatic ischemia of muscle, initial encounter (principal) | CPT/HCPCS: 99221 ==

== ENCOUNTER → 2023-11-30 20:13 | Outpatient (BNV) | payer OTHER, SELFPAY | PROVIDERS: Admitting Provider Internal Medicine; Emergency Provider Internal Medicine; Visit Provider Internal Medicine | DX: G40.909 Epilepsy, unspecified, not intractable, without status epilepticus (principal); K70.9 Alcoholic liver disease, unspecified; T79.6XXA Traumatic ischemia of muscle, initial encounter | CPT/HCPCS: 99223; 99233; 99239; G0180 ==

== ENCOUNTER 2023-12-04 13:02 | Outpatient (AMB) | payer OTHER, SELFPAY ==
--- NOTE | 2023-12-04 13:02 | A.OFFPC_ITS ---
Intake Visit Reasons: F/U Inpatient~[phone] Allergies bee stings had shots Allergy (Unknown, Uncoded 08/31/23 15:07) Abdominal Pain Medication List - Last Reconciled 12/04/23 by Zulay Sanchez MD levetiracetam 500 mg PO BID Tobacco use date assessed: 12/04/23 Dental Screening Dental Screen Date: 12/04/23 Did you have a dental visit in the last 12 months?: No Did you have a dental problem in the last 6 months where you did not have access to dental care?: No Was dental information given to patient?: No HPI F/U Inpatient~[phone] HPI Details Patient is 63-year-old male this is a telemedicine conference to have hospital discharge follow-up [facility] dated 11/30/2023 Patient has a history of seizure disorder secondary to alcohol withdrawal, long history of alcohol abuse, esophageal varices, as visit to credit risk management director was 2020 He presented to emergency room after having a seizure Patient reported no alcohol drinking for the past 2 3 years In emergency room he found to have numerous abrasions and bruising on his body at different stages of healing Patient is taking no medication for seizures Patient had a head CT scan which showed no acute intracranial abnormality X-ray of chest revealed age indeterminate right and left 11th rib fracture consistent with point tenderness Remote right 7th and 6th rib fracture CBC showed pancytopenia consistent with baseline Metabolic profile showed elevated AST ALT at 759/268 which has gotten worse Today bili 1.4 CK was 42, 576 Patient received IV fluids and was admitted to medicine We the diagnosis of rhabdomyolysis His last set of labs was drawn December 01 patient is slightly anemic at hemoglobin of 12.7 Creatinine was 0.65 GFR more than 60 Electrolytes within normal limit AST 376 ALT 178 which improved His CPK was down to 10,966 Patient says that he is feeling better his ribs are no longer hurting He once again told me that he is no longer drinking alcohol Patient was notified to have repeated blood test done early next week so we can make sure his CPK levels are going down and his liver enzymes are getting better Meanwhile patient was also instructed to push as much fluid as he can. [facility] Medical History DJD (degenerative joint disease), lumbar Esophageal varices Ascites Alcoholic liver disease Acquired pancytopenia Paroxysmal atrial flutter Hepatic failure due to alcoholism Status epilepticus, generalized convulsive Cholestasis Portal hypertension Delirium tremens Alcohol withdrawal seizure Alcohol withdrawal hallucinosis Acidosis, lactic Esophageal varices determined by endoscopy Hemochromatosis Alcoholic cirrhosis of liver Cataracts, bilateral History of gastric ulcer Gout Hyponatremia Elevated bilirubin Acute hyponatremia Ulcer Cirrhosis Surgical History H/O right inguinal hernia repair Hx of tonsillectomy Social History Household Members: None Housing: Apartment Housing Other:: TRAILOR Do you presently have visiting nurse or other home services: No Alcohol intake: current Alcohol intake frequency: former alcohol drinker Alcohol type: beer Comment: sitter at bedside Patient Tobacco Use Status: Never used Tobacco e-Cigarette/Vaping Use: Never Used service: No Current occupational status: unemployed and disabled Cognitive needs: No Hearing needs: No Vision needs: No Questionnaire Thrive Questionnaire Date Thrive assessed: 12/01/23 AUDIT C Alcohol Use Questionnaire (AUDIT-C) 1. How often do you have a drink containing alcohol?: Never 3. How often do you have six or more drinks on one occasion?: Never Total Score: 0 Score Reviewed/Action Taken: Yes Review of Systems Const Denies chills and Denies fever(s) ENT Denies epistaxis and Denies nasal discharge Card Denies chest pain Resp Denies chest congestion, Denies cough and Denies hemoptysis GI Denies diarrhea and Denies nausea Skin/Breast Denies rash Neuro Reports no additional complaints Psych Reports no additional complaints Endo Reports no additional complaints Physical exam (Primary Care) Tobacco/Smoking Status: Tobacco use Status Tobacco use date assessed 12/04/23 12/04/23 13:04 Patient Tobacco Use Status Never used Tobacco 12/04/23 13:04 e-Cigarette/Vaping Use Never Used 12/04/23 13:04 Thrive Assessment: Date of Thrive Assessment Date Thrive assessed 12/01/23 12/04/23 13:04 Telehealth Telehealth Location of provider rendering services: practice address Location of patient: address on file Patient Identification confirmed using: Name, : Yes Telehealth method: video (Attempted) Patient verbally consented to treatment: Yes Patient verbally consented to billing insurance company: Yes Patient informed of any privacy concerns related to visit: Yes Assessment and Plan Assessment & Plan (1) Alcoholic liver disease: Code(s): K70.9 - Alcoholic liver disease, unspecified (2) Ascites: Code(s): R18.8 - Other ascites Qualifiers: Ascites type: due to alcoholic cirrhosis Qualified Code(s): K70.31 - Alcoholic cirrhosis of liver with ascites (3) Esophageal varices: Code(s): I85.00 - Esophageal varices without bleeding Qualifiers: Esophageal varices type: secondary Esophageal varices bleeding: without bleeding Qualified Code(s): I85.10 - Secondary esophageal varices without bleeding (4) Seizure disorder: Code(s): G40.909 - Epilepsy, unspecified, not intractable, without status epilepticus (5) Rhabdomyolysis: Code(s): M62.82 - Rhabdomyolysis Qualifiers: Encounter type: initial encounter Rhabdomyolysis type: traumatic Qualified Code(s): T79.6XXA - Traumatic ischemia of muscle, initial encounter Plan Patient is 63-year-old male this is a telemedicine conference to have hospital discharge follow-up [facility] dated 11/30/2023 Patient has a history of seizure disorder secondary to alcohol withdrawal, long history of alcohol abuse, esophageal varices, as visit to credit risk management director was 2020 He presented to emergency room after having a seizure Patient reported no alcohol drinking for the past 2 3 years In emergency room he found to have numerous abrasions and bruising on his body at different stages of healing Patient is taking no medication for seizures Patient had a head CT scan which showed no acute intracranial abnormality X-ray of chest revealed age indeterminate right and left 11th rib fracture consistent with point tenderness Remote right 7th and 6th rib fracture CBC showed pancytopenia consistent with baseline Metabolic profile showed elevated AST ALT at 759/268 which has gotten worse Today bili 1.4 CK was 42, 576 Patient received IV fluids and was admitted to medicine We the diagnosis of rhabdomyolysis His last set of labs was drawn December 01 patient is slightly anemic at hemoglobin of 12.7 Creatinine was 0.65 GFR more than 60 Electrolytes within normal limit AST 376 ALT 178 which improved His CPK was down to 10,966 Patient says that he is feeling better his ribs are no longer hurting He once again told me that he is no longer drinking alcohol Patient was notified to have repeated blood test done early next week so we can make sure his CPK levels are going down and his liver enzymes are getting better Meanwhile patient was also instructed to push as much fluid as he can. Orders: Orders Creatine Kinase Total Today G40.909 - Epilepsy, unspecified, not intractable, without status epilepticus, I85.00 - Esophageal varices without bleeding, K70.9 - Alcoholic liver disease, unspecified, M62.82 - Rhabdomyolysis, R18.8 - Other ascites Basic Metabolic Panel Today G40.909 - Epilepsy, unspecified, not intractable, without status epilepticus, I85.00 - Esophageal varices without bleeding, K70.9 - Alcoholic liver disease, unspecified, M62.82 - Rhabdomyolysis, R18.8 - Other ascites Complete Blood Count Auto Diff Today G40.909 - Epilepsy, unspecified, not intractable, without status epilepticus, I85.00 - Esophageal varices without bleeding, K70.9 - Alcoholic liver disease, unspecified, M62.82 - Rhabdomyolysis, R18.8 - Other ascites Liver Panel Today G40.909 - Epilepsy, unspecified, not intractable, without status epilepticus, I85.00 - Esophageal varices without bleeding, K70.9 - Alcoholic liver disease, unspecified, M62.82 - Rhabdomyolysis, R18.8 - Other ascites Coding Level of Care Code Tele Est Pt Level 4 (63540) Diagnoses Alcoholic liver disease K70.9 Ascites due to alcoholic cirrhosis K70.31 Ascites type: due to alcoholic cirrhosis Secondary esophageal varices without bleeding I85.10 Esophageal varices type: secondary Esophageal varices bleeding: without bleeding Seizure disorder G40.909 Traumatic rhabdomyolysis, initial encounter T79.6XXA Encounter type: initial encounter Rhabdomyolysis type: traumatic Time Spent (min) 32 Comment 7 minute pre visit, 17 minute with patient, 8 minute charting/coordination of care
== END 2023-12-04 15:58 | disposition home or self-care (01) ==
LOC: HO.HMGC 13:02
PROVIDERS: PCP Internal Medicine; Visit Provider Internal Medicine
DX: K70.9 Alcoholic liver disease, unspecified (principal); K70.31 Alcoholic cirrhosis of liver with ascites; I85.10 Secondary esophageal varices without bleeding; G40.909 Epilepsy, unspecified, not intractable, without status epilepticus; T79.6XXA Traumatic ischemia of muscle, initial encounter
CPT/HCPCS: 99214